=== PATIENT | female | born 1975 | race American Indian/Alaskan Native ===

== ENCOUNTER 2018-08-26 17:12 | Emergency (ER) | payer OTHER ==
[~2018-08-26] VITALS: Ht 160 cm; Wt 52.2 kg
[~2018-08-26 17:12] MED LIST: CIPRO500 MG PO; CLINDAMYCIN HC300 MG PO; FLAGYL500 MG PO; NORCO 5-325 TA1 EACH PO; PEPCID20 MG PO; REGLAN10 MG PO; SUBOXONE 4 MG-1 EACH SL; TRAMADOL HCL50 MG PO; TYLENOL EXTRA500 MG PO; VICODIN ES 7.51 EAC1 PO; WELLBUTRIN SR100 MG; ZOFRAN ODT8 MG PO
--- OUTSIDE RECORDS SUMMARY | 2018-08-26 17:16 | XMS ---
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 Details: CHERRIE Elopement at [facility] 06/05/2018 17:12 - Patient eloped before treatment completed. Details: LWRENETTA CRITERIA MET - Group Notification CARE PROVIDERS Mandeep DIAZ Internal Medicine Current PHONE: Unknown ESTRELLITA MONTENEGRO Registered Nurse: [facility] 06/14/2018-Current SONDRA PHONE: [phone] Mandeep DIAZ Primary Care Current PHONE: [phone] GETACHEW TYLER Primary Care Current PHONE: Unknown STEW CAMPOVERDE Primary Care [facility] PHONE: Unknown Sebastian has no Care Guidelines for this patient. Care History Medical/Surgical 06/14/2018 [facility] - PATIENT WAS SEEN IN [facility] ON 06/14/18. - PATIENT LEATHER PRODUCTION WORKER-OZZIE AT [facility] WILL TALK WITH PATIENT ABOUT ESTABLISHING WITH DR MONTENEGRO SINCE PATIENT WAS SEEN IN THE PAST BY THE PROVIDER. - PLEASE REFER PATIENT TO [facility] FOR ANY NON EMERGENT MEDICAL NEEDS. E.D. VISIT COUNT (12 MO.) 1 [facility] [place] [address] [facility] TOTAL 5 NOTE: Visits indicate total known visits. 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
== END 2018-08-26 20:20 | disposition home or self-care (01) ==
LOC: ED 17:12
DX: R51 Headache (principal); J45.909 Unspecified asthma, uncomplicated; F17.200 Nicotine dependence, unspecified, uncomplicated; Z88.6 Allergy status to analgesic agent; Z88.5 Allergy status to narcotic agent; Z88.8 Allergy status to other drugs, medicaments and biological substances; Z79.899 Other long term (current) drug therapy
CPT/HCPCS: 80053; 85025; 96361; 96374; 99284-25; J2550; J7030

== ENCOUNTER 2018-10-25 22:30 | Emergency (ER) | payer OTHER ==
[~2018-10-25] VITALS: Ht 160 cm; Wt 52.2 kg
--- OUTSIDE RECORDS SUMMARY | ~2018-10-25 | XMS | Encounter Summary ---
Demographics + + + | Address | [address] | | | [place] [address] | + + + | Home Phone [...] Organization | [facility] | | [...] Team Providers + +------+ + | Care Cabin Worker Name | Role | Phone | + +------+ + | Mandeep Gillespie MD | PCP | | + +------+ + Encounter Details +--------+ + + + + | Date | Type | Department | Care Team | Description | +--------+ + + + + | 08/11/ | Orders Only | [place] [facility] | Mandeep Gillespie, | | | 2017 | | [facility] | [address] [place] [address] | | | | | [facility] [address] | [place], [place] | | | | | [address] [place], | [address] | | | | | [place] [address] | [phone] | | | | | [phone] | | | +--------+ + + + [...] on file | | + + + as of this encounter Functional Status + [...] | | | + + + + as of this encounter Plan of Treatment Not on fileas of this encounter Visit Diagnoses Not on filein this encounter"
--- OUTSIDE RECORDS SUMMARY | ~2018-10-25 | XMS | Clinical Summary ---
Demographics + + + | Address | [address] | | | [place] [address] | + + + | Home Phone [...] Organization | [facility] | | | [...] Team Providers + +------+ + | Care Oracle Developer Name | Role | Phone | [...] ANR | + + + +--------+ + Current Medications + + +--------+---------+------+------+-------+ | Prescription | Sig. | Disp. | Refills | Star | End | Statu | | | | | | t | Date | s | | | | | | Date | | | + + +--------+---------+------+------+-------+ | topiramate | Take 1 tablet by [...] | | | | | + + +--------+---------+------+------+-------+ | | Take 1-2 tablets by | | | 01/2 | | Activ | | HYDROcodone-acetamin | mouth. | | | 12/02 | | e | | ophen (NORCO) 5-325 | | | | 18 | | | | mg per tablet | | | | | | | + + +--------+---------+------+------+-------+ | hydrOXYzine | Take 25 mg by mouth. | | | 08/0 | | Activ | | pamoate (VISTARIL) | | | | 220 | | e | | 25 mg capsule | | | | 12 | | | + + +--------+---------+------+------+-------+ | | Take 1 tablet by | | | | | Activ | | [id number] | mouth. | | | | | e | | PO | | | | | | | + + +--------+---------+------+------+-------+ | buPROPion | Take 1 tablet by | 90 | 5 | 08/15 | | Activ | | (WELLBUTRIN SR) 150 | mouth 3 times daily. | tablet | | 0/20 | | e | | mg 12 hr tablet | | | | 19 | | | + + +--------+---------+------+------+-------+ Active Problems + + + | Problem | Noted Date | + + + | Anxiety and depression | 06/23/2017 | + + + | Anxiety | 06/23/2017 | + + + | Dysthymic disorder | 06/23/2017 | + + + | Headache disorder | 06/16/2015 | + + + | Opiate addiction (HCC) | 10/25/2013 | + + + + [...] PELVIC PAIN, CHRONIC | | + +---+ Encounters +--------+ + + + + | Date | Type | Specialty | Care Team | Description | +--------+ + + + + | 08/24/ | Refill | | Mandeep Gillespie, | Medication Refill | | 2018 | | | MD | | +--------+ + + + + | 08/11/ | Orders Only | | Mandeep Gillespie, | | | 2017 | | | MD | | +--------+ + + + + from Last 3 Months Immunizations + + + + | Name [...] | + + + + + | PRIMARY CARE | | | | | OUTREACH-INTENSE | 6 | | | | RISK EVERY 3 MONTHS | | | | + + + + + | Vaccine: | | | | | Pneumococcal 19-64 | 5 | | | | (PPSV23 only) Medium | | | | | Risk (1 of 1 - | | | | | PPSV23) | | | | + + + + + | Vaccine: Influenza | | 06/19/2013 | | | (#1) | 8 | | | + + + + [...] Last 3 Months Insurance + +--------+ +--------+ +---------+ | Payer | Benefi | Subscriber | Type | Phone | Address | | | t Plan | ID | | | | | | / | | | | | | | Group | | | | | + +--------+ +--------+ +---------+ | [employer] | MODA | [id number] | Medica | +- | | | MEDICAID HMO | HEALTH | | id | [id number] | | | | MDCD | | | | | | | [place]MO [place] | | | | | + +--------+ +--------+ +---------+ | [facility] | IHS | [id number] | Indemn | | | | SERVICE | YELLOW | | ity | | | | | HAWK | | | | | + +--------+ +--------+ +---------+ | [employer]AN | MODA | [id number] | Medica | +- | | | MEDICAID HMO | HEALTH | | id | [id number] | | | | MDCD | | | | | | | [place]MO [place] | | | | | + +--------+ +--------+ +---------+ + +--------+ +--------+ + + | Guarantor Name | Accoun | Relation to | Date | Phone | Billing Address | | | t Type | Patient | of | | | | | | | | | | + +--------+ +--------+ + + | LIN BOYLE | Person | Self | [birth year] | Home: | [address] | | | al/Fam | | 1974 | +- | [place] [address] | | | randi | | | [phone] | | + +--------+ +--------+ + + | LIN BOYLE | Person | Self | [birth year] | Home: | [address] | | | al/Fam | | 1974 | [phone] | [place] [address] | | | randi | | | [address] | | + +--------+ +--------+ + +
--- OUTSIDE RECORDS SUMMARY | ~2018-10-25 | XMS | Clinical Summary ---
Demographics + + + | Address | [address] | | | [place] [address] | + + + | Home Phone | | + + + | Preferred Language | Unknown | + + + | Marital Status | Single | + + + | Denominational Affiliation | Unknown | + + + | Race | Unknown | + + + | Ethnic Group | Unknown | + + + Author + + + | Author | [facility] | + + + | Organization | [facility] | + + + | Address | Unknown | + + + | Phone | Unavailable | + + + Support + + + + + | Name | Relationship | Address | Phone | + + + + + | Marlena Castillo | ECON | [address] | | | | | [place] | | | | | [address] | | + + + + + | Gloria Oliveira | ECON | Unknown | | + + + + + | RudiKorey benito | ECON | Unknown | | + + + + + Care Team Providers + +------+ + | Care Public Health Registrar Name | Role | Phone | + [...] | | | | | (#1) | 8 | [...] +------+-------+ + | MEDICAID | [place] | [id number] | | | [address] | | | N | | | | [place] | | | [place] | | | | [address] | | | HOIST CYLINDER LOADER | | | | | + +--------+ [...] | Self | [birth year] | Home: | [address] | | | al/Fam | | 1975 | [phone] | [place] [address] | | | randi | | | [phone] | | + +--------+ +--------+ + +
--- OUTSIDE RECORDS SUMMARY | ~2018-10-25 | XMS | Encounter Summary ---
Demographics + + + | Address | [address] | | | [place] [address] | + + + | Home Phone [...] | Organization | [facility] | | | and [place] [...] Providers + +------+ + | Care Manager Administrative Name | Role | Phone | + [...] Medication Refill | | 2019 | | [facility] | [address] | | | | | MEDICAL CL[facility] [address] | [place], [place] | | | | | [address] [place], | [address] | | | | | [place] [address] | [phone] | | | | | [phone] | | | +--------+--------+ + + + [...]
--- OUTSIDE RECORDS SUMMARY | 2018-10-25 22:32 | XMS ---
PreManage Notification: JADEN BOYLE Security Db2 Dba Events 2 event(s) in the past 18 months Most recent security events: Elopement at [facility] 06/05/2018 17:12 - Patient eloped before treatment completed. Details: LWBS Elopement at [facility] 06/05/2018 17:12 - Patient eloped before treatment completed. Details: LWBS CRITERIA MET - Group Notification - [facility] - Has Care Guidelines - PDMP CARE PROVIDERS Mandeep DIAZ Internal Medicine Current PHONE: Unknown ESTRELLITA MONTENEGRO Registered Nurse: [facility] 06/14/2018-Current SONDRA PHONE: [phone] EMILY WHITEHEAD Primary [facility] Clemencia CHAIDEZITH PHONE: Unknown GETACHEW TYLER Primary Care Current PHONE: Unknown MARTY BAZAN Primary Care [facility] PHONE: Unknown Sebastian has no Care Guidelines for this patient. Care History Medical/Surgical 06/14/2018 [facility] - PATIENT NEEDS TO ESTABLISH WITH A PCP. PATIENT HAS NOT SEEN A PROVIDER AT [facility] IN OVER A YEAR. - PATIENT HAS HISTORY OF DRUG USAGE- PLEASE USE PROVIDER DISCRETION WITH NARCOTIC MEDICATIONS AT DISCHARGE. - PLEASE REFER PATIENT TO [facility] FOR ANY NON EMERGENT MEDICAL NEEDS. E.D. VISIT COUNT (12 MO.) 4 [facility]. TOTAL 4 NOTE: Visits indicate total known visits. 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 - Allergy status to other drugs, medicaments and biological substances status - Headache - Unspecified asthma, uncomplicated - Allergy status to narcotic agent status - Nicotine dependence, unspecified, uncomplicated 06/10/2018 17:15 [facility] [place] TYPE: Emergency COMPLAINT: - VAGINAL BLEEDING DIAGNOSES: - Other specified abnormal uterine and vaginal bleeding - Allergy status to narcotic agent status - Abnormal uterine and vaginal bleeding, unspecified - Allergy status to analgesic agent status - Nicotine dependence, other tobacco product, uncomplicated - Unspecified asthma, uncomplicated - Other penitentiary (current) drug therapy - Allergy status to other drugs, medicaments and biological substances status 06/05/2018 17:12 [facility] [place] TYPE: Emergency COMPLAINT: - ABD CRAMPING,BLOODY STOOL DIAGNOSES: - Left lower quadrant pain INPATIENT VISIT TRACKING (12 MO.) No inpatient visits to display in this time frame [id number]
== END 2018-10-26 00:51 | disposition home or self-care (01) ==
LOC: ED 22:30
DX: M25.531 Pain in right wrist (principal); J45.909 Unspecified asthma, uncomplicated; G43.909 Migraine, unspecified, not intractable, without status migrainosus; F17.200 Nicotine dependence, unspecified, uncomplicated; Z88.6 Allergy status to analgesic agent; Z88.8 Allergy status to other drugs, medicaments and biological substances; Z79.899 Other long term (current) drug therapy
CPT/HCPCS: 29125; 73110; 99283-25

== ENCOUNTER 2018-12-15 00:22 | Emergency (ER) | payer OTHER ==
[~2018-12-15] VITALS: Ht 160 cm; Wt 52.2 kg
--- OUTSIDE RECORDS SUMMARY | ~2018-12-15 | XMS | Clinical Summary ---
Demographics + + + | Address | [address] | | | [place] [address] | + + + | Home Phone [...] Author + + + | Author | [facility] | | | and [place] | + + + | Organization | [facility] | | | and [...] Team Providers + +------+ + | Care Model And Dye Person Name | Role | Phone | + +------+ + | Mandeep Gillespie MD | PP | | + +------+ + Allergies + + + +--------+ + | Active Allergy | Reactions | Severity | Noted | Comments | | | | | Date | | + + + +--------+ + | Aspirin | | | | Not specified from | | | | | | outside medical | | | | | | records ~ ANR | + + + +--------+ + | Nsaids | | | | Not specified from | | | | | | outside medical | | | | | | records ~ ANR | + + + +--------+ + Medications + + + +---------+------+------+-------+ | Medication | Sig | Dispensed | Refills | Star | End | Statu | | | | | | t | Date | s | | | | | | Date | | | + + + +---------+------+------+-------+ | topiramate | Take 1 tablet by | 30 | 11 | 11/2 | | Activ | | (TOPAMAX) 25 mg | mouth nightly. | tablet | | 0/20 | | e | | tabletIndications: | | | | 17 | | | | Headaches due to old | | | | | | | | head injury | | | | | | | + + + +---------+------+------+-------+ | | Take 1-2 tablets by | | 0 | 01/2 | | Activ | | HYDROcodone-acetamin | mouth. | | | 4/20 | | e | | ophen (NORCO) 5-325 | | | | 18 | | | | mg per tablet | | | | | | | + + + +---------+------+------+-------+ | hydrOXYzine | Take 25 mg by mouth. | | 0 | 08/0 | | Activ | | pamoate (VISTARIL) | | | | 2/20 | | e | | 25 mg capsule | | | | 12 | | | + + + +---------+------+------+-------+ | | Take 1 tablet by | | 0 | | | Activ | | [id number] | mouth. | | | | | e | | PO | | | | | | | [...] + + + + | Name | Dates Previously Given | Next Due | + + + + | HEP A, 2 DOSE | 11/05/2010, 05/13/2005 | | | (ADULT) | | | + + + + | INFLUENZA PF | 06/19/2013 | | | TRIVALENT(PED/ADOL/A | | | | DEEPTHI MAIN | | | + + + + [...] + | Blood Pressure | 116/68 | 07/04/2017819 PST | + + + + | Pulse | 78 | 07/04/2017819 PST | + + + + | Temperature | 37.1 C (98.7 F) | 01/21/2017 1309 PDT | + + + + | Respiratory Rate | 16 | 07/04/2017819 PST | + + + + | Oxygen Saturation | 98% | 07/04/2017819 PST | + + + + | Inhaled Oxygen | - | - | | Concentration | | | + + + + | Weight | 49 kg (108 lb) | 06/30/2017920 PST | + + + + | Height | 160 cm (5' 3") | 07/04/2017819 PST | + + + + | Body Mass Index | 19.75 | 06/30/2017 0921 PST | + + + + Plan of Treatment + + + + + | Health Maintenance | Due Date | Last Done | Comments | + + + + + | Vaccine: | | | | | Pneumococcal 19-64 | 5 | | | | (PPSV23 only) Medium | | | | | Risk (1 of 1 - | | | | | PPSV23) | | | | + + + + + | Primary Care | | 07/04/2017, 06/30/2017 | | | Outreach (Intense | 8 | | | | Risk) | | | | + + + + + | Vaccine: Influenza | | 06/19/2013 | | | (Season Ended) | 9 | | | + + + + + | Cervical Cancer | | 05/24/2017 | | | Screening (Pap) | 2 | | | + + + + + | Vaccine: | | 04/30/2013, 02/29/2012 | | | Dtap/Tdap/Td (3 - | 3 | | | | Td) | | | | + + + [...] | [employer] | MODA | [id number] | 06/04/ | [phone] | | Medica | | MEDICAID HMO | HEALTH | | 2016-P | 1 | | id | | | MDCD | | resent | | | | | | HMO [place] | | | | | | + +--------+ +--------+ +---------+--------+ | [facility] | IHS | [id number] | | | | Indemn | | SERVICE | YELLOW | | 013-Pr | | | ity | | | HAWK | | esent | | | | + +--------+ +--------+ +---------+--------+ | [employer] | MODA | [id number] | 07/07/ | [phone] | | Medica | | MEDICAID HMO | HEALTH | | 2014-P | 1 | | id | | [...] Person | Self | [birth year] | | [address] | | | al/Fam | | 1974 | [phone] | [place] [address] | | | randi | | | 5 (Home) | | + +--------+ +--------+ + + | Lin Garcia | Person | Self | [birth year] | | [address] | | | al/Fam | | 1974 | [phone] | [place] [address] | | | randi | | | 5 (Home) | | + +--------+ +--------+ + + Advance Directives Patient has advance care planning documents on file. For more information, please contact:[facility] [place] [address]
--- OUTSIDE RECORDS SUMMARY | ~2018-12-15 | XMS | Clinical Summary ---
Demographics + + + | Address | [address] | | | [place] [address] | + + + | Home Phone [...] + + + | Author | [facility] | | | and [place] | + + + | Organization | [facility] | | | and [place] [...] Team Providers + +------+ + | Care Dental Aide Name | Role | Phone | [...] 0 | | | Activ | | [id number]-FA | mouth. | | | | | [...] | [employer] | MODA | [id number] | 06/04/ | [phone] | | Medica | | MEDICAID HMO | HEALTH | | 2016-P | 1 | | id | | | MDCD | | resent | | | | | | HMO [place] | | | | | | + +--------+ +--------+ +---------+--------+ | [facility] | IHS | [id number] | | | | Indemn | | SERVICE | YELLOW | | 013-Pr | | | ity | | | HAWK | | esent | | | | + +--------+ +--------+ +---------+--------+ | [employer]AN | MODA | [id number] | 07/07/ | [phone] | | Medica | | MEDICAID HMO [...] Person | Self | [birth year] | | [address] | | | al/Fam | | 1974 | [phone] | [place] [address] | | | randi | | | 5 (Home) | | + +--------+ +--------+ + + | Lin Garcia | Person | Self | [birth year] | | [address] | | | al/Fam | | 1974 | [phone] | [place] [address] | | | randi | | | 5 (Home) | | + +--------+ +--------+ + + Advance Directives Patient has advance care planning documents on file. For more information, please contact:[facility] [place] [address]
--- OUTSIDE RECORDS SUMMARY | ~2018-12-15 | XMS | Clinical Summary ---
Demographics + + + | Address | [address] | | | [place] [address] | + + + | Home Phone | | + + + | Preferred Language | Unknown | + + + | Marital Status | Single | + + + | Episcopal Affiliation | Unknown | + + + | Race | Unknown | + + + | Ethnic Group | Unknown | + + + Author + + + | Author | [facility] | + + + | Organization | [facility] | + + + | Address | Unknown | + + + | Phone | Unavailable | + + + Support + + + + + | Name | Relationship | Address | Phone | + + + + + | Marlena Castillo | ECON | [address] | | | | | [place] | | | | | [address] | | + + + + + | Gloria Oliveira | ECON | Unknown | | + + + + + | RudiKorey benito | ECON | Unknown | | + + + + + Care Team Providers + +------+ + | Care Paper Cup Machine Operator Name | Role | Phone [...] | 11/14/2012 | + + + | [place] | 11/14/2012 | + + + + [...] Vaccine: Influenza | | | | | (Season Ended) | 9 [...] + +--------+ +------+-------+ + | MEDICAID | [place] | [id number] | | | [address] | | | N | | | | [place] | | | [place] | | | | [address] | | | METAL ANNEALER | | | | | + +--------+ [...] | Self | [birth year] | Home: | [address] | | | al/Fam | | 1975 | [phone] | [place] [address] | | | randi | | | [phone] | | + +--------+ +--------+ + +
--- OUTSIDE RECORDS SUMMARY | ~2018-12-15 | XMS | Clinical Summary ---
Demographics + + + | Address | [address] | | | [place] [address] | + + + | Home Phone | | + + + | Preferred Language | Unknown | + + + | Marital Status | Single | + + + | Anabaptism Affiliation | Unknown | + + + | Race | Unknown | + + + | Ethnic Group | Unknown | + + + Author + + + | Author | [facility] | + + + | Organization | [facility] | + + + | Address | Unknown | + + + | Phone | Unavailable | + + + Support + + + + + | Name | Relationship | Address | Phone | + + + + + | Marlena Castillo | ECON | [address] | | | | | [place] | | | | | [address] | | + + + + + | Gloria Oliveira | ECON | Unknown | | + + + + + | RudiKorey benito | ECON | Unknown | | + + + + + Care Team Providers + +------+ + | Care County Historian Name | Role | Phone | + [...] +------+-------+ + | MEDICAID | [place] | [id number] | | | [address] | | | N | | | | [place] | | | [place] | | | | [address] | | | SHAREPOINT TRAINER | | | | | + +--------+ [...] | Self | [birth year] | Home: | [address] | | | al/Fam | | 1975 | [phone] | [place] [address] | | | randi | | | [address] | | + +--------+ +--------+ + +
--- OUTSIDE RECORDS SUMMARY | 2018-12-15 00:26 | XMS ---
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 Details: LWBS Elopement at [facility] 06/05/2018 17:12 - Patient eloped before treatment completed. Details: LWBS CRITERIA MET - Group Notification - [facility] - Has Care Guidelines - PDMP CARE PROVIDERS Mandeep DIAZ Internal Medicine Current PHONE: Unknown YEHUDA MARTINEZ [facility] 10/30/2018-Current KYLE PHONE: Unknown ESTRELLITA MONTENEGRO Registered Nurse: [facility] 06/14/2018-Current SONDRA PHONE: [phone] EMILY WHITEHEAD Primary Care [facility] PHONE: Unknown GETACHEW TYLER Primary Care Current PHONE: Unknown MARTY MARCOS [facility] Primary [facility] PHONE: Unknown Sebastian has no Care Guidelines for this patient. Care History Medical/Surgical 10/30/2018 [facility] CALL[facility] [phone] AND THE INDIVIDUAL WHO ANSWERED THE PHONE STATED THAT IT IS NOT THE CORRECT CONTACT NUMBER AND TO NOT CALL AGAIN. - PHONE NUMBER PROVIDER IS NOT VALID FOR CONTACTING PATIENT. 10/26/2018 [facility] - W CALLED PATIENT AND LEFT A VOICEMAIL FOR A RETURN CALL. - PATIENT HAS NOT FOLLOWED UP WITH PCP. 06/14/2018 [facility] - PATIENT NEEDS TO ESTABLISH WITH A PCP. PATIENT HAS NOT SEEN A PROVIDER AT [facility] IN OVER A YEAR. - PATIENT HAS HISTORY OF DRUG USAGE- PLEASE USE PROVIDER DISCRETION WITH NARCOTIC MEDICATIONS AT DISCHARGE. - PLEASE REFER PATIENT TO [facility] FOR ANY NON EMERGENT MEDICAL NEEDS. E.D. VISIT COUNT (12 MO.) [address] [facility] TOTAL 6 NOTE: Visits indicate total known visits. ED/UCC VISIT TRACKING (12 MO.) 12/15/2018 00:23 [facility] TYPE: Emergency COMPLAINT: - ALTERED LOC 10/27/2018 23:01 [facility] TYPE: Emergency COMPLAINT: - SYNCOPE DIAGNOSES: - Poisoning by benzodiazepines, accidental (unintentional), initial encounter - Other half-way (current) drug therapy - Syncope and collapse - Nicotine dependence, unspecified, uncomplicated - Unspecified asthma, uncomplicated - Allergy status to narcotic agent status - Allergy status to analgesic agent status 10/25/2018 22:31 [facility] TYPE: Emergency COMPLAINT: - R WRIST PAIN,NON INJURY DIAGNOSES: - Pain in right wrist - Allergy status to other drugs, medicaments and biological substances status - Allergy status to analgesic agent status - Nicotine dependence, unspecified, uncomplicated - Unspecified asthma, uncomplicated - Other termination clerk (current) drug therapy - Migraine, unspecified, not intractable, without status migrainosus 08/26/2018 17:13 [facility] TYPE: Emergency COMPLAINT: - HEADACHE/VOMITING DIAGNOSES: - Allergy status to analgesic agent status - Other half-way (current) drug therapy - Allergy status to [...] uncomplicated - Unspecified asthma, uncomplicated - Other half-way (current) drug therapy - Allergy status to other drugs, medicaments and biological substances status 06/05/2018 17:12 [facility] TYPE: Emergency COMPLAINT: - ABD CRAMPING,BLOODY STOOL DIAGNOSES: - Left lower quadrant pain INPATIENT VISIT TRACKING (12 MO.) No inpatient visits to display in this time frame [email or web address]
== END 2018-12-15 02:27 | disposition home or self-care (01) ==
LOC: ED 00:22
DX: F10.129 Alcohol abuse with intoxication, unspecified (principal); Y90.4 Blood alcohol level of 80-99 mg/100 ml; F11.10 Opioid abuse, uncomplicated; J45.909 Unspecified asthma, uncomplicated; F17.200 Nicotine dependence, unspecified, uncomplicated; Z88.6 Allergy status to analgesic agent; Z88.5 Allergy status to narcotic agent; Z88.8 Allergy status to other drugs, medicaments and biological substances
CPT/HCPCS: 80053; 84703; 85025; 99284; G0480

== ENCOUNTER 2019-04-08 08:19 | Emergency (ER) | payer OTHER ==
[~2019-04-08] VITALS: Ht 160 cm; Wt 52.2 kg
--- OUTSIDE RECORDS SUMMARY | 2019-04-08 08:22 | XMS ---
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 Details: LWBS Elopement at [facility] 06/05/2018 17:12 - Patient eloped before treatment completed. Details: LWBS CRITERIA MET - Group Notification - [facility] - Has Care Guidelines - PDMP CARE PROVIDERS Ced Lorenz MD Family Medicine 12/18/2018-Current PHONE: Unknown Mandeep DIAZ Internal Medicine Current PHONE: Unknown ESTRELLITA MONTENEGRO Registered Nurse: [facility] 06/14/2018-Current SONDRA PHONE: [phone] CHARLEY DIAZ Primary Care Current PHONE: [phone] GETACHEW TYLER Primary Care Current PHONE: Unknown MARTY BANKS Primary Care Current PROVIDERS PHONE: Unknown Sebastian has no Care Guidelines for this patient. Care History Medical/Surgical 12/18/2018 [facility] \T\middot;\T\nbsp; PATIENT IS A [employer] MEMBER. \T\middot;\T\nbsp; PLEASE REFER PATIENT TO [facility] FOR NON EMERGENT MEDICAL NEEDS. \T\middot;\ T\nbsp; [facility] CAN SEE PATIENTS SAME DAY FOR APTS IF PATIENT CALLS FIRST THING IN THE MORNING. 10/30/2018 [facility] CALLED [phone] AND THE INDIVIDUAL WHO ANSWERED THE PHONE STATED THAT IT IS NOT THE CORRECT CONTACT NUMBER AND TO NOT CALL AGAIN. - PHONE NUMBER PROVIDER IS NOT VALID FOR CONTACTING PATIENT. 10/26/2018 [facility] CALLED PATIENT AND LEFT A VOICEMAIL FOR A RETURN CALL. - PATIENT HAS NOT FOLLOWED UP WITH ANALILIA. David VISIT COUNT (12 MO.) 7 TRUE [place] TOTAL 7 NOTE: Visits indicate total known visits. ED/UCC VISIT TRACKING (12 MO.) 04/08/2019 08:19 [facility] TYPE: Emergency COMPLAINT: - R HAND PAIN/NON INJURY 12/15/2018 00:23 [facility] TYPE: Emergency COMPLAINT: - ALTERED LOC DIAGNOSES: - Allergy status to other drugs, medicaments and biological substances status - Blood alcohol level of 80-99 mg/100 ml - Nicotine dependence, unspecified, uncomplicated - Unspecified asthma, uncomplicated - Alcohol abuse with intoxication, unspecified - Allergy status to analgesic agent status - Allergy status to narcotic agent status - Opioid abuse, uncomplicated 10/27/2018 23:01 [facility] TYPE: Emergency COMPLAINT: - SYNCOPE DIAGNOSES: - Poisoning by benzodiazepines, accidental (unintentional), initial encounter - Other jail (current) drug therapy - Syncope and collapse [...] uncomplicated - Unspecified asthma, uncomplicated - Other jail (current) drug therapy - Migraine, unspecified, not intractable, without status migrainosus 08/26/2018 17:13 [facility] TYPE: Emergency COMPLAINT: - HEADACHE/VOMITING DIAGNOSES: - Allergy status to analgesic agent status - Other supervisor intermediates (current) drug therapy - Allergy status to [...] uncomplicated - Unspecified asthma, uncomplicated - Other supervisor intermediates (current) drug therapy - Allergy status to other drugs, medicaments and biological substances status 06/05/2018 17:12 [facility] TYPE: Emergency COMPLAINT: - ABD CRAMPING,BLOODY STOOL DIAGNOSES: - Left lower quadrant pain INPATIENT VISIT TRACKING (12 MO.) No inpatient visits to display in this time frame [email or web address]
[2019-04-08] MEDS ORDERED: SUBOXONE 4 MG-1 EACH PO (08:44)
--- NOTE | 2019-04-08 11:48 | EKG ---
[facility] [address] [facility] [place] [address] Signed Normal sinus rhythm Incomplete right bundle branch block Nonspecific T wave abnormality Prolonged QT Abnormal ECG When compared with ECG of 27-OCT-2018 23:28, Vent. rate has decreased BY 42 BPM Nonspecific T wave abnormality now evident in Lateral leads Confirmed by GEORGETTE JENSEN MD ([id number]) on 04/08/2019 11:48:14 AM Electronically Signed By: GEORGETTE JENSEN MD 04/08/19 1148 PATIENT NAME: JADEN BOYLE Electrocardiogram DATE OF : 77 PHYSICIAN: GEORGETTE JENSEN MD REPORT #: [id number] REPORT IS CONFIDENTIAL AND NOT TO BE RELEASED WITHOUT AUTHORIZATION
== END 2019-04-08 13:41 | disposition home or self-care (01) ==
LOC: ED 08:19
DX: R51 Headache (principal); M25.531 Pain in right wrist; F17.200 Nicotine dependence, unspecified, uncomplicated; Z88.6 Allergy status to analgesic agent; Z88.8 Allergy status to other drugs, medicaments and biological substances; Z79.899 Other long term (current) drug therapy
CPT/HCPCS: 70496; 70498; 73110; 80053; 84703; 85025; 85379; 85651; 93005; 93010; 99284-25; J1200; J2765; J7040; Q9967

== ENCOUNTER 2019-06-17 11:15 | Emergency (ER) | payer OTHER ==
[~2019-06-17] VITALS: Ht 160 cm; Wt 53.1 kg
--- OUTSIDE RECORDS SUMMARY | ~2019-06-17 | XMS | Encounter Summary ---
Demographics + + + | Address | [address] | | | [place] [address] | + + + | Home Phone | | + + + | Preferred Language | Unknown | + + + | Marital Status | Single | + + + | Jew Affiliation | Unknown | + + + | Race | or | + + + | Ethnic Group | Not or | + + + Author + + + | Author | [facility] | + + + | Organization | [facility] [employer] [facility] | + + + | Address | Unknown | + + + | Phone | Unavailable | + + + Support + + +---------+ + | Name | Relationship | Address | Phone | + + +---------+ + | Marlena Jonathan | ECON | Unknown | | + + +---------+ + Care Team Providers + +------+ + | Care Electronics Research Engineer Name | Role | Phone | + +------+ + | Rhonda Watkins | PCP | | + +------+ + Encounter Details +--------+--------+ + + + | Date | Type | Department | Care Team | Description | +--------+--------+ + + + | 04/09/ | Intake | Transfer Center | | N/A | | 2019 | | [address] | | | | | | [place], | | | | | | [place] [address] | | | +--------+--------+ + + + Social History + +-------+ +--------+------+ | Tobacco Use | Types | Packs/Day | Years | Date | | | | | Used | | + +-------+ +--------+------+ | Never Assessed | | | | | + +-------+ +--------+------+ + + + | Sex Assigned at | Date Recorded | | | | + + + | Not on file | | + + + + + + + | Job Start Date | Occupation | Industry | + + + + | Not on file | Not on file | Not on file | + + + + + + + + | Travel History | Travel Start | Travel End | + + + + + + | No recent travel history available. | + + documented as of this encounter Plan of Treatment Not on filedocumented as of this encounter Visit Diagnoses Not on filedocumented in this encounter"
--- OUTSIDE RECORDS SUMMARY | ~2019-06-17 | XMS | Encounter Summary ---
Demographics + + + | Address | [address] | | | [place] [address] | + + + | Home Phone [...] Author + + + | Author | [facility] [facility] | + + + | Organization | [facility] [employer] [facility] | + + + | Address | Unknown | + + + | Phone | Unavailable | + + + Support + + +---------+ + | Name | Relationship | Address | Phone | + + +---------+ + | Marlena Jonathan | ECON | Unknown | | + + +---------+ + Care Team Providers + +------+ + | Care Quantitative Analyst Developer Name | Role | Phone | + +------+ + | Rhonda Watkins | PCP | | + +------+ + Encounter Details +--------+ + + + + | Date | Type | Department | Care Team | Description | +--------+ + + + + | 04/09/ | Outside | UNKNOWN DEPARTMENT | Other, Faculty | | | 2019 | Records | [address] [facility] | [phone] | | | | | [address] | | | | | | [place], [place] | | | | | | [address] | | | +--------+ + + + [...] Not on filedocumented as of this encounter Procedures + +--------+ + + + | Procedure Name | Priori | Date/Time | Associated Diagnosis | Comments | | | ty | | | | + +--------+ + + + | OUTSIDE RADIOLOGY - | | 04/09/2019 | | Results for this | | CT | | 12:00 AM | | procedure are in the | | | | PDT | | results section. | + +--------+ + + + | OUTSIDE RADIOLOGY - | | 04/09/2019 | | Results for this | | CT | | 12:00 AM | | procedure are in the | | | | PDT | | results section. | + +--------+ + + + documented in this encounter Results OUTSIDE RADIOLOGY - CT (04/09/2019 12:00 AM PDT) + + + | Narrative | Performed At | + + + | | | + + + OUTSIDE RADIOLOGY - CT (04/09/2019 12:00 AM PDT) + + + | Narrative | Performed At | + + + | | | + + + documented in this encounter Visit Diagnoses Not on filedocumented in this encounter"
--- OUTSIDE RECORDS SUMMARY | ~2019-06-17 | XMS | Encounter Summary ---
Demographics + + + | Address | [address] | | | [place] [address] | + + + | Home Phone | | + + + | Preferred Language | Unknown | + + + | Marital Status | Single | + + + | Congregational Affiliation | Unknown | + + + | Race | or | + + + | Ethnic Group | Not or | + + + Author + + + | Organization | Unknown | + + + | Address | Unknown | + + + | Phone | Unavailable | + + + Support + + +---------+ + | Name | Relationship | Address | Phone | + + +---------+ + | Marlena Castillo | ECON | Unknown | | + + +---------+ + Care Team Providers + +------+ + | Care Awning Maker And Installer Name | Role | Phone | + +------+ + | Roland Rhonda DAVILA | PCP | | + +------+ + Encounter Details +--------+--------+ + + + | Date | Type | Department | Care Team | Description | +--------+--------+ + + + | 05/25/ | Travel | | | | | 2019 | | | | | +--------+--------+ + [...]
--- OUTSIDE RECORDS SUMMARY | ~2019-06-17 | XMS | Encounter Summary ---
Demographics + + + | Address | [address] | | | [place] [address] | + + + | Home Phone [...] Author + + + | Author | [facility] [employer] [facility] | + + + | Organization | [facility] [employer] [facility] | + + + | Address | Unknown | + + + | Phone | Unavailable | + + + Support + + +---------+ + | Name | Relationship | Address | Phone | + + +---------+ + | Marlena Jonathan | ECON | Unknown | | + + +---------+ + Care Team Providers + +------+ + | Care Motor And Controls Tester Name | Role | Phone | + [...] | | | | | | [place] [address] | | | +--------+--------+ + + + [...]
--- OUTSIDE RECORDS SUMMARY | ~2019-06-17 | XMS | Encounter Summary ---
Demographics + + + | Address | [address] | | | [place] [address] | + + + | Home Phone [...] + + | Author | [facility] | + + + | Organization | [facility] [facility] | + + + | Address | Unknown | + + + | Phone | Unavailable | + + + Support + + +---------+ + | Name | Relationship | Address | Phone | + + +---------+ + | Marlena Jonathan | ECON | Unknown | | + + +---------+ + Care Team Providers + +------+ + | Care Auger Operator Name | Role | Phone | [...] | | | | | | [place] [address] | | | +--------+--------+ + + + [...]
--- OUTSIDE RECORDS SUMMARY | ~2019-06-17 | XMS | Clinical Summary ---
Demographics + + + | Address | [address] | | | [place] [address] | + + + | Home Phone | | + + + | Preferred Language | Unknown | + + + | Marital Status | Single | + + + | Restorationist Affiliation | Unknown | + + + | Race | Unknown | + + + | Ethnic Group | Unknown | + + + Author + + + | Author | [facility] (Historical as of | | | 03-31-19) | + + + | Organization | [facility] (Historical as of | | | 03-31-19) | + + + | Address | Unknown | + + + | Phone | Unavailable | + + + Support + + + + + | Name | Relationship | Address | Phone | + + + + + | Marlena Castillo | ECON | [address] | | | | | [place] | | | | | [address] | | + + + + + | Karen Oliveiraeste | ECON | Unknown | | + + + + + | Korey Pascual | ECON | Unknown | | + + + + + Care Team Providers + +------+ + | Care Color Matcher Name | Role | Phone | + +------+ + PP | Unavailable | + +------+ + Allergies + + + + + + | Active Allergy | Reactions | Severity | Noted | Comments | | | | | Date | | + + + + + + | Aspirin | Other (See Comments) | Medium | 11/15/19 | Rapid heart beat, | | | | | 13 | fatigue. | + + + + + + Current Medications + + +-------+---------+------+------+-------+ | Prescription | Sig. | Disp. | Refills | Star | End | Statu | | | | | | t | Date | s | | | | | | Date | | | + + +-------+---------+------+------+-------+ | buPROPion | Take 100 mg by mouth | | | | | Activ | | (WELLBUTRIN) 100 MG | 3 (three) times | | | | | e | | tabletIndications: | daily. 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 | + + + + + | Overview: Left wrist | + + + + + | Depression | 11/14/2012 | + + + Social History + +-------+ +--------+------+ | Tobacco Use | Types | Packs/Day | Years | Date | | | | | Used | | + +-------+ +--------+------+ | Current Some Day | | 0.25 | | | | Smoker | | | | | + +-------+ +--------+------+ + +---+---+---+ | Smokeless Tobacco: | | | | | Never Used | | | | + +---+---+---+ + + | Tobacco Cessation: Ready to Quit: No | | Comments: 3 maybe a week | + + + + +---------+ + | Alcohol Use | Drinks/We | oz/Week | Comments | | | ek | | | + + +---------+ + | No | | | | + + +---------+ + + + + | Sex Assigned at | Date Recorded | | | | + + + | Not on file | | + + + Last Filed Vital Signs + + + + | Vital Sign | Reading | Time Taken | + + + + | Blood Pressure | 103/69 | 11/14/2012 1:26 PM PDT | + + + + | Pulse | 65 | 11/14/2012 1:26 PM PDT | + + + + | Temperature | 37.1 C (98.7 F) | 11/14/2012 1:26 PM PDT | + + + + | Respiratory Rate | - | - | + + + + | Oxygen Saturation | 99% | 11/14/2012 1:26 PM PDT | + + + + | Inhaled Oxygen | - | - | | Concentration | | | + + + + | Weight | 49.9 kg (110 lb) | 11/14/2012 1:26 PM PDT | + + + + | Height | 160 cm (5' 3") | 11/14/2012 1:26 PM PDT | + + + + | Body Mass Index | 19.49 | 11/14/2012 1:26 PM PDT | + + + + Plan of Treatment + + + + + | Health Maintenance | Due Date | Last Done | Comments | + + + + + | Vaccine: | | | | | Dtap/Tdap/Td (1 - | 5 | | | | Tdap) | | | | + + + + + | Cervical Cancer | | | | | Screening (Pap) | 6 | | | + + + + + | Vaccine: Influenza | | | | | (#1) | 9 | | | + + + + + Results Not on filefrom Last 3 Months Insurance + +--------+ +------+-------+ + | Payer | Benefi | Subscriber | Type | Phone | Address | | | t Plan | ID | | | | | | / | | | | | | | Group | | | | | + +--------+ +------+-------+ + | MEDICAID | JESSICA | [id number] | | | [address] | | | [place] | | | | [place] | | | [place] | | | | [address] | | | CYTOTECHNOLOGIST/CYTOLOGY SUPERVISOR | | | | | + +--------+ +------+-------+ + + +--------+ +--------+ + + | Guarantor Name | Accoun | Relation to | Date | Phone | Billing Address | | | t Type | Patient | of | | | | | | | | | | + +--------+ +--------+ + + | LIN BOYLE | Person | Self | [birth year] | Home: | [address] | | | al/Fam | | 1974 | [phone] [place] [address] | | | randi | | | [phone] | | + +--------+ +--------+ + +
--- OUTSIDE RECORDS SUMMARY | ~2019-06-17 | XMS | Clinical Summary ---
Demographics + + + | Address | [address] | | | [place] [address] | + + + | Home Phone | | + + + | Preferred Language | Unknown | + + + | Marital Status | Single | + + + | Christian Affiliation | Unknown | + + + | Race | Unknown | + + + | Ethnic Group | Unknown | + + + Author + + + | Author | [facility] (Historical as of | | | 03-31-19) | + + + | Organization | [facility] (Historical as of | | | 03-31-19) | + + + | Address | Unknown | + + + | Phone | Unavailable | + + + Support + + + + + | Name | Relationship | Address | Phone | + + + + + | Marlena Castillo | ECON | [address] | | | | | [place] | | | | | [address] | | + + + + + | Karen Oliveiraeste | ECON | Unknown | | + + + + + | Korey Pascual | ECON | Unknown | | + + + + + Care Team Providers + +------+ + | Care Chemical Etching Processor Name | Role | Phone | [...] +------+-------+ + | MEDICAID | JESSICA | [id number] | | | [address] | | | [place] | | | | [place] | | | [place] | | | | [address] | | | INJECTION MAINTENANCE TECHNICIAN | | | | | + +--------+ [...] | Self | [birth year] | Home: | [address] | | | al/Fam | | 1974 | [phone] | [place] [address] | | | randi | | | [phone] | | + +--------+ +--------+ + +
--- OUTSIDE RECORDS SUMMARY | ~2019-06-17 | XMS | Clinical Summary ---
Demographics + + + | Address | [address] | | | [place] [address] | + + + | Home Phone [...] Author + + + | Author | [facility] | + + + | Organization | [facility] | + + + | Address | Unknown | + + + | Phone | Unavailable | + + + Support + + +---------+ + | Name | Relationship | Address | Phone | + + +---------+ + | Marlena [place] | ECON | Unknown | | + + +---------+ + Care Team Providers + +------+ + | Care Drop Crew Laborer Name | Role | Phone | + +------+ + | Rhonda WatkinsP | PCP | | + +------+ + Source Comments [facility] is fully live on both [facility] Allergies + + + + + + [...] +---------+------+------+-------+ Active Problems Not on file Encounters +--------+ + + + + | Date | Type | Specialty | Care Team | Description | +--------+ + + + + | 05/25/ | Office | Neurological Surgery | Colleen Schmidt MD | Nonintractable | | 2019 | Visit | | | headache, | | | | | | unspecified | | | | | | chronicity pattern, | | | | | | unspecified headache | | | | | | type (Primary Dx) | +--------+ + + + + | 05/25/ | Travel | | | | | 2018 | | | | | +--------+ + + + + | 05/01/ | Outside | | Other, Faculty | | | 2018 | Records | | | | +--------+ + + + + | 04/09/ | Outside | | Other, Faculty | | | 2018 | Records | | | | +--------+ + + + + | 04/09/ | Intake | | | N/A | | 2019 | | | | | +--------+ + + + + | 04/08/ | Intake | | | N/A | | 2019 | | | | | +--------+ + + + + from Last 3 Months [...] | | | | vaccination (1 of | 2 | | | | - PPSV23) | | | | + + + + + | Influenza (Flu) | | 06/11/2018, 05/21/2015, | | | vaccination (#1) | 9 | 07/22/2014, Additional history | | | | | exists | | + + + + + Procedures + +--------+ + + + | [...] section. | + +--------+ + + + from Last 3 Months Results OUTSIDE RADIOLOGY - CT (05/01/2019 12:00 AM PDT)Only the most recent of 3 results within e time period is included. + + + | Narrative | Performed At | + + + | | | + + + from Last 3 Months Insurance + +--------+ +--------+ [...] [place] | [employer] | [phone] | | [phone] | [address] | | | PLUS | | [phone] | id | | | OPEN | | esent | | [place], [place] | | | | CARD | | | | [phone] | | + +--------+ +--------+ + +--------+ | [employer] | [employer] | [phone] | Effect | | | [...] | 1975 | [phone] | [place] [address] | | | [place] | | | 8 (Home) | | + +--------+ +--------+ + +
--- OUTSIDE RECORDS SUMMARY | ~2019-06-17 | XMS | Encounter Summary ---
Demographics + + + | Address | [address] | | | [place] [address] | + + + | Home Phone [...] Author + + + | Author | [facility] [employer] [facility] | + + + | Organization | [facility] [employer] [facility] | + + + | Address | Unknown | + + + | Phone | Unavailable | + + + Support + + +---------+ + | Name | Relationship | Address | Phone | + + +---------+ + | Marlena Jonathan | ECON | Unknown | | + + +---------+ + Care Team Providers + +------+ + | Care Automatic Mounter Name | Role | Phone | + +------+ + | Rhonda Watkins | PCP | | + +------+ + Encounter Details +--------+ + + + + | Date | Type | Department | Care Team | Description | +--------+ + + + + | 05/01/ | Outside | UNKNOWN DEPARTMENT | Other, Faculty | | | 2019 | Records | [address] [facility] | [phone] | | | | | [address] | | | | | | [place], [place] | | | | | | [address] | | | +--------+ + + + [...]
--- OUTSIDE RECORDS SUMMARY | ~2019-06-17 | XMS | Encounter Summary ---
Demographics + + + | Address | [address] | | | [place] [address] | + + + | Home Phone [...] | Organization | [facility] | | | and [place] [...] Team Providers + +------+ + | Care Pile Operator Name | Role | Phone | + +------+ + | Mandeep Gillespie MD | PCP | | + +------+ + Reason for Visit + + + | Reason | Comments | + + + | Referral Question | | + + + Encounter Details +--------+ + + + + | Date | Type | Department | Care Team | Description | +--------+ + + + + | 05/02/ | Telephone | [facility] | Leoncio Valdivia DO | Referral Question | | 2019 | | NEUROSURGERY [address] | [address] | | | | | [address] | [address] | | | | | [place], [place] | [place] [address] | | | | | [address] | [phone] | | | | | [phone] | | | +--------+ + + + [...]
--- OUTSIDE RECORDS SUMMARY | ~2019-06-17 | XMS | Clinical Summary ---
Demographics + + + | Address | [address] | | | [place] [address] | + + + | Home Phone [...] + + + | Author | [facility] | + + + | Organization | [facility] | + + + | Address | Unknown | + + + | Phone | Unavailable | + + + Support + + +---------+ + | Name | Relationship | Address | Phone | + + +---------+ + | Marlena [facility] [facility] | ECON | Unknown | | + + +---------+ + Care Team Providers + +------+ + | Care Rotary Furnace Tender Name | Role | Phone | + +------+ + | Rhonda WatkinsP | PCP | | + +------+ + Source Comments [facility] is fully live on both [facility] Allergies + + + + [...] [place] | [facility] | [phone] | | [phone] | [address] | | | PLUS | | [phone] | id | | | OPEN | | esent | | [place], [place] | | | | CARD | | | | [phone] | | + +--------+ +--------+ + +--------+ | [facility] | [facility] | [phone] | Effect | | | [...] | 1975 | [phone] | [place] [address] | | | randi | | | 8 (Home) | | + +--------+ +--------+ + +
--- OUTSIDE RECORDS SUMMARY | ~2019-06-17 | XMS | Encounter Summary ---
Demographics + + + | Address | [address] | | | [place] [address] | + + + | Home Phone [...] + + + | Author | [facility] | | | and [place] | + + + | Organization | [facility] | | | and [place] [...] Team Providers + +------+ + | Care Alarm Field Technician Name | Role | Phone | [...] | | | | CENTER [address] | [address] | Dx) | | | | [place] | [place] | | | | | [address] | [id number] | | | | | [phone] | | | +--------+ + + + [...] + | Blood Pressure | 108/64 | 04/09/20192029 PDT | + + + + | Pulse | 64 | 04/09/20192099 PDT | + + + + | Temperature | 37.1 C (98.7 F) | 04/09/20191842 PDT | + + + + | Respiratory Rate | 16 | 04/09/20191842 PDT | + + + + | Oxygen Saturation | 98% | 04/09/20192099 PDT | + + + + | Inhaled Oxygen | - | - | | Concentration | | | + + + + | Weight | 52.2 kg (115 lb) | 04/09/20191842 PDT | + + + + | Height | 160 cm (5' 3") | 04/09/20191842 PDT | + + + + | Body Mass Index | 20.37 | 04/09/20191842 PDT | + + + + documented in this [...] carotid aneurys m with the neurosurgeon at [facility]. They recommend follow-up with appointment [...] | | 0 | | | | [id number] | mouth. | | | | 9 [...] of this encounter Plan of Treatment + +--------+ + + | Name | Priori | Associated Diagnoses | Date/Time | | | ty | | | + +--------+ + + | ED INFORMATION EXCHANGE | Routin | | 04/09/2019 18:22 PDT | | | e | | | + +--------+ + + documented as of this encounter Procedures + +--------+ + + + | Procedure Name | Priori | Date/Time | Associated Diagnosis | Comments | | | ty | | | | + +--------+ + + + | URINALYSIS WITH | STAT | 04/09/2019 | | Results for this | | MICROSCOPIC WITH | | 20:55 PDT | | procedure are in the | | CULTURE IF INDICATED | | | | results section. | + +--------+ + + + | DRUGS OF ABUSE, | STAT | 04/09/2019 | | Results for this | | SCREEN, URINE | | 20:55 PDT | | procedure are in the | | | | | | results section. | + +--------+ + + + | CT ANGIOGRAM HEAD | STAT | 04/09/2019 | | Results for this | | NECK | | 19:41 PDT | | procedure are in the | | | | | | results section. | + +--------+ + + + | CT CERVICAL SPINE WO | STAT | 04/09/2019 | | Results for this | | CONTRAST | | 19:41 PDT | | procedure are in the | | | | | | results section. | + +--------+ + + + | XR CHEST AP PORTABLE | STAT | 04/09/2019 | | Results for this | | | | 19:28 PDT | | procedure are in the | | | | | | results section. | + +--------+ + + + | TROPONIN I | Routin | 04/09/2019 | | Results for this | | | e | 19:15 PDT | | procedure are in the | | | | | | results section. | + +--------+ + + + | PROTIME INR | STAT | 04/09/2019 | | Results for this | | | | 19:15 PDT | | procedure are in the | | | | | | results section. | + +--------+ + + + | CBC WITH | STAT | 04/09/2019 | | Results for this | | DIFFERENTIAL | | 19:15 PDT | | procedure are in the | | | | | | results section. | + +--------+ + + + | B TYPE NATRIURETIC | STAT | 04/09/2019 | | Results for this | | PEPTIDE | | 19:15 PDT | | procedure are in the | | | | | | results section. | + +--------+ + + + | LIPASE | STAT | 04/09/2019 | | Results for this | | | | 19:15 PDT | | procedure are in the | | | | | | results section. | + +--------+ + + + | ALCOHOL | STAT | 04/09/2019 | | Results for this | | | | 19:15 PDT | | procedure are in the | | | | | | results section. | + +--------+ + + + | COMPREHENSIVE | STAT | 04/09/2019 | | Results for this | | METABOLIC PANEL | | 19:15 PDT | | procedure are in the | | | | | | results section. | + +--------+ + + + | ECG 12 LEAD | STAT | 04/09/2019 | | Results for this | | | | 19:10 PDT | | procedure are in the | | | | | | results section. | + +--------+ + + + | OXYGEN THERAPY | STAT | 04/09/2019 | | | | | | 19:02 PDT | | | + +--------+ + + + | ED INFORMATION | Routin | 04/09/2019 | | | | EXCHANGE | e | 18:22 PDT | | | + +--------+ + + + +---+--------+ | | | | | Proced | | | ure | | | Note - | | | Meir, | | | Lab In | | | | | | Hlseve | | | n - | | | | | | 2018 | | | 1823 | | | PDT | | | Format | | | [...] | | | FICATI | | | ON?08[birth year] | | | [birth year]/201 | | | 9 | | | 18:21? | | | WATCHM | | | AN, | | | LIN | | | ?MRN: | | | [id number] | | | [id number] | | | riteri | | | [...] | | | St. | | | [place] | | | y | | | [...] | | | St. | | | [place] | | | y | | | [...] | | | St. | | | [place] | | | y | | | [...] | | | St. | | | [place] | | | y | | | [...] | | | St. | | | [place] | | | y | | | [...] | | | St. | | | [place] | | | y | | | [...] | | | St. | | | [place] | | | y H. | | [...] | | | St. | | | [place] | | | y H. | | [...] | | | St. | | | [place] | | | y H. | | [...] | | | St. | | | [place] | | | y H. | | [...] | | | St. | | | [place] | | | y H. | | [...] | | | St. | | | [place] | | | y H. | | [...] | | | St. | | | [place] | | | y H. | | [...] M.D. | | | | | | Hog Tender | | | al | | | [...] Results Drugs of Abuse, Screen, Urine (04/09/2019 20:55 PDT) + + + + + + [...] | Specimen | + + | Urine | + + + + + + + | Performing | Address | City/State/Zipcode | Phone Number | | Organization | | | | + + + + + | [facility] | [address] | [place] | [phone] | | [facility] | | [address] | | | - LABORATORY | | | | + + + + + Urinalysis with Microscopic with Culture if Indicated (04/09/2019 20:55 PDT) + + + + + + | Component | Value | Ref Range | Performed | Pathologist | | | | | At | Signature | + + + + + + | Color | Yellow | Light Yellow, | [facility] | | | | | Yellow, Straw | [facility] | | | | | | MEDICAL | | | | | | CENTER - | | | | | | LABORATORY | | + + + + + + | Clarity | Clear | Clear | [facility] | | | | | [...] - 1.030 | [facility] | | | [place] | | | [facility] | | [...] + + + | WBC UA | 2-5 (A) | 0 - 2 /HPF | [facility] | | | | | | [facility] | | | | | | MEDICAL | | | | | | CENTER - | | | | | | LABORATORY | | + + + + + + | RBC UA | 2-5 (A) | 0 - 2 /HPF | [facility] | | | | | | [facility] | | | | | | MEDICAL | | | | | | CENTER - | | | | | | LABORATORY | | + + + + + + | SQUAMOUS | 15-25 (A) | 0 - 2 /LPF | [facility] | | | EPITHELIAL | | | [facility] | | | UA | | | MEDICAL | | | | | | CENTER - | | | | | | LABORATORY | | + + + + + + | BACTERIA UA | Negative | Negative /HPF | [facility] | | | | | | [facility] | | | | | | MEDICAL | | | | | | CENTER - | | | | | | LABORATORY | | + + + + + + | MUCUS UA | Present (A) | Negative /LPF | [facility] | | | | | | [facility] | | | | | | MEDICAL | | | | | | CENTER - | | | | | | LABORATORY | | + + + + + + | URINE | Urine Culture Not | | [facility] | | | COMMENT | Indicated | | [facility] | | | | | | MEDICAL | | | | | | CENTER - | | | | | | LABORATORY | | + + + + + + + + | Specimen | + + | Urine | + + + + + + + | Performing | Address | City/State/Zipcode | Phone Number | | Organization | | | | + + + + + | [facility] | [address] | [place] | [phone] | | [facility] | | [address] | | | - LABORATORY | | | | + + + + + CT Angiogram Head Neck w Contrast (04/09/2019 19:41 PDT) + + | Specimen | + [...] from the same day TECHNIQUE: Axial unenhanced | | | images were performed through the head. Following the uneventful | | | intravenous administration of 105 mL Omnipaque-350 contrast, axial | | | images are performed from the aortic arch through the [place] of | | | [place]. Multiplanar reformations were also performed. | | | HEAD FINDINGS: There is early cerebral atrophy. Clay-white | | | differentiation is maintained. The cerebral parenchyma, | | | ventricles, brainstem and cerebellum are otherwise | | | unremarkable. There is no mass effect, abnormal parenchymal | | | enhancement, evidence of intracranial hemorrhage or extra-axial | | | abnormality. There are early degenerative changes of the right | | | temporomandibular joint. The bones and soft tissues, including the | | | paranasal sinuses, middle ear cavities and mastoid air cells, are | | | otherwise unremarkable. A 2 mm aneurysm is suspected along the | | | posterior margin of the tortuous cavernous segment of the right | | | internal carotid artery. The distal internal carotid arteries are | | | otherwise widely patent and unremarkable along with the basilar | | | artery, bilateral superior cerebellar arteries and bilateral anterior, | | | middle and posterior cerebral arteries. Patent anterior and left | | | posterior communicating arteries are visible. Patent anterior and | | | posterior inferior cerebellar arteries are also visible. No vessel | | | occlusion, stenosis or dissection is apparent. NECK | | | FINDINGS: The aortic arch is widely patent. There is variant | | | common origin of the brachiocephalic and left common carotid arteries | | | and direct origin of the left vertebral artery from the arch, | | | proximal to the subclavian artery origin. The brachiocephalic | | | artery, bilateral subclavian arteries and bilateral common, internal | | | and external carotid arteries are widely patent allowing for motion | | | artifact at the brachiocephalic artery origin. Vertebral arteries | | | are codominant and widely patent. No vessel occlusion, stenosis or | | | dissection is apparent. The venous structures appear patent and | | | unremarkable. The pharynx, larynx and trachea are unremarkable, | | | along with the thyroid, submandibular and parotid glands. No | | | pathologic lymph node enlargement is evident. The imaged upper | | | lungs are clear. There is reversal of the cervical | | | lordosis. Osseous structures are otherwise unremarkable. | | | IMPRESSION - 1. 2 MM ANEURYSM SUSPECTED ALONG THE POSTERIOR | | | MARGIN OF THE CAVERNOUS RIGHT INTERNAL CAROTID ARTERY. THE | | | CERVICAL AND INTRACRANIAL ARTERIAL SYSTEMS ARE OTHERWISE WIDELY | | | PATENT. 2. EARLY CEREBRAL ATROPHY WITHOUT EVIDENCE OF ACUTE | | | INTRACRANIAL DISEASE. Images were provided for interpretation on | | | April 09, 2019 at 1950 hours. Results were finalized at 2005 hours. | | | Dictated and Signed by: Devin Jenkins MD Electronically | | | signed: 04/09/2019 8:08 PM | | + + + + + | Procedure Note | + + | Meir, Rad Results In - 04/09/2019 2011 PDT UNENHANCED AND ENHANCED CTA HEAD AND | | ENHANCED CTA NECK WITH MULTIPLANARREFORMATIONS 04/09/2019 7:36 PMCLINICAL HISTORY: | | Suspect Acute Stroke COMPARISON: Unenhanced cervical CT from the same dayTECHNIQUE: | | Axial unenhanced images were performed through the head. Followingthe uneventful | | intravenous administration of 105 mL Omnipaque-350 contrast,axial images are performed | | from the aortic arch through the [place] of [place].Multiplanar reformations were also | | [...] 1950 hours. Results were finalized at 2005 hours.Dictated and Signed by: Devin | | [...] 1950 hours. | |Results were finalized at 2005 hours. | | | |Dictated and Signed by: Devin Jenkins MD | | Electronically signed: 04/09/2019 8:08 PM | + + + +---------+ + + | Performing | Address | City/State/Zipcode | Phone Number | | Organization | | | | + +---------+ + + | [facility] | | | | + +---------+ + + CT Cervical Spine wo Contrast (04/09/2019 19:41 PDT) + + | Specimen | + [...] | Meir, Rad Results In - 04/09/[address] CERVICAL SPINE 04/09/2019 | [...] + + XR Chest AP Portable (04/09/2019 19:28 PDT) + + | Specimen | + [...] unremarkable. The lungs are clear, without visible | | | pneumothorax or pleural effusion. The bones and soft tissues are | | | unremarkable. IMPRESSION - 1. NO RADIOGRAPHIC EVIDENCE OF | | | ACTIVE DISEASE IN THE CHEST. Dictated and Signed by: | | | Devin Jenkins MD Electronically signed: 04/09/2019 10:02 PM | | + + + + + | Procedure Note | + + | Meir, Rad Results In - 04/09/2019 2205 PDT SINGLE AP CHEST 04/09/2019 7:28 PM [...] | | | Dictated and Signed by: Devni Jenkins MD | | Electronically signed: 04/09/2019 10:02 PM | + + + +---------+ + + | Performing | Address | City/State/Zipcode | Phone Number | | Organization | | | | + +---------+ + + | [facility] | | | | + +---------+ + + Ethanol (04/09/2019 19:15 PDT) + +-------+ + + + | [...] + | [facility] | [address] | [place] | [phone] | | [facility] | | [address] | | | - LABORATORY | | | | + + + + + Troponin I (04/09/2019 19:15 PDT) + + + + + + | Component | Value | Ref Range | Performed | Pathologist | | | | | At | Signature | + + + + + + | Troponin I | <0.01Comment: | <0.06 ng/mL | [facility] | | | | Comment:Reference | | [facility] | | | | Ranges: 0.00-0.06 = [...] | | | | | | [employer] | | | | | [...] + | Performing | Address | City/State/Unm Cancer Centercode | Phone Number | | Organization | | | | + + + + + | [facility] | [address] | [place] | [phone] | | [facility] | | [address] | | | - LABORATORY | | | | + + + + + Protime INR (04/09/2019 19:15 PDT) + + + + + + | Component | Value | Ref Range | Performed | Pathologist | | | | | At | Signature | + + + + + + | Prothrombin | 12.8 | 11.3 - 13.9 | [facility] | | | Time | | seconds | [facility] | | | | | | MEDICAL | | | | | | CENTER - | | | | | | LABORATORY | | + + + + + + | INR | 1.0Comment: Usual Oral | 0.9 - 1.1 | [facility] | | | | Anticoagulation | | [facility] | | | | Range: 2.0 - | | MEDICAL | | | | 3.0High Level Oral | | CENTER - | [...] [address] | [place] | [phone] | | [facility] | | [address] | | | - LABORATORY | | | | + + + + + Lipase (04/09/2019 19:15 PDT) + + + + + + | Component | Value | Ref Range | Performed | Pathologist | | | | | At | Signature | + + + + + + | Lipase | 33Comment: New method in | 12 - 53 U/L | [place] | | | | use as of October 11 | | [facility] | | | | 2018. Check [...] [address] | [place] | [phone] | | [facility] | | [address] | | | - LABORATORY | | | | + + + + + Comprehensive Metabolic Panel (04/09/2019 19:15 PDT) + + + + + + [...] | | | | mg/dL | [facility] | | | | | | MEDICAL | | | | | | CENTER - | | | | | | LABORATORY | | + + + + + + | eGFR if not | >60Comment: GLOMERULAR | >=60 | [facility] | | | | FILTRATION | mL/min/1.73m2 | [facility] | | | [place] | RATE,ESTIMATED mL/min | | MEDICAL | | | | /1.54a8Ghvv than 60 | | CENTER - | | | | Chronic kidney | | LABORATORY | | | | disease,if found over a | | | | | | 3-month period.Less than | | | | | | 15 Kidney | | | | | | failureFor | | | | | | Americans,multiply [...] | | | Phosphatase | | | [facility] | | [...] + | [facility] | [address] | [place] | [phone] | | [facility] | | [address] | | | - LABORATORY | | | | + + + + + CBC with Differential (04/09/2019 19:15 PDT) + + + + + + | Component | Value | Ref Range | Performed | Pathologist | | | | | At | Signature | + + + + + + | WBC | 4.2 | 4.0 - 11.0 K/uL | [facility] | | | | | | [facility] | | | | | | MEDICAL | | | | | | CENTER - | | | | | | LABORATORY | | + + + + + + | RBC | 3.63 (L) | 3.70 - 5.20 | [facility] | | | | | M/uL | [facility] | | | | | | MEDICAL | | | | | | CENTER - | | | | | | LABORATORY | | + + + + + + | Hemoglobin | 11.2 (L) | 11.5 - 16.0 | [facility] | | | | | g/dL | [facility] | | | | [...] | | Eosinophils | | K/uL | [facility] | [...] ranges: Trim. Absolute (K/uL) Percentage (%) | [facility] | | 1st 0.003-0.091 K/uL 0.0-0.9% 2nd 0.007-0.247 K/uL | [facility] | | 0.1-2.0% 3rd 0.018-0.456 K/uL 0.1-2.0% | - LABORATORY | + + + + + + + + | Performing | Address | City/State/Zipcode | Phone Number | | Organization | | | | + + + + + | [facility] | [address] | [place] | [phone] | | [facility] | | [address] | | | - LABORATORY | | | | + + + + + B Type Natriuretic Peptide (04/09/2019 19:15 PDT) + +-------+ + + + | [...] + | [facility] | [address] | [place] | [phone] | | [facility] | | [address] | | | - LABORATORY | | | | + + + + + ECG 12 lead (04/09/2019 19:10 PDT) + + + + + + [...] | | | | KRISTEL PILLAI MD ([id number]) | | | | | | on [...] 10 mg, Oral, ONCE, | | 19 21:34 | | | | | 04/09/19 at 2120, For 1 dose | | PDT | | | | + +--------+ +-------+------+------+ +---+---+ | | | +---+---+ + +-------+ +---------+---+---+ | iohexol (OMNIPAQUE 350) 350 | Given | 04/09/20 | 105 mLs | | | | mg/mL injection 105 mL 105 mL, | | 19 19:44 | | | | | Intravenous, ONCE PRN, Other, | | PDT | | | | | Starting [...] Intravenous, ONCE, 04/09/19 at | | 19 19:21 | | | | | 1920, For 1 dose | | PDT | | | | + +-------+ +------+---+---+ +---+---+ | | | +---+---+ + +-------+ +------+---+---+ | prochlorperazine (COMPAZINE) | Given | 04/09/20 | 5 mg | | | | injection 5 mg 5 mg, | | 19 19:22 | | | | | Intravenous, EVERY 6 HOURS PRN, | | PDT | | | | | Nausea, Vomiting, Starting Mon | | | | | | | 04/09/19 at 1917 | | | | | | + +-------+ +------+---+---+ +---+---+ | | | +---+---+ + +------+ +--------+-------+---+ | sodium chloride 0.9% (NS) bolus | Push | 04/09/20 | 75 mLs | 4500 | | | 75 mL 75 mL, Intravenous, | | 19 19:44 | | mL/hr | | | Administer over 1 Minutes, ONCE | | PDT | | | | | PRN, [...]
--- OUTSIDE RECORDS SUMMARY | ~2019-06-17 | XMS | Encounter Summary ---
Demographics + + + | Address | [address] | | | [place] [address] | + + + | Home Phone [...] + | Organization | [facility] [...] Team Providers + +------+ + | Care Cut Out Press Operator Name | Role | Phone | [...] + + | 05/01/ | Emergency | [facility] | Wilbert Claire, | Migraine without | | 2019 | | [facility] | MD [address] | aura and without | | | | CENTER [address] | [facility] | status migrainosus, | | | | [place], [place] | [address] | not intractable | | | | [address] | | (Primary Dx) | | | | [phone] | | | +--------+ + + + [...] + | Blood Pressure | 94/50 | 05/01/20192344 PDT | + + + + | Pulse | 88 | 05/01/20192343 PDT | + + + + | Temperature | 36.7 C (98.1 F) | 05/01/20192053 PDT | + + + + | Respiratory Rate | 16 | 05/01/20192053 PDT | + + + + | Oxygen Saturation | 98% | 05/01/20192343 PDT | + + + + | Inhaled Oxygen | - | - | | Concentration | | | + + + + | Weight | 52.2 kg (115 lb) | 05/01/20192053 PDT | + + + + | Height | 160 cm (5' 3") | 05/01/20192053 PDT | + + + + | Body Mass Index | 20.37 | 05/01/20192053 PDT | + + + + documented [...] Care Everywhere.Headache, Migra ine: Stages and Treatment (Swedish)documented in this encounter Medications at Time of [...] ED INFORMATION EXCHANGE | Routin | | 05/01/2019 20:33 PDT | | | e | | [...] for this | | NECK | | 22:10 PDT | | procedure are in the | | | | | | results section. | + +--------+ + + + | EXTRA LAVENDER TOP | STAT | 05/01/2019 | | Results for this | | TUBE | | 21:37 PDT | | procedure are in the | | | | | | results section. | + +--------+ + + + | EXTRA GREEN TOP TUBE | Routin | 05/01/2019 | | Results for this | | | e | 21:37 PDT | | procedure are in the | | | | | | results section. | + +--------+ + + + | EXTRA BLUE TOP TUBE | STAT | 05/01/2019 | | Results for this | | | | 21:37 PDT | | procedure are in the | | | | | | results section. | + +--------+ + + + | CBC WITH | STAT | 05/01/2019 | | Results for this | | DIFFERENTIAL | | 21:37 PDT | | procedure are in the | | | | | | results section. | + +--------+ + + + | COMPREHENSIVE | STAT | 05/01/2019 | | Results for this | | METABOLIC PANEL | | 21:37 PDT | | procedure are in the | | | | | | results section. | + +--------+ + + + | ED INFORMATION | Routin | 05/01/2019 | | | | EXCHANGE | e | 20:33 PDT | | | + +--------+ + + + +---+--------+ | | | | | Proced | | | ure | | | Note - | | | Meir, | | | Lab In | | | | | | Hlseve | | | n - | | | 05/01/ | | | 2019 | | | 2034 | | | PDT | | | [...] | | | ?MRN: | | | [id number] | | | [id number] | | | riteri | | | [...] | | | St. | | | [place] | | | y | | | [...] | | | St. | | | [place] | | | y | | | [...] | | | gical5 | | | /619 | | | 12:00 | | | AM | | | [facility] | | | [facility] | | | [place] | | | y | | | [...] | | | St. | | | [place] | | | y | | | [...] | | | St. | | | [place] | | | y | | | [...] | | | St. | | | [place] | | | y | | | [...] | | | St. | | | [place] | | | y H. | | [...] | | | St. | | | [place] | | | y H. | | [...] | | | St. | | | [place] | | | y H. | | [...] | | | St. | | | [place] | | | y H. | | [...] | | | St. | | | [place] | | | y H. | | [...] | | | St. | | | [place] | | | y H. | | [...] | | | St. | | | [place] | | | y H. | | [...] M.D. | | | | | | Environmental Compliance Technician | | | al | | | [...] | | | [place] | | | [place] | | | | | | PROVID [...] CT Angiogram Head Neck w Contrast (05/01/2019 22:10 PDT) + + | Specimen | + [...] mm right internal carotid aneurysm COMPARISON: CTA | | | April 09 TECHNIQUE: Following the uneventful intravenous | | | administration of 100 mL Omnipaque-350 contrast, axial images are | | | performed from the aortic arch through the council of [place]. | | | Multiplanar reformations and three-dimensional vascular | | | reconstructions were also performed. HEAD FINDINGS: The | | | previously described 2 mm aneurysm along the posterior margin of the | | | tortuous cavernous segment of the right internal carotid artery is | | | again visualized and appears stable, allowing for some venous | | | contamination of the images. No other aneurysm is | | | identified. No vessel occlusion, dissection or stenosis is | | | apparent. The basilar artery, bilateral superior cerebellar | | | arteries and bilateral anterior, middle and posterior cerebral | | | arteries are widely patent. Patent anterior and left posterior | | | communicating arteries are again visible. Patent anterior and | | | posterior inferior cerebellar arteries are also suggested. There | | | is no visible mass effect, conclusive intracranial hemorrhage, | | | abnormal parenchymal enhancement or extra-axial abnormality. Early | | | degenerative changes of the right TMJ are again apparent. The | | | bones and soft tissues, including the paranasal sinuses, middle ear | | | cavities and mastoid air cells, are otherwise unremarkable. NECK | | | FINDINGS: The aortic arch is widely patent. Variant common | | | origin of the brachiocephalic and left common carotid arteries is | | | again noted, along with direct origin of the left vertebral artery | | | from the arch, proximal to the left subclavian artery. The | | | brachiocephalic artery, bilateral subclavian arteries, bilateral | | | common, internal and external carotid arteries are widely | | | patent. The vertebral arteries are codominant and widely patent | | | also. No vessel occlusion, stenosis, aneurysm or dissection is | | | apparent. Venous structures appear patent and unremarkable also. | | | Some pharyngeal lymphoid hypertrophy is suggested. Soft tissues | | | of the neck are otherwise unremarkable. No pathologic lymph node | | | enlargement is evident. Imaged lung apices are clear. Reversal of | | | the cervical lordosis is again apparent. Osseous structures are | | | otherwise unremarkable. IMPRESSION - 1. 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 THERE IS NO EVIDENCE OF INTRACRANIAL HEMORRHAGE ON THIS | | | UNENHANCED EXAM. THE CERVICAL AND INTRACRANIAL ARTERIAL SYSTEMS | | | ARE OTHERWISE WIDELY PATENT AND UNREMARKABLE. 2. PERSISTENT | | | REVERSAL OF THE CERVICAL LORDOSIS. 3. EARLY DEGENERATION OF THE | | | RIGHT TMJ. Preliminary results of this study were reported to the | | | [facility] on May 01, 2019 at | | | 2233 hours. Dictated and Signed by: Devin Jenkins MD | | | Electronically signed: 05/02/2019 7:57 AM | | + + + + + | Procedure Note | + + | Meir, Rad Results In - 05/02/2019 0800 PDT ENHANCED CTA HEAD AND ENHANCED CTA NECK | | WITH MULTIPLANAR REFORMATIONS ANDTHREE-DIMENSIONAL VASCULAR RECONSTRUCTIONS 05/01/2019 | | 10:09 PMCLINICAL HISTORY: Right-sided headache, history of 2 mm right internal | | carotidaneurysm COMPARISON: CTA April 09TECHNIQUE: Following the uneventful | | intravenous administration of 100 mLOmnipaque-350 contrast, axial images are performed | | from the aortic arch throughthe council of [place]. Multiplanar reformations and | | [...] [facility] | | May 01, 2019 [...] + + Extra Green Top Tube (05/01/2019 21:37 PDT) + +-------+ + + + | [...] [address] | [facility] | [phone] | | [facility] | | [address] | | | - LABORATORY | | | | + + + + + Extra Blue Top Tube (05/01/2019 21:37 PDT) + +-------+ + + + | [...] [address] | [facility] | [phone] | | [facility] | | [address] | | | - LABORATORY | | | | + + + + + Extra Lavender Top Tube (05/01/2019 21:37 PDT) + +-------+ + + + | [...] + | [facility] | [address] | [facility] | [phone] | | [facility] | | [address] | | | - LABORATORY | | | | + + + + + Comprehensive Metabolic Panel (05/01/2019 21:37 PDT) + + + + + + [...] | | | FILTRATION | mL/min/1.73m2 | [facility] | | | [facility] | RATE,ESTIMATED mL/min | | MEDICAL | | | | /1.59x0Ccip than 60 | | CENTER - | [...] 8.5 (L) | 8.7 - 10.4 | [facility] | | | | | mg/dL | [facility] | | | | | | MEDICAL | | | | | | CENTER - | | | | | | LABORATORY | | + + + + + + | Albumin | 4.0 | 3.2 - 4.8 g/dL | [facility] | | | | | | ST. [...] + | BUN/Creatin | 11.6 | | [facility] | | | ine Ratio | | [...] [address] | [facility] | [phone] | | [facility] | | [address] | | | - LABORATORY | | | | + + + + + CBC with Differential (05/01/2019 21:37 PDT) + + + + + + [...] | | | | | M/uL | . [facility] | [...] | Monocytes | | K/uL | [facility] | [...] ranges: Trim. Absolute (K/uL) Percentage (%) | [facility] | | 1st 0.003-0.091 K/uL 0.0-0.9% 2nd 0.007-0.247 K/uL | [facility] | | 0.1-2.0% 3rd 0.018-0.456 K/uL 0.1-2.0% | - LABORATORY | + + + + + + + + | Performing | Address | City/State/Zipcode | Phone Number | | Organization | | | | + + + + + | [facility] | [address] | [facility] | [phone] | | [facility] | | [address] | | | - LABORATORY | | [...] 4 mg 4 mg, | | 19 22:52 | | | | | Intravenous, ONCE, Tue05/01/19 at | | PDT | | | | | 2250, For 1 dose | | | | | | + +--------+ +------+------+------+ +---+---+ | | | +---+---+ + +-------+ +-------+---+---+ | diphenhydrAMINE (BENADRYL) | Given | 05/01/20 | 25 mg | | | | injection 25 mg 25 mg, | | 19 21:34 | | | | | Intravenous, ONCE, Tue05/01/19 at | | PDT | | | | | 2125, For 1 dose | | | | | | + +-------+ +-------+---+---+ +---+---+ | | | +---+---+ + +-------+ +---------+---+---+ | iohexol (OMNIPAQUE 350) 350 | Given | 05/01/20 | 100 mLs | | | | mg/mL injection 100 mL 100 mL, | | 19 22:10 | | | | | Intravenous, ONCE [...] 10 mg 10 mg, | | 19 21:37 | | | | | Intravenous, ONCE, e 05/01/19 at | | PDT | | | | | 2125, For 1 dose, Protect from | | | | | | | light., | | | | | | + +-------+ +-------+---+---+ +---+---+ | | | +---+---+ + +---------+ +--------+-------+---+ | sodium chloride 0.9% (NS) bolus | New Bag | 05/01/20 | 1,000 | 2000 | | | 1,000 mL 1,000 mL, Intravenous, | | 19 21:33 | mLs | mL/hr | | | Administer over 30 Minutes, | | PDT | | | | | ONCE, [facility] 05/01/19 at 2125, For 1 | | | | | | | dose | | | | | | + +---------+ +--------+-------+---+ +---+---+ | | | +---+---+ + +---------+ +--------+-------+---+ | sodium chloride 0.9% (NS) bolus | New Bag | 05/01/20 | 1,000 | 2000 | | | 1,000 mL 1,000 mL, Intravenous, | | 19 22:40 | mLs | mL/hr | | | Administer over 30 Minutes, | | PDT | | | | | ONCE, [facility] 05/01/19 at 2245, For 1 | | | | | | | dose | | | | | | + +---------+ +--------+-------+---+ +---+---+ | | | +---+---+ documented in this encounter
--- OUTSIDE RECORDS SUMMARY | ~2019-06-17 | XMS | Encounter Summary ---
Demographics + + + | Address | [address] | | | [place] [address] | + + + | Home Phone [...] Team Providers + +------+ + | Care Claims Adjuster Crop Name | Role | Phone | + [...]
--- OUTSIDE RECORDS SUMMARY | ~2019-06-17 | XMS | Encounter Summary ---
Demographics + + + | Address | [address] | | | [place] [address] | + + + | Home Phone [...] Author + + + | Author | [facility] [employer] [facility] | + + + | Organization | [facility] [employer] [facility] | + + + | Address | Unknown | + + + | Phone | Unavailable | + + + Support + + +---------+ + | Name | Relationship | Address | Phone | + + +---------+ + | Marlena Jonathan | ECON | Unknown | | + + +---------+ + Care Team Providers + +------+ + | Care Store Assistant Name | Role | Phone | + +------+ + | Rhonda Watkins | PCP | | + +------+ + Encounter Details +--------+ + + + + | Date | Type | Department | Care Team | Description | +--------+ + + + + | 04/09/ | Outside | UNKNOWN DEPARTMENT | Other, Faculty | | | 2019 | Records | [address] [facility] | [phone] | | | | | [address] | | | | | | [place], [place] | | | | | | [address] | | | +--------+ + + + [...]
--- OUTSIDE RECORDS SUMMARY | ~2019-06-17 | XMS | Encounter Summary ---
Demographics + + + | Address | [address] | | | [place] [address] | + + + | Home Phone [...] Author + + + | Author | [facility] [employer] [facility] | + + + | Organization | [facility] [employer] [facility] | + [...] Team Providers + +------+ + | Care Glove Operator Name | Role | Phone | + +------+ + | Rhonda Watkins | PCP | | + +------+ + Reason for Referral Consultation (Routine) + +--------+ + + + + | Status | Reason | Specialty | Diagnoses / | Referred By | Referred To | | | | | Procedures | Contact | Contact | + +--------+ + + + + | Incomplete | | Neurology | Diagnoses | Mantovani, | Ericka General | | | | | | Maryuri, | Chh1 3303 | | | | | Nonintractab | MD [address] | [address] | | | | | le headache, | Andrew Dee | Mailcode: | | | | | unspecified | [address] | [facility] | | | | | chronicity | [place], [place] | for Health | | | | | pattern, | [address] | and Healing, | | | | | unspecified | Phone: | [address], | | | | | headache | [phone] | [address]th Floor | | | | | type | Fax: | [place], [place] | | | | | Headaches | [phone] | [address] | | | | | and | | Phone: | | | | | intermittent | | [phone] | | | | | episodes of | | Fax: | | | | | RUE | | [phone] | | | | | weakness | | | | | | | Procedures | | | | | | | CONSULT TO | | | | | | | NEUROLOGY | | | + +--------+ + + + + Reason for Visit [...] Closed | | Neurological | Diagnoses | Roland | Roxana | | | | Surgery | suspected | GIOVANNI Ellis | MD Colleen | | | | | aneurysm | [address] | [address] | | | | | Procedures | [address] | Ave | | | | | [place] NEW | [address] | [place], [place] | | | | | PATIENT | [place], | [address] | | | | | [address] | [place] [address] | Phone: | | | | | EST PATIENT | Phone: | [phone] | | | | | L[address] | [phone] | Fax: | | | | | | Fax: | [phone] | | | | | | [phone] | | +--------+--------+ + + + + Encounter Details +--------+---------+ + + + | Date | Type | Department | Care Team | Description | +--------+---------+ + + + | 05/25/ | Office | Neurosurgery at | Colleen Schmidt MD | Nonintractable | | 2019 | Visit | [facility] [address] | [address] | headache, | | | | Ave Mailcode: CH8N | [place], [place] | unspecified | | | | [facility] | [address] | chronicity pattern, | | | | and Healing, | [phone] | unspecified headache | | | | [facility] | | type (Primary Dx) | | | | Floor [place], [place] | | | | | | [address] | | | | | | [phone] | | | +--------+---------+ + + + [...] AM PDTFormatting of this note might be narinder nt from the original. NEUROSURGERY NEW PATIENT CLINIC VISIT HPI: Lin Garica is a 44 y.o. female who presents [...] 5 ye ars. I spent 20 minutes kype-ud-pexn with the patient of which greater than [...] s or concerns arise. Colleen Schmidt MD Realty Loan Specialist Director, Cerebrovascular and Skull Base Surgery Department of Neurological Surgery and Interventional Neuroradiology [facility] & [address] [place] [address] documented in this encou nter Plan of Treatment Not on filedocumented as of this encounter Visit Diagnoses + + | Diagnosis | + + | Nonintractable headache, unspecified chronicity pattern, unspecified headache type - | | Primary | + + documented in this encounter
--- OUTSIDE RECORDS SUMMARY | ~2019-06-17 | XMS | Encounter Summary ---
Demographics + + + | Address | [address] | | | [place] [address] | + + + | Home Phone [...] + + + | Author | [facility] [employer] [facility] | + + + | Organization | [facility] [employer] [facility] | + + + | Address | Unknown | + + + | Phone | Unavailable | + + + Support + + +---------+ + | Name | Relationship | Address | Phone | + + +---------+ + | Marlena Jonathan | ECON | Unknown | | + + +---------+ + Care Team Providers + +------+ + | Care Local Government Legislator Name | Role | Phone | + +------+ + | Rhonda Watkins | PCP | | + +------+ + Encounter Details +--------+ + + + + | Date | Type | Department | Care Team | Description | +--------+ + + + + | 05/01/ | Outside | UNKNOWN DEPARTMENT | Other, Faculty | | | 2019 | Records | [address] [facility] | [phone] | | | | | [address] | | | | | | [place], [place] | | | | | | [address] | | | +--------+ + + + [...]
--- OUTSIDE RECORDS SUMMARY | ~2019-06-17 | XMS | Encounter Summary ---
Demographics + + + | Address | [address] | | | [place] [address] | + + + | Home Phone [...] + | Organization | [facility] [...] Team Providers + +------+ + | Care Scrap Iron Cutter Name | Role | Phone | + [...] + + | 04/09/ | Emergency | [facility] | Getachew Cain | Internal carotid | | 2019 | | [facility] CTR EM[facility] | Germain Bower MD | aneurysm (Primary | | | | CENTER [address] | [address] | Dx) | | | | [facility] | [facility] | | | | | [address] | [id number] | | | | | [phone] | | | +--------+ + + + [...] carotid aneurys m with the neurosurgeon at [facility]. They recommend follow-up with appointment [...] | | 0 | | | | [id number] | mouth. | | | | 9 [...] | | | ?MRN: | | | [id number] | | | [id number] | | | riteri | | | [...] | | | St. | | | [place] | | | y | | | [...] | | | St. | | | [place] | | | y | | | [...] | | | St. | | | [place] | | | y | | | [...] | | | St. | | | [place] | | | y | | | [...] | | | St. | | | [place] | | | y | | | [...] | | | St. | | | [place] | | | y | | | [...] | | | St. | | | [place] | | | y H. | | [...] | | | St. | | | [place] | | | y H. | | [...] | | | St. | | | [place] | | | y H. | | [...] | | | St. | | | [place] | | | y H. | | [...] | | | St. | | | [place] | | | y H. | | [...] | | | St. | | | [place] | | | y H. | | [...] | | | St. | | | [place] | | | y H. | | [...] M.D. | | | | | | Supervisor Packing | | | al | | | [...] + | [facility] | [address] | [place] | [phone] | | [facility] | | [address] | | | - LABORATORY | | [...] - 1.030 | [facility] | | | [place] | | | [facility] | | [...] [address] | [facility] | [phone] | | [facility] | | [address] | | | - LABORATORY | | [...] performed from the aortic arch through the [facility] | | | [place]. Multiplanar reformations [...] | from the aortic arch through the [facility] [place].Multiplanar reformations were also | | [...] + | [facility] | [address] | [place] | [phone] | | [facility] | | [address] | | | - LABORATORY | | [...] | | | | Comment:Reference | | [facility] | | | | Ranges: 0.00-0.06 [...] | | | | | | [employer] | | | | | [...] + + | Performing | Address | City/State/[facility] | Phone Number | | Organization | | | | + + + + + | [facility] | [address] | [place] | [phone] | | [facility] | | [address] | | | - LABORATORY | | [...] [address] | [facility] | [phone] | | [facility] | | [address] | | | - LABORATORY | | | | + + + + + Lipase (04/09/2019 19:15 PDT) + + + + + + | Component | Value | Ref Range | Performed | Pathologist | | | | | At | Signature | + + + + + + | Lipase | 33Comment: New method in | 12 - 53 U/L | [facility] | | | | use as of October 11 | | [facility] | | | | 2018. Check [...] [address] | [facility] | [phone] | | [facility] | | [address] | | | - LABORATORY | | [...] | mL/min/1.73m2 | [facility] | | | [place] | RATE,ESTIMATED mL/min | | MEDICAL | | | | /1.60n9Pqij than 60 | | CENTER - | [...] + | [facility] | [address] | [facility] [place] | [phone] | | [facility] | | [address] | | | - LABORATORY | | [...] 0.003-0.091 K/uL 0.0-0.9% 2nd 0.007-0.247 K/uL | [facility] | | 0.1-2.0% 3rd 0.018-0.456 K/uL 0.1-2.0% | - LABORATORY | + + + + + + + + | Performing | Address | City/State/Zipcode | Phone Number | | Organization | | | | + + + + + | [facility] | [address] | [facility] [place] | [phone] | | [facility] | | [address] | | | - LABORATORY | | [...] + | [facility] | [address] | [place] | [phone] | | [facility] | | [address] | | | - LABORATORY | | [...] | | | | KRISTEL PILLAI MD ([id number]) | | | | | | on [...]
--- OUTSIDE RECORDS SUMMARY | ~2019-06-17 | XMS | Encounter Summary ---
Demographics + + + | Address | [address] | | | [place] [address] | + + + | Home Phone [...] | [facility] | [...] Team Providers + +------+ + | Care Duck Operator Name | Role | Phone | [...] + + | 05/01/ | Emergency | [facility] | Wilbert Claire, | Migraine without | | 2019 | | MED [facility] EM[facility]Y | MD [address] | aura and without | | | | CENTER [address] | [facility] | status migrainosus, | | | | [place], [place] | [address] | not intractable | | | | [address] | | (Primary Dx) | | | | [phone] | | | +--------+ + + + [...] Care Everywhere.Headache, Migra ine: Stages and Treatment (Central African)documented in this encounter Medications at Time of [...] | | | ?MRN: | | | [id number] | | | [id number] | | | riteri | | | [...] | | | St. | | | [place] | | | y | | | [...] | | | St. | | | [place] | | | y | | | [...] | | | St. | | | [place] | | | y | | | [...] | | | St. | | | [place] | | | y | | | [...] | | | St. | | | [place] | | | y | | | [...] | | | St. | | | [place] | | | y | | | [...] | | | St. | | | [place] | | | y H. | | [...] | | | St. | | | [place] | | | y H. | | [...] | | | St. | | | [place] | | | y H. | | [...] | | | St. | | | [place] | | | y H. | | [...] | | | St. | | | [place] | | | y H. | | [...] | | | St. | | | [place] | | | y H. | | [...] | | | St. | | | [place] | | | y H. | | [...] M.D. | | | | | | Suggestion Clerk | | | al | | | [...] | | | [facility] | | | DIOMEDE | | | | | | PROVID [...] performed from the aortic arch through the [place] of [place]. | | | Multiplanar reformations [...] | | | [facility] on May [facility], 2019 at [...] | | from the aortic arch throughthe kotlik of [place]. Multiplanar reformations and | | [...] reported to the ER [facility] | | May 01, 2019 [...] [address] | [facility] | [phone] | | [facility] | | [address] | | | - LABORATORY | | [...] [address] | [facility] | [phone] | | [facility] | | [address] | | | - LABORATORY | | [...] + | [facility] | [address] | [facility] [place] | [phone] | | [facility] | | [address] | | | - LABORATORY | | [...] mL/min/1.73m2 | [facility] | | | NIGERIAN | RATE,ESTIMATED mL/min | | MEDICAL | | | | /1.25m3Aqmu than 60 | | CENTER - | [...] + + + + + + | Albumin/Fbaiola | 1.5 | 0.8 - 1.9 | [...] [address] | [facility] | [phone] | | [facility] | | [address] | | | - LABORATORY | | [...] 0.003-0.091 K/uL 0.0-0.9% 2nd 0.007-0.247 K/uL | [facility] | | 0.1-2.0% 3rd 0.018-0.456 K/uL 0.1-2.0% | - LABORATORY | + + + + + + + + | Performing | Address | City/State/Zipcode | Phone Number | | Organization | | | | + + + + + | [facility] | [address] | [facility] [place] | [phone] | | [facility] | | [address] | | | - LABORATORY | | [...] | | | | | ONCE, [facility] 05/01/19 at 2125, For 1 | [...] | | | | | ONCE, [facility] 05/01/19 at 2245, For 1 | | | | | | | dose | | | | | | + +---------+ +--------+-------+---+ +---+---+ | | | +---+---+ documented in this encounter
--- OUTSIDE RECORDS SUMMARY | ~2019-06-17 | XMS | Encounter Summary ---
Demographics + + + | Address | [address] | | | [place] [address] | + + + | Home Phone [...] + + | Author | [facility] [facility] | + + + | Organization | [facility] [employer] [facility] | + + + | Address | Unknown | + + + | Phone | Unavailable | + + + Support + + +---------+ + | Name | Relationship | Address | Phone | + + +---------+ + | Marlena Jonathan | ECON | Unknown | | + + +---------+ + Care Team Providers + +------+ + | Care Accountant Auditor Name | Role | Phone | + [...] | | | | | pattern, | [address] | and Healing, | | | | | unspecified | Phone: | Building [address], | | | | | headache | [phone] | [address]th Floor | | | | | type | Fax: | [place], [place] | | | | | Headaches | [phone] | [address] | | | | | and | | Phone: | | | | | intermittent | | [phone] | | | | | episodes of | | Fax: | | | | | RUE | | [phone] | | | | | weakness | [...] | | | | | aneurysm | [address] | [address] | | | | | Procedures | [address] | Ave | | | | | PA NEW | [address] | [place], [place] | | | | | PATIENT | [place], | [address] | | | | | LEVEL V PA | [place] [address] | Phone: | | | | | EST PATIENT | Phone: | [phone] | | | | | LEVEL V | [phone] | Fax: | | | | | | Fax: | [phone] | | | | | | [phone] | | +--------+--------+ + + + + Encounter Details +--------+---------+ + + + | Date | Type | Department | Care Team | Description | +--------+---------+ + + + | 05/25/ | Office | Neurosurgery at | Colleen Schmidt MD | Nonintractable | | 2019 | Visit | [facility] [address] | [address] | headache, | | | | Ave Mailcode: CH8N | [place], [place] | unspecified | | | | [facility] | [address] | chronicity pattern, | | | | and Healing, | [phone] | unspecified headache | | | | [facility] | | type (Primary Dx) | | | | Floor [place], [place] | | | | | | [address] | | | | | | [phone] | | | +--------+---------+ + + + [...] 5 ye ars. I spent 20 minutes [id number] with the patient of which greater than [...] s or concerns arise. Colleen Schmidt MD Sifting Operator Director, Cerebrovascular and Skull Base Surgery Department of Neurological Surgery and Interventional Neuroradiology [facility] & [address] [place] [address] documented in this encou nter Plan of Treatment Not on filedocumented as of this encounter Visit Diagnoses + + | Diagnosis | + + | Nonintractable headache, unspecified chronicity pattern, unspecified headache type - | | Primary | + + documented in this encounter
--- OUTSIDE RECORDS SUMMARY | ~2019-06-17 | XMS | Encounter Summary ---
Demographics + + + | Address | [address] | | | [place] [address] | + + + | Home Phone [...] + | Organization | [facility] | [...] Team Providers + +------+ + | Care Street Light Wirer Name | Role | Phone | [...] [address] | | | | | [place], [place] | [place] [address] | | | | | [address] | [phone] | | | | | [phone] | | | +--------+ + + + [...]
--- OUTSIDE RECORDS SUMMARY | ~2019-06-17 | XMS | Clinical Summary ---
Demographics + + + | Address | [address] | | | [place] [address] | + + + | Home Phone [...] Organization | [facility] | [...] Team Providers + +------+ + | Care Infection Control Rn Name | Role | Phone | [...] tablet by | 90 | 5 | 01/ | | Activ | | (WELLBUTRIN SR) [...] + + | 05/02/ | Telephone | Neurosurgery | Leoncio Valdivia DO | Referral Question | | 2018 | | | | | +--------+ + + + + | 05/01/ | Emergency | Emergency Medicine | Wilbert Claire, | Migraine without | | 2018 | | | MD | aura and without | | | | | | status migrainosus, | | | | | | not intractable | | | | | | (Primary Dx) | +--------+ + + + + | 04/09/ | Emergency | Emergency Medicine | Getachew Cain | Internal carotid | | 2018 | | | Germain Bower MD | aneurysm (Primary | | | | | | Dx) | +--------+ + + + + from [...] 05/01/20192053 PDT | + + + + Plan [...] | | | ON?09/ | | | 17/201 | | | 9 | | | 20:31? | | | WATCH[facility] | | | AN, | | | LIN | | | ?MRN: | | | [id number] | | | [id number] | | | riteri | | | [...] | | | St. | | | [place] | | | y | | | [...] | | | LWBS | | | 10// | | | 18 | | | 5:12 | | | PM [facility] | | | St. | | | [place] | | | y | | | [...] | | | St. | | | [place] | | | y | | | [...] | | | St. | | | [place] | | | y | | | [...] | | | St. | | | [place] | | | y | | | [...] | | | St. | | | [place] | | | y | | | [...] | | | St. | | | [place] | | | y H. | | [...] | | | St. | | | [place] | | | y H. | | [...] | | | St. | | | [place] | | | y H. | | [...] | | | St. | | | [place] | | | y H. | | [...] | | | St. | | | [place] | | | y H. | | [...] | | | St. | | | [place] | | | y H. | | [...] | | | St. | | | [place] | | | y H. | | [...] M.D. | | | | | | Pulp Mill Supervisor | | | al | | | [...] | | | [facility] | | | [place] | | | | | | PROVID [...] [email or web address] | | | m | +---+--------+ + +--------+ +---+ + | DRUGS OF ABUSE, | STAT | 04/09/2019 | | Results for this | | SCREEN, URINE | | 20:55 PDT | | procedure are in the | | | | | | results section. | + +--------+ +---+ + | URINALYSIS WITH | STAT | 04/09/2019 | | Results for this | | MICROSCOPIC WITH | | 20:55 PDT | | procedure are in the | | CULTURE IF INDICATED | | | | results section. | + +--------+ +---+ + | CT ANGIOGRAM HEAD | STAT | 04/09/2019 | | Results for this | | NECK | | 19:41 PDT | | procedure are in the | | | | | | results section. | + +--------+ +---+ + | CT CERVICAL SPINE WO | STAT | 04/09/2019 | | Results for this | | CONTRAST | | 19:41 PDT | | procedure are in the | | | | | | results section. | + +--------+ +---+ + | XR CHEST AP PORTABLE | STAT | 04/09/2019 | | Results for this | | | | 19:28 PDT | | procedure are in the | | | | | | results section. | + +--------+ +---+ + | ALCOHOL | STAT | 04/09/2019 | | Results for this | | | | 19:15 PDT | | procedure are in the | | | | | | results section. | + +--------+ +---+ + | TROPONIN I | Routin | 04/09/2019 | | Results for this | | | e | 19:15 PDT | | procedure are in the | | | | | | results section. | + +--------+ +---+ + | PROTIME INR | STAT | 04/09/2019 | | Results for this | | | | 19:15 PDT | | procedure are in the | | | | | | results section. | + +--------+ +---+ + | LIPASE | STAT | 04/09/2019 | | Results for this | | | | 19:15 PDT | | procedure are in the | | | | | | results section. | + +--------+ +---+ + | COMPREHENSIVE | STAT | 04/09/2019 | | Results for this | | METABOLIC PANEL | | 19:15 PDT | | procedure are in the | | | | | | results section. | + +--------+ +---+ + | CBC WITH | STAT | 04/09/2019 | | Results for this | | DIFFERENTIAL | | 19:15 PDT | | procedure are in the | | | | | | results section. | + +--------+ +---+ + | B TYPE NATRIURETIC | STAT | 04/09/2019 | | Results for this | | PEPTIDE | | 19:15 PDT | | procedure are in the | | | | | | results section. | + +--------+ +---+ + | ECG 12 LEAD | STAT | 04/09/2019 | | Results for this | | | | 19:10 PDT | | procedure are in the | | | | | | results section. | + +--------+ +---+ + | OXYGEN THERAPY | STAT | 04/09/2019 | | | | | | 19:02 PDT | | | + +--------+ +---+ + | ED INFORMATION | Routin | 04/09/2019 | | | | EXCHANGE | e | 18:22 PDT | | | + +--------+ +---+ + +---+--------+ | | | | | [...] | | | ON?/ | | | / | | | 9 | | | 18:21? | | | WATCH[facility] | | | AN, | | | LIN | | | ?MRN: | | | [id number] | | | [id number] | | | riteri | | | [...] | | | St. | | | [place] | | | y | | | [...] | | | St. | | | [place] | | | y | | | [...] | | | St. | | | [place] | | | y | | | [...] | | | St. | | | [place] | | | y | | | [...] | | | St. | | | [place] | | | y | | | [...] | | | St. | | | [place] | | | y | | | [...] | | | St. | | | [place] | | | y H. | | [...] | | | St. | | | [place] | | | y H. | | [...] | | | St. | | | [place] | | | y H. | | [...] | | | St. | | | [place] | | | y H. | | [...] | | | St. | | | [place] | | | y H. | | [...] | | | St. | | | [place] | | | y H. | | [...] | | | St. | | | [place] | | | y H. | | [...] M.D. | | | | | | Pulp Mill Supervisor | | | al | | | [...] [email or web address] | | | m | +---+--------+ from Last [address] Angiogram Head Neck w Contrast (05/01/2019 22:10 PDT)Only the most recent of 2 results w ithin the time period is included. + + | Specimen | + + [...] performed from the aortic arch through the [place]'s [place] of [place]. | | | Multiplanar reformations [...] | | | ER staff by the [facility] radiologist on May 01, 2019 at [...] | | from the aortic arch throughthe clark's point of [place]. Multiplanar reformations and | | [...] [facility] | | May 01, 2019 [...] reported to the ER staff by the [facility] | |Imaging radiologist on May 01, 2019 [...] | | + +---------+ + + Extra Lavender Top Tube (05/01/2019 [...] | + + + + + | [facility] | [address] | [facility] [place] | [phone] | | [facility] | | [address] | | | - LABORATORY | | | | + + + + + Extra Green Top Tube (05/01/2019 21:37 PDT) + +-------+ + + + | Component | Value | Ref Range | Performed | Pathologist | | | | | At | Signature | + +-------+ + + + | Extra Green | Done | | [facility] | | | Top Tube | | | [facility] | | [...] [address] | [facility] | [phone] | | [facility] | | [address] | | | - LABORATORY | | [...] | Top Tube | | | [facility] | | [...] ST. | [address] | [place], [place] | [phone] | | [facility] | | [address] | | | - LABORATORY | | | | + + + + + CBC with Differential (05/01/2019 21:37 PDT)Only the most recent of 2 results within the ti me period is included. + + + + + + | [...] | | | | M/uL | [facility] | [...] 0.003-0.091 K/uL 0.0-0.9% 2nd 0.007-0.247 K/uL | [facility] | | 0.1-2.0% 3rd 0.018-0.456 K/uL 0.1-2.0% | - LABORATORY | + + + + + + + + | Performing | Address | City/State/Zipcode | Phone Number | | Organization | | | | + + + + + | [facility] | [address] | [place] | [phone] | | [facility] | | [address] | | | - LABORATORY | | | | + + + + + Comprehensive Metabolic Panel (05/01/2019 21:37 PDT)Only the most recent of 2 results withi n the time period is included. + + + + + + | [...] (L) | 9 - 23 mg/dL | [facility] | | | | | | [facility] | | | | | | MEDICAL | | | | | | CENTER - | | | | | | LABORATORY | | + + + + + + | Creatinine | 0.69 | 0.55 - 1.02 | [facility] | | | | | mg/dL | [facility] | | | | | | MEDICAL | | | | | | CENTER - | | | | | | LABORATORY | | + + + + + + | eGFR if not | >60Comment: GLOMERULAR | >=60 | [facility] | | | | FILTRATION | mL/min/1.73m2 | [facility] | | | [place] | RATE,ESTIMATED mL/min | | MEDICAL | | | | /1.43e2Vekd than 60 | | CENTER - | [...] [address] | [facility] [place] | [phone] | | [facility] | | [address] | | | - LABORATORY | | [...] | | | | Yellow, Straw | [facility] [...] - 1.030 | [facility] | | | [place] | | | [facility] | | [...] | + + + + + | [facility] | [address] | [place], [place] | [phone] | | [facility] | | [address] | | | - LABORATORY | | | | + + + + + Drugs of Abuse, Screen, Urine (04/09/2019 20:55 [...] | | Screen, | | | [facility] | | | Urine | | | MEDICAL | | | | | | CENTER - | | | | | | LABORATORY | | + + + + + + | Opiates | Positive (A) | Negative | [facility] | | | Screen, | | | [facility] | | | Urine | | | [...] [address] | [place] | [phone] | | [facility] | | [address] | | | - LABORATORY | | | | + + + + + CT Cervical Spine wo Contrast [...] | | | + +---------+ + + Troponin I (04/09/2019 19:15 PDT) [...] | | | | | | [employer] | | | | | [...] + | [facility] | [address] | [facility] [place] | [phone] | | [facility] | | [address] | | | - LABORATORY | | [...] | | | Anticoagulation | | [facility] | | | | Range: 2.0 - [...] [address] | [facility] [place] | [phone] | | [facility] | | [address] | | | - LABORATORY | | [...] | + + + + + | [facility] | [address] | [place] | [phone] | | [facility] | | [address] | | | - LABORATORY | | | | + + + + + Lipase (04/09/2019 19:15 PDT) + + + + + + | Component | Value | Ref Range | Performed | Pathologist | | | | | At | Signature | + + + + + + | Lipase | 33Comment: New method in | 12 - 53 U/L | [facility] | | | | use as of October 11, | | [facility] | | | | 2018. [...] [address] | [place] | [phone] | | [facility] | | [address] | | | - LABORATORY | | | | + + + + + Ethanol (04/09/2019 19:15 PDT) + [...] + | [facility] | [address] | [place], [place] | [phone] | | [facility] | | [address] | | | - LABORATORY | | [...] | | | | KRISTEL PILLAI MD ([id number]) | | | | | | on [...] | | | + +---------+ + + from Last 3 Months Insurance [...] | [employer] | [employer] | [id number] | 06/04/ | [phone] | | Medica | | MEDICAID HMO | HEALTH | | 2017-P | 1 | | id | | | MDCD | | resent | | | | | | [place] | | | | | | + +--------+ +--------+ +---------+--------+ | [employer] | IHS | [id number] | | | | Indemn | | SERVICE | YELLOW | | 013-Pr | | | ity | | | HAWK | | esent | | | | + +--------+ +--------+ +---------+--------+ | MEDICAID [place] | MEDICA | [id number] | | [phone] | | Medica | | | [place] | | 018-Pr | 2 | | id | | | PLUS | | esent | | | | + +--------+ +--------+ +---------+--------+ | MEDICAID [place] | MEDICA | [id number] | | [phone] | | Medica | [...] | Self | [birth year] | [address] | | | al/Fam | | 1975 | [phone] | [place] [address] | | | randi | | | 1 (Home) | | + +--------+ +--------+ + + | Lin Garcia | Person | Self | [birth year] | | [address] | | | al/Fam | | 1974 | [phone] | [place] [address] | | | randi | | | 1 (Home) | | + +--------+ +--------+ + + | Lin Garcia | Person | Self | [birth year] | [address] | | | al/Fam | | 1974 | [phone] | [place] [address] | | | randi | | | 1 (Home) | | + +--------+ +--------+ + + Advance Directives Patient has advance care planning documents on file. For more information, please contact:[facility] [place] [address]
--- OUTSIDE RECORDS SUMMARY | ~2019-06-17 | XMS | Clinical Summary ---
Demographics + + + | Address | [address] | | | [place] [address] | + + + | Home Phone [...] Organization | [facility] | | [...] Team Providers + +------+ + | Care Yard Caller Name | Role | Phone | + [...] | | | ?MRN: | | | [id number] | | | [id number] | | | riteri | | | [...] | | | St. | | | [place] | | | y | | | [...] | | | St. | | | [place] | | | y | | | [...] | | | St. | | | [place] | | | y | | | [...] | | | St. | | | [place] | | | y | | | [...] | | | St. | | | [place] | | | y | | | [...] | | | St. | | | [place] | | | y | | | [...] | | | St. | | | [place] | | | y H. | | [...] | | | St. | | | [place] | | | y H. | | [...] | | | St. | | | [place] | | | y H. | | [...] | | | St. | | | [place] | | | y H. | | [...] | | | St. | | | [place] | | | y H. | | [...] | | | St. | | | [place] | | | y H. | | [...] | | | St. | | | [place] | | | y H. | | [...] M.D. | | | | | | Independent Consultant | | | al | | | [...] | | | [place] | | | [place] | | | | | | PROVID [...] | | | ?MRN: | | | [id number] | | | [id number] | | | riteri | | | [...] | | | St. | | | [place] | | | y | | | [...] | | | St. | | | [place] | | | y | | | [...] | | | St. | | | [place] | | | y | | | [...] | | | St. | | | [place] | | | y | | | [...] | | | St. | | | [place] | | | y | | | [...] | | | St. | | | [place] | | | y | | | [...] | | | St. | | | [place] | | | y H. | | [...] | | | St. | | | [place] | | | y H. | | [...] | | | St. | | | [place] | | | y H. | | [...] | | | St. | | | [place] | | | y H. | | [...] | | | St. | | | [place] | | | y H. | | [...] | | | St. | | | [place] | | | y H. | | [...] | | | St. | | | [place] | | | y H. | | [...] M.D. | | | | | | Independent Consultant | | | al | | | [...] performed from the aortic arch through the [place]. | | | Multiplanar reformations [...] | | | ER staff by the [facility] Imaging radiologist on May 01, 2019 at [...] | | from the aortic arch throughthe [place]. Multiplanar reformations and | | [...] [facility] | | May 01, [...] reported to the ER staff by the [facility] | |Imaging radiologist on May 01, 2019 [...] + | [facility] [facility] | [address] | [place] | [phone] | | [facility] | | [address] | | | - LABORATORY | | [...] [address] | [place] [place] | [phone] | | [facility] | | [address] | | | - LABORATORY | | [...] ST. | [address] | [place], [place] | [phone] | | [facility] | | [address] | | | - LABORATORY | | [...] 0.003-0.091 K/uL 0.0-0.9% 2nd 0.007-0.247 K/uL | [facility] | | 0.1-2.0% 3rd 0.018-0.456 K/uL 0.1-2.0% | - LABORATORY | + + + + + + + + | Performing | Address | City/State/Zipcode | Phone Number | | Organization | | | | + + + + + | [facility] [facility] | [address] | [place] | [phone] | | [facility] | | [address] | | | - LABORATORY | | [...] (L) | 9 - 23 mg/dL | [facility] | | | | | | [facility] | | | | | | [facility]ICAL | | | | | | CENTER - | | | | | | LABORATORY | | + + + + + + | Creatinine | 0.69 | 0.55 - 1.02 | [facility] | | | | | mg/dL | [facility] | | | | | | MEDICAL | | | | | | CENTER - | | | | | | LABORATORY | | + + + + + + | eGFR if not | >60Comment: GLOMERULAR | >=60 | [facility] | | | | FILTRATION | mL/min/1.73m2 | [facility] | | | [place] | RATE,ESTIMATED mL/min | | MEDICAL | | | | /1.86h0Xyjk than 60 | | CENTER - | [...] [address] | [facility] [place] | [phone] | | [facility] | | [address] | | | - LABORATORY | | [...] - 1.030 | [facility] | | | Chloe | | | [facility] | | [...] | | Urine | | | [facility] | | [...] | [facility] | [address] | [place], [place] | [phone] | | [facility] | | [address] | | | - LABORATORY | | [...] [address] | [place] | [phone] | | [facility] | | [address] | | | - LABORATORY | | [...] | | | | | | [employer] | | | | | [...] + | [facility] | [address] | [place] | [phone] | | [facility] | | [address] | | | - LABORATORY | | [...] [address] | [facility] [place] | [phone] | | [facility] | | [address] | | | - LABORATORY | | [...] + | [facility] | [address] | [place] | [phone] | | [facility] | | [address] | | | - LABORATORY | | [...] use as of October 11, | | [facility] | | | | 2018. Check [...] [address] | [place] | [phone] | | [facility] | | [address] | | | - LABORATORY | | [...] + | [facility] | [address] | [place], [place] | [phone] | | [facility] | | [address] | | | - LABORATORY | | [...] by | | | | | | KRISETL PILLAI MD ([id number]) | | | | | | on [...] | [employer] | MODA | [id number] | 06/04/ | [phone] | | Medica | | MEDICAID HMO | HEALTH | | 2017-P | 1 | | id | | | MDCD | | resent | | | | | | [place]MO [place] | | | | | | + +--------+ +--------+ +---------+--------+ | [facility] | IHS | [id number] | | | | Indemn | | SERVICE | YELLOW | | 013-Pr | | | ity | | | HAWK | | esent | | | | + +--------+ +--------+ +---------+--------+ | [place]ICA[place] | MEDICA | [id number] | | [phone] | | Medica | | | ID [place] | | 018-Pr | 2 | | id | | | PLUS | | esent | | | | + +--------+ +--------+ +---------+--------+ | [place]ICA[place] | MEDICA | [id number] | | [phone] | | Medica | [...] | 1975 | [phone] | [place] [address] | | | randi | | | 1 (Home) | | + +--------+ +--------+ + + | Lin Garcia | Person | Self | [birth year] | [address] | | | al/Fam | | 1974 | [phone] | [place] [address] | | | randi | | | 1 (Home) | | + +--------+ +--------+ + + | Lin Garcia | Person | Self | [birth year] | | [address] | | | al/Fam | | 1974 | [phone] | [place] [address] | | | randi | | | 1 (Home) | | + +--------+ +--------+ + + Advance Directives Patient has advance care planning documents on file. For more information, please contact:[facility] [place] [address]
--- OUTSIDE RECORDS SUMMARY | ~2019-06-17 | XMS | Encounter Summary ---
Demographics + + + | Address | [address] | | | [place] [address] | + + + | Home Phone [...] + + + | Author | [facility] | + + + | Organization | [facility] [employer] [facility] | + + + | Address | Unknown | + + + | Phone | Unavailable | + + + Support + + +---------+ + | Name | Relationship | Address | Phone | + + +---------+ + | Marlena Jonathan | ECON | Unknown | | + + +---------+ + Care Team Providers + +------+ + | Care Sidewalk Repairer Name | Role | Phone | [...] | | | | | | [place] [address] | | | +--------+--------+ + + + [...]
[~2019-06-17 11:15] MED LIST changes: +SUBOXONE 4 MG-1 EACH PO
--- OUTSIDE RECORDS SUMMARY | 2019-06-17 11:18 | XMS ---
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 Details: LWBS Elopement at [facility] 06/05/2018 17:12 - Patient eloped before treatment completed. Details: LWBS CRITERIA MET - Group Notification - [facility] - Has Care Guidelines - PDMP CARE PROVIDERS Ced Lorenz MD Family Medicine 12/18/2018-Current PHONE: Unknown Mandeep DIAZ Internal Medicine Current PHONE: Unknown ESTRELLITA MONTENEGRO Registered Nurse: [facility] 06/14/2018-Current SONDRA PHONE: [phone] CHARLEY DIAZ Primary Care Current PHONE: [phone] GETACHEW TYLER Primary Care Current PHONE: Unknown [facility] Primary Care Current PHONE: Unknown Sebastian has no Care Guidelines for this patient. Care History Medical/Surgical 12/18/2018 [facility] \T\middot;\T\nbsp; PATIENT IS A [employer] MEMBER. \T\middot;\T\nbsp; PLEASE REFER PATIENT TO [facility] FOR NON EMERGENT MEDICAL NEEDS. \T\middot;\ T\nbsp; [facility] CAN SEE PATIENTS SAME DAY FOR APTS IF PATIENT CALLS FIRST THING IN THE MORNING. 10/30/2018 [facility] CALLED [phone] AND THE INDIVIDUAL WHO ANSWERED THE PHONE STATED THAT IT IS NOT THE CORRECT CONTACT NUMBER AND TO NOT CALL AGAIN. - PHONE NUMBER PROVIDER IS NOT VALID FOR CONTACTING PATIENT. 10/26/2018 [facility] CALLED PATIENT AND LEFT A VOICEMAIL FOR A RETURN CALL. - PATIENT HAS NOT FOLLOWED UP WITH PCP. Hernandez [facility] (12 MO.) [facility] T[facility] 8 NOTE: Visits indicate total known visits. ED/UCC VISIT TRACKING (12 MO.) 06/17/2019 11:15 [facility] TYPE: Emergency COMPLAINT: - HEAD INJ FROM FALL [facility]/01/2019 20:[facility] DIAGNOSES: - aneurysm - Migraine w/o aura, not intractable, w/o status migrainosus - Headache (Adult - New Onset Or New Symptoms) - Head hurts previous here and told [facility]09/2019 [facility] DIAGNOSES: - Headache (Adult - New Onset Or New Symptoms) - Cerebral aneurysm, nonruptured - severe KEARNEY, rt arm weakness, pain 04/08/2019 08:19 [facility] TYPE: Emergency COMPLAINT: - R HAND PAIN/NON INJURY DIAGNOSES: - Other exterminator (current) drug therapy - Headache - Nicotine dependence, unspecified, uncomplicated - Pain in right wrist - Allergy status to oth drug/meds/biol subst status - Allergy status to analgesic agent status 12/15/2018 00:23 [facility] TYPE: Emergency COMPLAINT: - ALTERED LOC DIAGNOSES: - Allergy status to oth drug/meds/biol subst status - Blood alcohol level of 80-99 mg/100 ml - Nicotine dependence, unspecified, uncomplicated - Unspecified asthma, uncomplicated - Alcohol abuse with intoxication, unspecified - Allergy status to analgesic agent status - Allergy status to narcotic agent status - Opioid abuse, uncomplicated 10/27/2018 23:01 [facility] TYPE: Emergency COMPLAINT: - SYNCOPE DIAGNOSES: - Poisoning by benzodiazepines, accidental, init - Other exterminator (current) drug therapy - Syncope and collapse - Nicotine dependence, unspecified, uncomplicated - Unspecified asthma, uncomplicated - Allergy status to narcotic agent status - Allergy status to analgesic agent status 10/25/2018 22:31 [facility] TYPE: Emergency COMPLAINT: - R WRIST PAIN,NON INJURY DIAGNOSES: - Pain in right wrist - Allergy status to oth drug/meds/biol subst status - Allergy status to analgesic agent status - Nicotine dependence, unspecified, uncomplicated - Unspecified asthma, uncomplicated - Other assisted (current) drug therapy - Migraine, unsp, not intractable, without status migrainosus 08/26/2018 17:13 [facility] TYPE: Emergency COMPLAINT: - HEADACHE/VOMITING DIAGNOSES: - Allergy status to analgesic agent status - Other exterminator (current) drug therapy - Allergy status to oth drug/meds/biol subst status - Headache - Unspecified asthma, uncomplicated - Allergy status to narcotic agent status - Nicotine dependence, unspecified, uncomplicated INPATIENT VISIT TRACKING (12 MO.) No inpatient visits to display in this time frame [email or web address]
== END 2019-06-17 13:25 | disposition home or self-care (01) ==
LOC: ED 11:15
DX: T14.8XXA Other injury of unspecified body region, initial encounter (principal); G89.29 Other chronic pain; W06.XXXA Fall from bed, initial encounter; F17.200 Nicotine dependence, unspecified, uncomplicated; Z88.6 Allergy status to analgesic agent; Z88.8 Allergy status to other drugs, medicaments and biological substances; Z88.5 Allergy status to narcotic agent; Z79.899 Other long term (current) drug therapy; G43.909 Migraine, unspecified, not intractable, without status migrainosus
CPT/HCPCS: 99283; 99406

== ENCOUNTER 2019-08-21 14:24 | Emergency (ER) | payer OTHER ==
[~2019-08-21] VITALS: Ht 160 cm; Wt 53.1 kg
--- OUTSIDE RECORDS SUMMARY | ~2019-08-21 | XMS | Encounter Summary ---
Demographics + + + | Address | [address] | | | [place] [address] | + + + | Home Phone | | + + + | Preferred Language | Unknown | + + + | Marital Status | Single | + + + | Latter Day Affiliation | Unknown | + + + | Race | Unknown | + + + | Ethnic Group | Unknown | + + + Author + + + | Author | [facility] | | | and [place] | + + + | Organization | [facility] | | | and [place] [...] Team Providers + +------+ + | Care Water Chemist Name | Role | Phone | + +------+ + | Ced Lorenz MD | PCP | | + +------+ + Encounter Details +--------+ + + + + | Date | Type | Department | Care Team | Description | +--------+ + + + + | 10/25/ | [facility] | [place] | Mandeep Gillespie, | | | 2013 | Encounter | [facility] | | | | | | [facility]ICAL [facility] [address] | | | | | | [address] [facility] [place], | | | | | | [place] [address] | | | | | | [phone] | | | +--------+ + + + [...]
--- OUTSIDE RECORDS SUMMARY | ~2019-08-21 | XMS | Clinical Summary ---
Demographics + + + | Address | [address] | | | [place] [address] | + + + | Home Phone | | + + + | Preferred Language | Unknown | + + + | Marital Status | Single | + + + | Synagogue Affiliation | Unknown | + + + | Race | Unknown | + + + | Ethnic Group | Unknown | + + + Author + + + | Author | [facility] | | | and [place] | + + + | Organization | [facility] | | | and [place] | + + + | Address | Unknown | + + + | Phone | Unavailable | + + + Support + + +---------+ + | Name | Relationship | Address | Phone | + + +---------+ + | Gloria Oliveiar | ECON | Unknown | | + + +---------+ + Care Team Providers + +------+ + | Care Crisis Clinician Name | Role | Phone | + +------+ + | Mandeep Gillespie MD | PCP | Unavailable | + +------+ + Allergies + + + + + + | Active Allergy | Reactions | Severity | Noted | Comments | | | | | Date | | + + + + + + | Aspirin | | | | Not specified from | | | | | | outside medical | | | | | | records ~ ANR | + + + + + + | Gabapentin | Palpitations | Low | 04/09/20 | | | | | | 19 | | + + + + + + | Nsaids | | | | Not specified from | | | | | | outside medical | | | | | | records ~ ANR | + + + + + + Medications + + + +---------+------+------+-------+ | Medication | Sig | Dispensed | Refills | Star | End | Statu | | | | | | t | Date | s | | | | | | Date | | | + + + +---------+------+------+-------+ | | Take 1-2 tablets by | | 0 | /2 | | Activ | | HYDROcodone-acetamin | mouth. | | | 12/02 | | e | | ophen (NORCO) 5-325 | | | | 18 | | | | mg per tablet | | | | | | | + + + +---------+------+------+-------+ | buPROPion | Take 1 tablet by | 90 | 5 | 01/1 | | Activ | | (WELLBUTRIN SR) 150 | mouth 3 times daily. | tablet | | 0/20 | | e | | mg 12 hr tablet | | | | 19 | | | + + + +---------+------+------+-------+ | SUMAtriptan | Take 1 tablet as | 10 | 0 | 09/1 | | Activ | | (IMITREX) 50 mg | needed for headache, | tablet | | 7/20 | | e | | tablet | may repeat one | | | 19 | | | | | tablet 2 hours after | | | | | | | | initial dose if | | | | | | | | needed, not to | | | | | | | | exceed 100 mg in 24 | | | | | | | | hours | | | | | | + + + +---------+------+------+-------+ Active Problems + + + | Problem | Noted Date | + + + | Anxiety and depression | 06/23/2017 | + + + | Anxiety | 06/23/2017 | + + + | Dysthymic disorder | 06/23/2017 | + + + | Headache disorder | 06/16/2015 | + + + | Opiate addiction | 10/25/2013 | + + + + + | Overview: quit treatment with [facility] | + + + + + | Pain medication agreement | 03/19/2013 | + + + | Alcohol abuse | 02/13/2013 | + + + + + | Overview: Recovering | + + + + + | Chronic female pelvic pain | 02/13/2013 | + + + | ENDOMETRIOSIS | | + + + | UNSPEC SYMPTOM ASSOC W/FEMALE GENITAL ORGANS | | + + + + + | Overview: ICD-10 Record update | + + + +---+ | PELVIC PAIN, CHRONIC | | + +---+ Immunizations + + + + | Name | Administration Dates | Next Due | + + + + | HEP A, 2 DOSE | 11/05/2010, 05/13/2005 | | | (ADULT) | | | + + + + | INFLUENZA PF | 06/19/2013 | | | TRIVALENT(PED/ADOL/A | | | | DULT)DEEPTHI | | | + + + + | IPV, 4 DOSE | 04/09/1981, 01/21/1978, 1976, | | | (PED/ADULT) | 1976 | | + + + + | MMR, 2 DOSE | 03/13/1990, 06/21/1977 | | | (PED/ADULT) | | | + + + + | TDAP, (ADOL/ADULT) | 04/30/2013, 02/29/2012 | | + + + + Social History + [...] recent travel history available. | + + Last Filed Vital Signs + + + + + | Vital Sign | Reading | Time Taken | Comments | + + + + + | Blood Pressure | 94/50 | 05/01/2019 11:45 PM | | | | | PDT | | + + + + + | Pulse | 88 | 05/01/2019 11:44 PM | | | | | PDT | | + + + + + | Temperature | 36.7 C (98.1 F) | 05/01/2019 8:54 PM | | | | | PDT | | + + + + + | Respiratory Rate | 16 | 05/01/2019 8:54 PM | | | | | PDT | | + + + + + | Oxygen Saturation | 98% | 05/01/2019 11:44 PM | | | | | PDT | | + + + + + | Inhaled Oxygen | - | - | | | Concentration | | | | + + + + + | Weight | 52.2 kg (115 lb) | 05/01/2019 8:54 PM | | | | | PDT | | + + + + + | Height | 160 cm (5' 3") | 05/01/2019 8:54 PM | | | | | PDT | | + + + + + | Body Mass Index | 20.37 | 05/01/2019 8:54 PM | | | | | PDT | | + + + + + Plan of Treatment + + + + + | Health Maintenance | Due Date | Last Done | Comments | + + + + + | Vaccine: | | | | | Pneumococcal 19-64 | 2 | | | | (1 of 1 - PPSV23) | | | | + + + + + | Primary Care | | 07/04/2017, 06/30/2017 | | | Outreach (Intense | 8 | | | | Risk) | | | | + + + + + | Vaccine: Influenza | | 06/11/2018, 05/21/2015, | | | (#1) | 9 | 07/22/2014, Additional history | | | | | exists | | + + + + + | Cervical Cancer | | 05/24/2017 | | | Screening (Pap) | 2 | | | + + + + + | Vaccine: | | 04/30/2013, 02/29/2012, | | | Dtap/Tdap/Td (8 - | 3 | 05/04/2002, Additional history | | | Td) | | exists | | + + + + + Results Not on filefrom Last 3 Months Insurance + +--------+ +--------+ +---------+--------+ | Payer | Benefi | Subscriber | Effect | Phone | Address | Type | | | t Plan | ID | darryl | | | | | | / | | Dates | | | | | | Group | | | | | | + +--------+ +--------+ +---------+--------+ | [employer] | MODA | [id number] | | [phone] | | Medica | | MEDICAID HMO | HEALTH | | 2017-P | 1 | | id | | | MDCD | | resent | | | | | | [place] | | | | | | + +--------+ +--------+ +---------+--------+ | [facility] [facility] | IHS | [id number] | | | | Indemn | | SERVICE | YELLOW | | 013-Pr | | | ity | | | HAWK | | esent | | | | + +--------+ +--------+ +---------+--------+ | [employer] | MEDICA | [id number] | | [phone] | | Medica | | | ID [place] | | 018-Pr | 2 | | id | | | PLUS | | esent | | | | + +--------+ +--------+ +---------+--------+ | [employer] | MEDICA | [id number] | | [phone] | | Medica | | | [place] | | 019-Pr | 2 | | id | | | PLUS | | esent | | | | + +--------+ +--------+ +---------+--------+ + +--------+ +--------+ + + | Guarantor Name | Accoun | Relation to | Date | Phone | Billing Address | | | t Type | Patient | of | | | | | | | | | | + +--------+ +--------+ + + | Lin Garcia | Person | Self | [birth year] | [address] | | | al/Fam | | 1975 | [phone] | [place] [address] | | | randi | | | 1 (Home) | | + +--------+ +--------+ + + | Lin Garcia | Person | Self | [birth year] | | [address] | | | al/Fam | | 1974 | [phone] | [place] [address] | | | randi | | | 1 (Home) | | + +--------+ +--------+ + + | Lin Garcia | Person | Self | [birth year] | | [address] | | | al/Fam | | 1974 | [phone] | [place] [address] | | | randi | | | 1 (Home) | | + +--------+ +--------+ + + Advance Directives + + + + + | Type | Date Recorded | Patient | Explanation | | | | Clinical Office Technician | | + + + + + | Power of | | | | | Telemetry Registered Nurse | | | | + + + + + | Advance | 07/01/2017 | | | | Directive | 9:23 AM | | | + + + + +
--- OUTSIDE RECORDS SUMMARY | ~2019-08-21 | XMS | Encounter Summary ---
Demographics + + + | Address | [address] | | | [place] [address] | + + + | Home Phone | | + + + | Preferred Language | Unknown | + + + | Marital Status | Single | + + + | Amish Affiliation | Unknown | + + + | Race | Unknown | + + + | Ethnic Group | Unknown | + + + Author + + + | Author | [facility] | | | and [place] | + + + | Organization | [facility] | | | and [place] [...] Team Providers + +------+ + | Care Special Effects Person Name | Role | Phone | + +------+ + | Ced Lorenz MD | PCP | | + +------+ + Encounter Details +--------+ + + + + | Date | Type | Department | Care Team | Description | +--------+ + + + + | 01/14/ | [facility] | [place] | Mandeep Gillespie, | | | 2015 | Encounter | [facility] | | | | | | MEDICAL CLINIC [address] | | | | | | [address] [place], | | | | | | [place] [address] | | | | | | [phone] | | | +--------+ + + + [...]
--- OUTSIDE RECORDS SUMMARY | ~2019-08-21 | XMS | Encounter Summary ---
Demographics + + + | Address | [address] | | | [place] [address] | + + + | Home Phone | | + + + | Preferred Language | Unknown | + + + | Marital Status | Single | + + + | Presybeterian Affiliation | Unknown | + + + | Race | Unknown | + + + | Ethnic Group | Unknown | + + + Author + + + | Author | [facility] | | | and [place] | + + + | Organization | [facility] | | | and [place] [...] Team Providers + +------+ + | Care Cob Sawyer Name | Role | Phone | + +------+ + | Mandeep Gillespie MD | PCP | Unavailable | + +------+ + Reason for Visit +--------+ + | Reason | Comments | +--------+ + | Other | returning a call | +--------+ + Encounter Details +--------+ + + + + | Date | Type | Department | Care Team | Description | +--------+ + + + + | 07/21/ | Telephone | [place] | Mandeep Gillespie, | Other (returning a | | 2017 | [facility] MD | call) | | | | [facility] [address] | | [address] [place], | | | | | | [place] [address] | | | | | | [phone] | | | +--------+ + + + [...]
--- OUTSIDE RECORDS SUMMARY | ~2019-08-21 | XMS | Encounter Summary ---
Demographics + + + | Address | [address] | | | [place] [id number] | + + + | Home Phone [...] + + + | Author | [facility] | | | and [place] | + + + | Organization | [facility] | | | and [...] Team Providers + +------+ + | Care Jumpbasting Collar Baster Name | Role | Phone | + +------+ + | Mandeep Gillespie MD | PCP | Unavailable | + +------+ + Reason for Visit + + + | Reason | Comments | + + + | Headache (Adult - | | | New Onset Or New | | | Symptoms) | | + + + Auth/Cert +--------+--------+ + + + + | Status | Reason | Specialty | Diagnoses / | Referred By | Referred To | | | | | Procedures | Contact | Contact | +--------+--------+ + + + + | | | | | | | +--------+--------+ + + + + Encounter Details +--------+ + + + + | Date | Type | Department | Care Team | Description | +--------+ + + + + | 05/01/ | Emergency | [facility] | Wilbert Claire, | Migraine without | | 2019 | | [facility] | MD [address] | aura and without | | | | CENTER [address] | [facility] [place] | status migrainosus, | | | | [place], [place] | [address] | not intractable | | | | [address] | | (Primary Dx) | | | | [phone] | | | +--------+ + + + [...] + + + documented in this encounter Functional Status + + + [...] + + documented as of this encounter Discharge Instructions AttachmentsThe following attachments cannot be sent through Care Everywhere.Headache, Migra ine: Stages and Treatment (Armenian)documented in this encounter Medications at Time of Discharge + + + +---------+ + + | Medication | Sig | Dispensed | Refills | Start | End Date | | | | | | Date | | + + + +---------+ + + | buPROPion | Take 1 tablet by | 90 | 5 | 08/24/19 | | | (WELLBUTRIN SR) 150 | mouth 3 times daily. | tablet | | 19 | | | mg 12 hr tablet | | | | | | + + + +---------+ + + | | Take 1-2 tablets by | | 0 | / | | | HYDROcodone-acetamin | mouth. | | | 18 | | | ophen (NORCO) 5-325 | | | | | | | mg per tablet | | | | | | + + + +---------+ + + | SUMAtriptan | Take 1 tablet as | 10 | 0 | 05/01/20 | | | (IMITREX) 50 mg | needed for headache, | tablet | | 19 | | | tablet | may repeat one | | | | | | | tablet 2 hours after | | | | | | | initial dose if | | | | | | | needed, not to | | | | | | | exceed 100 mg in 24 | | | | | | | hours | | | | | + + + +---------+ + + documented as of this encounter Plan of Treatment + +------+--------+ + + | Name | Type | Priori | Associated Diagnoses | Date/Time | | | | ty | | | + +------+--------+ + + | ED INFORMATION | ARMANDO | Routin | | 05/01/2019 8:33 PM | | EXCHANGE | | e | | PDT | + +------+--------+ + + documented as of this encounter Procedures + +--------+ + + + | Procedure Name | Priori | Date/Time | Associated Diagnosis | Comments | | | ty | | | | + +--------+ + + + | CT ANGIOGRAM HEAD | STAT | 05/01/2019 | | Results for this | | NECK | | 10:10 PM | | procedure are in the | | | | PDT | | results section. | + +--------+ + + + | EXTRA LAVENDER TOP | STAT | 05/01/2019 | | Results for this | | TUBE | | 9:37 PM | | procedure are in the | | | | PDT | | results section. | + +--------+ + + + | EXTRA GREEN TOP TUBE | Routin | 05/01/2019 | | Results for this | | | e | 9:37 PM | | procedure are in the | | | | PDT | | results section. | + +--------+ + + + | EXTRA BLUE TOP TUBE | STAT | 05/01/2019 | | Results for this | | | | 9:37 PM | | procedure are in the | | | | PDT | | results section. | + +--------+ + + + | CBC WITH | STAT | 05/01/2019 | | Results for this | | DIFFERENTIAL | | 9:37 PM | | procedure are in the | | | | PDT | | results section. | + +--------+ + + + | COMPREHENSIVE | STAT | 05/01/2019 | | Results for this | | METABOLIC PANEL | | 9:37 PM | | procedure are in the | | | | PDT | | results section. | + +--------+ + + + | ED INFORMATION | Routin | 05/01/2019 | | | | EXCHANGE | e | 8:33 PM | | | | | | PDT | | | + +--------+ + + + +---+--------+ | | | | | Proced | | | ure | | | Note - | | | Meir, | | | Lab In | | | | | | Hlseve | | | n - | | | | | | 2018 | | | 8:34 | | | PM PDT | | | | | | Format | | | ting | | | of | | | this | | | note | | | might | | | be | | | differ | | | ent | | | from | | | the | | | origin | | | al.COL | | | LECTIV | | | E?NOTI | | | FICATI | | | ON? | | | | | | 9 | | | 20:31? | | | WATCHM | | | AN, | | | LIN | | | ?MRN: | | | [id number] | | | [id number] | | | riteri | | | a Met | | | Care | | | Guidel | | | inesSe | | | curity | | | and | | | Safety | | | Date | | | Locati | | | on | | | Type | | | Specif | | | ics | | | 10/22/ | | | 18 | | | 5:12 | | | PM [facility] | | | al | | | Elopem | | | ent | | | Patien | | | t | | | eloped | | | | | | before | | | | | | treatm | | | ent | | | comple | | | nemo. | | | Detail | | | s: | | | LWBS | | | 10/22/ | | | 18 | | | 5:12 | | | PM [facility] | [facility] | | | al | | | Elopem | | | ent | | | Patien | | | t | | | eloped | | | | | | before | | | | | | treatm | | | ent | | | comple | | | nemo. | | | Detail | | | s: | | | LWBS | | | Securi | | | ty | | | Events | | | (18 | | | Mo.) | | | Count | | | Elopem | | | ent 2 | | | Total | | | 2 ED | | | Care | | | Guidel | | | inesTh | | | ere | | | are | | | curren | | | tly no | | | ED | | | Care | | | Guidel | | | kirby | | | for | | | this | | | patien | | | t. | | | Please | | | check | | | your | | | facili | | | ty's | | | medica | | | l | | | record | | | s | | | system | | | .Care | | | Histor | | | yMedic | | | al/Bishop | | | [email or web address] | | | /6/19 | | | 12:00 | | | AM | | | [facility] | | [facility] | | | al?? | | | PATIEN | | | T IS A | | | | | | YELLOW | | | [facility] | | | MEMBER | | | .?? | | | PLEASE | | | REFER | | | | | | PATIEN | | | T TO | | | [facility] | | | [facility] | | [facility] | | | FOR | | | NON | | | EMERGE | | | NT | | | MEDICA | | | L | | | NEEDS. | | | ?? | | | YELLOW | | | [facility] | | | [facility] | | | CAN | | | SEE | | | PATIEN | | | TS | | | SAME | | | DAY | | | FOR | | | APTS | | | IF | | | PATIEN | | | T | | | CALLS | | | FIRST | | | THING | | | IN THE | | | | | | MORNIN | | | G.3/18 | | | /19 | | | 12:00 | | | AM | | | [facility] | | [facility] | | | al | | | CHW | | | CALLED | | | | | | [phone] | | | [phone] | | | AND | | | THE | | | INDIVI | | | DUAL | | | WHO | | | ANSWER | | | ED THE | | | PHONE | | | | | | STATED | | | THAT | | | IT IS | | | NOT | | | THE | | | CORREC | | | T | | | CONTAC | | | T | | | NUMBER | | | AND | | | TO NOT | | | CALL | | | AGAIN. | | | | | | PHONE | | | NUMBER | | | | | | PROVID | | | ER IS | | | NOT | | | VALID | | | FOR | | | CONTAC | | | TING | | | PATIEN | | | T.3/14 | | | /19 | | | 12:00 | | | AM | | | [facility] | [facility] | | | [facility] | | | al | | | [facility]W | | | CALLED | | | | | | PATIEN | | | T AND | | | LEFT A | | | | | | VOICEM | | | AIL | | | FOR A | | | RETURN | | | CALL. | | | | | | PATIEN | | | T HAS | | | NOT | | | FOLLOW | | | ED UP | | | WITH | | | PCP.Pr | | | escrip | | | tion | | | Drug | | | Report | | | (12 | | | Mo.)PD | | | MP | | | query | | | found | | | no | | | report | | | .E.D. | | | Visit | | | Count | | | (12 | | | mo.)Fa | | | cility | | | | | | Visits | | | Low | | | Acuity | | | | | | Provid | | | ence | | | St. | | | [facility] | | | Medica | | | l | | | Center | | | 2 0 | | | [facility] | | [facility] | | | al 7 0 | | | Total | | | 9 0 | | | Note: | | | Visits | | | | | | indica | | | te | | | total | | | known | | | visits | | | . | | | Medica | | | id Low | | | | | | Acuity | | | Dx | | | are | | | the | | | number | | | of | | | primar | | | y | | | diagno | | | ses on | | | the | | | Medica | | | id's | | | Low | | | Acuity | | | dx | | | list. | | | | | | Recent | | | | | | Emerge | | | ncy | | | Depart | | | ment | | | Visit | | | [facility] | | | yDate | | | Facili | | | ty | | | City | | | State | | | Type | | | Diagno | | | ses or | | | Chief | | | | | | Compla | | | int | | | Sep | | | 17, | | | 2019 | | | Provid | | | ence | | | [facility] | [place] | | | [place] | | | Emerge | | | ncy | | | | | | aneury | | | sm | | | Head | | | hurts | | | previo | | | us | | | here | | | and | | | told | | | Aug | | | 26, | | | 2019 | | | Provid | | | ence | | | [facility] | [facility] | [place] | | | [place] | | | Emerge | | | ncy | | | | | | severe | | | KEARNEY, | | | rt arm | | | | | | weakne | | | ss, | | | pain | | | | | | Headac | | | he | | | (Adult | | | - New | | | Onset | | | Or | | | New | | | Sympto | | | ms) | | | | | | Cerebr | | | al | | | aneury | | | sm, | | | nonrup | | | tured | | | Aug | | | 25, | | | 2019 | | | [facility] [facility] [place] | | | [place] | | | Emerge | | | ncy | | | | | | Headac | | | he | | | Other | | | long | | | term | | | (curre | | | nt) | | | drug | | | therap | | | y | | | Nicoti | | | ne | | | depend | | | ence, | | | unspec | | | ified, | | | | | | uncomp | | | licate | | | d | | | Pain | | | in | | | right | | | wrist | | | | | | Allerg | | | y | | | status | | | to | | | other | | | drugs, | | | | | | medica | | | ments | | | and | | | biolog | | | ical | | | substa | | | nces | | | status | | | | | | Allerg | | | y | | | status | | | to | | | analge | | | sic | | | agent | | | status | | | May | | | 3, | | | 2019 | | | [facility] [place] [facility] [place] | | | Emerge | | | ncy | | | | | | Allerg | | | y | | | status | | | to | | | other | | | drugs, | | | | | | medica | | | ments | | | and | | | biolog | | | ical | | | substa | | | nces | | | status | | | | | | Blood | | | alcoho | | | l | | | level | | | of | | | 80-99 | | | mg/100 | | | ml | | | | | | Nicoti | | | ne | | | depend | | | ence, | | | unspec | | | ified, | | | | | | uncomp | | | licate | | | d | | | Unspec | | | ified | | | asthma | | | , | | | uncomp | | | licate | | | d | | | Alcoho | | | l | | | abuse | | | with | | | intoxi | | | cation | | | , | | | unspec | | | ified | | | | | | Allerg | | | y | | | status | | | to | | | analge | | | sic | | | agent | | | status | | | | | | Allerg | | | y | | | status | | | to | | | narcot | | | ic | | | agent | | | status | | | | | | Opioid | | | | | | abuse, | | | | | | uncomp | | | licate | | | d Mar | | | 15, | | | 2019 | | | [facility] [place] [facility] [place] | | | Emerge | | | ncy | | | | | | Syncop | | | e and | | | collap | | | se | | | Poison | | | ing by | | | | | | benzod | | | iazepi | | | giovanny, | | | accide | | | ntal | | | (unint | | | ention | | | al), | | | initia | | | l | | | encoun | | | ter | | | Other | | | long | | | term | | | (curre | | | nt) | | | drug | | | therap | | | y | | | Nicoti | | | ne | | | depend | | | ence, | | | unspec | | | ified, | | | | | | uncomp | | | licate | | | d | | | Unspec | | | ified | | | asthma | | | , | | | uncomp | | | licate | | | d | | | Allerg | | | y | | | status | | | to | | | narcot | | | ic | | | agent | | | status | | | | | | Allerg | | | y | | | status | | | to | | | analge | | | sic | | | agent | | | status | | | Mar | | | 13, | | | 2019 | | | [facility] [place] [facility] [place] | | | Emerge | | | ncy | | | Pain | | | in | | | right | | | wrist | | | | | | Allerg | | | y | | | status | | | to | | | other | | | drugs, | | | | | | medica | | | ments | | | and | | | biolog | | | ical | | | substa | | | nces | | | status | | | | | | Allerg | | | y | | | status | | | to | | | analge | | | sic | | | agent | | | status | | | | | | Nicoti | | | ne | | | depend | | | ence, | | | unspec | | | ified, | | | | | | uncomp | | | licate | | | d | | | Unspec | | | ified | | | asthma | | | , | | | uncomp | | | licate | | | d | | | Other | | | long | | | term | | | (curre | | | nt) | | | drug | | | therap | | | y | | | Migrai | | | ne, | | | unspec | | | ified, | | | not | | | intrac | | | table, | | | | | | withou | | | t | | | status | | | | | | migrai | | | nosus | | | Mark | | | 12, | | | 2019 | | | [facility] [facility] [place] | | | Emerge | | | ncy | | | | | | Allerg | | | y | | | status | | | to | | | analge | | | sic | | | agent | | | status | | | | | | Other | | | long | | | term | | | (curre | | | nt) | | | drug | | | therap | | | y | | | Allerg | | | y | | | status | | | to | | | other | | | drugs, | | | | | | medica | | | ments | | | and | | | biolog | | | ical | | | substa | | | nces | | | status | | | | | | Headac | | | he | | | Unspec | | | ified | | | asthma | | | , | | | uncomp | | | licate | | | d | | | Allerg | | | y | | | status | | | to | | | narcot | | | ic | | | agent | | | status | | | | | | Nicoti | | | ne | | | depend | | | ence, | | | unspec | | | ified, | | | | | | uncomp | | | licate | | | d Oct | | | 27, | | | 2018 | | | [facility] [facility] [place] | | | Emerge | | | ncy | | | Other | | | | | | specif | | | ied | | | abnorm | | | al | | | uterin | | | e and | | | vagina | | | l | | | bleedi | | | ng | | | Allerg | | | y | | | status | | | to | | | narcot | | | ic | | | agent | | | status | | | | | | Abnorm | | | al | | | uterin | | | e and | | | vagina | | | l | | | bleedi | | | ng, | | | unspec | | | ified | | | | | | Allerg | | | y | | | status | | | to | | | analge | | | sic | | | agent | | | status | | | | | | Nicoti | | | ne | | | depend | | | ence, | | | other | | | tobacc | | | o | | | produc | | | t, | | | uncomp | | | licate | | | d | | | Unspec | | | ified | | | asthma | | | , | | | uncomp | | | licate | | | d | | | Other | | | long | | | term | | | (curre | | | nt) | | | drug | | | therap | | | y | | | Allerg | | | y | | | status | | | to | | | other | | | drugs, | | | | | | medica | | | ments | | | and | | | biolog | | | ical | | | substa | | | nces | | | status | | | Oct | | | 22, | | | 2018 | | | [facility] [facility] [place] | [place] | | | Emerge | | | ncy | | | Left | | | lower | | | quadra | | | nt | | | pain | | | Recent | | | | | | Inpati | | | ent | | | Visit | | | [facility] | | | yNo | | | record | | | ed | | | inpati | | | ent | | | visits | | | . Care | | | | | | TeamPr | | | ovider | | | | | | Specia | | | lty | | | Phone | | | Fax | | | Servic | | | e | | | Dates | | | Conkli | | | n, | | | Ced | | | R MD, | | | MD PC | | | Family | | | | | | Medici | | | ne | | | May 6, | | | 2019 | | | - | | | Curren | | | t | | | EMILY | | | , S | | | ANDREY | | | , M.D. | | | | | | Vending Machine Attendant | | | al | | | Medici | | | ne | | | Curren | | | t | | | SIEDER | | | S, | | | ELIZAB | | | ETH | | | SONDRA, | | | RN | | | Regist | | | ered | | | Nurse: | | | | | | Commun | | | ity | | | Health | | | [phone] | | | | | | [phone] | | | 11 | | | Oct | | | 31, | | | 2018 - | | | | | | Curren | | | t | | | EMILY | | | , | | | STANLE | | | Y K | | | Primar | | | y Care | | | [phone] | | | | | | [phone] | | | [phone] | | | [phone] | | | [phone] | | | 20 | | | Curren | | | t | | | GETACHEW | | | | | | TITCHE | | | NER | | | Primar | | | y Care | | | | | | Curren | | | t | | | LEGACY | | | | | | [place] | | | CAHTO | | | | | | PROVID | | | ERS | | | Primar | | | y Care | | | | | | [phone] | | | [phone] | | | 11 | | | Curren | | | t | | | Collec | | | tive | | | Portal | | | This | | | patien | | | t has | | | regist | | | ered | | | at the | | | | | | Provid | | | ence | | | [facility] | [facility] | | | l | | | Center | | | | | | Emerge | | | ncy | | | Depart | | | ment | | | For | | | more | | | inform | | | ation | | | visit: | | | | | | https: | | | //secu | | | re.col | | | lectiv | | | emedic | | | al.com | | | /notif | | | [email or web address] | | | [email or web address] | | | [email or web address] | | | 16-92a | | | [id number] | | | 8f7acc | | | e4 | | | PLEASE | | | NOTE: | | | 1. | | | Any | | | care | | | recomm | | | endati | | | ons | | | and | | | other | | | clinic | | | al | | | inform | | | ation | | | are | | | provid | | | ed as | | | guidel | | | kirby | | | or for | | | | | | histor | | | ical | | | purpos | | | es | | | only, | | | and | | | provid | | | ers | | | should | | | | | | exerci | | | se | | | their | | | own | | | clinic | | | al | | | judgme | | | nt | | | when | | | provid | | | ing | | | care. | | | 2. | | | You | | | may | | | only | | | use | | | this | | | inform | | | ation | | | for | | | purpos | | | es of | | | treatm | | | ent, | | | paymen | | | t or | | | health | | | care | | | operat | | | ions | | | activi | | | ties, | | | and | | | subjec | | | t to | | | the | | | limita | | | tions | | | of | | | applic | | | able | | | Collec | | | tive | | | Polici | | | es. | | | 3. | | | You | | | should | | | | | | consul | | | t | | | direct | | | ly | | | with | | | the | | | organi | | | zation | | | that | | | provid | | | ed a | | | care | | | guidel | | | ine or | | | other | | | | | | clinic | | | al | | | histor | | | y with | | | any | | | questi | | | ons | | | about | | | additi | | | onal | | | inform | | | ation | | | or | | | accura | | | cy or | | | comple | | | teness | | | of | | | inform | | | ation | | | provid | | | ed.? | | | 2018 | | | Collec | | | tive | | | Medica | | | l | | | Techno | | | logies | | | , Inc[employer] | | | - | | | [email or web address] | | | llecti | | | vemedi | | | [email or web address] | | | m | +---+--------+ documented in this encounter Results CT Angiogram Head Neck w Contrast (05/01/2019 10:10 PM PDT) + + | Specimen | + + | | + + + + + | Narrative | Performed At | + + + | ENHANCED CTA HEAD AND ENHANCED CTA NECK WITH MULTIPLANAR | [facility] | | REFORMATIONS AND THREE-DIMENSIONAL VASCULAR RECONSTRUCTIONS 05/01/2019 | | | 10:09 PM CLINICAL HISTORY: Right-sided headache, history of 2 | | | mm right internal carotid aneurysm COMPARISON: CTA March | | | TECHNIQUE: Following the uneventful intravenous administration | | | of 100 mL Omnipaque-350 contrast, axial images are performed from | | | the aortic arch through the ely [place] of [place]. Multiplanar | | | reformations and three-dimensional vascular reconstructions were also | | | performed. HEAD FINDINGS: The previously described 2 mm | | | aneurysm along the posterior margin of the tortuous cavernous segment | | | of the right internal carotid artery is again visualized and appears | | | stable, allowing for some venous contamination of the images. No | | | other aneurysm is identified. No vessel occlusion, dissection or | | | stenosis is apparent. The basilar artery, bilateral superior | | | cerebellar arteries and bilateral anterior, middle and posterior | | | cerebral arteries are widely patent. Patent anterior and left | | | posterior communicating arteries are again visible. Patent anterior | | | and posterior inferior cerebellar arteries are also suggested. | | | There is no visible mass effect, conclusive intracranial hemorrhage, | | | abnormal parenchymal enhancement or extra-axial abnormality. Early | | | degenerative changes of the right TMJ are again apparent. The bones | | | and soft tissues, including the paranasal sinuses, middle ear | | | cavities and mastoid air cells, are otherwise unremarkable. NECK | | | FINDINGS: The aortic arch is widely patent. Variant common origin | | | of the brachiocephalic and left common carotid arteries is again | | | noted, along with direct origin of the left vertebral artery from the | | | arch, proximal to the left subclavian artery. The brachiocephalic | | | artery, bilateral subclavian arteries, bilateral common, internal and | | | external carotid arteries are widely patent. The vertebral | | | arteries are codominant and widely patent also. No vessel occlusion, | | | stenosis, aneurysm or dissection is apparent. Venous structures | | | appear patent and unremarkable also. Some pharyngeal lymphoid | | | hypertrophy is suggested. Soft tissues of the neck are otherwise | | | unremarkable. No pathologic lymph node enlargement is evident. | | | Imaged lung apices are clear. Reversal of the cervical lordosis is | | | again apparent. Osseous structures are otherwise unremarkable. | | | IMPRESSION - 1. STABLE 2 MM ANEURYSM ARISING FROM THE CAVERNOUS | | | RIGHT INTERNAL CAROTID ARTERY. THERE IS NO EVIDENCE OF INTRACRANIAL | | | HEMORRHAGE ON THIS UNENHANCED EXAM. THE CERVICAL AND INTRACRANIAL | | | ARTERIAL SYSTEMS ARE OTHERWISE WIDELY PATENT AND UNREMARKABLE. 2. | | | PERSISTENT REVERSAL OF THE CERVICAL LORDOSIS. 3. EARLY | | | DEGENERATION OF THE RIGHT TMJ. Preliminary results of this study | | | were reported to the ER staff [facility] on | | | May 01, 2019 at 2233 hours. Dictated and Signed by: Devin | | | MD Gregory Electronically signed: 05/02/2019 7:57 AM | | + + + + + | Procedure Note | + + | Meir, Rad Results In - 05/02/2019 8:00 AM PDT ENHANCED CTA HEAD AND ENHANCED CTA NECK | | WITH MULTIPLANAR REFORMATIONS ANDTHREE-DIMENSIONAL VASCULAR RECONSTRUCTIONS 05/01/2019 | | 10:09 PMCLINICAL HISTORY: Right-sided headache, history of 2 mm right internal | | carotidaneurysm COMPARISON: CTA April 09TECHNIQUE: Following the uneventful | | intravenous administration of 100 mLOmnipaque-350 contrast, axial images are performed | | from the aortic arch throughthe ely [place] of [place]. Multiplanar reformations and | | three-dimensional vascularreconstructions were also performed.HEAD FINDINGS: The | | previously described 2 mm aneurysm along the posteriormargin of the tortuous cavernous | | segment of the right internal carotid artery isagain visualized and appears stable, | | allowing for some venous contamination ofthe images. No other aneurysm is identified. | | No vessel occlusion, dissectionor stenosis is apparent. The basilar artery, bilateral | | superior cerebellararteries and bilateral anterior, middle and posterior cerebral | | arteries arewidely patent. Patent anterior and left posterior communicating arteries | | areagain visible. Patent anterior and posterior inferior cerebellar arteries arealso | | suggested.There is no visible mass effect, conclusive intracranial hemorrhage, | | abnormalparenchymal enhancement or extra-axial abnormality. Early degenerative | | changesof the right TMJ are again apparent. The bones and soft tissues, including | | theparanasal sinuses, middle ear cavities and mastoid air cells, are | | otherwiseunremarkable.NECK FINDINGS: The aortic arch is widely patent. Variant common | | origin of thebrachiocephalic and left common carotid arteries is again noted, along | | withdirect origin of the left vertebral artery from the arch, proximal to the | | leftsubclavian artery. The brachiocephalic artery, bilateral subclavian | | arteries,bilateral common, internal and external carotid arteries are widely patent. | | Thevertebral arteries are codominant and widely patent also. No vessel | | occlusion,stenosis, aneurysm or dissection is apparent. Venous structures appear | | patentand unremarkable also.Some pharyngeal lymphoid hypertrophy is suggested. Soft | | tissues of the neck areotherwise unremarkable. No pathologic lymph node enlargement is | | evident. Imaged lung apices are clear. Reversal of the cervical lordosis is | | againapparent. Osseous structures are otherwise unremarkable.IMPRESSION -1. STABLE 2 | | MM ANEURYSM ARISING FROM THE CAVERNOUS RIGHT INTERNAL CAROTIDARTERY. THERE IS NO | | EVIDENCE OF INTRACRANIAL HEMORRHAGE ON THIS UNENHANCEDEXAM. THE CERVICAL AND | | INTRACRANIAL ARTERIAL SYSTEMS ARE OTHERWISE WIDELYPATENT AND UNREMARKABLE.2. PERSISTENT | | REVERSAL OF THE CERVICAL LORDOSIS.3. EARLY DEGENERATION OF THE RIGHT TMJ.Preliminary | | results of this study were reported to the ER staff by the [facility] radiologist on | | May 01, 2019 at 2233 hours.Dictated and Signed by: Devin Jenkins MD | | Electronically signed: 05/02/2019 7:57 AM | |and unremarkable also. | | | |Some pharyngeal lymphoid hypertrophy is suggested. Soft tissues of the neck are | |otherwise unremarkable. No pathologic lymph node enlargement is evident. | |Imaged lung apices are clear. Reversal of the cervical lordosis is again | |apparent. Osseous structures are otherwise unremarkable. | | | |IMPRESSION - | | | |1. 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 THERE IS NO EVIDENCE OF INTRACRANIAL HEMORRHAGE ON THIS UNENHANCED | |EXAM. THE CERVICAL AND INTRACRANIAL ARTERIAL SYSTEMS ARE OTHERWISE WIDELY | |PATENT AND UNREMARKABLE. | | | |2. PERSISTENT REVERSAL OF THE CERVICAL LORDOSIS. | | | |3. EARLY DEGENERATION OF THE RIGHT TMJ. | | | |Preliminary results of this study were reported to the ER staff by the [facility] | |Imaging radiologist on May 01, 2019 at 2233 hours. | | | |Dictated and Signed by: Devin Jenkins MD | | Electronically signed: 05/02/2019 7:57 AM | + + + +---------+ + + | Performing | Address | City/State/Zipcode | Phone Number | | Organization | | | | + +---------+ + + | [facility] | | | | + +---------+ + + Extra Green Top Tube (05/01/2019 9:37 PM PDT) + +-------+ + + + | Component | Value | Ref Range | Performed | Pathologist | | | | | At | Signature | + +-------+ + + + | Extra Green | Done | | [facility] | | | Top Tube | | | [facility] | | | | | | MEDICAL | | | | | | CENTER - | | | | | | LABORATORY | | + +-------+ + + + + + | Specimen | + + | Blood | + + + + + + + | Performing | Address | City/State/Zipcode | Phone Number | | Organization | | | | + + + + + | [facility] | [address] | [place] | [phone] | | [facility] | | [address] | | | - LABORATORY | | | | + + + + + Extra Blue Top Tube (05/01/2019 9:37 PM PDT) + +-------+ + + + | Component | Value | Ref Range | Performed | Pathologist | | | | | At | Signature | + +-------+ + + + | Extra Blue | Done | | [facility] | | | Top Tube | | | [facility] | | | | | | MEDICAL | | | | | | CENTER - | | | | | | LABORATORY | | + +-------+ + + + + + | Specimen | + + | Blood | + + + + + + + | Performing | Address | City/State/Zipcode | Phone Number | | Organization | | | | + + + + + | [facility] | [address] | [place] [facility] | [phone] | | [facility] | | [address] | | | - LABORATORY | | | | + + + + + Extra Lavender Top Tube (05/01/2019 9:37 PM PDT) + +-------+ + + + | Component | Value | Ref Range | Performed | Pathologist | | | | | At | Signature | + +-------+ + + + | Extra | Done | | [facility] | | | Lavender | | | [facility] | | | Top Tube | | | MEDICAL | | | | | | CENTER - | | | | | | LABORATORY | | + +-------+ + + + + + | Specimen | + + | Blood | + + + + + + + | Performing | Address | City/State/Zipcode | Phone Number | | Organization | | | | + + + + + | [facility] | [address] | [facility] [place] | [phone] | | [facility] | | [address] | | | - LABORATORY | | | | + + + + + Comprehensive Metabolic Panel (05/01/2019 9:37 PM PDT) + + + + + + | Component | Value | Ref Range | Performed | Pathologist | | | | | At | Signature | + + + + + + | Na | 138 | 136 - 145 | [facility] | | | | | mmol/L | [facility] | | | | | | MEDICAL | | | | | | CENTER - | | | | | | LABORATORY | | + + + + + + | K | 3.7 | 3.4 - 5.1 | [facility] | | | | | mmol/L | [facility] | | | | | | MEDICAL | | | | | | CENTER - | | | | | | LABORATORY | | + + + + + + | Cl | 108 (H) | 98 - 107 mmol/L | [facility] | | | | | | [facility] | | | | | | MEDICAL | | | | | | CENTER - | | | | | | LABORATORY | | + + + + + + | CO2 | 26 | 20 - 31 mmol/L | [facility] | | | | | | [facility] | | | | | | MEDICAL | | | | | | CENTER - | | | | | | LABORATORY | | + + + + + + | Anion Gap | 4 | 3 - 16 mmol/L | [facility] | | | | | | [facility] | | | | | | MEDICAL | | | | | | CENTER - | | | | | | LABORATORY | | + + + + + + | Glucose | 88 | 60 - 106 mg/dL | [facility] | | | | | | [facility] | | | | | | MEDICAL | | | | | | CENTER - | | | | | | LABORATORY | | + + + + + + | BUN | 8 (L) | 9 - 23 mg/dL | [facility] | | | | | | [facility] | | | | | | MEDICAL | | | | | | CENTER - | | | | | | LABORATORY | | + + + + + + | Creatinine | 0.69 | 0.55 - 1.02 | [facility] | | | | | mg/dL | [facility] | | | | | | MEDICAL | | | | | | CENTER - | | | | | | LABORATORY | | + + + + + + | eGFR if not | >60Comment: GLOMERULAR | >=60 | [facility] | | | | FILTRATION | mL/min/1.73m2 | [facility] | | | GAMBIAN | RATE,ESTIMATED | | MEDICAL | | | | mL/min/1.34j6Iydk than | | CENTER - | | | | 60 Chronic kidney | | LABORATORY | | | | disease,if found over a | | | | | | 3-month period.Less than | | | | | | 15 Kidney failureFor | | | | | | | | | | | | Americans,multiply the | | | | | | calculated GFR by 1.21. | | | | | | | | | | + + + + + + | Calcium | 8.5 (L) | 8.7 - 10.4 | [facility] | | | | | mg/dL | [facility] | | | | | | MEDICAL | | | | | | CENTER - | | | | | | LABORATORY | | + + + + + + | Albumin | 4.0 | 3.2 - 4.8 g/dL | [facility] | | | | | | [facility] | | | | | | MEDICAL | | | | | | CENTER - | | | | | | LABORATORY | | + + + + + + | Bilirubin | 0.5 | 0.3 - 1.2 mg/dL | [facility] | | | Total | | | [facility] | | | | | | MEDICAL | | | | | | CENTER - | | | | | | LABORATORY | | + + + + + + | Total | 6.6 | 5.7 - 8.2 g/dL | [facility] | | | Protein | | | [facility] | | | | | | MEDICAL | | | | | | CENTER - | | | | | | LABORATORY | | + + + + + + | AST | 14 | 0 - 34 U/L | [facility] | | | | | | [facility] | | | | | | MEDICAL | | | | | | CENTER - | | | | | | LABORATORY | | + + + + + + | ALT | <7 (L) | 10 - 49 U/L | [facility] | | | | | | [facility] | | | | | | MEDICAL | | | | | | CENTER - | | | | | | LABORATORY | | + + + + + + | Alkaline | 49 | 46 - 116 U/L | [facility] | | | Phosphatase | | | [facility] | | | | | | MEDICAL | | | | | | CENTER - | | | | | | LABORATORY | | + + + + + + | Globulin | 2.6 | 2.1 - 3.8 g/dL | [facility] | | | | | | [facility] | | | | | | MEDICAL | | | | | | CENTER - | | | | | | LABORATORY | | + + + + + + | Albumin/Fabiola | 1.5 | 0.8 - 1.9 | [facility] | | | bulin Ratio | | | [facility] | | | | | | MEDICAL | | | | | | CENTER - | | | | | | LABORATORY | | + + + + + + | BUN/Creatin | 11.6 | | [facility] | | | ine Ratio | | | [facility] | | | | | | MEDICAL | | | | | | CENTER - | | | | | | LABORATORY | | + + + + + + + + | Specimen | + + | Blood | + + + + + + + | Performing | Address | City/State/Zipcode | Phone Number | | Organization | | | | + + + + + | [facility] | [address] | [place] | [phone] | | [facility] | | [address] | | | - LABORATORY | | | | + + + + + CBC with Differential (05/01/2019 9:37 PM PDT) + + + + + + | Component | Value | Ref Range | Performed | Pathologist | | | | | At | Signature | + + + + + + | WBC | 3.3 (L) | 4.0 - 11.0 K/uL | [facility] | | | | | | [facility] | | | | | | MEDICAL | | | | | | CENTER - | | | | | | LABORATORY | | + + + + + + | RBC | 3.84 | 3.70 - 5.20 | [facility] | | | | | M/uL | [facility] | | | | | | MEDICAL | | | | | | CENTER - | | | | | | LABORATORY | | + + + + + + | Hemoglobin | 11.4 (L) | 11.5 - 16.0 | [facility] | | | | | g/dL | [facility] | | | | | | MEDICAL | | | | | | CENTER - | | | | | | LABORATORY | | + + + + + + | Hematocrit | 33.6 (L) | 34.0 - 47.0 % | [facility] | | | | | | [facility] | | | | | | MEDICAL | | | | | | CENTER - | | | | | | LABORATORY | | + + + + + + | MCV | 87.5 | 83.0 - 101.0 fL | [facility] | | | | | | [facility] | | | | | | MEDICAL | | | | | | CENTER - | | | | | | LABORATORY | | + + + + + + | MCH | 29.7 | 28.0 - 35.0 pg | [facility] | | | | | | [facility] | | | | | | MEDICAL | | | | | | CENTER - | | | | | | LABORATORY | | + + + + + + | MCHC | 33.9 | 32.0 - 36.0 | [facility] | | | | | g/dL | [facility] | | | | | | MEDICAL | | | | | | CENTER - | | | | | | LABORATORY | | + + + + + + | RDW-CV | 12.7 | <15.0 % | [facility] | | | | | | [facility] | | | | | | MEDICAL | | | | | | CENTER - | | | | | | LABORATORY | | + + + + + + | RDW-SD | 40.1 | 35.1 - 46.3 fL | [facility] | | | | | | [facility] | | | | | | MEDICAL | | | | | | CENTER - | | | | | | LABORATORY | | + + + + + + | Platelet | 307 | 140 - 440 K/uL | [facility] | | | Count | | | [facility] | | | | | | MEDICAL | | | | | | CENTER - | | | | | | LABORATORY | | + + + + + + | MPV | 9.1 | 6.5 - 12.4 fL | [facility] | | | | | | [facility] | | | | | | MEDICAL | | | | | | CENTER - | | | | | | LABORATORY | | + + + + + + | % | 41.2 (L) | 45.0 - 82.0 % | [facility] | | | Neutrophils | | | [facility] | | | | | | MEDICAL | | | | | | CENTER - | | | | | | LABORATORY | | + + + + + + | % | 39.4 | 20.0 - 45.0 % | [facility] | | | Lymphocytes | | | [facility] | | | | | | MEDICAL | | | | | | CENTER - | | | | | | LABORATORY | | + + + + + + | % Monocytes | 7.3 | 4.0 - 12.0 % | [facility] | | | | | | [facility] | | | | | | MEDICAL | | | | | | CENTER - | | | | | | LABORATORY | | + + + + + + | % | 10.3 (H) | 0.0 - 5.0 % | [facility] | | | Eosinophils | | | [facility] | | | | | | MEDICAL | | | | | | CENTER - | | | | | | LABORATORY | | + + + + + + | % Basophils | 1.5 (H) | 0.0 - 1.0 % | [facility] | | | | | | [facility] | | | | | | MEDICAL | | | | | | CENTER - | | | | | | LABORATORY | | + + + + + + | % Immature | 0.3Comment: For | 0.0 - 0.4 % | [facility] | | | Granulocyte | patients, use the | | [facility] | | | s | special reference ranges | | MEDICAL | | | | listed below. | | CENTER - | | | | | | LABORATORY | | + + + + + + | Absolute | 1.36 (L) | 1.80 - 8.50 | [facility] | | | Neutrophils | | K/uL | [facility] | | | | | | MEDICAL | | | | | | CENTER - | | | | | | LABORATORY | | + + + + + + | Absolute | 1.30 | 0.60 - 3.20 | [facility] | | | Lymphocytes | | K/uL | [facility] | | | | | | MEDICAL | | | | | | CENTER - | | | | | | LABORATORY | | + + + + + + | Absolute | 0.24 | 0.00 - 1.00 | [facility] | | | Monocytes | | K/uL | [facility] | | | | | | MEDICAL | | | | | | CENTER - | | | | | | LABORATORY | | + + + + + + | Absolute | 0.34 | 0.00 - 0.40 | [facility] | | | Eosinophils | | K/uL | [facility] | | | | | | MEDICAL | | | | | | CENTER - | | | | | | LABORATORY | | + + + + + + | Absolute | 0.05 | 0.00 - 0.10 | [facility] | | | Basophils | | K/uL | [facility] | | | | | | MEDICAL | | | | | | CENTER - | | | | | | LABORATORY | | + + + + + + | Absolute | 0.01Comment: For | 0.00 - 0.03 | [facility] | | | Immature | patients, use | K/uL | [facility] | | | Granulocyte | the special reference | | MEDICAL | | | s | ranges listed below. | | CENTER - | | | | | | LABORATORY | | + + + + + + | % nRBC | 0 | 0 - 2 per 100 | [facility] | | | | | WBCs | [facility] | | | | | | MEDICAL | | | | | | CENTER - | | | | | | LABORATORY | | + + + + + + | Absolute | 0.00 | 0.00 - 0.01 | [facility] | | | nRBC | | K/uL | [facility] | | | | | | MEDICAL | | | | | | CENTER - | | | | | | LABORATORY | | + + + + + + + + | Specimen | + + | Blood | + + + + + | Narrative | Performed At | + + + | IMMATURE GRANULOCYTES - For patients, use the following | [facility] | | reference ranges: Trim. Absolute (K/uL) Percentage (%) | [facility] | | 1st 0.003-0.091 K/uL 0.0-0.9% 2nd 0.007-0.247 K/uL | [facility] | | 0.1-2.0% 3rd 0.018-0.456 K/uL 0.1-2.0% | - LABORATORY | + + + + + + + + | Performing | Address | City/State/Zipcode | Phone Number | | Organization | | | | + + + + + | [facility] | [address] | [place] | [phone] | | [facility] | | [address] | | | - LABORATORY | | | | + + + + + documented in this encounter Visit Diagnoses + + | Diagnosis | + + | Migraine without aura and without status migrainosus, not intractable - Primary | | Migraine without aura, without mention of intractable migraine without mention of status | | migrainosus | + + documented in this encounter Administered Medications + +--------+ +------+------+------+ | Medication Order | MAR | Action | Dose | Rate | Site | | | Action | Date | | | | + +--------+ +------+------+------+ | dexamethasone (DECADRON) 4 | Given | 05/01/20 | 4 mg | | | | mg/mL injection 4 mg 4 mg, | | 19 10:52 | | | | | Intravenous, ONCE, Carlota 05/01/19 at | | PM PDT | | | | | 2250, For 1 dose | | | | | | + +--------+ +------+------+------+ +---+---+ | | | +---+---+ + +-------+ +-------+---+---+ | diphenhydrAMINE (BENADRYL) | Given | 05/01/20 | 25 mg | | | | injection 25 mg 25 mg, | | 19 9:34 | | | | | Intravenous, ONCE, Tue05/01/19 at | | PM PDT | | | | | 2125, For 1 dose | | | | | | + +-------+ +-------+---+---+ +---+---+ | | | +---+---+ + +-------+ +---------+---+---+ | iohexol (OMNIPAQUE 350) 350 | Given | 05/01/20 | 100 mLs | | | | mg/mL injection 100 mL 100 mL, | | 19 10:10 | | | | | Intravenous, ONCE PRN, Other, | | PM PDT | | | | | Starting Tue05/01/19 at 2210, For | | | | | | | 1 dose, Cat Scanner | | | | | | + +-------+ +---------+---+---+ +---+---+ | | | +---+---+ + +-------+ +-------+---+---+ | metoclopramide (REGLAN) 5 mg/mL | Given | 05/01/20 | 10 mg | | | | injection 10 mg 10 mg, | | 19 9:37 | | | | | Intravenous, ONCE, [facility] 05/01/19 at | | PM PDT | | | | | 2125, For 1 dose, Protect from | | | | | | | light., | | | | | | + +-------+ +-------+---+---+ +---+---+ | | | +---+---+ + +---------+ +--------+-------+---+ | sodium chloride 0.9% (NS) bolus | New Bag | 05/01/20 | 1,000 | 2000 | | | 1,000 mL 1,000 mL, Intravenous, | | 19 9:33 | mLs | mL/hr | | | Administer over 30 Minutes, | | PM PDT | | | | | ONCE, [facility] 05/01/19 at 2125, For 1 | | | | | | | dose | | | | | | + +---------+ +--------+-------+---+ +---+---+ | | | +---+---+ + +---------+ +--------+-------+---+ | sodium chloride 0.9% (NS) bolus | New Bag | 05/01/20 | 1,000 | 2000 | | | 1,000 mL 1,000 mL, Intravenous, | | 19 10:40 | mLs | mL/hr | | | Administer over 30 Minutes, | | PM PDT | | | | | ONCE, 05/01/19 at 2245, For 1 | | | | | | | dose | | | | | | + +---------+ +--------+-------+---+ +---+---+ | | | +---+---+ documented in this encounter
--- OUTSIDE RECORDS SUMMARY | ~2019-08-21 | XMS | Encounter Summary ---
Demographics + + + | Address | [address] | | | [place] [address] | + + + | Home Phone | | + + + | Preferred Language | Unknown | + + + | Marital Status | Single | + + + | Quaker Affiliation | Unknown | + + + | Race | Unknown | + + + | Ethnic Group | Unknown | + + + Author + + + | Author | [facility] | | | and [place] | + + + | Organization | [facility] | | | and [place] [...] Team Providers + +------+ + | Care Tire Shop Mechanic Name | Role | Phone | + +------+ + | Ced Lorenz MD | PCP | | + +------+ + Encounter Details +--------+ + + + + | Date | Type | Department | Care Team | Description | +--------+ + + + + | 04/23/ | [facility] | [place] | Mandeep Gillespie, | | | 2015 | Encounter | [facility] | | | | | | MEDICAL CLIN[facility] [address] | | | | | | [address] [facility] [place], | | | | | | [place] [address] | | | | | | [phone] | | | +--------+ + + + [...]
--- OUTSIDE RECORDS SUMMARY | ~2019-08-21 | XMS | Encounter Summary ---
Demographics + + + | Address | [address] | | | [place] [address] | + + + | Home Phone | | + + + | Preferred Language | Unknown | + + + | Marital Status | Single | + + + | Sabianism Affiliation | Unknown | + + + | Race | Unknown | + + + | Ethnic Group | Unknown | + + + Author + + + | Author | [facility] | | | and [place] | + + + | Organization | [facility] | | | and [...] Team Providers + +------+ + | Care Hvac Refrigeration Technician Name | Role | Phone | + +------+ + | Ced Lorenz MD | PCP | | + +------+ + Encounter Details +--------+ + + + + | Date | Type | Department | Care Team | Description | +--------+ + + + + | 03/19/ | Hospital | [place] | Mandeep Gillespie, | | | 2012 | Encounter | [facility] | | | | | | MEDICAL CLINIC [address] | | | | | | [address] [place], | | | | | | [place] [address] | | | | | | [phone] | | | +--------+ + + + [...]
--- OUTSIDE RECORDS SUMMARY | ~2019-08-21 | XMS | Encounter Summary ---
Demographics + + + | Address | [address] | | | [place] [address] | + + + | Home Phone | | + + + | Preferred Language | Unknown | + + + | Marital Status | Single | + + + | Hinduism Affiliation | Unknown | + + + | Race | Unknown | + + + | Ethnic Group | Unknown | + + + Author + + + | Author | [facility] | | | and [place] | + + + | Organization | [facility] | | | and [place] [...] Team Providers + +------+ + | Care Fiberglass Fabricator Name | Role | Phone | + +------+ + PCP | Unavailable | + +------+ + Encounter Details +--------+ + + + + | Date | Type | Department | Care Team | Description | +--------+ + + + + | 09/23/ | Hospital | [facility] | | | | 2008 | Encounter | [facility] | | | | | | CENTER [address] | | | | | | [place] | | | | | | [address] | | | | | | [phone] | | | +--------+ + + + [...]
--- OUTSIDE RECORDS SUMMARY | ~2019-08-21 | XMS | Encounter Summary ---
Demographics + + + | Address | [address] | | | [place] [address] | + + + | Home Phone | | + + + | Preferred Language | Unknown | + + + | Marital Status | Single | + + + | Presybeterian Affiliation | Unknown | + + + | Race | Unknown | + + + | Ethnic Group | Unknown | + + + Author + + + | Author | [facility] | | | and [place] | + + + | Organization | [facility] | | | and [place] [...] Team Providers + +------+ + | Care Marine Pipefitter Helper Name | Role | Phone | + +------+ + | Ced Lorenz MD | PCP | | + +------+ + Encounter Details +--------+ + + + + | Date | Type | Department | Care Team | Description | +--------+ + + + + | 05/26/ | [facility] | [place] | Mandeep Gillespie, | | | 2017 | Encounter | [facility] | | | | | | MEDICAL CLINIC [address] | | | | | | [address] [facility] [place], | | | | | | [place] [address] | | | | | | [phone] | | | +--------+ + + + [...]
--- OUTSIDE RECORDS SUMMARY | ~2019-08-21 | XMS | Encounter Summary ---
Demographics + + + | Address | [address] | | | [place] [address] | + + + | Home Phone | | + + + | Preferred Language | Unknown | + + + | Marital Status | Single | + + + | Voodoo Affiliation | Unknown | + + + | Race | or | + + + | Ethnic Group | Not or | + + + Author + + + | Author | [facility] [address] [facility] | + + + | Organization | [facility] [employer] [facility] | + + + | Address | Unknown | + + + | Phone | Unavailable | + + + Support + + +---------+ + | Name | Relationship | Address | Phone | + + +---------+ + | Marlena Jonathan | ECON | Unknown | | + + +---------+ + Care Team Providers + +------+ + | Care Color Receiver Name | Role | Phone | + [...] | | | Mary[place], | [address] | | | | | Nonintractab | MD [address] | [place] | | | | | le headache, | Andrew Dee | Mailcode: | | | | | unspecified | Jennifer Newton | [facility] | | | | | chronicity | [place], [place] | for Health | | | | | pattern, | [address] | and Healing, | | | | | unspecified | Phone: | [address], | | | | | headache | [phone] | [address] Floor | | | | | type | Fax: | [place], [place] | | | | | Headaches | [phone] | [address] | | | | | and | | Phone: | | | | | intermittent | | [phone] | | | | | episodes of | | Fax: | | | | | RUE | | [phone] | | | | | weakness | [...] | | | | | aneurysm | [address] | [address] | | | | | Procedures | [address] | Ave | | | | | [place] NEW | [address] | [place], [place] | | | | | PATIENT | [place], | [address] | | | | | L[address]EL [address] [place] | [place] [address] | Phone: | | | | | EST PATIENT | Phone: | [phone] | | | | | LEVEL V | [phone] | Fax: | | | | | | Fax: | [phone] | | | | | | [phone] | | +--------+--------+ + + + + Encounter Details +--------+---------+ + + + | Date | Type | Department | Care Team | Description | +--------+---------+ + + + | 05/25/ | Office | Neurosurgery at | Colleen Schmidt MD | Nonintractable | | 2019 | Visit | [facility] [address] | [address] | headache, | | | | Ave Mailcode: [facility] | [place], [place] | unspecified | | | | [facility] | [address] | chronicity pattern, | | | | and Healing, | [phone] | unspecified headache | | | | [facility] | | type (Primary Dx) | | | | Floor [place], [place] | | | | | | [address] | | | | | | [phone] | | | +--------+---------+ + + + [...] LUE: 5/5 D/B/T/HG RLE: 5/5 HF/KE/DF/PF LLE: 5/5 HF/KE/DF/PF SILT IMAGING: CTA from 04/2019 ASSESSMENT [...] 5 ye ars. I spent 20 minutes [id number] with the patient of which greater than [...] s or concerns arise. Colleen Schmidt MD Systems Security Consultant Director, Cerebrovascular and Skull Base Surgery Department of Neurological Surgery and Interventional Neuroradiology [facility] & [address] [place] [address] documented in this encou nter Plan of Treatment Not on filedocumented as of this encounter Visit Diagnoses + + | Diagnosis | + + | Nonintractable headache, unspecified chronicity pattern, unspecified headache type - | | Primary | + + documented in this encounter
--- OUTSIDE RECORDS SUMMARY | ~2019-08-21 | XMS | Encounter Summary ---
Demographics + + + | Address | [address] | | | [place] [address] | + + + | Home Phone | | + + + | Preferred Language | Unknown | + + + | Marital Status | Single | + + + | Hoahaoism Affiliation | Unknown | + + + | Race | Unknown | + + + | Ethnic Group | Unknown | + + + Author + + + | Author | [facility] | | | and [place] | + + + | Organization | [facility] | | | and [...] Team Providers + +------+ + | Care Patch Machine Operator Name | Role | Phone | + +------+ + | Ced Lorenz MD | PCP | | + +------+ + Encounter Details +--------+ + + + + | Date | Type | Department | Care Team | Description | +--------+ + + + + | 01/21/ | [facility] | [place] | Sandy Monk | | | 2017 | Encounter | [facility] | [place], [place] | | | | | MEDICAL CLINIC [address] | [place], [place] | | | | | [address] [place], | [address] | | | | | [place] [address] | [phone] | | | | | [phone] | | | +--------+ + + + [...]
--- OUTSIDE RECORDS SUMMARY | ~2019-08-21 | XMS | Encounter Summary ---
Demographics + + + | Address | [address] | | | [place] [address] | + + + | Home Phone | | + + + | Preferred Language | Unknown | + + + | Marital Status | Single | + + + | Roman Catholic Affiliation | Unknown | + + + | Race | Unknown | + + + | Ethnic Group | Unknown | + + + Author + + + | Author | [facility] | | | and [place] | + + + | Organization | [facility] | | | and [place] [...] Team Providers + +------+ + | Care Narrow Gauge Brakeman Name | Role | Phone | + +------+ + | Mandeep Gillespie MD | PCP | Unavailable | + +------+ + Reason for Visit + + + | Reason | Comments | + + + | Referral Question | | + + + Encounter Details +--------+ + + + + | Date | Type | Department | Care Team | Description | +--------+ + + + + | 09/18/ | Telephone | [facility] | Leoncio Valdivia DO | Referral Question | | 2019 | | NEUROSURGERY [address] | [address] | | | | | [address] | [address] | | | | | [place], [place] | [place] [address] | | | | | [address] | [phone] | | | | | [phone] | | | +--------+ + + + [...]
--- OUTSIDE RECORDS SUMMARY | ~2019-08-21 | XMS | Encounter Summary ---
Demographics + + + | Address | [address] | | | [place] [address] | + + + | Home Phone [...] + + + | Author | [facility] | | | and [place] | + + + | Organization | [facility] | | | and [place] [...] Team Providers + +------+ + | Care Theatrical Rigger Name | Role | Phone | + +------+ + | Mandeep Gillespie MD | PCP | Unavailable | + +------+ + Encounter Details +--------+ + + + + | Date | Type | Department | Care Team | Description | +--------+ + + + + | 06/30/ | Abstract | [place] | Mandeep Gillespie, | | | 2017 | | [facility] | | | | | | MEDICAL CLIN[facility] [address] | | | | | | [address] [place], | | | | | | [place] [address] | | | | | | [phone] | | | +--------+ + + + [...]
--- OUTSIDE RECORDS SUMMARY | ~2019-08-21 | XMS | Encounter Summary ---
Demographics + + + | Address | [address] | | | [place] [address] | + + + | Home Phone | | + + + | Preferred Language | Unknown | + + + | Marital Status | Single | + + + | Confucianist Affiliation | Unknown | + + + | Race | or | + + + | Ethnic Group | Not or | + + + Author + + + | Author | [facility] [employer] [facility] | + + + | Organization | [facility] [email or web address] [facility] | + + + | Address | Unknown | + + + | Phone | Unavailable | + + + Support + + +---------+ + | Name | Relationship | Address | Phone | + + +---------+ + | Marlena Jonathan | ECON | Unknown | | + + +---------+ + Care Team Providers + +------+ + | Care Crtt Name | Role | Phone | + [...] | | | | | pattern, | [address] | and Healing, | | | | | unspecified | Phone: | [address], | | | | | headache | [phone] | 8th Floor | | | | | type | Fax: | [place], [place] | | | | | Headaches | [phone] | [address] | | | | | and | | Phone: | | | | | intermittent | | [phone] | | | | | episodes of | | Fax: | | | | | RUE | | [phone] | | | | | weakness | [...] | | | | | aneurysm | [address] | [address] | | | | | Procedures | [address] | Ave | | | | | ME NEW | [address] | [place], [place] | | | | | PATIENT | [place], | [address] | | | | | LEVEL [address] [place] | [place] [address] | Phone: | | | | | EST PATIENT | Phone: | [phone] | | | | | LEVEL V | [phone] | Fax: | | | | | | Fax: | [phone] | | | | | | [phone] | | +--------+--------+ + + + + [...] | | | Ave Mailcode: CH8N | [place], [place] | unspecified | | | | [facility] | [address] | chronicity pattern, | | | | and Healing, | [phone] | unspecified headache | | | | [facility] | | type (Primary Dx) | | | | Floor [place], [place] | | | | | | [address] | | | | | | [phone] | | | +--------+---------+ + + + [...] 5 ye ars. I spent 20 minutes wilt-dz-iynd with the patient of which greater than [...] s or concerns arise. Colleen Schmidt MD Door Patcher Director, Cerebrovascular and Skull Base Surgery Department of Neurological Surgery and Interventional Neuroradiology [facility] & [address] [place] [address] documented in this encou nter Plan of Treatment Not on filedocumented as of this encounter Visit Diagnoses + + | Diagnosis | + + | Nonintractable headache, unspecified chronicity pattern, unspecified headache type - | | Primary | + + documented in this encounter
--- OUTSIDE RECORDS SUMMARY | ~2019-08-21 | XMS | Encounter Summary ---
Demographics + + + | Address | [address] | | | [place] [address] | + + + | Home Phone | | + + + | Preferred Language | Unknown | + + + | Marital Status | Single | + + + | Confucianism Affiliation | Unknown | + + + | Race | Unknown | + + + | Ethnic Group | Unknown | + + + Author + + + | Author | [facility] | | | and [place] | + + + | Organization | [facility] | | | and [place] [...] Team Providers + +------+ + | Care Ivory Polisher Name | Role | Phone | + +------+ + | Ced Lorenz MD | PCP | | + +------+ + Encounter Details +--------+ + + + + | Date | Type | Department | Care Team | Description | +--------+ + + + + | 10/29/ | [facility] | [place] | Mandeep Gillespie, | | | 2015 | Encounter | [facility] | | | | | | MEDICAL CLIN[facility] [address] | | | | | | 4TH [facility] [place], | | | | | | [place] [address] | | | | | | [phone] | | | +--------+ + + + [...]
--- OUTSIDE RECORDS SUMMARY | ~2019-08-21 | XMS | Encounter Summary ---
Demographics + + + | Address | [address] | | | [place] [address] | + + + | Home Phone | | + + + | Preferred Language | Unknown | + + + | Marital Status | Single | + + + | Mormon Affiliation | Unknown | + + + | Race | Unknown | + + + | Ethnic Group | Unknown | + + + Author + + + | Author | [facility] | | | and [place] | + + + | Organization | [facility] | | | and [place] [...] Team Providers + +------+ + | Care Clearing Supervisor Name | Role | Phone | + +------+ + | Ced Lorenz MD | PCP | | + +------+ + Encounter Details +--------+ + + + + | Date | Type | Department | Care Team | Description | +--------+ + + + + | 02/23/ | [facility] | [place] | Mandeep Gillespie, | | | 2016 | Encounter | [facility] | | | | | | MEDICAL CLIN[facility] [address] | | | | | | 4TH [facility] [place], | | | | | | [place] [address] | | | | | | [phone] | | | +--------+ + + + [...]
--- OUTSIDE RECORDS SUMMARY | ~2019-08-21 | XMS | Encounter Summary ---
Demographics + + + | Address | [address] | | | [place] [address] | + + + | Home Phone [...] + | Author | [facility] | | | and [place] | + + + | Organization | [facility] | | | and [place] [...] Team Providers + +------+ + | Care Photograph Inspector Name | Role | Phone | + +------+ + | Ced Lorenz MD | PCP | | + +------+ + Encounter Details +--------+ + + + + | Date | Type | Department | Care Team | Description | +--------+ + + + + | 12/03/ | [facility] | [place] | Mandeep Gillespie, | | | 2014 | Encounter | [facility] | | | | | | MEDICAL CLINIC [address] | | | | | | 4TH [facility] [place], | | | | | | [place] [address] | | | | | | [phone] | | | +--------+ + + + [...]
--- OUTSIDE RECORDS SUMMARY | ~2019-08-21 | XMS | Encounter Summary ---
Demographics + + + | Address | [address] | | | [place] [address] | + + + | Home Phone | | + + + | Preferred Language | Unknown | + + + | Marital Status | Single | + + + | Caodaism Affiliation | Unknown | + + + | Race | Unknown | + + + | Ethnic Group | Unknown | + + + Author + + + | Author | [facility] | | | and [place] | + + + | Organization | [facility] | [...] Team Providers + +------+ + | Care Assistant Hall Director Name | Role | Phone | + +------+ + | Mandeep Gillespie MD | PCP | Unavailable | + +------+ + Encounter Details +--------+ + + + + | Date | Type | Department | Care Team | Description | +--------+ + + + + | 07/27/ | Telephone | [place] | [place], | | | 2017 | | [facility] | CIRCUIT DESIGN ENGINEER [address], | | | | | MEDICAL CLIN[address] | [facility] [place], [place] | | | | | [address] [place], | [address] | | | | | [place] [address] | | | | | | [phone] | | | +--------+ + + + [...]
--- OUTSIDE RECORDS SUMMARY | ~2019-08-21 | XMS | Encounter Summary ---
Demographics + + + | Address | [address] | | | [place] [address] | + + + | Home Phone [...] + + + | Author | [facility] | | | and [place] | + + + | Organization | [facility] | | | and [...] Team Providers + +------+ + | Care Horse And Wagon Driver Name | Role | Phone | + +------+ + | Mandeep Gillespie MD | PCP | Unavailable | + +------+ + Reason for Visit +--------+ + | Reason | Comments | +--------+ + | Other | Please call back | +--------+ + Encounter Details +--------+ + + + + | Date | Type | Department | Care Team | Description | +--------+ + + + + | 07/27/ | Telephone | [place] | Mandeep Gillespie, | Other (Please call | | 2017 | | [facility] | | back) | | | | MEDICAL CLINIC [address] | | | | | | [address] [place], | | | | | | [place] [address] | | | | | | [phone] | | | +--------+ + + + [...]
--- OUTSIDE RECORDS SUMMARY | ~2019-08-21 | XMS | Encounter Summary ---
Demographics + + + | Address | [address] | | | [place] [address] | + + + | Home Phone | | + + + | Preferred Language | Unknown | + + + | Marital Status | Single | + + + | Cheondoism Affiliation | Unknown | + + + | Race | Unknown | + + + | Ethnic Group | Unknown | + + + Author + + + | Author | [facility] | | | and [place] | + + + | Organization | [facility] | | | and [place] | [...] Team Providers + +------+ + | Care Manager Battery Name | Role | Phone | + [...] | SR | | | | | [phone] | | | +--------+ + + + [...]
--- OUTSIDE RECORDS SUMMARY | ~2019-08-21 | XMS | Encounter Summary ---
Demographics + + + | Address | [address] | | | [place] [address] | + + + | Home Phone | | + + + | Preferred Language | Unknown | + + + | Marital Status | Single | + + + | Jain Affiliation | Unknown | + + + | Race | Unknown | + + + | Ethnic Group | Unknown | + + + Author + + + | Author | [facility] | | | and [place] | + + + | Organization | [facility] | | | and [...] Team Providers + +------+ + | Care Engineer Design And Construction Name | Role | Phone | + +------+ + | Ced Lorenz MD | PCP | | + +------+ + Encounter Details +--------+ + + + + | Date | Type | Department | Care Team | Description | +--------+ + + + + | 05/18/ | [facility] | [place] | Mandeep Gillespie, | | | 2012 | Encounter | [facility] | | | | | | MEDICAL CLIN[facility] [address] | | | | | | 4TH [facility] [place], | | | | | | [place] [address] | | | | | | [phone] | | | +--------+ + + + [...]
--- OUTSIDE RECORDS SUMMARY | ~2019-08-21 | XMS | Encounter Summary ---
Demographics + + + | Address | [address] | | | [place] [address] | + + + | Home Phone | | + + + | Preferred Language | Unknown | + + + | Marital Status | Single | + + + | Yarsanism Affiliation | Unknown | + + + | Race | Unknown | + + + | Ethnic Group | Unknown | + + + Author + + + | Author | [facility] | | | and [place] | + + + | Organization | [facility] | [...] Team Providers + +------+ + | Care Building Equipment Operator Name | Role | Phone | + +------+ + | Mandeep Gillespie MD | PCP | Unavailable | + +------+ + Reason for Visit + + + | Reason | Comments | + + + | Medication Refill | | + + + Encounter Details +--------+ + + + + | Date | Type | Department | Care Team | Description | +--------+ + + + + | 12/08/ | Telephone | [place] | Mandeep Gillespie, | Medication Refill | | 2017 | | [facility] | [place] | | | | | MEDICAL CLIN[address] | | | | | | [address] [place], | | | | | | [place] [address] | | | | | | [phone] | | | +--------+ + + + [...]
--- OUTSIDE RECORDS SUMMARY | ~2019-08-21 | XMS | Encounter Summary ---
Demographics + + + | Address | [address] | | | [place] [address] | + + + | Home Phone | | + + + | Preferred Language | Unknown | + + + | Marital Status | Single | + + + | Catholic Affiliation | Unknown | + + + | Race | Unknown | + + + | Ethnic Group | Unknown | + + + Author + + + | Author | [facility] | | | and [place] | + + + | Organization | [facility] | | | and [...] Team Providers + +------+ + | Care Resource Manager Forester Name | Role | Phone | + +------+ + | Ced Lorenz MD | PCP | | + +------+ + Encounter Details +--------+ + + + + | Date | Type | Department | Care Team | Description | +--------+ + + + + | 11/24/ | [facility] | [place] | Mandeep Gillespie, | | | 2016 | Encounter | [facility] | | | | | | MEDICAL CLINIC [address] | | | | | | [address]TH [facility] [place], | | | | | | [place] [address] | | | | | | [phone] | | | +--------+ + + + [...]
--- OUTSIDE RECORDS SUMMARY | ~2019-08-21 | XMS | Encounter Summary ---
Demographics + + + | Address | [address] | | | [place] [address] | + + + | Home Phone | | + + + | Preferred Language | Unknown | + + + | Marital Status | Single | + + + | Advent Affiliation | Unknown | + + + | Race | Unknown | + + + | Ethnic Group | Unknown | + + + Author + + + | Author | [facility] | | | and [place] | + + + | Organization | [facility] | | | and [place] [...] Team Providers + +------+ + | Care Paving Rammer Name | Role | Phone | + +------+ + | Mandeep Gillespie MD | PCP | Unavailable | + +------+ + Reason for Visit +--------+ + | Reason | Comments | +--------+ + | Other | PLEASE CALL ADVISE | +--------+ + Encounter Details +--------+ + + + + | Date | Type | Department | Care Team | Description | +--------+ + + + + | 07/20/ | Telephone | [place] | Mandeep Gillespie, | Other (PLEASE CALL | | 2017 | [facility] | [facility] | | | | MEDICAL CLIN[facility] [address] | | | | | | [address] [place], | | | | | | [place] [address] | | | | | | [phone] | | | +--------+ + + + [...]
--- OUTSIDE RECORDS SUMMARY | ~2019-08-21 | XMS | Encounter Summary ---
Demographics + + + | Address | [address] | | | [place] [address] | + + + | Home Phone [...] Organization | [facility] | | | and [place] [...] Team Providers + +------+ + | Care Conche Operator Name | Role | Phone | + +------+ + | Mandeep Gillespie MD | PCP | Unavailable | + +------+ + Encounter Details +--------+ + + + + | Date | Type | Department | Care Team | Description | +--------+ + + + + | 08/11/ | Orders Only | [place] | Mandeep Gillespie, | | | 2017 | | [facility] | | | | | | MEDICAL CLINIC [address] | | | | | | [address] [place], | | | | | | [place] [address] | | | | | | [phone] | | | +--------+ + + + [...]
--- OUTSIDE RECORDS SUMMARY | ~2019-08-21 | XMS | Encounter Summary ---
Demographics + + + | Address | [address] | | | [place] [address] | + + + | Home Phone | | + + + | Preferred Language | Unknown | + + + | Marital Status | Single | + + + | Denominational Affiliation | Unknown | + + + | Race | or | + + + | Ethnic Group | Not or | + + + Author + + + | Author | [facility] [employer] [facility] | + + + | Organization | [facility] [employer] [facility] | + + + | Address | Unknown | + + + | Phone | Unavailable | + + + Support + + +---------+ + | Name | Relationship | Address | Phone | + + +---------+ + | Marlena Jonathan | ECON | Unknown | | + + +---------+ + Care Team Providers + +------+ + | Care Analyst Business Analysis Name | Role | Phone | + [...] | | | | | | [place] [address] | | | +--------+--------+ + + + [...]
--- OUTSIDE RECORDS SUMMARY | ~2019-08-21 | XMS | Encounter Summary ---
Demographics + + + | Address | [address] | | | [place] [address] | + + + | Home Phone | | + + + | Preferred Language | Unknown | + + + | Marital Status | Single | + + + | Gnosticism Affiliation | Unknown | + + + | Race | Unknown | + + + | Ethnic Group | Unknown | + + + Author + + + | Author | [facility] | | | and [place] | + + + | Organization | [facility] | | | and [place] | [...] Team Providers + +------+ + | Care Thread Inspector Name | Role | Phone | + +------+ + | Ced Lorenz MD | PCP | | + +------+ + Encounter Details +--------+ + + + + | Date | Type | Department | Care Team | Description | +--------+ + + + + | 09/19/ | [facility] | [place] | Mandeep Gillespie, | | | 2013 | Encounter | [facility] | | | | | | MEDICAL CLIN[facility] [address] | | | | | | 4TH [facility] [place], | | | | | | [place] [address] | | | | | | [phone] | | | +--------+ + + + [...]
--- OUTSIDE RECORDS SUMMARY | ~2019-08-21 | XMS | Encounter Summary ---
Demographics + + + | Address | [address] | | | [place] [address] | + + + | Home Phone | | + + + | Preferred Language | Unknown | + + + | Marital Status | Single | + + + | Pentecostalism Affiliation | Unknown | + + + | Race | Unknown | + + + | Ethnic Group | Unknown | + + + Author + + + | Author | [facility] | | | and [place] | + + + | Organization | [facility] | | | and [place] | [...] Providers + +------+ + | Care Instructor Ballroom Dancing Name | Role | Phone | + +------+ + | Ced Lorenz MD | PCP | | + +------+ + Encounter Details +--------+ + + + + | Date | Type | Department | Care Team | Description | +--------+ + + + + | 10/29/ | [facility] | [place] | Mandeep Gillespie, | | | 2015 | Encounter | [facility] | | | | | | MEDICAL CLIN[facility] [address] | | | | | | 4TH [facility] [place], | | | | | | [place] [address] | | | | | | [phone] | | | +--------+ + + + [...]
--- OUTSIDE RECORDS SUMMARY | ~2019-08-21 | XMS | Encounter Summary ---
Demographics + + + | Address | [address] | | | [place] [address] | + + + | Home Phone | | + + + | Preferred Language | Unknown | + + + | Marital Status | Single | + + + | Restorationism Affiliation | Unknown | + + + | Race | Unknown | + + + | Ethnic Group | Unknown | + + + Author + + + | Author | [facility] | | | and [place] | + + + | Organization | [facility] | | | and [place] [...] Team Providers + +------+ + | Care Bulldogger Name | Role | Phone | + +------+ + | Mandeep Gillespie MD | PCP | Unavailable | + +------+ + Encounter Details +--------+ + + + + | Date | Type | Department | Care Team | Description | +--------+ + + + + | 06/30/ | Abstract | [place] | Mandeep Gillespie, | | | 2017 | | [facility] | | | | | | MEDICAL CLINIC [address] | | | | | | [address] [place], | | | | | | [place] [address] | | | | | | [phone] | | | +--------+ + + + [...]
--- OUTSIDE RECORDS SUMMARY | ~2019-08-21 | XMS | Encounter Summary ---
Demographics + + + | Address | [address] | | | [place] [address] | + + + | Home Phone [...] + + | Organization | [facility] [...] Team Providers + +------+ + | Care Chief Engineer Name | Role | Phone | + +------+ + | Ced Lorenz MD | PCP | | + +------+ + Encounter Details +--------+ + + + + | Date | Type | Department | Care Team | Description | +--------+ + + + + | 06/16/ | [facility] | [place] | Mandeep Gillespie, | | | 2014 | Encounter | [facility] | | | | | | MEDICAL CLIN[address] | | | | | | 4TH [facility] [place], | | | | | | [place] [address] | | | | | | [phone] | | | +--------+ + + + [...]
--- OUTSIDE RECORDS SUMMARY | ~2019-08-21 | XMS | Clinical Summary ---
Demographics + + + | Address | [address] | | | [place] [address] | + + + | Home Phone [...] Author + + + | Author | [facility] | + + + | Organization | [facility] | + + + | Address | Unknown | + + + | Phone | Unavailable | + + + Support + + +---------+ + | Name | Relationship | Address | Phone | + + +---------+ + | Marlena [place] | ECON | Unknown | | + + +---------+ + Care Team Providers + +------+ + | Care King Maker Name | Role | Phone | + +------+ + | Rhonda WatkinsP | PCP | | + +------+ + Source Comments [place] is fully live on both [facility] and [facility] Allergies + + + + [...] + +---------+------+------+-------+ Active Problems Not on file Encounters +--------+---------+ + + + | Date | Type | Specialty | Care Team | Description | +--------+---------+ + + + | 05/25/ | Office | Neurological Surgery | Colleen Schmidt MD | Nonintractable | | 2018 | Visit | | | headache, | | | | | | unspecified | | | | | | chronicity pattern, | | | | | | unspecified headache | | | | | | type (Primary Dx) | +--------+---------+ + + + | 05/25/ | Travel | | | | | 2019 | | | | | +--------+---------+ + + + from Last 3 Months Social History + +-------+ +--------+------+ | Tobacco [...] [place] | [facility] | [phone] | | [phone] | [address] | | | PLUS | | [phone] | id | | | OPEN | | esent | | [place], [place] | | | | CARD | | | | [address] | | + +--------+ +--------+ + +--------+ | [facility] | [employer] | [id number] | Effect | | | [...] | | al/Fam | | 1975 | [phone] | [place] [address] | | | randi | | | 8 (Home) | | + +--------+ +--------+ + +
--- OUTSIDE RECORDS SUMMARY | ~2019-08-21 | XMS | Encounter Summary ---
Demographics + + + | Address | [address] | | | [place] [address] | + + + | Home Phone [...] + | Author | [facility] | | | and [place] | + + + | Organization | [facility] | | | and [place] [...] Team Providers + +------+ + | Care Flight Simulator Teacher Name | Role | Phone | + +------+ + PCP | Unavailable | + +------+ + Encounter Details +--------+ + + + + | Date | Type | Department | Care Team | Description | +--------+ + + + + | 10/26/ | Hospital | [facility] | | | | 2008 | Encounter | [facility] | | | | | | CENTER [address] | | | | | | [place] | | | | | | [address] | | | | | | [phone] | | | +--------+ + + + [...]
--- OUTSIDE RECORDS SUMMARY | ~2019-08-21 | XMS | Encounter Summary ---
Demographics + + + | Address | [address] | | | [place] [address] | + + + | Home Phone [...] + | Author | [facility] | | | and [place] | + + + | Organization | [facility] | | | and [...] Team Providers + +------+ + | Care Mud Mixer Helper Name | Role | Phone | [...] | | | | | [address] [place], | | | | | | [place] [address] | | | | | | [phone] | | | +--------+ + + + [...]
--- OUTSIDE RECORDS SUMMARY | ~2019-08-21 | XMS | Encounter Summary ---
Demographics + + + | Address | [address] | | | [place] [address] | + + + | Home Phone [...] | [facility] | | | and [...] Team Providers + +------+ + | Care Telephone Quotation Clerk Name | Role | Phone | + +------+ + | Ced Lorenz MD | PCP | | + +------+ + Encounter Details +--------+ + + + + | Date | Type | Department | Care Team | Description | +--------+ + + + + | 09/08/ | [facility] | [place] | Mandeep Gillespie, | | | 2015 | Encounter | [facility] | | | | | | MEDICAL CLIN[address] | | | | | | 4TH [facility] [place], | | | | | | [place] [address] | | | | | | [phone] | | | +--------+ + + + [...]
--- OUTSIDE RECORDS SUMMARY | ~2019-08-21 | XMS | Encounter Summary ---
Demographics + + + | Address | [address] | | | [place] [address] | + + + | Home Phone | | + + + | Preferred Language | Unknown | + + + | Marital Status | Single | + + + | Yazdanism Affiliation | Unknown | + + + | Race | Unknown | + + + | Ethnic Group | Unknown | + + + Author + + + | Author | [facility] | | | and [place] | + + + | Organization | [facility] | [...] Team Providers + +------+ + | Care Sports Health Club Membership Advisors Name | Role | Phone | + +------+ + | Ced Lorenz MD | PCP | | + +------+ + Encounter Details +--------+ + + + + | Date | Type | Department | Care Team | Description | +--------+ + + + + | 01/10/ | Emergency | [facility] | | Urinary tract | | 2015 | | [facility] | | infection, site | | | | [address] | | unspecified; Acute | | | | [place] | | non intractable | | | | [address] | | tension-type | | | | [phone] | | headache | +--------+ + + [...] Alston PA-C Service: (none) Author Type: Physician Packaging Engineer Filed: 01/12/162338 Date of Service: 01/12/162338 Status: Signed Warehouse Team Leader: Khai Alston PA-C (Physician Packaging Engineer) Quick Note: On Keflex. documented in this e ncounter Plan of Treatment Not on filedocumented as [...] + + + + + + | APPEARANCE | CLOUDY (A) | | EXTERNAL | | | | | | LAB | | + + + + + + | Specific | 1.020 | 1.000 - 1.035 | EXTERNAL | | | [place] | | | LAB | | + [...] + + + + + | WBC UA | 15-25 (A) | 0 - 5 /hpf | EXTERNAL | | | | | | LAB | | + + + + + + | RBC UA | NONE | /hpf | EXTERNAL | | | | | | LAB | | + + + + + + | BACTERIA UA | MANY (A) | /hpf | EXTERNAL | | | | | [...] | | | | | | Renal [id number]: | | | | | | Chronic Kidney disease | | | | | | if confirmed over a 3 | | | | | | month [id number]: | | | | | | Renal [...] | + +-------+ + + + | WBC | 4.35 | 3.80 - 11.00 | EXTERNAL | | | | | 10*3/uL | LAB | | [...] headache | + + documented in this encounter"
--- OUTSIDE RECORDS SUMMARY | ~2019-08-21 | XMS | Encounter Summary ---
Demographics + + + | Address | [address] | | | [place] [address] | + + + | Home Phone | | + + + | Preferred Language | Unknown | + + + | Marital Status | Single | + + + | Congregational Affiliation | Unknown | + + + | Race | Unknown | + + + | Ethnic Group | Unknown | + + + Author + + + | Author | [facility] | | | and [place] | + + + | Organization | [facility] | | | and [...] Providers + +------+ + | Care Building And Grounds Supervisor Name | Role | Phone | + +------+ + | Ced Lorenz MD | PCP | | + +------+ + Encounter Details +--------+ + + + + | Date | Type | Department | Care Team | Description | +--------+ + + + + | 01/27/ | [facility] | [place] | Mandeep Gillespie, | | | 2016 | Encounter | [facility] | | | | | | MEDICAL CLIN[facility] [address] | | | | | | [address]TH [facility] [place], | | | | | | [place] [address] | | | | | | [phone] | | | +--------+ + + + [...]
--- OUTSIDE RECORDS SUMMARY | ~2019-08-21 | XMS | Encounter Summary ---
Demographics + + + | Address | [address] | | | [place] [address] | + + + | Home Phone [...] Organization | [facility] [...] Team Providers + +------+ + | Care Vice President Fixed Income Name | Role | Phone | + +------+ + PCP | Unavailable | + +------+ + Encounter Details +--------+ + + + + | Date | Type | Department | Care Team | Description | +--------+ + + + + | 06/23/ | Hospital | [facility] | Liborio Parsons | | | 2009 - | Encounter | [facility] | MD [address] | | | | | [address] | [address] | | | 06/27/ | | [place] | [place] [address] | | | 2009 | | [place], [place] | [phone] | | | | | [address] | | | | | | [phone] | | | +--------+ + + + [...]
--- OUTSIDE RECORDS SUMMARY | ~2019-08-21 | XMS | Encounter Summary ---
Demographics + + + | Address | [address] | | | [place] [address] | + + + | Home Phone [...] + + + | Author | [facility] | | | and [place] | + + + | Organization | [facility] | | | [...] Team Providers + +------+ + | Care Bullet Lubricant Mixer Name | Role | Phone | + +------+ + | Mandeep Gillespie MD | PCP | Unavailable | + +------+ + Reason for Visit +--------+ + | Reason | Comments | +--------+ + | Letter | Discharge Letter | +--------+ + Encounter Details +--------+ + [...] | | | | | | [place] [address] | | | | | | [phone] | | | +--------+ + + + [...]
--- OUTSIDE RECORDS SUMMARY | ~2019-08-21 | XMS | Encounter Summary ---
Demographics + + + | Address | [address] | | | [place] [address] | + + + | Home Phone | | + + + | Preferred Language | Unknown | + + + | Marital Status | Single | + + + | Synagogue Affiliation | Unknown | + + + | Race | Unknown | + + + | Ethnic Group | Unknown | + + + Author + + + | Author | [facility] | | | and [place] | + + + | Organization | [facility] | | | and [...] Providers + +------+ + | Care It Associate Name | Role | Phone | + +------+ + | Ced Lorenz MD | PCP | | + +------+ + Encounter Details +--------+ + + + + | Date | Type | Department | Care Team | Description | +--------+ + + + + | 12/09/ | [facility] | [place] | Mandeep Gillespie, | | | 2017 | Encounter | [facility] | | | | | | MEDICAL CLIN[facility] [address] | | | | | | 4TH [facility] [place], | | | | | | [place] [address] | | | | | | [phone] | | | +--------+ + + + [...]
--- OUTSIDE RECORDS SUMMARY | ~2019-08-21 | XMS | Encounter Summary ---
Demographics + + + | Address | [address] | | | [place] [address] | + + + | Home Phone [...] | [facility] | | [...] Team Providers + +------+ + | Care Financial Controller Name | Role | Phone | + +------+ + | Ced Lorenz MD | PCP | | + +------+ + Encounter Details +--------+ + + + + | Date | Type | Department | Care Team | Description | +--------+ + + + + | 06/16/ | [facility] | [place] | Mandeep Gillespie, | | | 2014 | Encounter | [facility] | | | | | | MEDICAL CLIN[facility] [address] | | | | | | [address] [facility] [place], | | | | | | [place] [address] | | | | | | [phone] | | | +--------+ + + + [...]
--- OUTSIDE RECORDS SUMMARY | ~2019-08-21 | XMS | Encounter Summary ---
Demographics + + + | Address | [address] | | | [place] [address] | + + + | Home Phone | | + + + | Preferred Language | Unknown | + + + | Marital Status | Single | + + + | Spiritism Affiliation | Unknown | + + + | Race | Unknown | + + + | Ethnic Group | Unknown | + + + Author + + + | Author | [facility] | | | and [place] | + + + | Organization | [facility] | [...] Team Providers + +------+ + | Care Candy Department Manager Name | Role | Phone | [...] | | | | | | [place] [address] | | | | | | [phone] | | | +--------+ + + + [...] documented as of this encounter Progress Notes Bhavna Granger - 07/27/2017 4:36 PM PSTCopy of certified mail slip and letter will be sca nned and put in the "media" tab. Bhavna Guthrie - 07/27/2017 4:36 PM PSTDischarge letter sent certified was returned to us today 08/23/17. I called the patient Lin and told her I was calling from the [facility] and stated we had sent a letter from Dr. Gillespie that was returned to us so I wanted to get an updated address from her so we could re-send it and Lin hung up on me. Since I was unable to obtain a new mailing address what would you like me to do with the melisa almendarez letter? Michael Guthrie - 07/27/2017 4:36 PM PSTDISCHARGE LETTER SENT To: [place] ADDRESS: [address] [place] [address] TRACKING No: [id number] d ocumented in this encounter Plan of Treatment Not on filedocumented as of this encounter Visit Diagnoses Not on filedocumented in this encounter
--- OUTSIDE RECORDS SUMMARY | ~2019-08-21 | XMS | Encounter Summary ---
Demographics + + + | Address | [address] | | | [place] [address] | + + + | Home Phone [...] + | Organization | [facility] | | | and [...] Team Providers + +------+ + | Care X Ray Service Technician Name | Role | Phone | [...] | Diagnoses | Mandeep Gillespie | [facility] | | | Services | Medicine / | Anxiety | MD Fernie | Regional | | | Required | Primary Care | Procedures | [address] | Primary Care | | | | | eval and | [place], | [address] | | | | | treat | [place] | [place], [place] | | | | | | [address] | [address] | | | | | | | Phone: | | | | | | | [phone] | | | | | | | Fax: | | | | | | | [phone] | +--------+ + + + + + Encounter Details +--------+ + + + + | Date | Type | Department | Care Team | Description | +--------+ + + + + | 07/22/ | Orders Only | [place] | Mandeep Gillespie, | Anxiety (Primary Dx) | | 2017 | | [facility] | MD | | | | | MEDICAL CLIN[address] | | | | | | [address] [place], | | | | | | [place] [address] | | | | | | [phone] | | | +--------+ + + + [...]
--- OUTSIDE RECORDS SUMMARY | ~2019-08-21 | XMS | Encounter Summary ---
Demographics + + + | Address | [address] | | | [place] [address] | + + + | Home Phone [...] + | Organization | [facility] | | | and [...] Team Providers + +------+ + | Care Technical Associate Name | Role | Phone | + +------+ + | Ced Lorenz MD | PCP | | + +------+ + Encounter Details +--------+ + + + + | Date | Type | Department | Care Team | Description | +--------+ + + + + | 01/27/ | [facility] | [place] | Mandeep Gillespie, | | | 2016 | Encounter | [facility] | | | | | | MEDICAL CLIN[facility] [address] | | | | | | 4TH [facility] [place], | | | | | | [place] [address] | | | | | | [phone] | | | +--------+ + + + [...]
--- OUTSIDE RECORDS SUMMARY | ~2019-08-21 | XMS | Encounter Summary ---
Demographics + + + | Address | [address] | | | [place] [address] | + + + | Home Phone | | + + + | Preferred Language | Unknown | + + + | Marital Status | Single | + + + | Mandaeism Affiliation | Unknown | + + + | Race | Unknown | + + + | Ethnic Group | Unknown | + + + Author + + + | Author | [facility] | | | and [place] | + + + | Organization | [facility] | | | and [place] [...] Team Providers + +------+ + | Care Training Associate Name | Role | Phone | [...] | | | | | | [place] [address] | | | | | | [phone] | | | +--------+ + + + [...] told her I was calling from the [facility] and stated we had sent a letter [...] PSTDISCHARGE LETTER SENT To: [place] ADDRESS: [address] [place] [address] TRACKING No: [id number] d ocumented in this encounter Plan of Treatment Not on filedocumented as of this encounter Visit Diagnoses Not on filedocumented in this encounter
--- OUTSIDE RECORDS SUMMARY | ~2019-08-21 | XMS | Encounter Summary ---
Demographics + + + | Address | [address] | | | [place] [address] | + + + | Home Phone [...] Author | [facility] | | | and [place] | + + + | Organization | [facility] | | | and [...] Team Providers + +------+ + | Care Sheet Metal Worker Supervisor Name | Role | Phone | + +------+ + | Mandeep Gillespie MD | PCP | Unavailable | + +------+ + Reason for Visit +--------+ + | Reason | Comments | +--------+ + | Other | Please call pt | +--------+ + Encounter Details +--------+ + + + + | Date | Type | Department | Care Team | Description | +--------+ + + + + | 07/21/ | Telephone | [place] | Mandeep Gillespie, | Other (Please call | | 2017 | | [facility] | | pt ) | | | | MEDICAL CLINIC [address] | | | | | | [address] [facility] [place], | | | | | | [place] [address] | | | | | | [phone] | | | +--------+ + + + [...]
--- OUTSIDE RECORDS SUMMARY | ~2019-08-21 | XMS | Encounter Summary ---
Demographics + + + | Address | [address] | | | [place] [address] | + + + | Home Phone [...] + + | Author | [facility] | | | and [place] | + + + | Organization | [facility] | | | and [place] [...] Team Providers + +------+ + | Care Nail Tech Name | Role | Phone | + +------+ + | Ced Lorenz MD | PCP | | + +------+ + Encounter Details +--------+ + + + + | Date | Type | Department | Care Team | Description | +--------+ + + + + | 05/26/ | [facility] | [place] | Mandeep Gillespie, | | | 2017 | Encounter | [facility] | | | | | | MEDICAL CLINIC [address] | | | | | | 4TH [facility] [place], | | | | | | [place] [address] | | | | | | [phone] | | | +--------+ + + + [...]
--- OUTSIDE RECORDS SUMMARY | ~2019-08-21 | XMS | Encounter Summary ---
Demographics + + + | Address | [address] | | | [place] [address] | + + + | Home Phone [...] Organization | [facility] | | | [...] Team Providers + +------+ + | Care Sprayer Hand Name | Role | Phone | + +------+ + | Ced Lorenz MD | PCP | | + +------+ + Encounter Details +--------+ + + + + | Date | Type | Department | Care Team | Description | +--------+ + + + + | 07/23/ | [facility] | [place] | Mandeep Gillespie, | | | 2014 | Encounter | [facility] | | | | | | MEDICAL CLINIC [address] | | | | | | 4TH [facility] [place], | | | | | | [place] [address] | | | | | | [phone] | | | +--------+ + + + [...]
--- OUTSIDE RECORDS SUMMARY | ~2019-08-21 | XMS | Encounter Summary ---
Demographics + + + | Address | [address] | | | [place] [address] | + + + | Home Phone | | + + + | Preferred Language | Unknown | + + + | Marital Status | Single | + + + | Congregation Affiliation | Unknown | + + + | Race | Unknown | + + + | Ethnic Group | Unknown | + + + Author + + + | Author | [facility] | | | and [place] | + + + | Organization | [facility] | | | and [place] [...] Team Providers + +------+ + | Care Straight Line Edger Name | Role | Phone | + [...] | | | | | | [place] [address] | | | | | | [phone] | | | +--------+ + + + [...]
--- OUTSIDE RECORDS SUMMARY | ~2019-08-21 | XMS | Clinical Summary ---
Demographics + + + | Address | [address] | | | [place] [address] | + + + | Home Phone | | + + + | Preferred Language | Unknown | + + + | Marital Status | Single | + + + | Sikh Affiliation | Unknown | + + + | Race | Unknown | + + + | Ethnic Group | Unknown | + + + Author + + + | Author | [facility] (Historical as of | | | 03-31-19) | + + + | Organization | [facility] (Historical as of | | | 03-31-19) | + + + | Address | Unknown | + + + | Phone | Unavailable | + + + Support + + + + + | Name | Relationship | Address | Phone | + + + + + | Marlena Castillo | ECON | [address] | | | | | [place] | | | | | [address] | | + + + + + | Karen Oliveiraeste | ECON | Unknown | | + + + + + | Korey Pascual | ECON | Unknown | | + + + + + Care Team Providers + +------+ + | Care Engraver Hand Hard Metals Name | Role | Phone | + [...] +------+-------+ + | MEDICAID | JESSICA | [id number] | | | [address] | | | N | | | | [place] | | | [place] | | | | [address] | | | [employer] | | | | | + +--------+ [...] | Self [birth year] | Home: | [address] | | | al/Fam | | [phone] | [phone] [place] [address] | | | randi | | | [phone] | | + +--------+ +--------+ + +
--- OUTSIDE RECORDS SUMMARY | ~2019-08-21 | XMS | Encounter Summary ---
Demographics + + + | Address | [address] | | | [place] [address] | + + + | Home Phone | | + + + | Preferred Language | Unknown | + + + | Marital Status | Single | + + + | Anabaptism Affiliation | Unknown | + + + | Race | Unknown | + + + | Ethnic Group | Unknown | + + + Author + + + | Author | [facility] | | | and [place] | + + + | Organization | [facility] | | | and [...] Team Providers + +------+ + | Care Loan Approver Name | Role | Phone | + [...] + + | 05/01/ | Emergency | [facility] | Wilbert Claire, | Migraine without | | 2019 | | [facility] | MD [address] | aura and without | | | | CENTER [address] | [place] | status migrainosus, | | | | [place], [place] | [address] | not intractable | | | | [address] | | (Primary Dx) | | | | [phone] | | | +--------+ + + + [...] Care Everywhere.Headache, Migra ine: Stages and Treatment (Greenlandic)documented in this encounter Medications at Time of [...] | | | ?MRN: | | | [id number] | | | [id number] | | | riteri | | | [...] | | | St. | | | [place] | | | y | | | [...] | | | St. | | | [place] | | | y | | | [...] | | | St. | | | [place] | | | y | | | [...] | | | St. | | | [place] | | | y | | | [...] | | | St. | | | [place] | | | y | | | [...] | | | St. | | | [place] | | | y | | | [...] | | | St. | | | [place] | | | y H. | | [...] | | | St. | | | [place] | | | y H. | | [...] | | | St. | | | [place] | | | y H. | | [...] | | | St. | | | [place] | | | y H. | | [...] | | | St. | | | [place] | | | y H. | | [...] | | | St. | | | [place] | | | y H. | | [...] | | | St. | | | [place] | | | y H. | | [...] M.D. | | | | | | Bias Cutter | | | al | | | [...] | | | [place] | | | EYAK | | | | | | PROVID [...] | | the aortic arch through the zuni of [place]. Multiplanar | | | reformations [...] [facility] on | | [...] | | from the aortic arch throughthe zuni of [place]. Multiplanar reformations and | | [...] | [employer] | | | [facility] | | | | | | MEDICAL [...] [address] | [place] | [phone] | | [facility] | | [address] | | | - LABORATORY | | [...] + | [facility] | [address] | [place] | [phone] | | [facility] | | [address] | | | - LABORATORY | | [...] [address] | [place] | [phone] | | [facility] | | [address] | | | - LABORATORY | | [...] | | | FILTRATION | mL/min/1.73m2 | [facility] | | | [place] | RATE,ESTIMATED | | MEDICAL | | | | mL/min/1.00g2Vbww than | | CENTER - | | [...] + | [facility] | [address] | [place] | [phone] | | [facility] | | [address] | | | - LABORATORY | | [...] ranges: Trim. Absolute (K/uL) Percentage (%) | [facility] | | 1st 0.003-0.091 K/uL 0.0-0.9% 2nd 0.007-0.247 K/uL | [facility] | | 0.1-2.0% 3rd 0.018-0.456 K/uL 0.1-2.0% | - LABORATORY | + + + + + + + + | Performing | Address | City/State/Zipcode | Phone Number | | Organization | | | | + + + + + | [facility] | [address] | [place] | [phone] | | [facility] | | [address] | | | - LABORATORY | | [...] | | | | | Intravenous, ONCE, [facility] 05/01/19 at | | PM PDT | [...] PDT | | | | | ONCE, [facility] 05/01/19 at 2125, For 1 | | [...]
--- OUTSIDE RECORDS SUMMARY | ~2019-08-21 | XMS | Encounter Summary ---
Demographics + + + | Address | [address] | | | [place] [address] | + + + | Home Phone | | + + + | Preferred Language | Unknown | + + + | Marital Status | Single | + + + | Episcopal Affiliation | Unknown | + + + | Race | Unknown | + + + | Ethnic Group | Unknown | + + + Author + + + | Author | [facility] | | | and [place] | + + + | Organization | [facility] | | [...] Team Providers + +------+ + | Care Instructional Support Services Director Name | Role | Phone | + +------+ + | Mandeep Gillespie MD | PCP | Unavailable | + +------+ + Reason for Referral Diagnostic/Screening (Routine) +--------+--------+ + + + + | Status | Reason | Specialty | Diagnoses / | Referred By | Referred To | | | | | Procedures | Contact | Contact | +--------+--------+ + + + + | Closed | | Radiology | Diagnoses | Mandeep Gillespie | Cc Wgr Xray | | | | | New daily | MD Fernie | [address] | | | | | persistent | [address] | [place] | | | | | headache | [place], | [place], [place] | | | | | Procedures | [place] | [address] | | | | | MRI Brain wo | [address] | Phone: | | | | | Contrast | | [phone] | | | | | | | Fax: | | | | | | | [phone] | +--------+--------+ + + + + Reason for Visit Diagnostic/Screening (Routine) +--------+--------+ + + + + | Status | Reason | Specialty | Diagnoses / | Referred By | Referred To | | | | | Procedures | Contact | Contact | +--------+--------+ + + + + | Closed | | Radiology | Diagnoses | Mandeep Gillespie | Tanisha Wgr Xray | | | | | New daily | MD Fernie | [address] | | | | | persistent | [address] | [address] | | | | | headache | [place], | [place], [place] | | | | | Procedures | [place] | [address] | | | | | MRI Brain wo | [address] | Phone: | | | | | Contrast | | [phone] | | | | | | | Fax: | | | | | | | [phone] | +--------+--------+ + + + + Encounter Details +--------+ + + + + | Date | Type | Department | Care Team | Description | +--------+ + + + + | 07/01/ | Hospital | [facility] | Mandeep Gillespie, | New daily persistent | | 2017 | Encounter | Hospital MRI [address] | MD | headache | | | | [address] | | | | | | [place] | | | | | | [address] | | | | | | [phone] | | | +--------+ + + + [...] + + + +---------+ + + | ALPRAZolam (XANAX) | Take 1 tablet by | 20 | 0 | 06/30/20 | | | 0.5 mg | mouth Twice daily | tablet | | 17 | 7 | | tabletIndications: | as needed for | | | | | | Anxiety and | Anxiety. | | | | | | depression | | | | | | + [...] | + +--------+ + + + | MRI BRAIN WO | Routin | 07/01/2017 | New daily | Results for this | | CONTRAST | e | 10:21 AM | persistent headache | procedure are in the | | | | PST | | results section. | + +--------+ + + + documented in this encounter Results MRI Brain wo Contrast (07/01/2017 10:21 AM PST) + + | Specimen | + + | | + + + + + | Impressions | Performed At | + + + | IMPRESSION: 1. No acute finding. 2. Mild white matter changes. | [facility] | | The finding is nonspecific but most commonly seen with microvascular | | | process. Demyelination and vasculitis can result in similar | | | appearance. Rarely white matter hyperintensities can be seen with | | | infectious process such as Lyme disease. The findings do appear | | | similar to the 2009 study. 3. Paranasal sinus disease. Dictated | | | by: Wei Munson Electronically Signed by: Wei Munson on | | | 07/01/2017 12:32 PM | | + + + + + + | Narrative | Performed At | + + + | EXAMINATION: MRI BRAIN WO CONTRAST HISTORY: Severe headaches. | [facility] | | COMPARISON STUDY: CT brain 05/23/2017 MRI brain 02/07/2009 | | | outside institution TECHNIQUE: Multiplanar multi sequence MRI of | | | the brain is performed without contrast. FINDINGS: | | | Diffusion-weighted images show no evidence of restricted diffusion. | | | The benito-white matter interface is intact. No acute intracranial | | | hemorrhage, mass lesion, or midline shift. Basilar cisterns are | | | patent. Ventricles are symmetric. Sulci are age appropriate. | | | Cerebellum volume is normal. Major flow voids are present. Mild | | | periventricular and subcortical white matter hyperintensity is present | | | on the FLAIR and T2 series images. Findings are present primarily | | | at the frontal region. Paranasal sinuses demonstrate mucosal | | | thickening at the ethmoid and maxillary sinuses. The pituitary gland | | | is unremarkable. Corpus callosum is unremarkable. Brainstem is | | | unremarkable. | | + + + + + | Procedure Note | + + | Meir, Rad Results In - 07/01/2017 12:36 PM PST EXAMINATION:MRI BRAIN WO | | CONTRASTHISTORY:Severe headaches.COMPARISON STUDY:CT brain 05/23/2017 MRI brain | | 02/07/2009 outside institutionTECHNIQUE:Multiplanar multi sequence MRI of the brain is | | performed without contrast.FINDINGS:Diffusion-weighted images show no evidence of | | restricted diffusion.The benito-white matter interface is intact.No acute intracranial | | hemorrhage, mass lesion, or midline shift.Basilar cisterns are patent.Ventricles are | | symmetric.Sulci are age appropriate.Cerebellum volume is normal.Major flow voids are | | present.Mild periventricular and subcortical white matter hyperintensity is present on | | the FLAIR and T2 series images. Findings are present primarily at the frontal | | region.Paranasal sinuses demonstrate mucosal thickening at the ethmoid and maxillary | | sinuses.The pituitary gland is unremarkable.Corpus callosum is unremarkable.Brainstem is | | unremarkable.IMPRESSION: IMPRESSION:1. No acute finding.2. Mild white matter changes. | | The finding is nonspecific but most commonly seen with microvascular process. | | Demyelination and vasculitis can result in similar appearance. Rarely white matter | | hyperintensities can be seen with infectious process such as Lyme disease. The findings | | do appear similar to the 2008 study.3. Paranasal sinus disease.Dictated by: Wei | | Ar[facility] | |No acute intracranial hemorrhage, mass lesion, or midline shift. | |Basilar cisterns are patent. | |Ventricles are symmetric. | |Sulci are age appropriate. | |Cerebellum volume is normal. | |Major flow voids are present. | |Mild periventricular and subcortical white matter hyperintensity is present on the FLAIR an d T2 series images. Findings are present primarily at the frontal region. | |Paranasal sinuses demonstrate mucosal thickening at the ethmoid and maxillary sinuses. | |The pituitary gland is unremarkable. | |Corpus callosum is unremarkable. | |Brainstem is unremarkable. | | | |IMPRESSION: | |IMPRESSION: | |1. No acute finding. | |2. Mild white matter changes. The finding is nonspecific but most commonly seen with micro vascular process. Demyelination and vasculitis can result in similar appearance. Rarely wh ite matter hyperintensities | |can be seen with infectious process such as | | Lyme disease. The findings do appear similar to the 2008 study. | |3. Paranasal sinus disease. | | | |Dictated by: Wei Munson | | | | | + + + +---------+ + + | Performing | Address | City/State/Zipcode | Phone Number | | Organization | | | | + +---------+ + + | [facility] | | | | + +---------+ + + documented in this encounter Visit Diagnoses + + | Diagnosis | + + | New daily persistent headache | + + documented in this encounter"
--- OUTSIDE RECORDS SUMMARY | ~2019-08-21 | XMS | Encounter Summary ---
Demographics + + + | Address | [address] | | | [place] [address] | + + + | Home Phone | | + + + | Preferred Language | Unknown | + + + | Marital Status | Single | + + + | Buddhism Affiliation | Unknown | + + + | Race | Unknown | + + + | Ethnic Group | Unknown | + + + Author + + + | Author | [facility] | | | and [place] | + + + | Organization | [facility] | | | and [...] Team Providers + +------+ + | Care Hypnotherapist Name | Role | Phone | + +------+ + | Mandeep Gillespie MD | PCP | Unavailable | + +------+ + Reason for Visit +--------+ + | Reason | Comments | +--------+ + | Other | PT ASKING FOR A CALL BACK. | +--------+ + Encounter Details +--------+ + + + + | Date | Type | Department | Care Team | Description | +--------+ + + + + | 06/27/ | Telephone | [place] | Mandeep Gillespie, | Other (PT ASKING FOR | | 2016 | | [facility] | MD | A CALL BACK.) | | | | [facility] [address] | | | | | | [address] [facility] [place], | | | | | | [place] [address] | | | | | | [phone] | | | +--------+ + + + [...]
--- OUTSIDE RECORDS SUMMARY | ~2019-08-21 | XMS | Encounter Summary ---
Demographics + + + | Address | [address] | | | [place] [address] | + + + | Home Phone | | + + + | Preferred Language | Unknown | + + + | Marital Status | Single | + + + | Methodist Affiliation | Unknown | + + + | Race | Unknown | + + + | Ethnic Group | Unknown | + + + Author + + + | Author | [facility] | | | and [place] | + + + | Organization | [facility] | | | and [...] Team Providers + +------+ + | Care Epic Anesthesia Analyst Name | Role | Phone | + +------+ + | Mandeep Gillespie MD | PCP | Unavailable | + +------+ + Reason for Visit + + + | Reason | Comments | + + + | Allergic Reaction | Poss allergic reaction | + + + Encounter Details +--------+ + + + + | Date | Type | Department | Care Team | Description | +--------+ + + + + | 07/11/ | Telephone | [place] | Mandeep Gillespie, | Allergic Reaction | | 2016 | | [facility] | MD | (Poss allergic | | | | [facility] CLIN[facility] [address] | | reaction ) | | | | [facility] [facility] [place], | | | | | | [place] [address] | | | | | | [phone] | | | +--------+ + + + [...]
--- OUTSIDE RECORDS SUMMARY | ~2019-08-21 | XMS | Encounter Summary ---
Demographics + + + | Address | [address] | | | [place] [address] | + + + | Home Phone | | + + + | Preferred Language | Unknown | + + + | Marital Status | Single | + + + | Baptist Affiliation | Unknown | + + + | Race | Unknown | + + + | Ethnic Group | Unknown | + + + Author + + + | Author | [facility] | | | and [place] | + + + | Organization | [facility] | | [...] Team Providers + +------+ + | Care Ocean Clam Boat Captain Name | Role | Phone | + [...] Acute nonintractable | | 2016 | | [facility] | [address] | headache, | | | | EMERGENCY [address] | unspecified headache | | | | [place] | [place] | type (Primary Dx); | | | | | [phone] | Urinary tract | | | | [phone] | | infection, site | | | [...] be sent through Care Everywhere.HEADACHE, UNSPE CIFIED ([facility]OL[facility])URINARY TRACT INFECTIONS IN WOMEN (WOLOF)documented in this encounter Medications at Time of [...] | | | | | mmol/L | [facility] | | | | | | CORE | | | | | | LABORATORY | | | | | | (I) | | + + + + + + | K | 3.8 | 3.5 - 5.3 | [facility] | | | | | mmol/L | [place] | | | | | | CORE | | | | | | LABORATORY | | | | | | (I) | | + + + + + + | Cl | 107 | 99 - 109 mmol/L | [facility] | | | | | | [place] | | | | | | CORE | | | | | | LABORATORY | | | | | | (I) | | + + + + + + | CO2 | 24Comment: CO2 testing | 23 - 32 mmol/L | [facility] | | | | added on to specimens | | [place] | | | | greater than 4 [...] | | | | | mg/dL | [facility] | | | | | | CORE | | | | | | LABORATORY | | | | | | (I) | | + + + + + + | Anion Gap | 7 | 5 - 16 mmol/L | [facility] | | | | | | [facility] | | | | | | CORE | | | | | | LABORATORY | | | | | | (I) | | + + + + + + | Albumin | 4.2 | 3.5 - 5.0 g/dL | [facility] | | | | | | [place] | | | | | | CORE | | | | | | LABORATORY | | | | | | (I) | | + + + + + + | BUN | 10 | 8 - 25 mg/dL | [facility] | | | | | | [facility] | | | | | | CORE | | | | | | LABORATORY | | | | | | (I) | | + + + + + + | Creatinine | 0.62 | 0.50 - 1.00 | [facility] | | | | | mg/dL | [facility] | | | | | | CORE | | | | | | LABORATORY | | | | | | (I) | | + + + + + + | Glucose | 117Comment: Glucose | 65 - 140 mg/dL | [facility] | | | | Reference Range:Glucose, | | [facility] | | | | Fastin-99 | | [...] | | | Protein | | | [facility] | | | | | | CORE | | | | | | LABORATORY | | | | | | (I) | | + + + + + + | Globulin | 3.1 | 2.0 - 4.0 g/dL | [facility] | | | | | | [facility] | | | | | | CORE | | | | | | LABORATORY | | | | | | (I) | | + + + + + + | Albumin/Fabiola | 1.4 | 0.7 - 2.2 Ratio | [facility] | | | bulin Ratio | | | [facility] | | | | | | CORE | | | | | | LABORATORY | | | | | | (I) | | + + + + + + | Alkaline | 36 | 35 - 115 U/L | [facility] | | | Phosphatase | | | [place] | | | | | | CORE | | | | | | LABORATORY | | | | | | (I) | | + + + + + + | ALT | 7 (L) | 10 - 65 U/L | [facility] | | | | | | [place] | | | | | | CORE | | | | | | LABORATORY | | | | | | (I) | | + + + + + + | AST | 11 | 10 - 45 U/L | [facility] | | | | | | [place] | | | | | | CORE | | | | | | LABORATORY | | | | | | (I) | | + + + + + + | Bilirubin | 0.4 | 0.1 - 1.5 mg/dL | [facility] | | | Total | | | [facility] | | | | | | CORE | | | | | | LABORATORY | | | | | | (I) | | + + + + + + | Estimated | >60Comment: Multiply | >=61 | [facility] | | | GFR | the calculated GFR by | mL/min/1.73m2 | [place] | | | | 1.21 for | [...] [place] | | | | | | [place] [address] | | | | + + + + + + + + | Specimen | + + | Blood specimen | | (specimen) | + + + + + + + | Performing | Address | City/State/Zipcode | Phone Number | | Organization | | | | + + + + + | [facility] [place] | [address] | [place] [address] | [phone] | | CORE LABORATORY (I) | | | | + + + + + CBC with Differential (01/12/2016 2:16 PM PDT) + + + + + + | Component | Value | Ref Range | Performed | Pathologist | | | | | At | Signature | + + + + + + | WBC | 2.9 (L) | 3.8 - 11.0 K/uL | [facility] | | | | | | [place] | | | | | | CORE | | | | | | LABORATORY | | | | | | (I) | | + + + + + + | RBC | 4.14 | 3.70 - 5.10 | [facility] | | | | | M/uL | [place] | | | | | | CORE | | | | | | LABORATORY | | | | | | (I) | | + + + + + + | Hemoglobin | 13.0 | 11.3 - 15.5 | [facility] | | | | | g/dL | [place] | | | | | | CORE | | | | | | LABORATORY | | | | | | (I) | | + + + + + + | Hematocrit | 38.3 | 34.0 - 46.0 % | [facility] | | | | | | [place] | | | | | | CORE | | | | | | LABORATORY | | | | | | (I) | | + + + + + + | MCV | 92.6 | 80.0 - 100.0 fL | [facility] | | | | | | [place] | | | | | | CORE | | | | | | LABORATORY | | | | | | (I) | | + + + + + + | MCH | 31.4 | 27.0 - 34.0 pg | [facility] | | | | | | [place] | | | | | | CORE | | | | | | LABORATORY | | | | | | (I) | | + + + + + + | MCHC | 33.9 | 32.0 - 35.5 | [facility] | | | | | g/dL | [place] | | | | | | CORE | | | | | | LABORATORY | | | | | | (I) | | + + + + + + | RDW-CV | 13.3 | 11.0 - 15.5 % | [facility] | | | | | | [place] | | | | | | CORE | | | | | | LABORATORY | | | | | | (I) | | + + + + + + | Platelet | 352 | 150 - 400 K/uL | [facility] | | | Count | | | [facility] | | | | | | CORE | | | | | | LABORATORY | | | | | | (I) | | + + + + + + | % | 85.4 | % | [facility] | | | Neutrophils | | | [place] | | | | | | CORE | | | | | | LABORATORY | | | | | | (I) | | + + + + + + | % | 13.4 | % | [facility] | | | Lymphocytes | | | [facility] | | | | | | CORE | | | | | | LABORATORY | | | | | | (I) | | + + + + + + | % Monocytes | 0.8 | % | [facility] | | | | | | [facility] | | | | | | CORE | | | | | | LABORATORY | | | | | | (I) | | + + + + + + | % | 0.0 | % | [facility] | | | Eosinophils | | | [facility] | | | | | | CORE | | | | | | LABORATORY | | | | | | (I) | | + + + + + + | % Basophils | 0.4 | % | [facility] | | | | | | [facility] | | | | | | CORE | | | | | | LABORATORY | | | | | | (I) | | + + + + + + | Absolute | 2.5 | 1.9 - 7.4 K/uL | [facility] | | | Neutrophils | | | [facility] | | | | | | CORE | | | | | | LABORATORY | | | | | | (I) | | + + + + + + | Absolute | 0.4 (L) | 1.0 - 3.9 K/uL | [facility] | | | Lymphocytes | | | [facility] | | | | | | CORE | | | | | | LABORATORY | | | | | | (I) | | + + + + + + | Absolute | 0.0 | 0.0 - 0.8 K/uL | [facility] | | | Monocytes | | | [facility] | | | | | | CORE | | | | | | LABORATORY | | | | | | (I) | | + + + + + + | Absolute | 0.0 | 0.0 - 0.2 K/uL | [facility] | | | Eosinophils | | | [place] | | | | | | CORE | | | | | | LABORATORY | | | | | | (I) | | + + + + + + | Absolute | 0.0Comment: Performed | 0.0 - 0.2 K/uL | [facility] | | | Basophils | by PRMCE/[facility] | | [facility] | | | | [address] [place] | | CORE | | | | [facility] | | LABORATORY | | | | [...] + + | [facility] [place] | [address] | [place] [address] | [phone] | | CORE LABORATORY (I) | | [...] | | | | MD Galdino, Ehsan ([id number]), | | | | | | writer editor Sinan | | | | | | Jeana Garcia ([id number]) | | | | | | on [...]
--- OUTSIDE RECORDS SUMMARY | ~2019-08-21 | XMS | Encounter Summary ---
Demographics + + + | Address | [address] | | | [place] [address] | + + + | Home Phone [...] | Organization | [facility] | | [...] Providers + +------+ + | Care Automotive Brake Technician Name | Role | Phone | + +------+ + | Ced Lorenz MD | PCP | | + +------+ + Encounter Details +--------+ + + + + | Date | Type | Department | Care Team | Description | +--------+ + + + + | 11/04/ | [facility] | [place] | Mandeep Gillespie, | | | 2016 | Encounter | [facility] | | | | | | MEDICAL CLIN[facility] [address] | | | | | | [address] [facility] [place], | | | | | | [place] [address] | | | | | | [phone] | | | +--------+ + + + [...]
--- OUTSIDE RECORDS SUMMARY | ~2019-08-21 | XMS | Encounter Summary ---
Demographics + + + | Address | [address] | | | [place] [address] | + + + | Home Phone | | + + + | Preferred Language | Unknown | + + + | Marital Status | Single | + + + | Religion Affiliation | Unknown | + + + | Race | Unknown | + + + | Ethnic Group | Unknown | + + + Author + + + | Author | [facility] | | | and [place] | + + + | Organization | [facility] | | | and [place] [...] Team Providers + +------+ + | Care Pc Maintenance Technician Name | Role | Phone | [...] | SR | | | | | [phone] | | | +--------+ + + + [...]
--- OUTSIDE RECORDS SUMMARY | ~2019-08-21 | XMS | Encounter Summary ---
Demographics + + + | Address | [address] | | | [place] [address] | + + + | Home Phone [...] + + | Organization | [facility] | [...] Team Providers + +------+ + | Care Hyperbaric Tech Name | Role | Phone | + +------+ + | Mandeep Gillespie MD | PCP | Unavailable | + +------+ + Encounter Details +--------+ + + + + | Date | Type | Department | Care Team | Description | +--------+ + + + + | 08/11/ | Orders Only | [place] | Mandeep Gillespie, | | | 2017 | | [facility] | | | | | | MEDICAL CLINIC [address] | | | | | | [address] [place], | | | | | | [place] [address] | | | | | | [phone] | | | +--------+ + + + [...]
--- OUTSIDE RECORDS SUMMARY | ~2019-08-21 | XMS | Encounter Summary ---
Demographics + + + | Address | [address] | | | [place] [address] | + + + | Home Phone | | + + + | Preferred Language | Unknown | + + + | Marital Status | Single | + + + | Protestant Affiliation | Unknown | + + + | Race | or | + + + | Ethnic Group | Not or | + + + Author + + + | Author | [facility] | + + + | Organization | [facility] | + + + | Address | Unknown | + + + | Phone | Unavailable | + + + Support + + +---------+ + | Name | Relationship | Address | Phone | + + +---------+ + | Marlena Jonathan | ECON | Unknown | | + + +---------+ + Care Team Providers + +------+ + | Care Otolaryngology Physician Name | Role | Phone | + +------+ + | Rhonda Watkins | PCP | | + +------+ + Encounter Details +--------+ + + + + | Date | Type | Department | Care Team | Description | +--------+ + + + + | 05/01/ | Outside | UNKNOWN DEPARTMENT | Other, Faculty | | | 2019 | Records | [address] | [phone] | | | | | [address] | | | | | | [place], [place] | | | | | | [address] | | | +--------+ + + + [...]
--- OUTSIDE RECORDS SUMMARY | ~2019-08-21 | XMS | Encounter Summary ---
Demographics + + + | Address | [address] | | | [place] [address] | + + + | Home Phone | | + + + | Preferred Language | Unknown | + + + | Marital Status | Single | + + + | Latter-Day Affiliation | Unknown | + + + | Race | Unknown | + + + | Ethnic Group | Unknown | + + + Author + + + | Author | [facility] | | | and [place] | + + + | Organization | [facility] | [...] Providers + +------+ + | Care Assistant Golf Professional Name | Role | Phone | + +------+ + | Ced Lorenz MD | PCP | | + +------+ + Encounter Details +--------+ + + + + | Date | Type | Department | Care Team | Description | +--------+ + + + + | 01/27/ | [facility] | [place] | Mandeep Gillespie, | | | 2016 | Encounter | [facility] | | | | | | MEDICAL CLINIC [address] | | | | | | [address] [facility] [place], | | | | | | [place] [address] | | | | | | [phone] | | | +--------+ + + + [...]
--- OUTSIDE RECORDS SUMMARY | ~2019-08-21 | XMS | Encounter Summary ---
Demographics + + + | Address | [address] | | | [place] [address] | + + + | Home Phone [...] + + | Author | [facility] | | | and [place] | + + + | Organization | [facility] | [...] Team Providers + +------+ + | Care Software Support Specialist Name | Role | Phone | + +------+ + | Ced Lorenz MD | PCP | | + +------+ + Encounter Details +--------+ + + + + | Date | Type | Department | Care Team | Description | +--------+ + + + + | 02/07/ | Hospital | [facility] | Vanessa Clay NP | | | 2017 | Encounter | [facility] | [address] [place] | | | | | MEDICAL CLIN[facility] [address] | [facility], [place] | | | | | [address] [place], | [address] | | | | | [place] [address] | [phone] | | | | | [phone] | | | +--------+ + + + [...]
--- OUTSIDE RECORDS SUMMARY | ~2019-08-21 | XMS | Encounter Summary ---
Demographics + + + | Address | [address] | | | [place] [address] | + + + | Home Phone [...] | Organization | [facility] | [...] Team Providers + +------+ + | Care Retail Interior Designer Name | Role | Phone | [...] [place] | | | | | | [address] | | | | | | [phone] | | | +--------+ + + + [...] IMPRESSION: No acute intracranial process JOB #: [id number] | | | Digitally Released by: Leilani [...] | | | | | JOB #: [id number] | | Digitally Released by: Leilani Munson | | | | | | Read By: LEILANI MUNSON MD | | Date: 05/23/2017 14:15 | | | + + documented in this encounter Visit Diagnoses Not on filedocumented in this encounter"
--- OUTSIDE RECORDS SUMMARY | ~2019-08-21 | XMS | Clinical Summary ---
Demographics + + + | Address | [address] | | | [place] [address] | + + + | Home Phone [...] + | Organization | [facility] | [...] Team Providers + +------+ + | Care Restorative Aide Name | Role | Phone | [...] | [employer] | MODA | [id number] | | [phone] | | Medica | | MEDICAID HMO | HEALTH | | 2017-P | 1 | | id | | | MDCD | | resent | | | | | | HMO [place] | | | | | | + +--------+ +--------+ +---------+--------+ | [employer] | IHS | [id number] | | | | Indemn | | SERVICE | YELLOW | | 013-Pr | | | ity | | | HAWK | | esent | | | | + +--------+ +--------+ +---------+--------+ | [place] | MEDICA | [id number] | | [phone] | | Medica | | | [place] | | 018-Pr | 2 | | id | | | PLUS | | esent | | | | + +--------+ +--------+ +---------+--------+ | [place] | MEDICA | [id number] | | [phone] | | Medica | [...] | 1975 | [phone] | [place] [address] | | | randi | | | 1 (Home) | | + +--------+ +--------+ + + | Lin Garcia | Person | Self | [birth year] | | [address] | | | al/Fam | | 1974 | [phone] | [place] [address] | | | randi | | | 1 (Home) | | + +--------+ +--------+ + + | Lin Garcia | Person | Self | [birth year] | | [address] | | | al/Fam | | 1974 | [phone] | [place] [address] | | | randi | | | 1 (Home) | | + +--------+ +--------+ + + Advance Directives + + + + + | Type | Date Recorded | Patient | Explanation | | | | Costume Specialist | | + + + + + | Power of | | | | | Senior Clinical Research Scientist | | | | + + + + + | Advance | 07/01/2017 | | | | Directive | 9:23 AM | | | + + + + +
--- OUTSIDE RECORDS SUMMARY | ~2019-08-21 | XMS | Encounter Summary ---
Demographics + + + | Address | [address] | | | [place] [address] | + + + | Home Phone [...] + | Organization | [facility] | | | and [...] Team Providers + +------+ + | Care Repairer Auto Clocks Name | Role | Phone | + [...] (Please call | | 2017 | | [facility] | | back) | | | | [facility]ICAL [facility] [address] | | | | | | [address] [place], | | | | | | [place] [address] | | | | | | [phone] | | | +--------+ + + + [...]
--- OUTSIDE RECORDS SUMMARY | ~2019-08-21 | XMS | Encounter Summary ---
Demographics + + + | Address | [address] | | | [place] [address] | + + + | Home Phone [...] + + | Author | [facility] | + + + | Organization | [facility] | + + + | Address | Unknown | + + + | Phone | Unavailable | + + + Support + + +---------+ + | Name | Relationship | Address | Phone | + + +---------+ + | Marlena Jonathan | ECON | Unknown | | + + +---------+ + Care Team Providers + +------+ + | Care Supervisor Fiberglass Boat Assembly Name | Role | Phone | + +------+ + | Rhonda Watkins | PCP | | + +------+ + Encounter Details +--------+ + + + + | Date | Type | Department | Care Team | Description | +--------+ + + + + | 04/09/ | Outside | UNKNOWN DEPARTMENT | Other, Faculty | | | 2019 | Records | [address] [facility] | [phone] | | | | | [address] | | | | | | [place], [place] | | | | | | [address] | | | +--------+ + + + [...]
--- OUTSIDE RECORDS SUMMARY | ~2019-08-21 | XMS | Encounter Summary ---
Demographics + + + | Address | [address] | | | [place] [address] | + + + | Home Phone | | + + + | Preferred Language | Unknown | + + + | Marital Status | Single | + + + | Voodoo Affiliation | Unknown | + + + | Race | Unknown | + + + | Ethnic Group | Unknown | + + + Author + + + | Author | [facility] | | | and [place] | + + + | Organization | [facility] [...] Providers + +------+ + | Care Service Delivery Director Name | Role | Phone | [...] | | | | | headache | [place], | [place], [place] | | | | | Procedures | [place] | [address] | | | | | MRI Brain wo | [address] | Phone: | | | | | Contrast | | [phone] | | | | | | | Fax: | | | | | | | [phone] | +--------+--------+ + + + + Reason [...] | | | | | headache | [place], | [place], [place] | | | | | Procedures | [place] | [address] | | | | | MRI Brain wo | [address] | Phone: | | | | | Contrast | | [phone] | | | | | | | Fax: | | | | | | | [phone] | +--------+--------+ + + + + Encounter Details +--------+ + + + + | Date | Type | Department | Care Team | Description | +--------+ + + + + | 07/01/ | Hospital | [facility] | Mandeep Gillespie, | New daily persistent | | 2017 | Encounter | Hospital [facility] [address] | MD | headache | | | | [address] | | | | | | [place] | | | | | | [address] | | | | | | [phone] | | | +--------+ + + + [...]
--- OUTSIDE RECORDS SUMMARY | ~2019-08-21 | XMS | Encounter Summary ---
Demographics + + + | Address | [address] | | | [place] [address] | + + + | Home Phone [...] Organization | [facility] | [...] Team Providers + +------+ + | Care Piece Work Checker Name | Role | Phone | + [...] + | 07/04/ | Office | [place] | Mandeep Gillespie, | Headaches due to old | | 2017 | Visit | [facility] | MD | head injury | | | | [facility] [address] | | (Primary Dx) | | | | [address] [place], | | | | | | [place] [address] | | | | | | [phone] | | | +--------+---------+ + + + [...] from last encounter, imaging, 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
--- OUTSIDE RECORDS SUMMARY | ~2019-08-21 | XMS | Encounter Summary ---
Demographics + + + | Address | [address] | | | [place] [address] | + + + | Home Phone [...] | Organization | [facility] | [...] Team Providers + +------+ + | Care Sales Floor Associate Name | Role | Phone | + +------+ + | Ced Lorenz MD | PCP | | + +------+ + Encounter Details +--------+ + + + + | Date | Type | Department | Care Team | Description | +--------+ + + + + | 05/11/ | [facility] | [place] | Mandeep Gillespie, | | | 2017 | Encounter | [facility] | | | | | | MEDICAL CLIN[facility] [address] | | | | | | [address]TH [facility] [place], | | | | | | [place] [address] | | | | | | [phone] | | | +--------+ + + + [...]
--- OUTSIDE RECORDS SUMMARY | ~2019-08-21 | XMS | Encounter Summary ---
Demographics + + + | Address | [address] | | | [place] [address] | + + + | Home Phone | | + + + | Preferred Language | Unknown | + + + | Marital Status | Single | + + + | Episcopalian Affiliation | Unknown | + + + | Race | Unknown | + + + | Ethnic Group | Unknown | + + + Author + + + | Author | [facility] | | | and [place] | + + + | Organization | [facility] | [...] Team Providers + +------+ + | Care Musical Instrument Maker Or Repairer Name | Role | Phone | + +------+ + PCP | Unavailable | + +------+ + Encounter Details +--------+ + + + + | Date | Type | Department | Care Team | Description | +--------+ + + + + | 06/23/ | Hospital | [facility] | Liborio Parsons | | | 2009 - | Encounter | [facility] | MD [address] | | | | | [address] | [address] | | | 06/27/ | | [place]NA MARIE [place] | [place] [address] | | | 2009 | | [place], [place] | [phone] | | | | | [address] | | | | | | [phone] | | | +--------+ + + + [...]
--- OUTSIDE RECORDS SUMMARY | ~2019-08-21 | XMS | Encounter Summary ---
Demographics + + + | Address | [address] | | | [place] [address] | + + + | Home Phone [...] + + + | Organization | and [facility] | | | and [place] | [...] Team Providers + +------+ + | Care Glue Machine Operator Name | Role | Phone | + +------+ + | Ced Lorenz MD | PCP | | + +------+ + Encounter Details +--------+ + + + + | Date | Type | Department | Care Team | Description | +--------+ + + + + | 09/05/ | [facility] | [place] | Mandeep Gillespie, | | | 2013 | Encounter | [facility] | | | | | | MEDICAL CLIN[facility] [address] | | | | | | [address] [facility] [place], | | | | | | [place] [address] | | | | | | [phone] | | | +--------+ + + + [...]
--- OUTSIDE RECORDS SUMMARY | ~2019-08-21 | XMS | Clinical Summary ---
Demographics + + + | Address | [address] | | | [place] [address] | + + + | Home Phone | | + + + | Preferred Language | Unknown | + + + | Marital Status | Single | + + + | Mandaeism Affiliation | Unknown | + + + | Race | Unknown | + + + | Ethnic Group | Unknown | + + + Author + + + | Author | [facility] (Historical as of | | | 03-31-19) | + + + | Organization | [facility] (Historical as of | | | 03-31-19) | + + + | Address | Unknown | + + + | Phone | Unavailable | + + + Support + + + + + | Name | Relationship | Address | Phone | + + + + + | Marlena Castillo | ECON | [address] | | | | | [place] | | | | | [address] | | + + + + + | Karen Oliveiraeste | ECON | Unknown | | + + + + + | Korey Pascual | ECON | Unknown | | + + + + + Care Team Providers + +------+ + | Care Incubator Tender Name | Role | Phone | [...] +------+-------+ + | MEDICAID | JESSICA | [id number] | | | [address] | | | N | | | | [place] | | | [place] | | | | [address] | | | SPOUT LINER HELPER | | | | | + +--------+ [...] | Self | [birth year] | Home: | [address] | | | al/Fam | | 1974 | [phone] [place] [address] | | | [place]andi | | | [phone] | | + +--------+ +--------+ + +
--- OUTSIDE RECORDS SUMMARY | ~2019-08-21 | XMS | Encounter Summary ---
Demographics + + + | Address | [address] | | | [place] [address] | + + + | Home Phone | | + + + | Preferred Language | Unknown | + + + | Marital Status | Single | + + + | Uatsdin Affiliation | Unknown | + + + | Race | Unknown | + + + | Ethnic Group | Unknown | + + + Author + + + | Author | [facility] | | | and [place] | + + + | Organization | [facility] | [...] Team Providers + +------+ + | Care Trim Line Worker Name | Role | Phone | + [...] | Diagnoses | Mandeep Gillespie | [facility] | | | Services | Medicine / | Anxiety | MD Fernie | Regional | | | Required | Primary Care | Procedures | [address] | Primary Care | | | | | eval and | [place], | [address] | | | | | treat | [place] | [place], [place] | | | | | | [address] | [address] | | | | | | | Phone: | | | | | | | [phone] | | | | | | | Fax: | | | | | | | [phone] | +--------+ + + + + + Encounter Details +--------+ + + + + | Date | Type | Department | Care Team | Description | +--------+ + + + + | 07/22/ | Orders Only | [place] | Mandeep Gillespie, | Anxiety (Primary Dx) | | 2017 | | [facility] | MD | | | | | MEDICAL CLINIC [address] | | | | | | [address] [place], | | | | | | [place] [address] | | | | | | [phone] | | | +--------+ + + + [...]
--- OUTSIDE RECORDS SUMMARY | ~2019-08-21 | XMS | Encounter Summary ---
Demographics + + + | Address | [address] | | | [place] [address] | + + + | Home Phone [...] Team Providers + +------+ + | Care Nib Assembler Name | Role | Phone | + [...]
--- OUTSIDE RECORDS SUMMARY | ~2019-08-21 | XMS | Encounter Summary ---
Demographics + + + | Address | [address] | | | [place] [address] | + + + | Home Phone | | + + + | Preferred Language | Unknown | + + + | Marital Status | Single | + + + | Anglican Affiliation | Unknown | + + + | Race | Unknown | + + + | Ethnic Group | Unknown | + + + Author + + + | Author | [facility] | | | and [place] | + + + | Organization | [facility] | [...] Team Providers + +------+ + | Care Pain Management Physician Name | Role | Phone | [...] 06/23/ | Office | [place] | No, Physician | Anxiety and | | 2017 | Visit | [facility] | [place] MSW | depression; Anxiety; | | | | MED[facility] [address] | [address] | Dysthymia | | | | [address] [place], | [facility], [place] | | | | | [place] [address] | [address] | | | | | [phone] | | | +--------+---------+ + + + [...] of this encounter Progress Notes [place], SUPERVISOR BURLING AND JOINING - 06/23/2017 11:45 AM PSTFormatting of this note might be different fr om the original. Lin Garcia : 1975 Date of Service: 06/23/2017 17:18 [...] treatment option s. Patient is to schedule [facility] follow up after she meet with PCP. Patient was offered on going [facility] services to learn skills/techniques for symptom management. Mental Status: MMS: Reserved, quiet, focused. Diagnosis: Dysthymic disorder moderate Anxiety severe PLAN: Patient is to schedule [facility] follow up after she meet with PCP. Patient was offered on going [facility] services to learn skills/techniques for symptom management. [...]
--- OUTSIDE RECORDS SUMMARY | ~2019-08-21 | XMS | Encounter Summary ---
Demographics + + + | Address | [address] | | | [place] [address] | + + + | Home Phone | | + + + | Preferred Language | Unknown | + + + | Marital Status | Single | + + + | Synagogue Affiliation | Unknown | + + + | Race | Unknown | + + + | Ethnic Group | Unknown | + + + Author + + + | Author | [facility] | | | and [place] | + + + | Organization | [facility] | | [...] Team Providers + +------+ + | Care Project Inspector Name | Role | Phone | + +------+ + | Ced Lorenz MD | PCP | | + +------+ + Encounter Details +--------+ + + + + | Date | Type | Department | Care Team | Description | +--------+ + + + + | 07/23/ | [facility] | [place] | Mandeep Gillespie, | | | 2014 | Encounter | [facility] | | | | | | MEDICAL CLIN[facility] [address] | | | | | | [address]TH [facility] [place], | | | | | | [place] [address] | | | | | | [phone] | | | +--------+ + + + [...]
--- OUTSIDE RECORDS SUMMARY | ~2019-08-21 | XMS | Encounter Summary ---
Demographics + + + | Address | [address] | | | [place] [address] | + + + | Home Phone [...] Organization | [facility] | | | and [place] [...] Team Providers + +------+ + | Care Bindery Machine Operator Name | Role | Phone | + +------+ + | Ced Lorenz MD | PCP | | + +------+ + Encounter Details +--------+ + + + + | Date | Type | Department | Care Team | Description | +--------+ + + + + | 10/25/ | [facility] | [place] | Mandeep Gillespie, | | | 2013 | Encounter | [facility] | | | | | | MEDICAL CLINIC [address] | | | | | | [address]TH [facility] [place], | | | | | | [place] [address] | | | | | | [phone] | | | +--------+ + + + [...]
--- OUTSIDE RECORDS SUMMARY | ~2019-08-21 | XMS | Encounter Summary ---
Demographics + + + | Address | [address] | | | [place] [address] | + + + | Home Phone [...] Organization | [facility] [...] Team Providers + +------+ + | Care Hepatologist Name | Role | Phone | + +------+ + | Ced Lorenz MD | PCP | | + +------+ + Encounter Details +--------+ + + + + | Date | Type | Department | Care Team | Description | +--------+ + + + + | 12/23/ | Abstract | [facility] | Landon Russell MD | | | 2014 | | GASTROENTEROLOGY | [address], [place] | | | | | [address] [place] | [address] [place], [place] | | | | | [address] [place], [place] | [address] | | | | | [address] | | | | | | [phone] | | | +--------+ + + + [...] +--------+ + + + | EXTERNAL LAB: BUN | Routin | 11/07/2014 | | Results for this | | | e | 10:06 AM | | procedure are in the | | | | PDT | | results section. | + +--------+ + + + | EXTERNAL LAB: | Routin | 11/07/2014 | | Results for this | | GLUCOSE | e | 10:06 AM | | procedure are in the | | | | PDT | | results section. | + +--------+ + + + | EXTERNAL LAB: LIPASE | Routin | 11/07/2014 | | Results for this | | | e | 10:06 AM | | procedure are in the | | | | PDT | | results section. | + +--------+ + + + | EXTERNAL LAB: ALT | Routin | 11/07/2014 | | Results for this | | | e | 10:06 AM | | procedure are in the | | | | PDT | | results section. | + +--------+ + + + | EXTERNAL LAB: AST | Routin | 11/07/2014 | | Results for this | | | e | 10:06 AM | | procedure are in the | | | | PDT | | results section. | + +--------+ + + + | EXTERNAL LAB: | Routin | 11/07/2014 | | Results for this | | ALKALINE PHOSPHATASE | e | 10:06 AM | | procedure are in the | | | | PDT | | results section. | + +--------+ + + + | EXTERNAL LAB: | Routin | 11/07/2014 | | Results for this | | BILIRUBIN, TOTAL | e | 10:06 AM | | procedure are in the | | | | PDT | | results section. | + +--------+ + + + | EXTERNAL LAB: | Routin | 11/07/2014 | | Results for this | | ALBUMIN | e | 10:06 AM | | procedure are in the | | | | PDT | | results section. | + +--------+ + + + | EXTERNAL LAB: | Routin | 11/07/2014 | | Results for this | | PROTEIN, TOTAL | e | 10:06 AM | | procedure are in the | | | | PDT | | results section. | + +--------+ + + + | EXTERNAL LAB: | Routin | 11/07/2014 | | Results for this | | CALCIUM | e | 10:06 AM | | procedure are in the | | | | PDT | | results section. | + +--------+ + + + | EXTERNAL LAB: CARBON | Routin | 11/07/2014 | | Results for this | | DIOXIDE | e | 10:06 AM | | procedure are in the | | | | PDT | | results section. | + +--------+ + + + | EXTERNAL LAB: | Routin | 11/07/2014 | | Results for this | | CHLORIDE | e | 10:06 AM | | procedure are in the | | | | PDT | | results section. | + +--------+ + + + | EXTERNAL LAB: | Routin | 11/07/2014 | | Results for this | | POTASSIUM | e | 10:06 AM | | procedure are in the | | | | PDT | | results section. | + +--------+ + + + | EXTERNAL LAB: SODIUM | Routin | 11/07/2014 | | Results for this | | | e | 10:06 AM | | procedure are in the | | | | PDT | | results section. | + +--------+ + + + | EXTERNAL LAB: CBC | Routin | 11/07/2014 | | Results for this | | | e | 10:06 AM | | procedure are in the | | | | PDT | | results section. | + +--------+ + + + | EXTERNAL LAB: EGFR | Routin | 11/07/2014 | | Results for this | | | e | 10:06 AM | | procedure are in the | | | | PDT | | results section. | + +--------+ + + + | EXTERNAL LAB: | Routin | 11/07/2014 | | Results for this | | CREATININE | e | 10:06 AM | | procedure are in the | | | | PDT | | results section. | + +--------+ + + + | CHLAMYDIA | Routin | 11/07/2014 | | Results for this | | TRACHOMATIS AND | e | | | procedure are in the | | [place]IA | | | | results section. | | GONORRHOEAE BEST | | | | | | (NON-ORD) | | | | | + +--------+ + + + | CBC WITH | Routin | 11/07/2014 | | Results for this | | DIFFERENTIAL | e | | | procedure are in the | | | | | | results section. | + +--------+ + + + | , SERUM, | Routin | 11/07/2014 | | Results for this | | QUAL | e | | | procedure are in the | | | | | | results section. | + +--------+ + + + | COMPREHENSIVE | Routin | 11/07/2014 | | Results for this | | METABOLIC PANEL | e | | | procedure are in the | | | | | | results section. | + +--------+ + + + documented in this encounter Results External Lab: SABAS (11/07/2014 10:06 AM PDT) + +-------+ + + + | Component | Value | Ref Range | Performed | Pathologist | | | | | At | Signature | + +-------+ + + + | SABAS, | 10 | 6 - 23 | EXTERNAL | | | External | | | LAB | | + +-------+ + + + + + | Resulting Agency Comment | + + | [facility] | + + + +---------+ + + | Performing | Address | City/State/Zipcode | Phone Number | | Organization | | | | + +---------+ + + | EXTERNAL LAB | | | | + +---------+ + + External Lab: Glucose (11/07/2014 10:06 AM PDT) + +-------+ + + + | Component | Value | Ref Range | Performed | Pathologist | | | | | At | Signature | + +-------+ + + + | Glucose, | 100 | 70 - 100 | EXTERNAL | | | External | | | LAB | | + +-------+ + + + + + | Resulting Agency Comment | + + | [facility] | + + + +---------+ + + | Performing | Address | City/State/Zipcode | Phone Number | | Organization | | | | + +---------+ + + | EXTERNAL LAB | | | | + +---------+ + + External Lab: Lipase (11/07/2014 10:06 AM PDT) + +-------+ + + + | Component | Value | Ref Range | Performed | Pathologist | | | | | At | Signature | + +-------+ + + + | Lipase, | 26 | 11 - 62 | EXTERNAL | | | External | | | LAB | | + +-------+ + + + + + | Resulting Agency Comment | + + | [facility] | + + + +---------+ + + | Performing | Address | City/State/Zipcode | Phone Number | | Organization | | | | + +---------+ + + | EXTERNAL LAB | | | | + +---------+ + + External Lab: ALT (11/07/2014 10:06 AM PDT) + +-------+ + + + | Component | Value | Ref Range | Performed | Pathologist | | | | | At | Signature | + +-------+ + + + | ALT, | 9 | 7 - 52 | EXTERNAL | | | External | | | LAB | | + +-------+ + + + + + | Resulting Agency Comment | + + | [facility] | + + + +---------+ + + | Performing | Address | City/State/Zipcode | Phone Number | | Organization | | | | + +---------+ + + | EXTERNAL LAB | | | | + +---------+ + + External Lab: AST (11/07/2014 10:06 AM PDT) + +--------+ + + + | Component | Value | Ref Range | Performed | Pathologist | | | | | At | Signature | + +--------+ + + + | AST, | 12 (A) | 13 - 39 | EXTERNAL | | | External | | | LAB | | + +--------+ + + + + + | Resulting Agency Comment | + + | [facility] | + + + +---------+ + + | Performing | Address | City/State/Zipcode | Phone Number | | Organization | | | | + +---------+ + + | EXTERNAL LAB | | | | + +---------+ + + External Lab: Alkaline Phosphatase (11/07/2014 10:06 AM PDT) + +-------+ + + + | Component | Value | Ref Range | Performed | Pathologist | | | | | At | Signature | + +-------+ + + + | ALP, | 48 | 30 - 128 | EXTERNAL | | | External | | | LAB | | + +-------+ + + + + + | Resulting Agency Comment | + + | [facility] | + + + +---------+ + + | Performing | Address | City/State/Zipcode | Phone Number | | Organization | | | | + +---------+ + + | EXTERNAL LAB | | | | + +---------+ + + External Lab: Bilirubin, Total (11/07/2014 10:06 AM PDT) + +-------+ + + + | Component | Value | Ref Range | Performed | Pathologist | | | | | At | Signature | + +-------+ + + + | Bilirubin, | 0.5 | 0 - 1.2 | EXTERNAL | | | Total, | | | LAB | | | External | | | | | + +-------+ + + + + + | Resulting Agency Comment | + + | [facility] | + + + +---------+ + + | Performing | Address | City/State/Zipcode | Phone Number | | Organization | | | | + +---------+ + + | EXTERNAL LAB | | | | + +---------+ + + External Lab: Albumin (11/07/2014 10:06 AM PDT) + +-------+ + + + | Component | Value | Ref Range | Performed | Pathologist | | | | | At | Signature | + +-------+ + + + | Albumin, | 4.6 | 3.5 - 5 | EXTERNAL | | | External | | | LAB | | + +-------+ + + + + + | Resulting Agency Comment | + + | [facility] | + + + +---------+ + + | Performing | Address | City/State/Zipcode | Phone Number | | Organization | | | | + +---------+ + + | EXTERNAL LAB | | | | + +---------+ + + External Lab: Protein, Total (11/07/2014 10:06 AM PDT) + +-------+ + + + | Component | Value | Ref Range | Performed | Pathologist | | | | | At | Signature | + +-------+ + + + | Protein, | 6.0 | 0 - 8 | EXTERNAL | | | Total, | | | LAB | | | External | | | | | + +-------+ + + + + + | Resulting Agency Comment | + + | [facility] | + + + +---------+ + + | Performing | Address | City/State/Zipcode | Phone Number | | Organization | | | | + +---------+ + + | EXTERNAL LAB | | | | + +---------+ + + External Lab: Calcium (11/07/2014 10:06 AM PDT) + +-------+ + + + | Component | Value | Ref Range | Performed | Pathologist | | | | | At | Signature | + +-------+ + + + | Calcium, | 9.3 | 8.4 - 10.2 | EXTERNAL | | | External | | | LAB | | + +-------+ + + + + + | Resulting Agency Comment | + + | [facility] | + + + +---------+ + + | Performing | Address | City/State/Zipcode | Phone Number | | Organization | | | | + +---------+ + + | EXTERNAL LAB | | | | + +---------+ + + External Lab: Carbon Dioxide (11/07/2014 10:06 AM PDT) + +-------+ + + + | Component | Value | Ref Range | Performed | Pathologist | | | | | At | Signature | + +-------+ + + + | Carbon | 25 | 19 - 31 | EXTERNAL | | | Dioxide, | | | LAB | | | External | | | | | + +-------+ + + + + + | Resulting Agency Comment | + + | [facility] | + + + +---------+ + + | Performing | Address | City/State/Zipcode | Phone Number | | Organization | | | | + +---------+ + + | EXTERNAL LAB | | | | + +---------+ + + External Lab: Chloride (11/07/2014 10:06 AM PDT) + +-------+ + + + | Component | Value | Ref Range | Performed | Pathologist | | | | | At | Signature | + +-------+ + + + | Chloride, | 109 | 95 - 112 | EXTERNAL | | | External | | | LAB | | + +-------+ + + + + + | Resulting Agency Comment | + + | [facility] | + + + +---------+ + + | Performing | Address | City/State/Zipcode | Phone Number | | Organization | | | | + +---------+ + + | EXTERNAL LAB | | | | + +---------+ + + External Lab: Potassium (11/07/2014 10:06 AM PDT) + +-------+ + + + | Component | Value | Ref Range | Performed | Pathologist | | | | | At | Signature | + +-------+ + + + | Potassium, | 3.7 | 3.6 - 5.1 | EXTERNAL | | | External | | | LAB | | + +-------+ + + + + + | Resulting Agency Comment | + + | [facility] | + + + +---------+ + + | Performing | Address | City/State/Zipcode | Phone Number | | Organization | | | | + +---------+ + + | EXTERNAL LAB | | | | + +---------+ + + External Lab: Sodium (11/07/2014 10:06 AM PDT) + +-------+ + + + | Component | Value | Ref Range | Performed | Pathologist | | | | | At | Signature | + +-------+ + + + | Sodium, | 143 | 132 - 143 | EXTERNAL | | | External | | | LAB | | + +-------+ + + + + + | Resulting Agency Comment | + + | [facility] | + + + +---------+ + + | Performing | Address | City/State/Zipcode | Phone Number | | Organization | | | | + +---------+ + + | EXTERNAL LAB | | | | + +---------+ + + External Lab: CBC (11/07/2014 10:06 AM PDT) + +---------+ + + + | Component | Value | Ref Range | Performed | Pathologist | | | | | At | Signature | + +---------+ + + + | WBC, | 8.0 | 4.5 - 11 | EXTERNAL | | | External | | | LAB | | + +---------+ + + + | HGB, | 13.2 | 12 - 16 | EXTERNAL | | | External | | | LAB | | + +---------+ + + + | HCT, | 41.0 | 36 - 45 | EXTERNAL | | | External | | | LAB | | + +---------+ + + + | PLT, | 473 (A) | 140 - 440 | EXTERNAL | | | External | | | LAB | | + +---------+ + + + | Neutrophils | 84 (A) | 38 - 80 | EXTERNAL | | | %, | | | LAB | | | External | | | | | + +---------+ + + + | Lymphocytes | 12 (A) | 24 - 44 | EXTERNAL | | | %, | | | LAB | | | External | | | | | + +---------+ + + + | Monocytes | 3 | 0 - 12 | EXTERNAL | | | %, External | | | LAB | | + +---------+ + + + | Eosinophils | 0 | 0 - 5 | EXTERNAL | | | %, | | | LAB | | | External | | | | | + +---------+ + + + | RBC, | 4.40 | 3.6 - 5.1 | EXTERNAL | | | External | | | LAB | | + +---------+ + + + | MCV, | 93 | 81 - 99 | EXTERNAL | | | External | | | LAB | | + +---------+ + + + | RDW, | 13.4 | 10.5 - 16 | EXTERNAL | | | External | | | LAB | | + +---------+ + + + + + | Resulting Agency Comment | + + | [facility] | + + + +---------+ + + | Performing | Address | City/State/Zipcode | Phone Number | | Organization | | | | + +---------+ + + | EXTERNAL LAB | | | | + +---------+ + + External Lab: eGFR (11/07/2014 10:06 AM PDT) + +-------+ + + + | Component | Value | Ref Range | Performed | Pathologist | | | | | At | Signature | + +-------+ + + + | eGFR, | >60 | 60 - 999,999 | EXTERNAL | | | External | | | LAB | | + +-------+ + + + + + | Specimen | + + | Blood specimen | | (specimen) | + + + + | Resulting Agency Comment | + + | [facility] | + + + +---------+ + + | Performing | Address | City/State/Zipcode | Phone Number | | Organization | | | | + +---------+ + + | EXTERNAL LAB | | | | + +---------+ + + External Lab: Creatinine (11/07/2014 10:06 AM PDT) + +-------+ + + + | Component | Value | Ref Range | Performed | Pathologist | | | | | At | Signature | + +-------+ + + + | Creatinine, | 0.81 | 0.6 - 1.35 | EXTERNAL | | | External | | | LAB | | + +-------+ + + + + + | Specimen | + + | Blood specimen | | (specimen) | + + + + | Resulting Agency Comment | + + | [facility] | + + + +---------+ + + | Performing | Address | City/State/Zipcode | Phone Number | | Organization | | | | + +---------+ + + | EXTERNAL LAB | | | | + +---------+ + + CBC with Differential (11/07/2014) + +-------+ + + + | Component | Value | Ref Range | Performed | Pathologist | | | | | At | Signature | + +-------+ + + + | MCH | 30.0 | pg | | | + +-------+ + + + | MCHC | 32.0 | % | | | + +-------+ + + + | % Basophils | 1.0 | % | | | + +-------+ + + + + + | Specimen | + + | Blood specimen | | (specimen) | + + HCG, Serum, Qual (11/07/2014) + +-------+ + + + | Component | Value | Ref Range | Performed | Pathologist | | | | | At | Signature | + +-------+ + + + | HCG | 0 | | [facility] | | | QUALIT[facility] | | | [facility] | | [...] [address] | [place] | [phone] | | [facility] | | [address] | | | - LABORATORY | | | | + + + + + Comprehensive Metabolic Panel (11/07/2014) + +-------+ + + + | Component | Value | Ref Range | Performed | Pathologist | | | | | At | Signature | + +-------+ + + + | Anion Gap | 13 | mmol/L | [facility] | [facility] | | | | MEDICAL | | | | | | CENTER - | | | | | | LABORATORY | | + +-------+ + + + | BUN/Creatin | 16.4 | | [facility] | | | ine Ratio | | | [facility] | | | | | | MEDICAL | | | | | | CENTER - | | | | | | LABORATORY | | + +-------+ + + + | Globulin | 3.4 | | [facility] | | | | | | [facility] | | | | | | MEDICAL | | | | | | CENTER - | | | | | | LABORATORY | | + +-------+ + + + | Albumin/Fabiola | 1.4 | | [facility] | | | bulin Ratio | | | [facility] | | [...] ST. | [address] | [place], [place] | [phone] | | [facility] | | [address] | | | - LABORATORY | | | | + + + + + Chlamydia trachomatis and Neisseria gonorrhoeae BEST (11/07/2014) + + + + + + | Component | Value | Ref Range | Performed | Pathologist | | | | | At | Signature | + + + + + + | GC/Chlamydi | Negative | Negative | | | | a, External | | | | | + + + + + + + + | Specimen | + + | Blood specimen | | (specimen) | + + documented in this encounter Visit Diagnoses Not on filedocumented in this encounter"
--- OUTSIDE RECORDS SUMMARY | ~2019-08-21 | XMS | Encounter Summary ---
Demographics + + + | Address | [address] | | | [place] [address] | + + + | Home Phone [...] | [facility] [...] Team Providers + +------+ + | Care Lamp Shades Supervisor Name | Role | Phone | [...] + + | 04/09/ | Emergency | [facility] | Getachew Cain | Internal carotid | | 2019 | | [facility] | Germain Bower MD | aneurysm (Primary | | | | CENTER [address] | [address] | Dx) | | | | [facility] [place] | [place] | | | | | [address] | [address] | | | | | [phone] | | | +--------+ + + + [...] carotid aneurys m with the neurosurgeon at [facility]. They recommend follow-up with appointment already [...] | | 0 | | | | [id number] | mouth. | | | | 9 [...] | | n - | | | 04/09/ | | | 2019 | | | 6:23 | | | [...] | | | ON?/ | | | | | | 9 | | | 18:21? | | | WATCHM | | | AN, | | | LIN | | | ?MRN: | | | [id number] | | | [id number] | | | riteri | | | [...] | | | St. | | | [facility] | | | y | | | [...] | | | St. | | | [facility] | | | y | | | [...] | | | St. | | | [facility] | | | y | | | [...] | | | St. | | | [facility] | | | y | | | [...] | | | St. | | | [facility] | | | y | | | [...] | | | St. | | | [facility] | | | y | | | [...] | | | St. | | | [facility] | | | y H. | | [...] | | | St. | | | [facility] | | | y H. | | [...] | | | St. | | | [facility] | | | y H. | | [...] | | | St. | | | [facility] | | | y H. | | [...] | | | St. | | | [facility] | | | y H. | | [...] | | | St. | | | [facility] | | | y H. | | [...] | | | St. | | | [facility] | | | y H. | | [...] M.D. | | | | | | Requisition Approver | | | al | | | [...] [address] | [facility] [place] | [phone] | | [facility] | | [address] | | | - LABORATORY | | [...] - 1.030 | [facility] | | | [place] | | | [facility] | | [...] + + | [facility] | [address] | [facility] [place] | [phone] | | [facility] | | [address] | | | - LABORATORY | | [...] performed from the aortic arch through the [place] of | | | [place]. Multiplanar reformations [...] | from the aortic arch through the [place] of [place].Multiplanar reformations were also | | [...] | | | SERUM/PLASM | | | [facility] | | | A | | [...] | + + + + + | [facility] | [address] | [facility] [place] | [phone] | | [facility] | | [address] | | | - LABORATORY | | [...] | | | | | | [employer] | | | | | [...] [address] | [facility] [place] | [phone] | | [facility] | | [address] | | | - LABORATORY | | [...] | Time | | seconds | [facility] | | | | [...] [address] | [facility] [place] | [phone] | | [facility] | | [address] | | | - LABORATORY | | [...] in | 12 - 53 U/L | [facility] | | | | use as of October 11, | | [facility] | | | | 2018. Check reference [...] + | [facility] | [address] | [facility] [place] | [phone] | | [facility] | | [address] | | | - LABORATORY | | [...] mL/min/1.73m2 | [facility] | | | FINNISH | RATE,ESTIMATED | | MEDICAL | | | | mL/min/1.03s2Loio than | | CENTER - | | [...] 8.5 (L) | 8.7 - 10.4 | [facility] | | | | | mg/dL | [facility] | | | | | | MEDICAL | | | | | | CENTER - | | | | | | LABORATORY | | + + + + + + | Albumin | 3.9 | 3.2 - 4.8 g/dL | [facility] | | | | | | [facility] | | | | | | MEDICAL | | | | | | CENTER - | | | | | | LABORATORY | | + + + + + + | Bilirubin | 0.3 | 0.3 - 1.2 mg/dL | [facility] | | | Total | | | [facility] | | | | | | MEDICAL [...] + | [facility] | [address] | [facility] [place] | [phone] | | [facility] | | [address] | | | - LABORATORY | | [...] | Eosinophils | | K/uL | [facility] | | | | | | MEDICAL | | | | | | CENTER - | | | | | | LABORATORY | | + + + + + + | Absolute | 0.04 | 0.00 - 0.10 | [facility] | | | Basophils | | K/uL | [facility] | [...] 0.003-0.091 K/uL 0.0-0.9% 2nd 0.007-0.247 K/uL | [facility] | | 0.1-2.0% 3rd 0.018-0.456 K/uL 0.1-2.0% | - LABORATORY | + + + + + + + + | Performing | Address | City/State/Zipcode | Phone Number | | Organization | | | | + + + + + | [facility] | [address] | [place] | [phone] | | [facility] | | [address] | | | - LABORATORY | | | | + + + + + B Type Natriuretic Peptide (04/09/2019 7:15 PM PDT) + +-------+ + + + | Component | Value | Ref Range | Performed | Pathologist | | | | | At | Signature | + +-------+ + + + | BNP | 25 | <100 pg/mL | [facility] | | | | | | [facility] | | | | | | MEDICAL | | | | | | [facility] - | | | | | | [...] [address] | [place] | [phone] | | [facility] | | [address] | | | - LABORATORY | | [...] | | | | KRISTEL PILLAI MD ([id number]) | | | | | | on [...] 19 9:34 | | | | | Tue04/09/19 at 2120, For 1 dose | | [...] PDT | | | | | Starting Tue04/09/19 at 1941, For | | | | | | | 1 dose, Cat Scanner | | | | | | + +-------+ +---------+---+---+ +---+---+ | | | +---+---+ + +-------+ +------+---+---+ | morphine injection 4 mg 4 mg, | Given | 04/09/20 | 4 mg | | | | Intravenous, ONCE, Tue04/09/19 at | | 19 7:21 | | [...]
--- OUTSIDE RECORDS SUMMARY | ~2019-08-21 | XMS | Encounter Summary ---
Demographics + + + | Address | [address] | | | [place] [address] | + + + | Home Phone [...] Organization | [facility] | | | and [...] Team Providers + +------+ + | Care Travel Registered Nurse Oncology Name | Role | Phone | + +------+ + | Ced Lorenz MD | PCP | | + +------+ + Encounter Details +--------+ + + + + | Date | Type | Department | Care Team | Description | +--------+ + + + + | 09/05/ | [facility] | [place] | Mandeep Gillespie, | | | 2013 | Encounter | [facility] | | | | | | [facility] [address] | | | | | | [address] [facility] [place], | | | | | | [place] [address] | | | | | | [phone] | | | +--------+ + + + [...]
--- OUTSIDE RECORDS SUMMARY | ~2019-08-21 | XMS | Encounter Summary ---
Demographics + + + | Address | [address] | | | [place] [address] | + + + | Home Phone [...] | Author | [facility] | | | and [place] | + + + | Organization | [facility] | [...] Team Providers + +------+ + | Care Holder Pile Driving Name | Role | Phone | + +------+ + | Mandeep Gillespie MD | PCP | Unavailable | + +------+ + Reason for Visit + + + | Reason | Comments | + + + | Medication Refill | | + + + Encounter Details +--------+--------+ + + + | Date | Type | Department | Care Team | Description | +--------+--------+ + + + | 01/10/ | Refill | [place] | Mandeep Gillespie, | Medication Refill | | 2019 | | [facility] | [place] | | | | | [facility]ICAL [facility]IN[facility] [address] | | | | | | [address] [place], | | | | | | [place] [address] | | | | | | [phone] | | | +--------+--------+ + + + [...]
--- OUTSIDE RECORDS SUMMARY | ~2019-08-21 | XMS | Encounter Summary ---
Demographics + + + | Address | [address] | | | [place] [address] | + + + | Home Phone [...] | Organization | [facility] | | | and [...] Team Providers + +------+ + | Care Sharepoint Analyst Name | Role | Phone | [...] Acute nonintractable | | 2016 | | [facility] | [address] | headache, | | | | EMERGENCY [address] | unspecified headache | | | | [place] | type (Primary Dx); | | | | | [phone] | Urinary tract | | | | [phone] | | infection, site | | | [...] be sent through Care Everywhere.HEADACHE, UNSPE CIFIED ([place])URINARY TRACT INFECTIONS IN WOMEN ([place])documented in this encounter Medications at Time of [...] | | | | | | [place] [address] | | | | + + + + + + + + | Specimen | + + | Blood specimen | | (specimen) | + + + + + + + | Performing | Address | City/State/Zipcode | Phone Number | | Organization | | | | + + + + + | [facility] [place] | [address] | [place] [address] | [phone] | | [facility] | | [...] | [address] | [place] [address] | [phone] | | [facility] | | [...] ([phone]), | | | | | | tape editor Sinan | | | | | | Jeana Garcia ([id number]) | | | | | | on [...]
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
--- OUTSIDE RECORDS SUMMARY | ~2019-08-21 | XMS | Encounter Summary ---
Demographics + + + | Address | [address] | | | [place] [address] | + + + | Home Phone [...] Organization | [facility] | | | and [place] [...] Team Providers + +------+ + | Care Calender Inspector Name | Role | Phone | + +------+ + | Mandeep Gillespie MD | PCP | Unavailable | + +------+ + Reason for Visit +--------+ + | Reason | Comments | +--------+ + | Other | pt missed a call | +--------+ + Encounter Details +--------+ + + + + | Date | Type | Department | Care Team | Description | +--------+ + + + + | 07/06/ | Telephone | [place] | Mandeep Gillespieith, | Other (pt missed a | | 2017 | | [facility] | MD | call) | | | | [facility] [address] [place], | | | | | | [place] [address] | | | | | | [phone] | | | +--------+ + + + [...]
--- OUTSIDE RECORDS SUMMARY | ~2019-08-21 | XMS | Encounter Summary ---
Demographics + + + | Address | [address] | | | [place] [address] | + + + | Home Phone | | + + + | Preferred Language | Unknown | + + + | Marital Status | Single | + + + | Pentecostal Affiliation | Unknown | + + + | Race | Unknown | + + + | Ethnic Group | Unknown | + + + Author + + + | Author | [facility] | | | and [place] | + + + | Organization | [facility] | | | and [...] Team Providers + +------+ + | Care Ceramic Chemist Name | Role | Phone | [...] | +--------+ + + + + | 12/06/ | Telephone | [place] | Mandeep Gillespie, | Medication Refill | | 2017 | | [facility] | [place] | | | | | [facility] [address] [place], | | | | | | [place] [address] | | | | | | [phone] | | | +--------+ + + + [...]
--- OUTSIDE RECORDS SUMMARY | ~2019-08-21 | XMS | Encounter Summary ---
Demographics + + + | Address | [address] | | | [place] [address] | + + + | Home Phone [...] Organization | [facility] | | | and [...] Team Providers + +------+ + | Care Information Resource Consultant Name | Role | Phone | + +------+ + | Ced Lorenz MD | PCP | | + +------+ + Encounter Details +--------+ + + + + | Date | Type | Department | Care Team | Description | +--------+ + + + + | 11/24/ | [facility] | [place] | Mandeep Gillespie, | | | 2016 | Encounter | [facility] | | | | | | [facility] [address] | | | | | | [address] [facility] [place], | | | | | | [place] [address] | | | | | | [phone] | | | +--------+ + + + [...]
--- OUTSIDE RECORDS SUMMARY | ~2019-08-21 | XMS | Encounter Summary ---
Demographics + + + | Address | [address] | | | [place] [address] | + + + | Home Phone [...] | Organization | [facility] | | | and [place] | [...] Team Providers + +------+ + | Care Squadron Worker Name | Role | Phone | + +------+ + | Ced Lorenz MD | PCP | | + +------+ + Encounter Details +--------+ + + + + | Date | Type | Department | Care Team | Description | +--------+ + + + + | 05/18/ | Hospital | [place] [facility] | Donell Osman | | | 2016 | Encounter | [facility] | MD [address] | | | | | [address] [place] | [place] [address] [address] | | | | | [place], [place] | [place] | | | | | [address] | [address] | | | | | [phone] | [phone] | | | | | | | [...]
--- OUTSIDE RECORDS SUMMARY | ~2019-08-21 | XMS | Encounter Summary ---
Demographics + + + | Address | [address] | | | [place] [address] | + + + | Home Phone [...] Organization | [facility] | | | and [...] Team Providers + +------+ + | Care Paper Reeler Name | Role | Phone | + +------+ + | Ced Lorenz MD | PCP | | + +------+ + Encounter Details +--------+ + + + + | Date | Type | Department | Care Team | Description | +--------+ + + + + | 02/13/ | [facility] | [place] | Mandeep Gillespie, | | | 2012 | Encounter | [facility] | | | | | | MEDICAL CLIN[facility] [address] | | | | | | [address] [place], | | | | | | [place] [address] | | | | | | [phone] | | | +--------+ + + + [...]
--- OUTSIDE RECORDS SUMMARY | ~2019-08-21 | XMS | Encounter Summary ---
Demographics + + + | Address | [address] | | | [place] [address] | + + + | Home Phone [...] Author + + + | Author | [facility] [employer] [facility] | + + + | Organization | [facility] [employer] [facility] | + + + | Address | Unknown | + + + | Phone | Unavailable | + + + Support + + +---------+ + | Name | Relationship | Address | Phone | + + +---------+ + | Marlena Jonathan | ECON | Unknown | | + + +---------+ + Care Team Providers + +------+ + | Care Search Marketing Specialist Name | Role | Phone | [...] | | | | | | [place] [address] | | | +--------+--------+ + + + [...]
--- OUTSIDE RECORDS SUMMARY | ~2019-08-21 | XMS | Encounter Summary ---
Demographics + + + | Address | [address] | | | [place] [address] | + + + | Home Phone | | + + + | Preferred Language | Unknown | + + + | Marital Status | Single | + + + | Adventism Affiliation | Unknown | + + + | Race | Unknown | + + + | Ethnic Group | Unknown | + + + Author + + + | Author | [facility] | | | and [place] | + + + | Organization | [facility] [...] Team Providers + +------+ + | Care Astronomy Professor Name | Role | Phone | [...] [place] | | | | | [address] | [address] | | | | | [phone] | [phone] | | | | | | | [...]
--- OUTSIDE RECORDS SUMMARY | ~2019-08-21 | XMS | Encounter Summary ---
Demographics + + + | Address | [address] | | | [place] [address] | + + + | Home Phone [...] Organization | [facility] [...] Team Providers + +------+ + | Care Plier Worker Name | Role | Phone | [...] [place] | | | | | [address] | [address] | | | | | [phone] | [phone] | | | | | | | [...]
--- OUTSIDE RECORDS SUMMARY | ~2019-08-21 | XMS | Encounter Summary ---
Demographics + + + | Address | [address] | | | [place] [address] | + + + | Home Phone [...] + + + | Author | [facility] | | | and [place] | + + + | Organization | [facility] | [...] Team Providers + +------+ + | Care Technology Solutions Architect Name | Role | Phone | + +------+ + | Ced Lorenz MD | PCP | | + +------+ + Encounter Details +--------+ + + + + | Date | Type | Department | Care Team | Description | +--------+ + + + + | 09/08/ | [facility] | [place] | Mandeep Gillespie, | | | 2015 | Encounter | [facility] | | | | | | MEDICAL CL[address] | | | | | | 4TH [facility] [place], | | | | | | [place] [address] | | | | | | [phone] | | | +--------+ + + + [...]
--- OUTSIDE RECORDS SUMMARY | ~2019-08-21 | XMS | Encounter Summary ---
Demographics + + + | Address | [address] | | | [place] [address] | + + + | Home Phone [...] | [facility] | | | and [place] | [...] Team Providers + +------+ + | Care Preschool Teacher Aide Name | Role | Phone | [...] | | | | | | [place] [address] | | | | | | [phone] | | | +--------+ + + + [...]
--- OUTSIDE RECORDS SUMMARY | ~2019-08-21 | XMS | Encounter Summary ---
Demographics + + + | Address | [address] | | | [place] [address] | + + + | Home Phone [...] Author | [facility] | | | and [place] | + + + | Organization | [facility] | | | and [place] | + + + | Address | Unknown | + + + | Phone | Unavailable | + + + Support + + +---------+ + | Name | Relationship | Address | Phone | + + +---------+ + | Gloira Oliveira | ECON | Unknown | | + + +---------+ + Care Team Providers + +------+ + | Care Auditor Medical Claims Name | Role | Phone | + +------+ + | Ced Lorenz MD | PCP | | + +------+ + Encounter Details +--------+ + + + + | Date | Type | Department | Care Team | Description | +--------+ + + + + | 11/04/ | [facility] | [place] | Mandeep Gillespie, | | | 2016 | Encounter | [facility] | | | | | | MEDICAL CLIN[address] | | | | | | 4TH [facility] [place], | | | | | | [place] [address] | | | | | | [phone] | | | +--------+ + + + [...]
--- OUTSIDE RECORDS SUMMARY | ~2019-08-21 | XMS | Encounter Summary ---
Demographics + + + | Address | [address] | | | [place] [address] | + + + | Home Phone | | + + + | Preferred Language | Unknown | + + + | Marital Status | Single | + + + | Adventist Affiliation | Unknown | + + + | Race | Unknown | + + + | Ethnic Group | Unknown | + + + Author + + + | Author | [facility] | | | and [place] | + + + | Organization | [facility] | | | and [place] [...] Team Providers + +------+ + | Care Machine Etcher Name | Role | Phone | + [...] | | [facility] | CERTIFIED NURSES' AIDE [address], | | | | | MEDICAL CLIN[address] | [facility] [place], [place] | | | | | [address] [place], | [address] | | | | | [place] [address] | | | | | | [phone] | | | +--------+ + + + [...]
--- OUTSIDE RECORDS SUMMARY | ~2019-08-21 | XMS | Encounter Summary ---
Demographics + + + | Address | [address] | | | [place] [address] | + + + | Home Phone [...] | Author | [facility] | | | and [place] | + + + | Organization | [facility] | | | and [place] [...] Providers + +------+ + | Care Remote Control Assembler Name | Role | Phone | + +------+ + | Ced Lorenz MD | PCP | | + +------+ + Encounter Details +--------+ + + + + | Date | Type | Department | Care Team | Description | +--------+ + + + + | 07/18/ | [facility] | [place] | Mandeep Gillespie, | | | 2012 | Encounter | [facility] | | | | | | MEDICAL CLIN[address] | | | | | | 4TH [facility] [place], | | | | | | [place] [address] | | | | | | [phone] | | | +--------+ + + + [...]
--- OUTSIDE RECORDS SUMMARY | ~2019-08-21 | XMS | Encounter Summary ---
Demographics + + + | Address | [address] | | | [place] [address] | + + + | Home Phone [...] + | Organization | [facility] | [...] Team Providers + +------+ + | Care Forestry Professor Name | Role | Phone | + +------+ + | Ced Lorenz MD | PCP | | + +------+ + Encounter Details +--------+ + + + + | Date | Type | Department | Care Team | Description | +--------+ + + + + | 02/07/ | Hospital | [facility] | Vanessa Clay NP | | | 2017 | Encounter | [facility] | [address] | | | | | MEDICAL [address] | [facility], [place] | | | | | [address] [place], | [address] | | | | | [place] [address] | [phone] | | | | | [phone] | | | +--------+ + + + [...]
--- OUTSIDE RECORDS SUMMARY | ~2019-08-21 | XMS | Encounter Summary ---
Demographics + + + | Address | [address] | | | [place] [address] | + + + | Home Phone [...] Organization | [facility] | | [...] Team Providers + +------+ + | Care Meter Setter Name | Role | Phone | [...] (Primary Dx) | | | | [address] [place], | | | | | | [place] [address] | | | | | | [phone] | | | +--------+---------+ + + + [...] imaging, other notes from drew Dawson health media consultant and notes from her gynecologic exam [...] mildly depressed, flat affect Summer Gillespie MD [facility] umented in this encounter Plan of Treatment Not on filedocumented as of this encounter Visit Diagnoses + + | Diagnosis | + + | 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
--- OUTSIDE RECORDS SUMMARY | ~2019-08-21 | XMS | Encounter Summary ---
Demographics + + + | Address | [address] | | | [place] [address] | + + + | Home Phone [...] + + | Author | [facility] [employer] [facility] | + + + | Organization | [facility] [employer] [facility] [...] Providers + +------+ + | Care Customer Account Representative Name | Role | Phone | [...] | | | | | | [place] [address] | | | +--------+--------+ + + + [...]
--- OUTSIDE RECORDS SUMMARY | ~2019-08-21 | XMS | Encounter Summary ---
Demographics + + + | Address | [address] | | | [place] [address] | + + + | Home Phone [...] Organization | [facility] | | [...] Providers + +------+ + | Care Trim Attacher Name | Role | Phone | + +------+ + | Ced Lorenz MD | PCP | | + +------+ + Encounter Details +--------+ + + + + | Date | Type | Department | Care Team | Description | +--------+ + + + + | 09/19/ | [facility] | [place] | Mandeep Gillespie, | | | 2013 | Encounter | [facility] | | | | | | MEDICAL CLIN[address] | | | | | | 4TH [facility] [place], | | | | | | [place] [address] | | | | | | [phone] | | | +--------+ + + + [...]
--- OUTSIDE RECORDS SUMMARY | ~2019-08-21 | XMS | Encounter Summary ---
Demographics + + + | Address | [address] | | | [place] [address] | + + + | Home Phone [...] | Organization | [facility] | | | and [place] [...] Team Providers + +------+ + | Care External Relations Director Name | Role | Phone | + +------+ + | Ced Lorenz MD | PCP | | + +------+ + Encounter Details +--------+ + + + + | Date | Type | Department | Care Team | Description | +--------+ + + + + | 01/21/ | [facility] | [place] | Sandy Monk | | | 2017 | Encounter | [facility] | Vitaly, VAULT CUSTODIAN [address] | | | | | MEDICAL CLIN[address] | [place], [place] | | | | | [address] [place], | [address] | | | | | [place] [address] | [phone] | | | | | [phone] | | | +--------+ + + + [...]
--- OUTSIDE RECORDS SUMMARY | ~2019-08-21 | XMS | Encounter Summary ---
Demographics + + + | Address | [address] | | | [place] [address] | + + + | Home Phone [...] | Organization | [facility] | [...] Team Providers + +------+ + | Care Parole Or Probation Officer Name | Role | Phone | + +------+ + | Mandeep Gillespie MD | PCP | Unavailable | + +------+ + Encounter Details +--------+ + + + + | Date | Type | Department | Care Team | Description | +--------+ + + + + | 06/28/ | Abstract | [place] | Josee Shields CC | | | 2017 | | [facility] | [facility] | | | | | MEDICAL CLINIC [address] | | | | | | [address] [place], | | | | | | [place] [address] | | | | | | [phone] | | | +--------+ + + + [...]
--- OUTSIDE RECORDS SUMMARY | ~2019-08-21 | XMS | Encounter Summary ---
Demographics + + + | Address | [address] | | | [place] [address] | + + + | Home Phone [...] + + + | Author | [facility] [employer] [facility] | + + + | Organization | [facility] [employer] [facility] | + + + | Address | Unknown | + + + | Phone | Unavailable | + + + Support + + +---------+ + | Name | Relationship | Address | Phone | + + +---------+ + | Marlena Jonathan | ECON | Unknown | | + + +---------+ + Care Team Providers + +------+ + | Care Extension Service Specialist Name | Role | Phone | [...] | | | | | | [place] [address] | | | +--------+--------+ + + + [...]
--- OUTSIDE RECORDS SUMMARY | ~2019-08-21 | XMS | Encounter Summary ---
Demographics + + + | Address | [address] | | | [place] [address] | + + + | Home Phone [...] Organization | [facility] | | [...] Team Providers + +------+ + | Care Ship Officer Name | Role | Phone | + +------+ + | Ced Lorenz MD | PCP | | + +------+ + Encounter Details +--------+ + + + + | Date | Type | Department | Care Team | Description | +--------+ + + + + | 01/24/ | [facility] | [place] | Mandeep Gillespie, | | | 2017 | Encounter | [facility] | | | | | | MEDICAL CLIN[address] | | | | | | 4TH [facility] [place], | | | | | | [place] [address] | | | | | | [phone] | | | +--------+ + + + [...]
--- OUTSIDE RECORDS SUMMARY | ~2019-08-21 | XMS | Encounter Summary ---
Demographics + + + | Address | [address] | | | [place] [address] | + + + | Home Phone [...] | Organization | [facility] | [...] Team Providers + +------+ + | Care Engagement Mgr Name | Role | Phone | + +------+ + | Ced Lorenz MD | PCP | | + +------+ + Encounter Details +--------+ + + + + | Date | Type | Department | Care Team | Description | +--------+ + + + + | 06/19/ | [facility] | [place] | Mandeep Gillespie, | | | 2012 | Encounter | [facility] | | | | | | MEDICAL CLIN[address] | | | | | | [address]TH [facility] [place], | | | | | | [place] [address] | | | | | | [phone] | | | +--------+ + + + [...]
--- OUTSIDE RECORDS SUMMARY | ~2019-08-21 | XMS | Encounter Summary ---
Demographics + + + | Address | [address] | | | [place] [address] | + + + | Home Phone [...] Author + + + | Author | [facility] [email or web address] [facility] | + + + | Organization | [facility] [employer] [facility] | + + + | Address | Unknown | + + + | Phone | Unavailable | + + + Support + + +---------+ + | Name | Relationship | Address | Phone | + + +---------+ + | Marlena Jonathan | ECON | Unknown | | + + +---------+ + Care Team Providers + +------+ + | Care Outsole Leveler Name | Role | Phone | + +------+ + | Rhonda Watkins | PCP | | + +------+ + Encounter Details +--------+ + + + + | Date | Type | Department | Care Team | Description | +--------+ + + + + | 04/09/ | Outside | UNKNOWN DEPARTMENT | Other, Faculty | | | 2019 | Records | [address] [facility] | [phone] | | | | | [address] | | | | | | [place], [place] | | | | | | [address] | | | +--------+ + + + [...]
--- OUTSIDE RECORDS SUMMARY | ~2019-08-21 | XMS | Encounter Summary ---
Demographics + + + | Address | [address] | | | [place] [address] | + + + | Home Phone [...] | [facility] | | [...] Team Providers + +------+ + | Care Paratransit Driver Name | Role | Phone | [...] MEDICAL CLINIC [address] | [place] [address] | Dx) | | | | [address] [place], | [phone] | | | | | [place] [address] | | | | | | [phone] | | | +--------+---------+ + + + [...] Dr. Gillespie as scheduled on Tuesday. Subjective: Lni is in today for follow up on [...]
--- OUTSIDE RECORDS SUMMARY | ~2019-08-21 | XMS | Encounter Summary ---
Demographics + + + | Address | [address] | | | [place] [address] | + + + | Home Phone [...] | Organization | [facility] | | | and [...] Team Providers + +------+ + | Care Rug Inspector Helper Name | Role | Phone | [...] [place] | | | | | [address] | [address] | | | | | [phone] | [phone] | | | | | | | [...]
--- OUTSIDE RECORDS SUMMARY | ~2019-08-21 | XMS | Encounter Summary ---
Demographics + + + | Address | [address] | | | [place] [address] | + + + | Home Phone [...] [facility] | | | [...] Team Providers + +------+ + | Care Speed Reading Teacher Name | Role | Phone | + +------+ + | Ced Loernz MD | PCP | | + +------+ + Reason for Visit +---------+ + | Reason | Comments | +---------+ + | No Show | | +---------+ + Encounter Details +--------+ + + + + | Date | Type | Department | Care Team | Description | +--------+ + + + + | 12/23/ | Telephone | [facility] | Landon Russell MD | No Show | | 2015 | | GASTROENTEROLOGY | [address], [place] | | | | | [address] [place] | [address] [place], [place] | | | | | [address] [place], [place] | [address] | | | | | [address] | | | | | | [phone] | | | +--------+ + + + [...]
--- OUTSIDE RECORDS SUMMARY | ~2019-08-21 | XMS | Encounter Summary ---
Demographics + + + | Address | [address] | | | [place] [address] | + + + | Home Phone [...] + | Organization | [facility] | | | [...] Team Providers + +------+ + | Care Solar Energy System Installer Name | Role | Phone | [...] Reaction | | 2016 | | [facility] | MD | (Poss allergic | | | | MEDICAL CLIN[address] | | reaction ) | | | | 4TH [facility] [place], | | | | | | [place] [address] | | | | | | [phone] | | | +--------+ + + + [...]
--- OUTSIDE RECORDS SUMMARY | ~2019-08-21 | XMS | Encounter Summary ---
Demographics + + + | Address | [address] | | | [place] [address] | + + + | Home Phone [...] + | Organization | [facility] | | | and [place] | [...] Team Providers + +------+ + | Care Metal Sander Name | Role | Phone | + [...] | | unspecified | | | | [address] | | convulsion type | | 01/11/ | | [facility] | | ([facility]); Headache, | | 2015 | | [address] | | unspecified headache | | | | [phone] | | type; Hypoglycemia; | | | [...] Filed: 01/12/16 1235 Date of Service: 01/12/16 1147 Status: Signed Facility Specialist: Betty Rivas MD (Physician) [facility] Discharge Summary LEFT AMA Patient: Lin Garcia [...] ng/mL POCT GROUP 12 (HGB,HCT,ICA,NA,K,CL,GLUC,BUN,CREAT,TCO2,GFR,ANION GAP) - [place] Collection Time: 01/11/16 10:48 PM Result Value [...] TROY ANN Dictated: 01/11/2016 11:48 PM Job: [id number] Mr Brain Without And With Contrast 01/12/2016 1. No acute infarct, intracranial mass lesion, or hemorrhage. 2. No evidence of mesial temporal sclerosis. 3. Mild nonspecific supratentorial white matter changes. The differential diagnosis includes chronic microvascular ischemic changes, sequelae from chron ic migraine headaches or prior inflammation/infection, and demyelination. Dictated by: JANEY CORBETT Dictated: 01/12/2016 1:52 AM Job: [id number] Condition on discharge: Improved. Last . Admission Wt:None Recorded Exam significant for Filed Vitals: 01/12/16 0634 01/12/16 0715 01/12/16 1030 01/12/16 1100 BP: 108/72 107/66 112/80 Temp: Resp: 18 18 17 16 SpO2: 100% 100% 99% See exam from H&P Patient Discharge Instructions: PT LEFT AMA Follow-up Information Follow up with Mark Bruner MD In 2 weeks. Specialty: Neurology Contact information [address] [place] [address] Discharge Coordination: Disposition: home. Time spent on discharge coordination: 75+ mins spent on this patient today Betty Rivas MD [facility] Medicine Office Quality Metrics: Core measures: Not [...] Notes by Aaron Gaitan RPh at 01/12/16 1056 Author: Aaron Gaitan RPh Service: (none) Author Type: Pharmacist Filed: 01/12/16 1104 Date of Service: 01/12/16 1051 Status: Signed Facility Specialist: Aaron Gaitan RPh (Pharmacist) Pharmacy Note Asked by attending physician to ascertain pt's narcotic prescription dispense history. [facility] did not turn up a history for this pt, likely due to her previous residence in [place]. Using medication dispense information in [employer], and confirming with [facility] ([phone]), the following opioid prescriptions have been dispensed [...] Date of Service: 01/12/16 1037 Status: Signed Facility Specialist: Betty Rivas MD (Physician) [facility] Update: Called maria del carmen to [...] testdirectory | | | | | | at:[email or web address] | | | | | | g/Services/Welsh-Labor | | | | | | micaela-Services/Chacorta | | | | | | [email or web address] | | | | + + + [...] | | | 01/12/2016 1:52 AM Job: [id number] | | + + + + + [...] Caicedo | | LANCASTERDictated: 01/12/2016 1:52 AMJob: [id number] | |nonspecific finding. The hippocampi appear symmetric [...] | |Dictated: 01/12/2016 1:52 AM | |Job: [id number] | + + CT Head wo Contrast (01/11/2016 11:36 PM PDT) + + | Specimen | + + | | + + + + + | Impressions | Performed At | + + + | Negative head CT. [facility] Dictated by: TROY ANN | | | Dictated: 01/11/2016 11:48 PM Job: [id number] | | + + + + + [...] Dictated: 01/11/2016 11:48 PM | | Job: [id number] | + + documented in this encounter [...]
--- OUTSIDE RECORDS SUMMARY | ~2019-08-21 | XMS | Encounter Summary ---
Demographics + + + | Address | [address] | | | [place] [address] | + + + | Home Phone [...] + | Organization | [facility] | | | [...] Team Providers + +------+ + | Care Blade Filer Name | Role | Phone | + +------+ + | Ced Lorenz MD | PCP | | + +------+ + Encounter Details +--------+ + + + + | Date | Type | Department | Care Team | Description | +--------+ + + + + | 02/07/ | Hospital | [facility] | Vanessa Clay NP | | | 2017 | Encounter | [facility] | [address] | | | | | MEDICAL CL[address] | [facility], [place] | | | | | [address] [place], | [address] | | | | | [place] [address] | [phone] | | | | | [phone] | | | +--------+ + + + [...]
--- OUTSIDE RECORDS SUMMARY | ~2019-08-21 | XMS | Encounter Summary ---
Demographics + + + | Address | [address] | | | [place] [address] | + + + | Home Phone [...] + | Organization | [facility] | | | and [...] Providers + +------+ + | Care Laborer Ammunition Assembly Name | Role | Phone | + +------+ + | Ced Lorenz MD | PCP | | + +------+ + Encounter Details +--------+ + + + + | Date | Type | Department | Care Team | Description | +--------+ + + + + | 02/09/ | [facility] | [place] | Mandeep Gillespie, | | | 2017 | Encounter | [facility] | | | | | | MEDICAL CLIN[address] | | | | | | 4TH [facility] [place], | | | | | | [place] [address] | | | | | | [phone] | | | +--------+ + + + [...]
--- OUTSIDE RECORDS SUMMARY | ~2019-08-21 | XMS | Encounter Summary ---
Demographics + + + | Address | [address] | | | [place] [address] | + + + | Home Phone [...] [facility] | | | and [...] Team Providers + +------+ + | Care Trolley Collector Name | Role | Phone | + +------+ + | Ced Lorenz MD | PCP | | + +------+ + Encounter Details +--------+ + + + + | Date | Type | Department | Care Team | Description | +--------+ + + + + | 01/31/ | [facility] | [place] | Mandeep Gillespie, | | | 2013 | Encounter | [facility] | | | | | | MEDICAL CLIN[address] | | | | | | 4TH [facility] [place], | | | | | | [place] [address] | | | | | | [phone] | | | +--------+ + + + [...]
--- OUTSIDE RECORDS SUMMARY | ~2019-08-21 | XMS | Encounter Summary ---
Demographics + + + | Address | [address] | | | [place] [address] | + + + | Home Phone [...] + + | Author | [facility] | + + + | Organization | [facility] | + + + | Address | Unknown | + + + | Phone | Unavailable | + + + Support + + +---------+ + | Name | Relationship | Address | Phone | + + +---------+ + | Marlena Jonathan | ECON | Unknown | | + + +---------+ + Care Team Providers + +------+ + | Care Retail Sales Director Name | Role | Phone | + +------+ + | Rhonda Watkins | PCP | | + +------+ + Encounter Details +--------+ + + + + | Date | Type | Department | Care Team | Description | +--------+ + + + + | 05/01/ | Outside | UNKNOWN DEPARTMENT | Other, Faculty | | | 2019 | Records | [address] [facility] | [phone] | | | | | [address] | | | | | | [place], [place] | | | | | | [address] | | | +--------+ + + + [...]
--- OUTSIDE RECORDS SUMMARY | ~2019-08-21 | XMS | Encounter Summary ---
Demographics + + + | Address | [address] | | | [place] [address] | + + + | Home Phone [...] + | Organization | [facility] | | | [...] Team Providers + +------+ + | Care Time Signal Wirer Name | Role | Phone | + [...] [place] | | | | | | [address] | | | | | | [phone] | | | +--------+ + + + [...] IMPRESSION: No acute intracranial process JOB #: [id number] | | | Digitally Released by: Leilani [...] | | | | | JOB #: [id number] | | Digitally Released by: Leilani Munson | | | | | | Read By: LEILANI MUNSON MD | | Date: 05/23/2017 14:15 | | | + + documented in this encounter Visit Diagnoses Not on filedocumented in this encounter"
--- OUTSIDE RECORDS SUMMARY | ~2019-08-21 | XMS | Encounter Summary ---
Demographics + + + | Address | [address] | | | [place] [address] | + + + | Home Phone [...] Organization | [facility] | [...] Team Providers + +------+ + | Care Tube Laser Operator Name | Role | Phone | + +------+ + | Ced Lorenz MD | PCP | | + +------+ + Encounter Details +--------+ + + + + | Date | Type | Department | Care Team | Description | +--------+ + + + + | 07/18/ | [facility] | [place] | Mandeep Gillespie, | | | 2012 | Encounter | [facility] | | | | | | MEDICAL CLIN[facility] [address] | | | | | | 4TH [facility] [place], | | | | | | [place] [address] | | | | | | [phone] | | | +--------+ + + + [...]
--- OUTSIDE RECORDS SUMMARY | ~2019-08-21 | XMS | Encounter Summary ---
Demographics + + + | Address | [address] | | | [place] [address] | + + + | Home Phone [...] | Organization | [facility] | [...] Team Providers + +------+ + | Care Video Producer Name | Role | Phone | + +------+ + | Mandeep Gillespie MD | PCP | Unavailable | + +------+ + Reason for Visit +--------+ + | Reason | Comments | +--------+ + | Other | problem list concern. | +--------+ + Encounter Details +--------+ + + + + | Date | Type | Department | Care Team | Description | +--------+ + + + + | 07/04/ | Telephone | [place] | Mandeep Gillespie, | Other (problem list | | 2017 | [facility] | | concern.) | | | | [facility] CL[facility] [address] | | | | | | [address] [place], | | | | | | [place] [address] | | | | | | [phone] | | | +--------+ + + + [...]
--- OUTSIDE RECORDS SUMMARY | ~2019-08-21 | XMS | Encounter Summary ---
Demographics + + + | Address | [address] | | | [place] [address] | + + + | Home Phone [...] Team Providers + +------+ + | Care Cupola Repairer Name | Role | Phone | [...]
--- OUTSIDE RECORDS SUMMARY | ~2019-08-21 | XMS | Encounter Summary ---
Demographics + + + | Address | [address] | | | [place] [address] | + + + | Home Phone [...] Organization | [facility] | [...] Providers + +------+ + | Care Product Info Specialist Name | Role | Phone | [...] + | 04/09/ | Emergency | [facility] | Getachew Cain | Internal carotid | | 2019 | | [facility] | Germain Bower MD | aneurysm (Primary | | | | CENTER [address] | [address] | Dx) | | | | [place] | [place] | | | | | [address] | [address] | | | | | [phone] | | | +--------+ + + + [...] carotid aneurys m with the neurosurgeon at [facility]. They recommend follow-up with appointment already [...] | | 0 | | | | [id number] | mouth. | | | | 9 [...] | | | ?MRN: | | | [id number] | | | [id number] | | | riteri | | | [...] | | | St. | | | [place]io | | | y | | | [...] | | | St. | | | [place]io | | | y | | | [...] | | | St. | | | [place] | | | y | | | [...] | | | St. | | | [place]io | | | y | | | [...] | | | St. | | | [place]io | | | y | | | [...] | | | St. | | | [place]io | | | y | | | [...] | | | St. | | | Clio | | | y H. | | [...] | | | St. | | | Clio | | | y H. | | [...] | | | St. | | | [place]io | | | y H. | | [...] | | | St. | | | Clio | | | y H. | | [...] | | | St. | | | Clio | | | y H. | | [...] | | | St. | | | Clio | | | y H. | | [...] | | | St. | | | Clio | | | y H. | | [...] M.D. | | | | | | Operations [place] | | | al | | | [...] [address] | [facility] [place] | [phone] | | [facility] | | [address] | | | - LABORATORY | | [...] - 1.030 | [facility] | | | [place] | | | [facility] | | [...] [address] | [facility] [place] | [phone] | | [facility] | | [address] | | | - LABORATORY | | [...] performed from the aortic arch through the [place] | | | [place]. Multiplanar reformations [...] | from the aortic arch through the [place].Multiplanar reformations were also | | [...] | + + + + + | [facility] | [address] | [facility] [place] | [phone] | | [facility] | | [address] | | | - LABORATORY | | [...] | | | | | | [employer] | | | | | [...] [address] | [facility] [place] | [phone] | | [facility] | | [address] | | | - LABORATORY | | [...] [address] | [facility] [place] | [phone] | | [facility] | | [address] | | | - LABORATORY | | [...] + | [facility] | [address] | [place] | [phone] | | [facility] | | [address] | | | - LABORATORY | | [...] mL/min/1.73m2 | [facility] | | | GAMBIAN | RATE,ESTIMATED | | MEDICAL | | | | mL/min/1.86h5Tatz than | | CENTER - | | [...] 8.5 (L) | 8.7 - 10.4 | [facility] | | | | | mg/dL | [...] [address] | [facility] [place] | [phone] | | [facility] | | [address] | | | - LABORATORY | | [...] 0.003-0.091 K/uL 0.0-0.9% 2nd 0.007-0.247 K/uL | [facility] | | 0.1-2.0% 3rd 0.018-0.456 K/uL 0.1-2.0% | - LABORATORY | + + + + + + + + | Performing | Address | City/State/Zipcode | Phone Number | | Organization | | | | + + + + + | [facility] | [address] | [place] | [phone] | | [facility] | | [address] | | | - LABORATORY | | [...] | | | | | | [facility] | | | | | | MEDICAL | | | | | | [place] - | | | | | | [...] [address] | [place] | [phone] | | [facility] | | [address] | | | - LABORATORY | | [...] | | | | KRISTEL PILLAI MD ([id number]) | | | | | | on [...]
--- OUTSIDE RECORDS SUMMARY | ~2019-08-21 | XMS | Encounter Summary ---
Demographics + + + | Address | [address] | | | [place] [address] | + + + | Home Phone [...] | Organization | [facility] | | | and [place] [...] Team Providers + +------+ + | Care Reimbursement Rep Name | Role | Phone | + [...] Medication Refill | | 2017 | | [facility] | [place] | | | | | MEDICAL CLINIC [address] | | | | | | [address] [place], | | | | | | [place] [address] | | | | | | [phone] | | | +--------+ + + + [...]
--- OUTSIDE RECORDS SUMMARY | ~2019-08-21 | XMS | Encounter Summary ---
Demographics + + + | Address | [address] | | | [place] [address] | + + + | Home Phone [...] + | Organization | [facility] | | | [...] Team Providers + +------+ + | Care Bereavement Coordinator Name | Role | Phone | [...] ASKING FOR | | 2016 | | [facility] | MD | A CALL BACK.) | | | | MEDICAL CLINIC [address] | | | | | | 4TH [facility] [place], | | | | | | [place] [address] | | | | | | [phone] | | | +--------+ + + + [...]
--- OUTSIDE RECORDS SUMMARY | ~2019-08-21 | XMS | Encounter Summary ---
Demographics + + + | Address | [address] | | | [place] [address] | + + + | Home Phone [...] | [facility] [...] + +------+ + | Care Silk Screen Frame Assembler Name | Role | Phone | [...] Medication Refill | | 2017 | | [facility] | [place] | | | | | MEDICAL CLINIC [address] | | | | | | [address] [place], | | | | | | [place] [address] | | | | | | [phone] | | | +--------+ + + + [...]
--- OUTSIDE RECORDS SUMMARY | ~2019-08-21 | XMS | Encounter Summary ---
Demographics + + + | Address | [address] | | | [place] [address] | + + + | Home Phone [...] | Organization | [facility] | | | and [...] Team Providers + +------+ + | Care Curriculum And Instruction Director Name | Role | Phone | + +------+ + | Ced Lorenz MD | PCP | | + +------+ + Encounter Details +--------+ + + + + | Date | Type | Department | Care Team | Description | +--------+ + + + + | 01/24/ | [facility] | [place] | Mandeep Gillespie, | | | 2017 | Encounter | [facility] | | | | | | MEDICAL CLINIC [address] | | | | | | 4TH [facility] [place], | | | | | | [place] [address] | | | | | | [phone] | | | +--------+ + + + [...]
--- OUTSIDE RECORDS SUMMARY | ~2019-08-21 | XMS | Encounter Summary ---
Demographics + + + | Address | [address] | | | [place] [address] | + + + | Home Phone [...] | Organization | [facility] | | | [...] Team Providers + +------+ + | Care Game Author Name | Role | Phone | + [...] | | [address] [place], | | | | | | [place] [address] | | | | | | [phone] | | | +--------+ + + + [...]
--- OUTSIDE RECORDS SUMMARY | ~2019-08-21 | XMS | Encounter Summary ---
Demographics + + + | Address | [address] | | | [place] [address] | + + + | Home Phone [...] + | Organization | [facility] | | [...] Team Providers + +------+ + | Care Acquisition Manager Name | Role | Phone | + +------+ + | Ced Lorenz MD | PCP | | + +------+ + Encounter Details +--------+ + + + + | Date | Type | Department | Care Team | Description | +--------+ + + + + | 01/10/ | Emergency | [facility] | | Urinary tract | | 2015 | | EMERGENCY CENTER | | infection, site | | | | [address] | | unspecified; Acute | | | | [facility] | | non intractable | | | | [address] | | tension-type | | | | [phone] | | headache | +--------+ + + [...] Alston PA-C Service: (none) Author Type: Physician Changer Fixer Filed: 01/12/162338 Date of Service: 01/12/162338 Status: Signed Strategy Analyst: Khai Alston PA-C (Physician Changer Fixer) Quick Note: On Keflex. documented in this [...] - 1.035 | EXTERNAL | | | [place] | | | LAB | | + [...] | | | | | | Renal [id number]: | | | | | | Chronic Kidney disease | | | | | | if confirmed over a 3 | | | | | | month [id number]: | | | | | | Renal [...]
--- OUTSIDE RECORDS SUMMARY | ~2019-08-21 | XMS | Encounter Summary ---
Demographics + + + | Address | [address] | | | [place] [address] | + + + | Home Phone [...] + | Organization | [facility] | | | [...] Team Providers + +------+ + | Care Drill Setup Operator Name | Role | Phone | + +------+ + | Ced Lorenz MD | PCP | | + +------+ + Encounter Details +--------+ + + + + | Date | Type | Department | Care Team | Description | +--------+ + + + + | 05/18/ | [facility] | [place] | Mandeep Gillespie, | | | 2012 | Encounter | [facility] | | | | | | MEDICAL CLINIC [address] | | | | | | 4TH [facility] [place], | | | | | | [place] [address] | | | | | | [phone] | | | +--------+ + + + [...]
--- OUTSIDE RECORDS SUMMARY | ~2019-08-21 | XMS | Encounter Summary ---
Demographics + + + | Address | [address] | | | [place] [address] | + + + | Home Phone | | + + + | Preferred Language | Unknown | + + + | Marital Status | Single | + + + | Taoist Affiliation | Unknown | + + + | Race | Unknown | + + + | Ethnic Group | Unknown | + + + Author + + + | Author | [facility] | | | and [place] | + + + | Organization | [facility] [...] Team Providers + +------+ + | Care Net Making Supervisor Name | Role | Phone | + +------+ + | Ced Lorenz MD | PCP | | + +------+ + Encounter Details +--------+ + + + + | Date | Type | Department | Care Team | Description | +--------+ + + + + | 01/31/ | [facility] | [place] | Mandeep Gillespie, | | | 2013 | Encounter | [facility] | | | | | | MEDICAL CLINIC [address] | | | | | | 4TH [facility] [place], | | | | | | [place] [address] | | | | | | [phone] | | | +--------+ + + + [...]
--- OUTSIDE RECORDS SUMMARY | ~2019-08-21 | XMS | Encounter Summary ---
Demographics + + + | Address | [address] | | | [place] [address] | + + + | Home Phone [...] Organization | [facility] | | | and [...] Team Providers + +------+ + | Care Rolling Attendant Name | Role | Phone | + +------+ + | Ced Lorenz MD | PCP | | + +------+ + Encounter Details +--------+ + + + + | Date | Type | Department | Care Team | Description | +--------+ + + + + | 01/27/ | [facility] | [place] | Mandeep Gillespie, | | | 2016 | Encounter | [facility] | | | | | | MEDICAL CLINIC [address] | | | | | | 4TH [facility] [place], | | | | | | [place] [address] | | | | | | [phone] | | | +--------+ + + + [...]
--- OUTSIDE RECORDS SUMMARY | ~2019-08-21 | XMS | Encounter Summary ---
Demographics + + + | Address | [address] | | | [place] [address] | + + + | Home Phone [...] | Organization | [facility] | [...] Team Providers + +------+ + | Care Second Ride Fare Collector Name | Role | Phone | + +------+ + | Mandeep Gillespie MD | PCP | Unavailable | + +------+ + Reason for Visit +--------+ + | Reason | Comments | +--------+ + | Other | [facility] | +--------+ + Encounter Details +--------+ + + + + | Date | Type | Department | Care Team | Description | +--------+ + + + + | 08/09/ | Telephone | [place] | Mandeep Gillespie, | Other ([facility]) | | 2017 | | [facility] | | | | | | MEDICAL CLINIC [address] | | | | | | 4TH [facility] [place], | | | | | | [place] [address] | | | | | | [phone] | | | +--------+ + + + [...]
--- OUTSIDE RECORDS SUMMARY | ~2019-08-21 | XMS | Encounter Summary ---
Demographics + + + | Address | [address] | | | [place] [address] | + + + | Home Phone [...] | [facility] | | [...] Providers + +------+ + | Care Cash Applications Associate Name | Role | Phone | + +------+ + | Ced Lorenz MD | PCP | | + +------+ + Encounter Details +--------+ + + + + | Date | Type | Department | Care Team | Description | +--------+ + + + + | 06/19/ | [facility] | [place] | Mandeep Gillespie, | | | 2012 | Encounter | [facility] | | | | | | MEDICAL CLINIC [address] | | | | | | 4TH [facility] [place], | | | | | | [place] [address] | | | | | | [phone] | | | +--------+ + + + [...]
--- OUTSIDE RECORDS SUMMARY | ~2019-08-21 | XMS | Encounter Summary ---
Demographics + + + | Address | [address] | | | [place] [address] | + + + | Home Phone [...] | [facility] | | [...] Team Providers + +------+ + | Care Community Development Manager Name | Role | Phone | + +------+ + | Ced Lorenz MD | PCP | | + +------+ + Encounter Details +--------+ + + + + | Date | Type | Department | Care Team | Description | +--------+ + + + + | 10/09/ | [facility] | [place] | Mandeep Gillespie, | | | 2016 | Encounter | [facility] | | | | | | MEDICAL CLINIC [address] | | | | | | 4TH [facility] [place], | | | | | | [place] [address] | | | | | | [phone] | | | +--------+ + + + [...]
--- OUTSIDE RECORDS SUMMARY | ~2019-08-21 | XMS | Encounter Summary ---
Demographics + + + | Address | [address] | | | [place] [address] | + + + | Home Phone | | + + + | Preferred Language | Unknown | + + + | Marital Status | Single | + + + | Lutheran Affiliation | Unknown | + + + | Race | Unknown | + + + | Ethnic Group | Unknown | + + + Author + + + | Author | [facility] | | | and [place] | + + + | Organization | [facility] | [...] Team Providers + +------+ + | Care Costumed Character Entertainer Name | Role | Phone | + [...] | | | Required | | | [place], | [address] | | | | | | [address] PSYCH[address] | [place] | | | | | | [address] | [place], [place] | | | | | | [place], | [address] Phone: | | | | | | [place] [address] | [phone] | | | | | | Phone: | | | | | | | [phone] | | | | | | | Fax: | | | | | | | [phone] | | +--------+ + + + + + Reason for Visit +--------+ + | Reason | Comments | +--------+ + | Other | | +--------+ + Encounter Details +--------+ + + + + | Date | Type | Department | Care Team | Description | +--------+ + + + + | 06/20/ | Telephone | [place] | Mandeep Gillespie, | Other | | 2017 | | [facility] | [place] | | | | | MEDICAL CLINIC [address] | | | | | | [address]TH [place], | | | | | | [place] [address] | | | | | | [phone] | | | +--------+ + + + [...]
--- OUTSIDE RECORDS SUMMARY | ~2019-08-21 | XMS | Encounter Summary ---
Demographics + + + | Address | [address] | | | [place] [address] | + + + | Home Phone [...] | Organization | [facility] | | [...] Team Providers + +------+ + | Care Machined Parts Metal Sprayer Name | Role | Phone | + +------+ + PCP | Unavailable | + +------+ + Encounter Details +--------+ + + + + | Date | Type | Department | Care Team | Description | +--------+ + + + + | 09/23/ | Hospital | [facility] | | | | 2008 | Encounter | MED CTR EMERGENCY | | | | | | CENTER [address] | | | | | | [place] | | | | | | [address] | | | | | | [phone] | | | +--------+ + + + [...]
--- OUTSIDE RECORDS SUMMARY | ~2019-08-21 | XMS | Encounter Summary ---
Demographics + + + | Address | [address] | | | [place] [address] | + + + | Home Phone [...] | Organization | [facility] [...] Team Providers + +------+ + | Care Real Estate Teacher Name | Role | Phone | + +------+ + | Ced Lorenz MD | PCP | | + +------+ + Encounter Details +--------+ + + + + | Date | Type | Department | Care Team | Description | +--------+ + + + + | 04/23/ | [facility] | [place] | Mandeep Gillespie, | | | 2015 | Encounter | [facility] | | | | | | MEDICAL CLINIC [address] | | | | | | 4TH [facility] [place], | | | | | | [place] [address] | | | | | | [phone] | | | +--------+ + + + [...]
--- OUTSIDE RECORDS SUMMARY | ~2019-08-21 | XMS | Encounter Summary ---
Demographics + + + | Address | [address] | | | [place] [address] | + + + | Home Phone [...] Organization | [facility] | | | and [place] | [...] Team Providers + +------+ + | Care Power Line Installer Name | Role | Phone | [...] Other ([facility]) | | 2017 | | [facility] | | | | | | MEDICAL CLINIC [address] | | | | | | 4TH [facility] [place], | | | | | | [place] [address] | | | | | | [phone] | | | +--------+ + + + [...]
--- OUTSIDE RECORDS SUMMARY | ~2019-08-21 | XMS | Encounter Summary ---
Demographics + + + | Address | [address] | | | [place] [address] | + + + | Home Phone [...] Author | [facility] | | | and [place] | + + + | Organization | [facility] [...] Team Providers + +------+ + | Care Medical Assistant Name | Role | Phone | [...] | | | | | | [place] [address] | | | | | | [phone] | | | +--------+ + + + [...]
--- OUTSIDE RECORDS SUMMARY | ~2019-08-21 | XMS | Encounter Summary ---
Demographics + + + | Address | [address] | | | [place] [address] | + + + | Home Phone [...] Organization | [facility] | | [...] Team Providers + +------+ + | Care Long Chain Dyeing Machine Operator Name | Role | Phone [...] + + | 09/18/ | Telephone | [facility] | Leoncio Valdivia DO | Referral Question | | 2019 | | NEUROSURGERY [address] | [address] | | | | | [address] | [address] | | | | | [place], [place] | [place] [address] | | | | | [address] | [phone] | | | | | [phone] | | | +--------+ + + + [...]
--- OUTSIDE RECORDS SUMMARY | ~2019-08-21 | XMS | Encounter Summary ---
Demographics + + + | Address | [address] | | | [place] [address] | + + + | Home Phone [...] + + + | Author | [facility] | | | and [place] | + + + | Organization | [facility] [...] Team Providers + +------+ + | Care Data Analytics Chief Scientist Name | Role | Phone | [...] 2015 | | GASTROENTEROLOGY | [address] [place] | | | | | [address] [place] | [address] [place], [place] | | | | | [address] [place], [place] | [address] | | | | | [address] | | | | | | [phone] | | | +--------+ + + + [...]
--- OUTSIDE RECORDS SUMMARY | ~2019-08-21 | XMS | Encounter Summary ---
Demographics + + + | Address | [address] | | | [place] [address] | + + + | Home Phone | | + + + | Preferred Language | Unknown | + + + | Marital Status | Single | + + + | Druze Affiliation | Unknown | + + + | Race | Unknown | + + + | Ethnic Group | Unknown | + + + Author + + + | Author | [facility] | | | and [place] | + + + | Organization | [facility] | | | [...] Team Providers + +------+ + | Care Professor Of Environmental Studies Name | Role | Phone | + +------+ + | Ced Lorenz MD | PCP | | + +------+ + Encounter Details +--------+ + + + + | Date | Type | Department | Care Team | Description | +--------+ + + + + | 02/23/ | [facility] | [place] | Mandeep Gillespie, | | | 2016 | Encounter | [facility] | | | | | | MEDICAL CLINIC [address] | | | | | | [address] [facility] [place], | | | | | | [place] [address] | | | | | | [phone] | | | +--------+ + + + [...]
--- OUTSIDE RECORDS SUMMARY | ~2019-08-21 | XMS | Encounter Summary ---
Demographics + + + | Address | [address] | | | [place] [address] | + + + | Home Phone [...] Organization | [facility] | | [...] Team Providers + +------+ + | Care Associate Software Development Engineer Name | Role | Phone | + +------+ + | Ced Lorenz MD | PCP | | + +------+ + Encounter Details +--------+ + + + + | Date | Type | Department | Care Team | Description | +--------+ + + + + | 05/11/ | [facility] | [place] | Mandeep Gillespie, | | | 2017 | Encounter | [facility] | | | | | | MEDICAL CLINIC [address] | | | | | | 4TH [facility] [place], | | | | | | [place] [address] | | | | | | [phone] | | | +--------+ + + + [...]
--- OUTSIDE RECORDS SUMMARY | ~2019-08-21 | XMS | Encounter Summary ---
Demographics + + + | Address | [address] | | | [place] [address] | + + + | Home Phone [...] + + | Organization | [facility] | | | and [place] [...] Team Providers + +------+ + | Care Sorting And Folding Supervisor Name | Role | Phone | + +------+ + | Mandeep Gillespie MD | PCP | Unavailable | + +------+ + Reason for Visit +--------+ + | Reason | Comments | +--------+ + | Other | Patient wanted to provide her statement of provider dismiss | +--------+ + Encounter Details +--------+ + [...] statement of | | | | [address] [place], | | provider dismiss) | | | | [place] [address] | | | | | | [phone] | | | +--------+ + + + [...]
--- OUTSIDE RECORDS SUMMARY | ~2019-08-21 | XMS | Encounter Summary ---
Demographics + + + | Address | [address] | | | [place] [address] | + + + | Home Phone [...] + + + | Author | [facility] | | | and [place] | + + + | Organization | [facility] | | | and [...] Team Providers + +------+ + | Care Juvenile Justice Specialist Name | Role | Phone | + +------+ + | Ced Lorenz MD | PCP | | + +------+ + Encounter Details +--------+ + + + + | Date | Type | Department | Care Team | Description | +--------+ + + + + | 12/09/ | [facility] | [place] | Mandeep Gillespie, | | | 2017 | Encounter | [facility] | | | | | | MEDICAL CLIN[facility] [address] | | | | | | [address] [facility] [place], | | | | | | [place] [address] | | | | | | [phone] | | | +--------+ + + + [...]
--- OUTSIDE RECORDS SUMMARY | ~2019-08-21 | XMS | Encounter Summary ---
Demographics + + + | Address | [address] | | | [place] [address] | + + + | Home Phone [...] | Organization | [facility] | | | [...] Team Providers + +------+ + | Care Mixer Lever Operator Name | Role | Phone [...] Dysthymia | | | | [address] [place], | [place] [facility], [place] | | | | | [place] [address] | [address] | | | | | [phone] | | | +--------+---------+ + + + [...] of this encounter Progress Notes [place], MANAGER GARAGE - 06/23/2017 11:45 AM PSTFormatting of this note might be different fr om the original. Lni Garcia : 1975 Date of Service: 06/23/2017 [...] option s. Patient is to schedule [facility] follow up after she meet with PCP. Patient was offered on going [facility] services to learn skills/techniques for symptom management. Mental Status: MMS: Reserved, quiet, focused. Diagnosis: Dysthymic disorder moderate Anxiety severe PLAN: Patient is to schedule [facility] follow up after she meet with PCP. Patient was offered on going [facility] services to learn skills/techniques for [...]
--- OUTSIDE RECORDS SUMMARY | ~2019-08-21 | XMS | Encounter Summary ---
Demographics + + + | Address | [address] | | | [place] [address] | + + + | Home Phone [...] Organization | [facility] | | | and [...] Team Providers + +------+ + | Care Dairy Feed Worker Name | Role | Phone | [...] [place] | | | | | | [address] | [address]ULIAN [address]ERIN | | | | | | [address] | [place], [place] | | | | | | [place], | [address] Phone: | | | | | | [place] [address] | [phone] | | | | | | Phone: | | | | | | | [phone] | | | | | | | Fax: | | | | | | | [phone] | | +--------+ + + + + [...] | Other | | 2017 | | [facility] | [place] | | | | | MEDICAL CLINIC [address] | | | | | | [address] [place], | | | | | | [place] [address] | | | | | | [phone] | | | +--------+ + + + [...]
--- OUTSIDE RECORDS SUMMARY | ~2019-08-21 | XMS | Encounter Summary ---
Demographics + + + | Address | [address] | | | [place] [address] | + + + | Home Phone [...] Organization | [facility] | [...] Team Providers + +------+ + | Care Ball Warper Tender Name | Role | Phone | [...] | | | | | | [place] [address] | | | | | | [phone] | | | +--------+ + + + [...]
--- OUTSIDE RECORDS SUMMARY | ~2019-08-21 | XMS | Encounter Summary ---
Demographics + + + | Address | [address] | | | [place] [address] | + + + | Home Phone [...] Organization | [facility] | | [...] Team Providers + +------+ + | Care Flour Inspector Name | Role | Phone | + +------+ + PCP | Unavailable | + +------+ + Encounter Details +--------+ + + + + | Date | Type | Department | Care Team | Description | +--------+ + + + + | 10/26/ | Hospital | [facility] | | | | 2008 | Encounter | [facility] | | | | | | CENTER [address] | | | | | | [place] | | | | | | [address] | | | | | | [phone] | | | +--------+ + + + [...]
--- OUTSIDE RECORDS SUMMARY | ~2019-08-21 | XMS | Encounter Summary ---
Demographics + + + | Address | [address] | | | [place] [address] | + + + | Home Phone [...] | Organization | [facility] | | | and [...] Providers + +------+ + | Care Wind Turbine Electrical Engineer Name | Role | Phone | [...] 2014 | | GASTROENTEROLOGY | [address], [place] | | | | | [address] [place] | [address] [place], [place] | | | | | [address] [place], [place] | [address] | | | | | [address] | | | | | | [phone] | | | +--------+ + + + [...] [address] | [facility] | [phone] | | [facility] | | [address] | | | - LABORATORY | | [...] ST. | [address] | [place], [place] | [phone] | | [facility] | | [address] | | | - LABORATORY | | [...]
--- OUTSIDE RECORDS SUMMARY | ~2019-08-21 | XMS | Clinical Summary ---
Demographics + + + | Address | [address] | | | [place] [address] | + + + | Home Phone [...] Author + + + | Author | [facility] | + + + | Organization | [facility] | + + + | Address | Unknown | + + + | Phone | Unavailable | + + + Support + + +---------+ + | Name | Relationship | Address | Phone | + + +---------+ + | Marlena [place] | ECON | Unknown | | + + +---------+ + Care Team Providers + +------+ + | Care Bilingual Hr Generalist Name | Role | Phone | + +------+ + | Rhonda WatkinsP | PCP | | + +------+ + Source Comments [place] is fully live on both EpicCare Ambulatory and [facility] InPatient.[facility] Allergies + + + + + + [...] [place] | [facility] | [phone] | | [phone] | [address] | [address]ica | | | PLUS | | [phone] | id | | | OPEN | | esent | | [place], [place] | | | | CARD | | | | [address] | | + +--------+ +--------+ + +--------+ | [facility] | [facility] | [phone] | Effect | | | [...] | 1975 | [phone] | [place] [address] | | | randi | | | 8 (Home) | | + +--------+ +--------+ + +
--- OUTSIDE RECORDS SUMMARY | ~2019-08-21 | XMS | Encounter Summary ---
Demographics + + + | Address | [address] | | | [place] [address] | + + + | Home Phone [...] + + | Organization | [facility] | | | and [place] [...] Team Providers + +------+ + | Care Web Operations Administrator Name | Role | Phone | [...] Medication Refill | | 2019 | | [facility] | [place] | | | | | MEDICAL CLINIC [address] | | | | | | [address] [place], | | | | | | [place] [address] | | | | | | [phone] | | | +--------+--------+ + + + [...]
--- OUTSIDE RECORDS SUMMARY | ~2019-08-21 | XMS | Encounter Summary ---
Demographics + + + | Address | [address] | | | [place] [address] | + + + | Home Phone [...] | Organization | [facility] | [...] Team Providers + +------+ + | Care Bench Molder Name | Role | Phone | + +------+ + | Ced Lorenz MD | PCP | | + +------+ + Encounter Details +--------+ + + + + | Date | Type | Department | Care Team | Description | +--------+ + + + + | 03/19/ | Hospital | [place] | Mandeep Gillespie, | | | 2012 | Encounter | [facility] | | | | | | MEDICAL CLINIC [address] | | | | | | [address] [place], | | | | | | [place] [address] | | | | | | [phone] | | | +--------+ + + + [...]
--- OUTSIDE RECORDS SUMMARY | ~2019-08-21 | XMS | Encounter Summary ---
Demographics + + + | Address | [address] | | | [place] [address] | + + + | Home Phone | | + + + | Preferred Language | Unknown | + + + | Marital Status | Single | + + + | Gnosticist Affiliation | Unknown | + + + | Race | Unknown | + + + | Ethnic Group | Unknown | + + + Author + + + | Author | [facility] | | | and [place] | + + + | Organization | [facility] | [...] Team Providers + +------+ + | Care Mini Shifter Name | Role | Phone | + +------+ + | Ced Lorenz MD | PCP | | + +------+ + Encounter Details +--------+ + + + + | Date | Type | Department | Care Team | Description | +--------+ + + + + | 02/13/ | [facility] | [place] | Mandeep Gillespie, | | | 2012 | Encounter | [facility] | | | | | | MEDICAL CLINIC [address] | | | | | | [address] [place], | | | | | | [place] [address] | | | | | | [phone] | | | +--------+ + + + [...]
--- OUTSIDE RECORDS SUMMARY | ~2019-08-21 | XMS | Encounter Summary ---
Demographics + + + | Address | [address] | | | [place] [address] | + + + | Home Phone [...] | Organization | [facility] | | [...] Team Providers + +------+ + | Care Rn Medical Inpatient Services Name | Role | Phone | + [...] MEDICAL CLINIC [address] | [place] [address] | Dx) | | | | [address] [place], | [phone] | | | | | [place] [address] | | | | | | [phone] | | | +--------+---------+ + + + [...]
--- OUTSIDE RECORDS SUMMARY | ~2019-08-21 | XMS | Encounter Summary ---
Demographics + + + | Address | [address] | | | [place] [address] | + + + | Home Phone [...] Organization | [facility] | [...] Team Providers + +------+ + | Care Orbitread Operator Name | Role | Phone | + +------+ + | Ced Lorenz MD | PCP | | + +------+ + Encounter Details +--------+ + + + + | Date | Type | Department | Care Team | Description | +--------+ + + + + | 02/09/ | [facility] | [place] | Mandeep Gillespie, | | | 2017 | Encounter | [facility] | | | | | | MEDICAL CLINIC [address] | | | | | | 4TH [facility] [place], | | | | | | [place] [address] | | | | | | [phone] | | | +--------+ + + + [...]
--- OUTSIDE RECORDS SUMMARY | ~2019-08-21 | XMS | Encounter Summary ---
Demographics + + + | Address | [address] | | | [place] [address] | + + + | Home Phone | | + + + | Preferred Language | Unknown | + + + | Marital Status | Single | + + + | Samaritan Affiliation | Unknown | + + + | Race | Unknown | + + + | Ethnic Group | Unknown | + + + Author + + + | Author | [facility] | | | and [place] | + + + | Organization | [facility] | [...] Team Providers + +------+ + | Care Suction Worker Name | Role | Phone | [...] | [facility] | [facility] | | | | | MEDICAL CLINIC [address] | | | | | | [address] [place], | | | | | | [place] [address] | | | | | | [phone] | | | +--------+ + + + [...]
--- OUTSIDE RECORDS SUMMARY | ~2019-08-21 | XMS | Encounter Summary ---
Demographics + + + | Address | [address] | | | [place] [address] | + + + | Home Phone | | + + + | Preferred Language | Unknown | + + + | Marital Status | Single | + + + | Hindu Affiliation | Unknown | + + + | Race | Unknown | + + + | Ethnic Group | Unknown | + + + Author + + + | Author | [facility] | | | and [place] | + + + | Organization | [facility] | | | and [place] [...] Team Providers + +------+ + | Care Grocery Store Associate Name | Role | Phone | + +------+ + | Ced Lorenz MD | PCP | | + +------+ + Encounter Details +--------+ + + + + | Date | Type | Department | Care Team | Description | +--------+ + + + + | 10/09/ | [facility] | [place] | Mandeep Gillespie, | | | 2016 | Encounter | [facility] | | | | | | MEDICAL CLINIC [address] | | | | | | 4TH [facility] [place], | | | | | | [place] [address] | | | | | | [phone] | | | +--------+ + + + [...]
--- OUTSIDE RECORDS SUMMARY | ~2019-08-21 | XMS | Encounter Summary ---
Demographics + + + | Address | [address] | | | [place] [address] | + + + | Home Phone [...] | Organization | [facility] [...] Team Providers + +------+ + | Care Moveman Name | Role | Phone | + +------+ + | Ced Lorenz MD | PCP | | + +------+ + Encounter Details +--------+ + + + + | Date | Type | Department | Care Team | Description | +--------+ + + + + | 12/03/ | [facility] | [place] | Mandeep Gillespie, | | | 2014 | Encounter | [facility] | | | | | | MEDICAL CLINIC [address] | | | | | | 4TH [facility] [place], | | | | | | [place] [address] | | | | | | [phone] | | | +--------+ + + + [...]
--- OUTSIDE RECORDS SUMMARY | ~2019-08-21 | XMS | Encounter Summary ---
Demographics + + + | Address | [address] | | | [place] [address] | + + + | Home Phone [...] | [facility] | [...] Team Providers + +------+ + | Care Red Leader Name | Role | Phone | + +------+ + | Ced Lorenz MD | PCP | | + +------+ + Encounter Details +--------+ + + + + | Date | Type | Department | Care Team | Description | +--------+ + + + + | 02/07/ | Hospital | [facility] | Vanessa Clay NP | | | 2017 | Encounter | [facility] | [address] | | | | | MEDICAL CLINIC [address] | [facility], [place] | | | | | [address] [place], | [address] | | | | | [place] [address] | [phone] | | | | | [phone] | | | +--------+ + + + [...]
--- OUTSIDE RECORDS SUMMARY | ~2019-08-21 | XMS | Encounter Summary ---
Demographics + + + | Address | [address] | | | [place] [address] | + + + | Home Phone [...] | Organization | [facility] | | | and [...] Team Providers + +------+ + | Care Cryptologic Linguist Name | Role | Phone | + [...] | | | | | | [place] [address] | | | | | | [phone] | | | +--------+ + + + [...]
--- OUTSIDE RECORDS SUMMARY | ~2019-08-21 | XMS | Encounter Summary ---
Demographics + + + | Address | [address] | | | [place] [address] | + + + | Home Phone [...] | Organization | [facility] [...] Team Providers + +------+ + | Care Hay Baler Name | Role | Phone | + [...] provider dismiss) | | | | [place] [address] | | | | | | [phone] | | | +--------+ + + + [...]
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
== END 2019-08-21 16:04 | disposition home or self-care (01) ==
LOC: ED 14:24
DX: S43.401A Unspecified sprain of right shoulder joint, initial encounter (principal); F17.200 Nicotine dependence, unspecified, uncomplicated; Z88.6 Allergy status to analgesic agent; Z88.8 Allergy status to other drugs, medicaments and biological substances; Z88.5 Allergy status to narcotic agent; Z79.899 Other long term (current) drug therapy; V49.9XXA Car occupant (driver) (passenger) injured in unspecified traffic accident, initial encounter
CPT/HCPCS: 72170; 73030; 99284-25

== ENCOUNTER 2020-03-24 21:20 | Emergency (ER) | payer OTHER ==
[~2020-03-24] VITALS: Ht 160 cm; Wt 53.1 kg
--- OUTSIDE RECORDS SUMMARY | ~2020-03-24 | XMS | Encounter Summary ---
Demographics + + + | Address | [address] | | | [place] [address] | + + + | Home Phone | | + + + | Preferred Language | Unknown | + + + | Marital Status | Single | + + + | Yazidi Affiliation | Unknown | + + + | Race | Unknown | + + + | Ethnic Group | Unknown | + + + Author + + + | Author | and Services [facility] | | | and [place] | + + + | Organization | and [facility] | | | and [place] | [...] Team Providers + +------+ + | Care Waterproof Coating Machine Tender Name | Role | Phone | + +------+ + | Ced Lorenz MD | PCP | | + +------+ + Encounter Details +--------+ + + + + | Date | Type | Department | Care Team | Description | +--------+ + + + + | 05/11/ | [facility] | [place] | Mandeep Gillespie, | | | 2017 | Encounter | [facility] | | | | | | MEDICAL CLINIC [address] | | | | | | [address] [facility] [place], | | | | | | [place] [address] | | | | | | [phone] | | | +--------+ + + + [...]
--- OUTSIDE RECORDS SUMMARY | ~2020-03-24 | XMS | Encounter Summary ---
Demographics + + + | Address | [address] | | | [place] [address] | + + + | Home Phone | | + + + | Preferred Language | Unknown | + + + | Marital Status | Single | + + + | Christianity Affiliation | Unknown | + + + | Race | Unknown | + + + | Ethnic Group | Unknown | + + + Author + + + | Author | [facility] | | | and [place] | + + + | Organization | [facility] | | | and [place] | [...] Team Providers + +------+ + | Care Mining Helper Name | Role | Phone | + +------+ + | Mandeep Gillespie MD | PCP | Unavailable | + +------+ + Encounter Details +--------+ + + + + | Date | Type | Department | Care Team | Description | +--------+ + + + + | 06/30/ | Abstract | [place] | Mandeep Gillespie, | | | 2017 | | [facility] | | | | | | MEDICAL CLINIC [address] | | | | | | [address] [place], | | | | | | [place] [address] | | | | | | [phone] | | | +--------+ + + + [...]
--- OUTSIDE RECORDS SUMMARY | ~2020-03-24 | XMS | Encounter Summary ---
Demographics + + + | Address | [address] | | | [place] [address] | + + + | Home Phone | | + + + | Preferred Language | Unknown | + + + | Marital Status | Single | + + + | Shinto Affiliation | Unknown | + + + | Race | or | + + + | Ethnic Group | Not or | + + + Author + + + | Author | [facility] | + + + | Organization | [facility] | + + + | Address | Unknown | + + + | Phone | Unavailable | + + + Support + + +---------+ + | Name | Relationship | Address | Phone | + + +---------+ + | Marlena Jonathan | ECON | Unknown | | + + +---------+ + Care Team Providers + +------+ + | Care Supervisor Sanding Name | Role | Phone | + [...] | le headache, | Andrew Dee | [place] [facility] | | | | | unspecified | [address] | Health and | | | | | chronicity | [place], [place] | Healing, | | | | | pattern, | [address] | [address], | | | | | unspecified | Phone: | [address]th Floor | | | | | headache | [phone] | [place], [place] | | | | | type | Fax: | [address] | | | | | Headaches | [phone] | Phone: | | | | | and | | [phone] | | | | | intermittent | | Fax: | | | | | episodes of | | [phone] | | | | | RUE | [...] | | | | | aneurysm | [address] | [address] | | | | | Procedures | [address] | Ave | | | | | PA NEW | [address] | [place], [place] | | | | | PATIENT | [place], | [address] | | | | | LEVEL [address] PA | [place] [address] | Phone: | | | | | EST PATIENT | Phone: | [phone] | | | | | LEVEL V | [phone] | Fax: | | | | | | Fax: | [phone] | | | | | | [phone] | | +--------+--------+ + + + + [...] | | | [facility] | [facility] [place] | unspecified | | | | Health and Healing, | [address] | chronicity pattern, | | | | [facility] | [phone] | unspecified headache | | | | floor [place], [place] | | type (Primary Dx) | | | | [address] | | | | | | [phone] | | | +--------+---------+ + + + [...] D/B/T 4-/5 HG LUE: 5/5 D/B/T/HG RLE: 12/17 HF/KE/DF/PF LLE: 12/17 HF/KE/DF/PF SILT IMAGING: CTA from 04/2019 ASSESSMENT [...] 5 ye ars. I spent 20 minutes [id number] with the patient of which greater than [...] s or concerns arise. Colleen Schmidt MD Stratigraphy Teacher Director, Cerebrovascular and Skull Base Surgery Department of Neurological Surgery and Interventional Neuroradiology [facility] & [address] [place] [address] documented in this encou nter Plan of Treatment Not on filedocumented as of this encounter Visit Diagnoses + + | Diagnosis | + + | Nonintractable headache, unspecified chronicity pattern, unspecified headache type - | | Primary | + + documented in this encounter
--- OUTSIDE RECORDS SUMMARY | ~2020-03-24 | XMS | Encounter Summary ---
Demographics + + + | Address | [address] | | | [place] [address] | + + + | Home Phone | | + + + | Preferred Language | Unknown | + + + | Marital Status | Single | + + + | Spiritism Affiliation | Unknown | + + + | Race | or | + + + | Ethnic Group | Not or | + + + Author + + + | Author | [facility] [employer] [facility] | + + + | Organization | [facility] [employer] [facility] | + + + | Address | Unknown | + + + | Phone | Unavailable | + + + Support + + +---------+ + | Name | Relationship | Address | Phone | + + +---------+ + | Marlena Jonathan | ECON | Unknown | | + + +---------+ + Care Team Providers + +------+ + | Care Captain Airline Pilot Name | Role | Phone | + [...] | le headache, | [place] | [place] for | | | | | unspecified | [address] | Health and | | | | | chronicity | [place], [place] | Healing, | | | | | pattern, | [address] | [address], | | | | | unspecified | Phone: | [address]th Floor | | | | | headache | [phone] | [place], [place] | | | | | type | Fax: | [address] | | | | | Headaches | [phone] | Phone: | | | | | and | | [phone] | | | | | intermittent | | Fax: | | | | | episodes of | | [phone] | | | | | RUE | [...] | | | | | aneurysm | [id number] | [address] | | | | | Procedures | [address] | Ave | | | | | [place] | [address] | [place], [place] | | | | | PATIENT | [place], | [address] | | | | | LEVEL [place] | [place] [address] | Phone: | | | | | EST PATIENT | Phone: | [phone] | | | | | LEVEL V | [phone] | Fax: | | | | | | Fax: | [phone] | | | | | | [phone] | | +--------+--------+ + + + + [...] | | | [facility] | [facility] [place] | unspecified | | | | Health and Healing, | [address] | chronicity pattern, | | | | [facility] | [phone] | unspecified headache | | | | floor [place], [place] | | type (Primary Dx) | | | | [address] | | | | | | [phone] | | | +--------+---------+ + + + [...] 6 ye ars. I spent 20 minutes [id number] with the patient of which greater than [...] s or concerns arise. Colleen Schmidt MD Nuclear Weapons Mechanical Specialist Director, Cerebrovascular and Skull Base Surgery Department of Neurological Surgery and Interventional Neuroradiology [facility] & [address] [place] [address] documented in this encou nter Plan of Treatment Not on filedocumented as of this encounter Visit Diagnoses + + | Diagnosis | + + | Nonintractable headache, unspecified chronicity pattern, unspecified headache type - | | Primary | + + documented in this encounter
--- OUTSIDE RECORDS SUMMARY | ~2020-03-24 | XMS | Encounter Summary ---
Demographics + + + | Address | [address] | | | [place] [address] | + + + | Home Phone | | + + + | Preferred Language | Unknown | + + + | Marital Status | Single | + + + | Worship Affiliation | Unknown | + + + | Race | or | + + + | Ethnic Group | Not or | + + + Author + + + | Author | [facility] [employer] [facility] | + + + | Organization | [facility] | + + + | Address | Unknown | + + + | Phone | Unavailable | + + + Support + + +---------+ + | Name | Relationship | Address | Phone | + + +---------+ + | Marlena Jonathan | ECON | Unknown | | + + +---------+ + Care Team Providers + +------+ + | Care Truck Hopper Name | Role | Phone | + [...] | | | | | | [place] [address] | | | +--------+--------+ + + + [...]
--- OUTSIDE RECORDS SUMMARY | ~2020-03-24 | XMS | Encounter Summary ---
Demographics + + + | Address | [address] | | | [place] [address] | + + + | Home Phone | | + + + | Preferred Language | Unknown | + + + | Marital Status | Single | + + + | Jainism Affiliation | Unknown | + + + | Race | Unknown | + + + | Ethnic Group | Unknown | + + + Author + + + | Author | [facility] | | | and [place] | + + + | Organization | [facility] | [...] Providers + +------+ + | Care Supervisor Contact And Service Clerks Name | Role | Phone | + +------+ + | Ced Lorenz MD | PCP | | + +------+ + Reason for Visit + + + | Reason | Comments | + + + | Dizziness | | + + + | Possible Seizure | | + + + | Dysuria | | + + + Encounter Details +--------+ + + + + | Date | Type | Department | Care Team | Description | +--------+ + + + + | 01/11/ | Emergency | [facility] | Ehsan Ahmadi MD | Acute nonintractable | | 2016 | | [facility] | [address] | headache, | | | | EMERGENCY [address] | DR LANDA, | unspecified headache | | | | [place] | MD | type (Primary Dx); | | | | | [phone] | Urinary tract | | | | [phone] | | infection, site | | | | | | unspecified | +--------+ + + + + Social [...] + + + | Blood Pressure | 138/82 | 01/12/2016 3:01 PM | | | | | PDT | | + + + + + | Pulse | 86 | 01/12/2016 3:01 PM | | | | | PDT | | + + + + + | Temperature | 36.9 C (98.4 F) | 01/12/2016 1:19 PM | | | | | PDT | | + + + + + | Respiratory Rate | 18 | 01/12/2016 1:19 PM | | | | | PDT | | + + + + + | Oxygen Saturation | 100% | 01/12/2016 3:01 PM | | | | | PDT | | + + + + + | Inhaled Oxygen | - | - | | | Concentration | | | | + + + + + | Weight | 51.3 kg (113 lb) | 01/12/2016 1:19 PM | | | | | PDT | | + + + + + | Height | 160 cm (5' 3") | 01/12/2016 1:19 PM | | | | | PDT | | + + + + + | Body Mass Index | 20.02 | 01/12/2016 1:19 PM | | | | | PDT [...] as of this encounter Discharge Instructions Instructions Ehsan Ahmadi MD - 01/12/2016Return to the ED immediately for worsening pain, f or numbness, tingling, weakness, fever, change in your vision, vomiting, neck stiffness, or any other concerns AttachmentsThe following attachments cannot be sent through Care Everywhere.HEADACHE, UNSPE CIFIED (CENTRAL AFRICAN)URINARY TRACT INFECTIONS IN WOMEN (CENTRAL AFRICAN)documented in this encounter Medications at Time of [...] documented as of this encounter ED Notes Ehsan Ahmadi MD - 01/12/2016 5:25 PM PDTFormatting of this note might be different from cortney escobar. eMERGENCY dEPARTMENT eNCOUnter CHIEF COMPLAINT Chief Complaint Patient presents with Dizziness Possible Seizure Dysuria AMELIA Garcia is a 41 y.o. female who presents with a chief complaint of headache. The h istory is as per the patient recent medical records. Her hx includes chronic pain, endometri osis, opioid dependence, migraine headaches. This is her 4th visit for the same in the past several days. Patient was initially seen at [facility], then at [facility]. The patient's headache was gradual onset. It is described as "pain". It is constant, front al, without alleviating or exacerbating factors. no recent head trauma. She reports lighth eadedness whenever she stands up. If she feels lightheaded then she reports "tunnel vision" . No vomiting. No fever, neck pain, photophobia. No focal numbness or weakness. No speec h difficulty. The patient was seen at [facility] after [facility]. The patien ayleen was treated for migraine headache. She went home. She was also dx with urinary tract inf ection. After her initial [facility] visit, the patient stood up, and had an episode of possib ly syncope versus seizure. The pt relates to me that she felt her eyelids "flutter" and she was aware of rhythmic movements of her chest. She went back to [facility] and was admitted. Red madrigal had neg CT head. MRI head was neg except for non-specific white matter changes. She left AMA this morning, as she c/o not receiving IV narcotics and she c/o not getting food fast en ough. She was also upset about being boarded in the ED. PAST MEDICAL HISTORY Past Medical History Diagnosis Date Chronic pelvic pain in female Endometriosis Depression Recovering alcoholic (HCC) Opioid dependence (HCC) SURGICAL HISTORY Past Surgical History Procedure Laterality Date Dental surgery all teeth CURRENT MEDICATIONS Current Outpatient Rx Name Route Sig Dispense Refill buPROPion (WELLBUTRIN SR) 150 mg 12 hr tablet Oral Take 150 mg by mouth 3 times daily. HYDROcodone-acetaminophen (NORCO) 7.5-325 mg per tablet take one tablet by mouth every 4-6 hours as needed Patient taking differently: Take 1 tablet by mouth every 6 hours as needed. SUMAtriptan (IMITREX) 50 mg tablet Oral Take 1 tablet by mouth every 2 hours as needed for Migraine. 10 tablet 0 Maximum of 6 tablets in 24hours ALLERGIES Allergies Allergen Reactions Aspirin Not specified from outside medical records ~ ANR Nsaids Not specified from outside medical records ~ ANR FAMILY HISTORY No family history on file. SOCIAL HISTORY History Social History Marital Status: Single Spouse Name: N/A Number of Children: N/A Years of Education: N/A Social History Main Topics Smoking status: Current Every Day Smoker -- 1.00 packs/day Types: Cigarettes Smokeless tobacco: Not on file Alcohol Use: No Drug Use: No Sexual Activity: Yes Other Topics Concern None Social History Narrative REVIEW OF SYSTEMS Constitutional: Denies fever, chills Eyes: + change in vision HENT: Denies sore throat Respiratory: Denies cough Cardiovascular: Denies chest pain GI: Denies vomiting, or diarrhea. No change in ongoing chronic abd pain : Denies dysuria or hematuria. Musculoskeletal: Denies back pain Skin: Denies rash Neurologic: Denies focal weakness or sensory changes Psychiatric: Denies IVDU PHYSICAL EXAM VITAL SIGNS: BP 138/82 mmHg | Pulse 86 | Temp(Src) 36.9 C (98.4 F) (Oral) | Resp 18 | H t 1.6 m (5' 3") | Wt 51.256 kg (113 lb) | BMI 20.02 kg/m2 | SpO2 100% | LMP 2016 Constitutional: Well developed, Well nourished, No acute distress, Non-toxic appearance. HENT: Normocephalic, Atraumatic, Oropharynx moist, No oral exudates Neck- No tenderness, Supple, No stridor. No meningismus Eyes: PERRL, EOMI, Conjunctiva normal, No discharge. No nystagmus Respiratory: Normal breath sounds, no rales/rhonchi/wheezing Cardiovascular: Regular rhythm, No murmurs, No rubs, No gallops GI: Bowel sounds normal, Soft, mild suprapubic tenderness (chronic per patient), No masses . No guarding, rigidity or rebound. Back: No back ttp Musculoskeletal: Intact distal pulses Skin: Warm, Dry, No rashes Lymphatic: No cervical lymphadenopathy noted. Neurologic: Alert & oriented x 3, Normal motor function, Normal sensory function, cranial nerves II-XII grossly intact. Normal speech. Normal finger-nose testing. Reflexes 2+. No rmal gait Psychiatric: Affect flat. Patient speaks in quiet voice EKG Interpreted by myself: Normal sinus rhythm, normal rate, normal axis/intervals, no ST or TW changes Results for orders placed or performed during the hospital encounter of 01/12/16 CBC with Differential Result Value Ref Range WBC 2.9 (L) 3.8 - 11.0 K/uL RBC 4.14 3.70 - 5.10 M/uL Hgb 13.0 11.3 - 15.5 g/dL Hct 38.3 34.0 - 46.0 % MCV 92.6 80.0 - 100.0 fL MCH 31.4 27.0 - 34.0 pg MCHC 33.9 32.0 - 35.5 g/dL RDW-CV 13.3 11.0 - 15.5 % Platelet Count 352 150 - 400 K/uL % Neutrophils 85.4 % % Lymphocytes 13.4 % % Monocytes 0.8 % % Eosinophils 0.0 % % Basophils 0.4 % Absolute Neutrophils 2.5 1.9 - 7.4 K/uL Absolute Lymphocytes 0.4 (L) 1.0 - 3.9 K/uL Absolute Monocytes 0.0 0.0 - 0.8 K/uL Absolute Eosinophils 0.0 0.0 - 0.2 K/uL Absolute Basophils 0.0 0.0 - 0.2 K/uL Comprehensive Metabolic Panel Result Value Ref Range NA 138 135 - 145 mmol/L K 3.8 3.5 - 5.3 mmol/L CL 107 99 - 109 mmol/L CO2 24 23 - 32 mmol/L CALCIUM 8.7 8.5 - 10.2 mg/dL ANION GAP 7 5 - 16 mmol/L ALBUMIN 4.2 3.5 - 5.0 g/dL BUN 10 8 - 25 mg/dL Creatinine, Serum/Plasma 0.62 0.50 - 1.00 mg/dL GLUCOSE 117 65 - 140 mg/dL Total protein 7.3 6.1 - 8.4 g/dL GLOBULIN 3.1 2.0 - 4.0 g/dL Albumin/Globulin ratio 1.4 0.7 - 2.2 Ratio ALK PHOS 36 35 - 115 U/L ALT 7 (L) 10 - 65 U/L AST 11 10 - 45 U/L BILIRUBIN TOTAL 0.4 0.1 - 1.5 mg/dL Estimated GFR >60 >=61 mL/min/1.73m2 ECG 12 lead Result Value Ref Range VENTRICULAR RATE EKG 60 BPM ATRIAL RATE 60 BPM P-R INTERVAL 122 ms QRS DURATION 92 ms Q-T INTERVAL 408 ms Q-T INTERVAL (CORRECTED) 408 ms P WAVE AXIS 33 degrees QRS AXIS -11 degrees T AXIS 58 degrees INTERPRETATION TEXT Normal sinus rhythm with sinus arrhythmia Normal ECG No previous ECGs available Confirmed by MD Ahmadi Arwyn ([id number]), general expeditor Jeana Oneal ([id number]) on 01/12/2016 3: 45:38 PM ED COURSE & MEDICAL DECISION MAKING Pertinent Labs & Imaging studies reviewed. (See chart for details) Medications and Allergy list reviewed. Nurses note reviewed: YES EMS Note reviewed: N/A Old records reviewed: YES The patient had IV placed. I ordered tylenol, IVF, Reglan, Benadryl. The patient was due for her Keflex dose. I ordered that. The patient is well and nontoxic appearing. This poi nt, she has negative CT and MRI of the head, and she has been ruled out for intercranial hem orrhage, stroke, intracranial mass. She is neurologically intact on my exam with normal abigail donald gait. She has no fever, meningismus, photophobia to suggest meningitis. There is no rosanna dence of arrythmia. I note her mildly low white blood cell count. This is of doubtful sign ificance, given that she has had multiple normal recent CBCs. She denies current drug abuse or known risk factors for HIV. I spoke to Dr. Sean Mancuso of Emergency medicine at [facility] -- he answered when I attempted to contact internal medicine there. I was trying to ascerta in why exactly the patient had been admitted to their facility. He states that she was main ly admitted because she had a repeat visit in a short period of time. At this point, I do n ot see evidence of acute pathology requiring admission here. I discussed her results with h er at length. I will refer her to neurology and primary care. She discussed understanding of strict ER return warnings FINAL IMPRESSION 1. Acute nonintractable headache, unspecified headache type 2. Urinary tract infection, site unspecified Disposition: D/c home. F/u w/ primary care, neurology Portions of this chart may have been created with voice recognition software. Occasional wr tim-word or sound-alike substitutions may have occurred due to the inherent limitation s of voice recognition software. Read the chart carefully and recognize, using context, shitalr e these substitutions have occurred. Ehsan Ahmadi MD 01/12/16 1746 leint, Poncho Madrigal RN - 01/12/2016 4:41 PM PDTPt wheeled out in a wheelchair to the lobby to wait for mario nce to come and get pt. P Piper Hanks CNA - 01/12/2016 4:10 PM PDTCalled [facility] to find a physician who can speak about this patient going AMA leinayleen, Eva Madrigal RN - 01/12/2016 4:05 PM PDTPt states pain m eds are not working. notified. Eva Aguilar RN - 01/12/2016 3:10 PM PDTPt ambulated to bathroom [facility]. Without staff assistance. No episodes of syncope observed. udrey, Eva Madrigal RN - 01/12/2016 2:30 PM PDTPt is in room. Lights out. Laying supine in bed. Tolerating fluids well. documented in this encounter Miscellaneous Notes ED Triage Notes - Eva Ventura RN - 01/12/2016 1:13 PM PDTMigraine headache for 6 days . Dizzy when she stands up, tunnel vision. Seizure like episode yesterday prior to going to [facility]. Hx of endometriosis. Came from [facility], was there from 2100 last night until 1230 this afternoon. I felt like she was not being treated well, boyfriend states they were going to admit her, but the y took too long. They felt like they were mistreated and wanted "proper care" here at [facility]. They drove straight from [facility] to [place]. D Triage Notes - Lindsey Magallanes RN - 01/12/2016 1:08 PM PDTGreet: Pt. Has endometriosis, was seen and godfrey gnosed by clinic with bladder infection but went to [facility] ER yesterday with other symptoms of dizziness, "tunnel vision," and "blacking out." Dc'd from [facility] and went home and "murray d a seizure for the first time."Electronically signed by Lindsey Jerez RN at 1:09 PM PDTdocumented in this encounter Plan of Treatment + +------+--------+ + + | Name | Type | Priori | Associated Diagnoses | Date/Time | | | | ty | | | + +------+--------+ + + | ED INFORMATION | ARMANDO | Routin | | 01/12/2016 1:08 PM | | EXCHANGE | | e | | PDT | + +------+--------+ + + documented as of this encounter Procedures + +--------+ + + + | Procedure Name | Priori | Date/Time | Associated Diagnosis | Comments | | | ty | | | | + +--------+ + + + | CBC WITH | STAT | 01/12/2016 | | Results for this | | DIFFERENTIAL | | 2:16 PM | | procedure are in the | | | | PDT | | results section. | + +--------+ + + + | COMPREHENSIVE | STAT | 01/12/2016 | | Results for this | | METABOLIC PANEL | | 2:16 PM | | procedure are in the | | | | PDT | | results section. | + +--------+ + + + | ECG 12 LEAD | STAT | 01/12/2016 | | Results for this | | | | 2:08 PM | | procedure are in the | | | | PDT | | results section. | + +--------+ + + + | ED INFORMATION | Routin | 01/12/2016 | | | | EXCHANGE | e | 1:08 PM | | | | | | PDT | | | + +--------+ + + + documented in this encounter Results Comprehensive Metabolic Panel (01/12/2016 2:16 PM PDT) + + + + + + | Component | Value | Ref Range | Performed | Pathologist | | | | | At | Signature | + + + + + + | Na | 138 | 135 - 145 | [facility] | | | | | mmol/L | [facility] | | | | | | CORE | | | | | | LABORATORY | | | | | | (I) | | + + + + + + | K | 3.8 | 3.5 - 5.3 | [facility] | | | | | mmol/L | [facility] | | | | | | CORE | | | | | | LABORATORY | | | | | | (I) | | + + + + + + | Cl | 107 | 99 - 109 mmol/L | [facility] | | | | | | [facility] | | | | | | CORE | | | | | | LABORATORY | | | | | | (I) | | + + + + + + | CO2 | 24Comment: CO2 testing | 23 - 32 mmol/L | [facility] | | | | added on to specimens | | [facility] | | | | greater than 4 hours old | | CORE | | | | may be compromised | | LABORATORY | | | | interpret results with | | (I) | | | | caution. | | | | + + + + + + | Calcium | 8.7 | 8.5 - 10.2 | [facility] | | | | | mg/dL | [facility] | | | | | | CORE | | | | | | LABORATORY | | | | | | (I) | | + + + + + + | Anion Gap | 7 | 5 - 16 mmol/L | [facility] | | | | | | [facility] | | | | | | CORE | | | | | | LABORATORY | | | | | | (I) | | + + + + + + | Albumin | 4.2 | 3.5 - 5.0 g/dL | [facility] | | | | | | [facility] | | | | | | CORE | | | | | | LABORATORY | | | | | | (I) | | + + + + + + | BUN | 10 | 8 - 25 mg/dL | [facility] | | | | | | [facility] | | | | | | CORE | | | | | | LABORATORY | | | | | | (I) | | + + + + + + | Creatinine | 0.62 | 0.50 - 1.00 | [facility] | | | | | mg/dL | [facility] | | | | | | CORE | | | | | | LABORATORY | | | | | | (I) | | + + + + + + | Glucose | 117Comment: Glucose | 65 - 140 mg/dL | [facility] | | | | Reference Range:Glucose, | | [facility] | | | | Fastin-99 | | CORE | | | | mg/dLGlucose, Random: | | LABORATORY | | | | 65-140 mg/dL | | (I) | | | |Glucose, Random: 65-140 mg/dL | | | | | | | | | | + + + + + + | Total | 7.3 | 6.1 - 8.4 g/dL | [facility] | | | Protein | | | [facility] | | | | | | CORE | | | | | | LABORATORY | | | | | | (I) | | + + + + + + | Globulin | 3.1 | 2.0 - 4.0 g/dL | [facility] | | | | | | [facility] | | | | | | CORE | | | | | | LABORATORY | | | | | | (I) | | + + + + + + | Albumin/Fabiola | 1.4 | 0.7 - 2.2 Ratio | [facility] | | | bulin Ratio | | | [facility] | | | | | | CORE | | | | | | LABORATORY | | | | | | (I) | | + + + + + + | Alkaline | 36 | 35 - 115 U/L | [facility] | | | Phosphatase | | | [facility] | | | | | | CORE | | | | | | LABORATORY | | | | | | (I) | | + + + + + + | ALT | 7 (L) | 10 - 65 U/L | [facility] | | | | | | [facility] | | | | | | CORE | | | | | | LABORATORY | | | | | | (I) | | + + + + + + | AST | 11 | 10 - 45 U/L | [facility] | | | | | | [facility] | | | | | | CORE | | | | | | LABORATORY | | | | | | (I) | | + + + + + + | Bilirubin | 0.4 | 0.1 - 1.5 mg/dL | [facility] | | | Total | | | [facility] | | | | | | CORE | | | | | | LABORATORY | | | | | | (I) | | + + + + + + | Estimated | >60Comment: Multiply | >=61 | [facility] | | | GFR | the calculated GFR by | mL/min/1.73m2 | [facility] | | | | 1.21 for | | CORE | | | | Americans. Adult GFR | | LABORATORY | | | | Result Intervals | | (I) | | | | measured in mL/min/1.73 | | | | | | m squared: GT 60: | | | | | | Normal renal function. | | | | | | LT or equal to 60: | | | | | | Chronic kidney disease, | | | | | | if confirmed over a 3 | | | | | | month period. A single | | | | | | determination is not | | | | | | considered diagnostic. | | | | | | 30-60 eGFR (Stage 3 | | | | | | CKD): Chronic renal | | | | | | disease. 15-29 eGFR | | | | | | (Stage 4 CKD): Chronic | | | | | | renal disease, consider | | | | | | nephrology consult. LT | | | | | | 15 eGFR (Stage 5 CKD): | | | | | | Renal failure.Performed | | | | | | by [facility] | | | | | | [address] | | | | | | [place] [id number] | | | | + + + + + + + + | Specimen | + + | Blood specimen | | (specimen) | + + + + + + + | Performing | Address | City/State/Zipcode | Phone Number | | Organization | | | | + + + + + | [facility] | [address] | [place] [address] | [phone] | | [facility] | | | | + + + + + CBC with Differential (01/12/2016 2:16 PM PDT) + + + + + + | Component | Value | Ref Range | Performed | Pathologist | | | | | At | Signature | + + + + + + | White Blood | 2.9 (L) | 3.8 - 11.0 K/uL | [facility] | | | Cells | | | [facility] | | | | | | CORE | | | | | | LABORATORY | | | | | | (I) | | + + + + + + | Red Blood | 4.14 | 3.70 - 5.10 | [facility] | | | Cells | | M/uL | [facility] | | | | | | CORE | | | | | | LABORATORY | | | | | | (I) | | + + + + + + | Hemoglobin | 13.0 | 11.3 - 15.5 | [facility] | | | | | g/dL | [facility] | | | | | | CORE | | | | | | LABORATORY | | | | | | (I) | | + + + + + + | Hematocrit | 38.3 | 34.0 - 46.0 % | [facility] | | | | | | [facility] | | | | | | CORE | | | | | | LABORATORY | | | | | | (I) | | + + + + + + | MCV | 92.6 | 80.0 - 100.0 fL | [facility] | | | | | | [facility] | | | | | | CORE | | | | | | LABORATORY | | | | | | (I) | | + + + + + + | MCH | 31.4 | 27.0 - 34.0 pg | [facility] | | | | | | [facility] | | | | | | CORE | | | | | | LABORATORY | | | | | | (I) | | + + + + + + | MCHC | 33.9 | 32.0 - 35.5 | [facility] | | | | | g/dL | [facility] | | | | | | CORE | | | | | | LABORATORY | | | | | | (I) | | + + + + + + | RDW-CV | 13.3 | 11.0 - 15.5 % | [facility] | | | | | | [facility] | | | | | | CORE | | | | | | LABORATORY | | | | | | (I) | | + + + + + + | Platelet | 352 | 150 - 400 K/uL | [facility] | | | Count | | | [facility] | | | | | | CORE | | | | | | LABORATORY | | | | | | (I) | | + + + + + + | % | 85.4 | % | [facility] | | | Neutrophils | | | [facility] | | | | | | CORE | | | | | | LABORATORY | | | | | | (I) | | + + + + + + | % | 13.4 | % | [facility] | | | Lymphocytes | | | [facility] | | | | | | CORE | | | | | | LABORATORY | | | | | | (I) | | + + + + + + | % Monocytes | 0.8 | % | [facility] | | | | | | [facility] | | | | | | CORE | | | | | | LABORATORY | | | | | | (I) | | + + + + + + | % | 0.0 | % | [facility] | | | Eosinophils | | | [facility] | | | | | | CORE | | | | | | LABORATORY | | | | | | (I) | | + + + + + + | % Basophils | 0.4 | % | [facility] | | | | | | [facility] | | | | | | C[facility] | | | | | | LABORATORY | | | | | | (I) | | + + + + + + | Absolute | 2.5 | 1.9 - 7.4 K/uL | [facility] | | | Neutrophils | | | [facility] | | | | | | CORE | | | | | | LABORATORY | | | | | | (I) | | + + + + + + | Absolute | 0.4 (L) | 1.0 - 3.9 K/uL | [facility] | | | Lymphocytes | | | [facility] | | | | | | CORE | | | | | | LABORATORY | | | | | | (I) | | + + + + + + | Absolute | 0.0 | 0.0 - 0.8 K/uL | [facility] | | | Monocytes | | | [facility] | | | | | | CORE | | | | | | LABORATORY | | | | | | (I) | | + + + + + + | Absolute | 0.0 | 0.0 - 0.2 K/uL | [facility] | | | Eosinophils | | | [facility] | | | | | | CORE | | | | | | LABORATORY | | | | | | (I) | | + + + + + + | Absolute | 0.0Comment: Performed | 0.0 - 0.2 K/uL | [facility] | | | Basophils | by [facility] | | [place] | | | | [address] [place] | | CORE | | | | [place] [address] | | LABORATORY | | | | | | (I) | | + + + + + + + + | Specimen | + + | Blood specimen | | (specimen) | + + + + + + + | Performing | Address | City/State/Zipcode | Phone Number | | Organization | | | | + + + + + | [facility] | [address] | [place] [address] | [phone] | | [facility] ([facility]) | | | | + + + + + ECG 12 lead (01/12/2016 2:08 PM PDT) + + + + + + | Component | Value | Ref Range | Performed | Pathologist | | | | | At | Signature | + + + + + + | VENTRICULAR | 60 | BPM | [facility] | | | RATE EKG | | | | | + + + + + + | ATRIAL RATE | 60 | BPM | [facility] | | + + + + + + | P-R | 122 | ms | [facility] | | | INTERVAL | | | | | + + + + + + | QRS | 92 | ms | [facility] | | | DURATION | | | | | + + + + + + | Q-T | 408 | ms | [facility] | | | INTERVAL | | | | | + + + + + + | Q-T | 408 | ms | [facility] | | | INTERVAL | | | | | | (CORRECTED) | | | | | + + + + + + | P WAVE AXIS | 33 | degrees | [facility] | | + + + + + + | QRS AXIS | -11 | degrees | [facility] | | + + + + + + | T AXIS | 58 | degrees | [facility] | | + + + + + + | INTERPRETAT | Normal sinus rhythm with | | [facility] | | | ION TEXT | sinus arrhythmiaNormal | | | | | | ECGNo previous ECGs | | | | | | availableConfirmed by | | | | | | MD Galdino, Ehsan ([id number]), | | | | | | general expeditor Sinan | | | | | | Jeana Garcia ([id number]) | | | | | | on 01/12/2016 3:45:38 PM | | | | + + + [...] + | Diagnosis | + + | Acute nonintractable headache, unspecified headache type - Primary | + + | Urinary tract infection, site unspecified | + + documented in this encounter Administered Medications + +--------+ + +------+------+ | Medication Order | MAR | Action | Dose | Rate | Site | | | Action | Date | | | | + +--------+ + +------+------+ | acetaminophen (TYLENOL) tablet | Given | 01/12/20 | 1,000 mg | | | | 1,000 mg 1,000 mg, Oral, ONCE, | | 16 3:07 | | | | | 01/12/16 at 1505, For 1 dose | | PM PDT | | | | + +--------+ + +------+------+ +---+---+ | | | +---+---+ + +-------+ +--------+---+---+ | cephalexin (KEFLEX) capsule 500 | Given | 01/12/20 | 500 mg | | | | mg 500 mg, Oral, ONCE, Mon | | 16 2:18 | | | | | 01/12/16 at 1355, For 1 dose, | | PM PDT | | | | | Indications: UTI - LOWER | | | | | | + +-------+ +--------+---+---+ +---+---+ | | | +---+---+ + +-------+ +-------+---+---+ | diphenhydrAMINE (BENADRYL) | Given | 01/12/20 | 25 mg | | | | capsule 25 mg 25 mg, Oral, ONCE, | | 16 3:07 | | | | | 01/12/16 at 1505, For 1 dose | | PM PDT | | | | + +-------+ +-------+---+---+ +---+---+ | | | +---+---+ + +---------+ +--------+-------+---+ | sodium chloride 0.9% (NS) bolus | New Bag | 01/12/20 | 1,000 | 2000 | | | 1,000 mL 1,000 mL, Intravenous, | | 16 2:18 | mLs | mL/hr | | | Administer over 30 Minutes, | | PM PDT | | | | | ONCE, 01/12/16 at 1405, For 1 | | | | | | | dose | | | | | | + +---------+ +--------+-------+---+ +---+---+ | | | +---+---+ documented in this encounter
--- OUTSIDE RECORDS SUMMARY | ~2020-03-24 | XMS | Encounter Summary ---
Demographics + + + | Address | [address] | | | [place] [address] | + + + | Home Phone | | + + + | Preferred Language | Unknown | + + + | Marital Status | Single | + + + | Adventism Affiliation | Unknown | + + + | Race | Unknown | + + + | Ethnic Group | Unknown | + + + Author + + + | Author | [facility] | | | and [place] | + + + | Organization | [facility] | | | and [...] Team Providers + +------+ + | Care News Clerk Name | Role | Phone | + +------+ + | Ced Lorenz MD | PCP | | + +------+ + Encounter Details +--------+ + + + + | Date | Type | Department | Care Team | Description | +--------+ + + + + | 09/05/ | [facility] | [place] | Mandeep Gillespie, | | | 2013 | Encounter | [facility] | | | | | | [facility] CL[facility] [address] | | | | | | [facility]TH [facility] [place], | | | | | | [place] [address] | | | | | | [phone] | | | +--------+ + + + [...]
--- OUTSIDE RECORDS SUMMARY | ~2020-03-24 | XMS | Encounter Summary ---
Demographics + + + | Address | [address] | | | [place] [address] | + + + | Home Phone [...] + + | Organization | [facility] | | | and [...] Team Providers + +------+ + | Care Pipe Changer Name | Role | Phone | + [...] (Discharge | | 2018 | | [facility] | MD | Letter ) | | | | MEDICAL CLINIC [address] | | | | | | [address] [facility] [place], | | | | | | [place] [address] | | | | | | [phone] | | | +--------+ + + + [...] 08/23/2017 3:47 PM PSTDischarge letter sent certif d was returned to us today 08/23/17. I called the patient Lin and told her I was calling from the [facility] and stated we had sent a letter from Dr. Gillespie that was re turned to us so I wanted to get an updated address from her so we could re-send it and Elenisaundra rekha hung up on me. Since I was unable to obtain a new mailing address what would you like me to do with the melisa almendarez letter? documented in this encounter Plan of Treatment Not on filedocumented as of this encounter Visit Diagnoses Not on filedocumented in this encounter"
--- OUTSIDE RECORDS SUMMARY | ~2020-03-24 | XMS | Encounter Summary ---
Demographics + + + | Address | [address] | | | [place] [address] | + + + | Home Phone [...] + + | Organization | [facility] | | | and [...] Team Providers + +------+ + | Care Electrical Journeyman Name | Role | Phone | + +------+ + | Ced Lorenz MD | PCP | | + +------+ + Encounter Details +--------+ + + + + | Date | Type | Department | Care Team | Description | +--------+ + + + + | 11/24/ | [facility] | [place] | Mandeep Gillespie, | | | 2016 | Encounter | [facility] | | | | | | MEDICAL CLINIC [address] | | | | | | 4TH [facility] [place], | | | | | | [place] [address] | | | | | | [phone] | | | +--------+ + + + [...]
--- OUTSIDE RECORDS SUMMARY | ~2020-03-24 | XMS | Encounter Summary ---
Demographics + + + | Address | [address] | | | [place] [address] | + + + | Home Phone | | + + + | Preferred Language | Unknown | + + + | Marital Status | Single | + + + | Orthodox Affiliation | Unknown | + + + | Race | or | + + + | Ethnic Group | Not or | + + + Author + + + | Author | [facility] | + + + | Organization | [facility] | + + + | Address | Unknown | + + + | Phone | Unavailable | + + + Support + + +---------+ + | Name | Relationship | Address | Phone | + + +---------+ + | Marlena Jonathan | ECON | Unknown | | + + +---------+ + Care Team Providers + +------+ + | Care Cdl B Driver Name | Role | Phone | [...] | | | | | | [place] [address] | | | +--------+--------+ + + + [...]
--- OUTSIDE RECORDS SUMMARY | ~2020-03-24 | XMS | Encounter Summary ---
Demographics + + + | Address | [address] | | | [place] [address] | + + + | Home Phone [...] + + + | Author | [facility] | | | and [place] | + + + | Organization | [facility] | | | and [...] Team Providers + +------+ + | Care Transport Tank Technician Name | Role | Phone | + +------+ + | Ced Lorenz MD | PCP | | + +------+ + Encounter Details +--------+ + + + + | Date | Type | Department | Care Team | Description | +--------+ + + + + | 01/21/ | [facility] [place] | Sandy Monk | | | 2017 | Encounter | [facility] | MARIELLA Haider | | | | | MEDICAL CLINIC [address] | | | | | | 4TH [facility] [place], | | | | | | [place] [address] | | | | | | [phone] | | | +--------+ + + + [...]
--- OUTSIDE RECORDS SUMMARY | ~2020-03-24 | XMS | Encounter Summary ---
Demographics + + + | Address | [address] | | | [place] [address] | + + + | Home Phone | | + + + | Preferred Language | Unknown | + + + | Marital Status | Single | + + + | Restoration Affiliation | Unknown | + + + | Race | Unknown | + + + | Ethnic Group | Unknown | + + + Author + + + | Author | [facility] | | | and [place] | + + + | Organization | [facility] | | | and [place] | [...] Team Providers + +------+ + | Care Shipboard Intelligence Analyst Name | Role | Phone | + [...] + + | 04/09/ | Emergency | [facility] | Getachew Cain | Internal carotid | | 2019 | | [facility] | Germain Bower MD | aneurysm (Primary | | | | CENTER [address] | [address] | Dx) | | | | [place] | [place] | | | | | [address] | [address] | | | | | [phone] | | | +--------+ + + + [...] documented as of this encounter Discharge Instructions Analia Morrison RN - 04/09/2019I discussed the internal carotid aneurys m with the neurosurgeon at [facility]. They recommend follow-up with appointment already made [...] | | 0 | | | | [id number] | mouth. | | | | 9 [...] might be d ifferent from the original. [facility] Lin Garcia Emergency Department Encounter Note [address] [place] [id number] PCP:Summer Gillespie MD [phone] eMERGENCY dEPARTMENT eNCOUnter CHIEF COMPLAINT Chief Complaint Patient presents with Headache (Adult - New Onset Or New Symptoms) TRIAGE ED Triage Notes, ED Triage Notes Sue Martin RN 04/09/2019 18:48 Pt reports headache that started three days ago. Progressively getting worse. Was seen at [facility] in [facility] and diagnosed with possible aneurysm in the right carotid. Pt is reporting right sided weakness. 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 HYDROcodone-acetaminophen (NORCO) 5-325 mg per tablet Take 1-2 tablets by mouth. hydrOXYzine pamoate (VISTARIL) 25 mg capsule Take 25 mg by mouth. MIU-[id number]-[id number]-FA PO Take 1 tablet by mouth. topiramate [...] edema, Noted tenderness right forearm. Diminis hed architectural coating finisher strength of the right forearm., No cyanosis, No clubbing. Good range of motion in a ll major joints. No tenderness to palpation or major deformities noted. Back:- No tenderness. Neurologic: Alert & oriented x 3, Normal motor function, Normal sensory function, No focal deficits noted, no facial assymetry noted. Equal power brake rebuilder in all extremities EKG Interpretation Interpreted by emergency department physician Rhythm: normal sinus Rate: 74 [place]: normal Ectopy: none Conduction: P wave normal, [...] performed from the aortic arch through the [place]. Multiplanar reformati ons were also [...] Abnormal; Notable for the following components: Specific [place] 1.047 (*) Blood, Urine Small (*) Nitrite, [...] her arm. They did a CT at [facility] which showed an incidental 2 mm internal carotid artery aneurysm. This appeared to been very discussed and referred with [facility] neurosurgeon. I called them again about this [...] internal carotid aneurysm with the neurosurgeon at [facility]. They recommend fo llow-up with appointment already made in [address] Schmidt. Likely no surgical interve ntion is indicated. Take pain medication and muscle relaxers as needed. FINAL IMPRESSION 1. Internal carotid aneurysm Portions of this chart may have been created with [employer] voice recognition software. Occasi onal wrong-word or sound-alike substitutions may have occurred due to the inherent avilez itations of voice recognition software. Please read the chart carefully and recognize, using context, where these substitutions have occurred Getachew Cain MD 04/09/192130 Eliel enriquez RN - 04/09/2019 6:46 PM PDTPt reports headache that started three days ago. Pro gressively getting worse. Was seen at [facility] in [facility] and diagnosed with possib le aneurysm in the right carotid. Pt is reporting right sided weakness. Was told by [facility] on to follow up in another ER [...] | | | ?MRN: | | | [id number] | | | [id number] | | | riteri | | | [...] | | | St. | | | [place] | | | y | | | [...] | | | St. | | | [place] | | | y | | | [...] | | | St. | | | [place] | | | y | | | [...] | | | St. | | | [place] | | | y | | | [...] | | | St. | | | [place] | | | y | | | [...] | | | St. | | | [place] | | | y | | | [...] | | | St. | | | [place] | | | y H. | | [...] | | | St. | | | [place] | | | y H. | | [...] | | | St. | | | [place] | | | y H. | | [...] | | | St. | | | [place] | | | y H. | | [...] | | | St. | | | [place] | | | y H. | | [...] | | | St. | | | [place] | | | y H. | | [...] | | | St. | | | [place] | | | y H. | | [...] M.D. | | | | | | Lining Stitcher | | | al | | | [...] + | [facility] | [address] | [place] | [phone] | | [facility] | | [address] | | | - LABORATORY | | [...] - 1.030 | [facility] | | | [place], | | | [facility] | | [...] ST. | [address] | [place] | [phone] | | [facility] | | [address] | | | - LABORATORY | | [...] performed from the aortic arch through the [place] | | | [place]. Multiplanar reformations [...] | from the aortic arch through the [place].Multiplanar reformations were also | | [...] at 1950 hours. Results were finalized at 2010 hours. | | | Dictated and Signed [...] hours. | | Results were finalized at 2010 hours.Dictated and Signed by: Devin Jenkins MD [...] 1950 hours. | |Results were finalized at 2010 hours. | | | |Dictated and Signed [...] + | [facility] | [address] | [place] | [phone] | | [facility] | | [address] | | | - LABORATORY | | | | + + + + + Troponin I (04/09/2019 7:15 PM PDT) + + + + + + | Component | Value | Ref Range | Performed | Pathologist | | | | | At | Signature | + + + + + + | Troponin I | <0.01Comment: | <0.06 ng/mL | [facility] | | | | Comment:Reference | | [facility] | | | | Ranges: 0.00-0.06 = [...] | | | | | | [employer] | | | | | [...] + | [facility] | [address] | [place] | [phone] | | [facility] | | [address] | | | - LABORATORY | | [...] [address] | [place] | [phone] | | [facility] | | [address] | | | - LABORATORY | | [...] in | 12 - 53 U/L | [facility] | | | | use as of October 11 | | [facility] | | | | 2018. Check reference [...] | + + + + + | [facility] | [address] | [place] | [phone] | | [facility] | | [address] | | | - LABORATORY | | [...] | 0.66 | 0.55 - 1.02 | [facility] | | | | | mg/dL | [facility] | | | | | | MEDICAL | | | | | | CENTER - | | | | | | LABORATORY | | + + + + + + | eGFR, | >60Comment: GLOMERULAR | >=60 | [facility] | | | non- | FILTRATION | mL/min/1.73m2 | [facility] | | | [place] | RATE,ESTIMATED | | MEDICAL | | | | mL/min/1.56g3Rozy than | | CENTER - | | [...] | | | | | mg/dL | [facility] | | | | | [...] + | [facility] | [address] | [place] | [phone] | | [facility] | | [address] | | | - LABORATORY | | [...] | | Cells | | M/uL | [facility] | | | | [...] | patients, use | K/uL | [facility] | | | Granulocyte | the special reference | | MEDICAL | | | s | ranges listed below. | | CENTER - | | | | | | LABORATORY | | + + + + + + | % nRBC | 0 | 0 - 2 per 100 | [facility] | | | | | WBCs | [facility] | | | | | | MEDICAL | | | | | | CENTER - | | | | | | LABORATORY | | + + + + + + | Absolute | 0.00 | 0.00 - 0.01 | [facility] | | | nRBC | | K/uL | [facility] | | | | [...] ranges: Trim. Absolute (K/uL) Percentage (%) | [facility] | | 1st 0.003-0.091 K/uL 0.0-0.9% 2nd 0.007-0.247 K/uL | [facility] | | 0.1-2.0% 3rd 0.018-0.456 K/uL 0.1-2.0% | - LABORATORY | + + + + + + + + | Performing | Address | City/State/Zipcode | Phone Number | | Organization | | | | + + + + + | [facility] | [address] | [place] | [phone] | | [facility] | | [address] | | | - LABORATORY | | | | + + + + + B Type Natriuretic Peptide (04/09/2019 7:15 PM PDT) + +-------+ + + + | Component | Value | Ref Range | Performed | Pathologist | | | | | At | Signature | + +-------+ + + + | BNP | 25 | <100 pg/mL | [facility] | | | | | | [facility] ST[facility] | [address] | [place] | [phone] | | [facility] | | [address] | | | - LABORATORY | | [...] | | | | KRISTEL PILLAI MD ([id number]) | | | | | | on [...]
--- OUTSIDE RECORDS SUMMARY | ~2020-03-24 | XMS | Encounter Summary ---
Demographics + + + | Address | [address] | | | [place] [address] | + + + | Home Phone | | + + + | Preferred Language | Unknown | + + + | Marital Status | Single | + + + | Amish Affiliation | Unknown | + + + | Race | Unknown | + + + | Ethnic Group | Unknown | + + + Author + + + | Author | [facility] | | | and [place] | + + + | Organization | [facility] | | | and [place] [...] Team Providers + +------+ + | Care Ballast Inspector Name | Role | Phone | + +------+ + | Ced Lorenz MD | PCP | | + +------+ + Encounter Details +--------+ + + + + | Date | Type | Department | Care Team | Description | +--------+ + + + + | 06/19/ | [facility] | [place] | Mandeep Gillespie, | | | 2012 | Encounter | [facility] | | | | | | MEDICAL CLINIC [address] | | | | | | [address] [facility] [place], | | | | | | [place] [address] | | | | | | [phone] | | | +--------+ + + + [...]
--- OUTSIDE RECORDS SUMMARY | ~2020-03-24 | XMS | Encounter Summary ---
Demographics + + + | Address | [address] | | | [place] [address] | + + + | Home Phone [...] + + + | Author | [facility] | | | and [place] | + + + | Organization | [facility] | | | and [...] Team Providers + +------+ + | Care Congressional Representative Name | Role | Phone | + +------+ + | Ced Lorenz MD | PCP | | + +------+ + Encounter Details +--------+ + + + + | Date | Type | Department | Care Team | Description | +--------+ + + + + | 05/23/ | Hospital | [place] | Mandeep Gillespie, | | | 2016 | Encounter | [facility] | | | | | | [place] | | | | | | [place] | | | | | | [address] | | | | | | [phone] | | | +--------+ + + + [...] hemorrhage, mass lesion, or midline shift. The bneito-white matter | | | interface is intact. The ventricles are symmetric. Sulci are age | | | appropriate. Basilar cisterns are patent. White matter has a | | | normal appearance. No obvious vascular abnormality. Paranasal | | | sinuses and mastoid air cells are clear. No fracture. | | | IMPRESSION: No acute intracranial process JOB #: [id number] | | | Digitally Released by: Leilani [...] | | | | | JOB #: [id number] | | Digitally Released by: Leilani Munson | | | | | | Read By: LEILANI MUNSON MD | | Date: 05/23/2017 14:15 | | | + + documented in this encounter Visit Diagnoses Not on filedocumented in this encounter"
--- OUTSIDE RECORDS SUMMARY | ~2020-03-24 | XMS | Encounter Summary ---
Demographics + + + | Address | [address] | | | [place] [address] | + + + | Home Phone [...] + | Organization | [facility] | | | and [...] Team Providers + +------+ + | Care Pasting Machine Operator Name | Role | Phone | + +------+ + | Mandeep Gillespie MD | PCP | Unavailable | + +------+ + Reason for Visit + +--------+ + | Reason | Onset | Comments | | | Date | | + +--------+ + | Medication Refill | 07/20/ | | | | 2016 | | + +--------+ + Encounter Details +--------+ + + + + | Date | Type | Department | Care Team | Description | +--------+ + + + + | 07/20/ | Telephone | [place] | Mandeep Gillespie, | Medication Refill | | 2017 | | [facility] | MD | | | | | MEDICAL CLINIC [address] | | | | | | 4TH [facility] [place], | | | | | | [place] [address] | | | | | | [phone] | | | +--------+ + + + [...] Encounter - Riri Abreu LPN - 07/21/2017 2:[address] of Dr[address] Dimas villa's mssg and verbalized understanding. Thanks sls Pls see other mssg from [facility]. No. I will not prescribe this as a routine med. She is highly unreliable and manipulati ve and I have no lalo she will do what she is told. I have given her the occasional scrip t for Xanax and now she is obviously buying it on the black market since she says she takes "up to 10 mg a day." I will not enable this behavior (Routing comment) Electronically sign ed by Riri Abreu LPN at 07/21/2017 2:57 PM PSTTelephone Encounter - Riri Abreu LPN - 07/20/2017 6:06 PM PSTPt asks if you would be willing to prescribe #2 low dose Ez ax daily. Pt states she has already been tapering on her own. Not sure if this would be ri abram wilson advise. Thanks sls 6: 08 PM PSTdocumented in this encounter Plan of Treatment Not on filedocumented as of this encounter Visit Diagnoses Not on filedocumented in this encounter
--- OUTSIDE RECORDS SUMMARY | ~2020-03-24 | XMS | Encounter Summary ---
Demographics + + + | Address | [address] | | | [place] [address] | + + + | Home Phone | | + + + | Preferred Language | Unknown | + + + | Marital Status | Single | + + + | Rastafarian Affiliation | Unknown | + + + | Race | or | + + + | Ethnic Group | Not or | + + + Author + + + | Author | [facility] | + + + | Organization | [facility] [employer] [facility] | + + + | Address | Unknown | + + + | Phone | Unavailable | + + + Support + + +---------+ + | Name | Relationship | Address | Phone | + + +---------+ + | Marlena Jonathan | ECON | Unknown | | + + +---------+ + Care Team Providers + +------+ + | Care Record Center Coordinator Name | Role | Phone | + [...] | | | | | | [place] [address] | | | +--------+--------+ + + + [...]
--- OUTSIDE RECORDS SUMMARY | ~2020-03-24 | XMS | Encounter Summary ---
Demographics + + + | Address | [address] | | | [place] [address] | + + + | Home Phone | | + + + | Preferred Language | Unknown | + + + | Marital Status | Single | + + + | Hoahaoism Affiliation | Unknown | + + + | Race | Unknown | + + + | Ethnic Group | Unknown | + + + Author + + + | Author | [facility] | | | and [place] | + + + | Organization | [facility] | | [...] Team Providers + +------+ + | Care Environmental Compliance Technician Name | Role | Phone | + +------+ + | Mandeep Gillespie MD | PCP | Unavailable | + +------+ + Reason for Visit +--------+--------+ + | Reason | Onset | Comments | | | Date | | +--------+--------+ + | Other | 08/10/ | Patient wanted to provide her statement of provider | | | 2017 | dismiss | +--------+--------+ + Encounter Details +--------+ + + + + | Date | Type | Department | Care Team | Description | +--------+ + + + + | 08/10/ | Telephone | [place] | Mandeep Gillespie, | Other (Patient | | 2017 | | [facility] MD | wanted to provide | | | | MEDICAL CL[facility]IC [address] | | her statement of | | | | [facility] [facility] [place], | | provider dismiss) | | | | [place] [address] | | | | | | [phone] | | | +--------+ + + + [...] this encounter Miscellaneous Notes Telephone Encounter - Eva Tapia - 08/10/2017 12:34 PM PSTPatient was transferred to me as she insisted in speaking to someone in management stating "I am not hanging up until I ta lk to someone". Vladimir transferred the call and Lin began stating, "I would like my mia rds from your establishment shredded or burned". I informed her we could not do that. I as ked her for clarification on what she needed to talk about and she stated that she was "drop ping him just like he dropped me". After asking for further clarification on who she was re ferring to she stated Dr oPnceam had "dropped her like a second and I'm going to do the same thing to him. I dont want anything to do with him or his nurse Zaida. I dont want anyone to have my records without my permission". I informed her that we would release records wit angelica a need for a signed ARY if/when it's continuation of care. She stated that she has to find a new doctor and that she doesn't want her new doctor to see what her old doctor has in her chart because she does not have a "opioids or alcohol problem and I want that off my re cord". She continued saying "it took me a long time to find a good doctor and I'm sure I'll find a better one soon. The front office supervisor is great, I'll give you that much and the other lad y that helps with anxiety and stuff, she's called me asking why I am not going there and I d on't want to tell her. I am not going to lie to you, I have really hurt feelings. I will h old him accountable if something happens to me. I was in the hospital for two weeks, I am d ropping him". I informed Lin that I could make note of our conversation and asked if there was anythin g else I could do for her. She said, "no thank you. Thank you for your patience you have b een so kind. Happy New Year". Conversation ended.Electronically signed by Eva Tapia at 1 10/11/2016 12:46 PM PSTdocumented in this encounter Plan of Treatment Not on filedocumented as of this encounter Visit Diagnoses Not on filedocumented in this encounter
--- OUTSIDE RECORDS SUMMARY | ~2020-03-24 | XMS | Encounter Summary ---
Demographics + + + | Address | [address] | | | [place] [address] | + + + | Home Phone [...] + + + | Organization | [facility] | | | and [...] Team Providers + +------+ + | Care Emr Implementation Specialist Name | Role | Phone | + +------+ + | Ced Lorenz MD | PCP | | + +------+ + Encounter Details +--------+ + + + + | Date | Type | Department | Care Team | Description | +--------+ + + + + | 06/16/ | [facility] | [place] | Mandeep Gillespie, | | | 2014 | Encounter | [facility] | | | | | | MEDICAL CLINIC [address] | | | | | | [facility]TH [facility] [place], | | | | | | [place] [address] | | | | | | [phone] | | | +--------+ + + + [...]
--- OUTSIDE RECORDS SUMMARY | ~2020-03-24 | XMS | Clinical Summary ---
Demographics + + + | Address | [address] | | | [place] [address] | + + + | Home Phone [...] Author + + + | Author | [facility] | + + + | Organization | [facility] | + + + | Address | Unknown | + + + | Phone | Unavailable | + + + Support + + +---------+ + | Name | Relationship | Address | Phone | + + +---------+ + | [place]len[place] | ECON | Unknown | | + + +---------+ + Care Team Providers + +------+ + | Care Pathology Specialist Name | Role | Phone | + +------+ + | Rhonda WatkinsP | PCP | | + +------+ + Source Comments RONN is fully live on both [facility] and [facility] In[facility] Allergies + + [...] PLUS | | [id number] | 6 | [id number] | id | | | OPEN | | esent | | [place], [place] | | | | CARD | | | | [id number] | | + +--------+ +--------+ + +--------+ | [facility] | | [phone] | Effect | [...] | 1975 | [phone] | [place] [address] | | | randi | | | 8 (Home) | | + +--------+ +--------+ + +
--- OUTSIDE RECORDS SUMMARY | ~2020-03-24 | XMS | Encounter Summary ---
Demographics + + + | Address | [address] | | | [place] [address] | + + + | Home Phone | | + + + | Preferred Language | Unknown | + + + | Marital Status | Single | + + + | Quaker Affiliation | Unknown | + + + | Race | Unknown | + + + | Ethnic Group | Unknown | + + + Author + + + | Author | [facility] | | | and [place] | + + + | Organization | [facility] | [...] Team Providers + +------+ + | Care Chemistry Technical Officer Name | Role | Phone | + +------+ + | Mandeep Gillespie MD | PCP | Unavailable | + +------+ + Reason for Visit +--------+--------+ + | Reason | Onset | Comments | | | Date | | +--------+--------+ + | Other | 07/27/ | Please call back | | | 2016 | | +--------+--------+ + Encounter Details +--------+ + + + + | Date | Type | Department | Care Team | Description | +--------+ + + + + | 07/27/ | Telephone | [place] | Mandeep Gillespie, | Other (Please call | | 2017 | | [facility] | MD | back) | | | | [facility] [address] | | | | | | [address] [facility] [place], | | | | | | [place] [address] | | | | | | [phone] | | | +--------+ + + + [...] Miscellaneous Notes Telephone Encounter - Riri Abreu, CLEANING ASSOCIATE - 07/27/2017 6:07 PM PSTI called Lin [...] for it. Julio sylvester elephone Encounter - Karl, Venu Shah - 07/27/2017 12:13 PM PSTPt called and [...]
--- OUTSIDE RECORDS SUMMARY | ~2020-03-24 | XMS | Encounter Summary ---
Demographics + + + | Address | [address] | | | [place] [address] | + + + | Home Phone | | + + + | Preferred Language | Unknown | + + + | Marital Status | Single | + + + | Mormonism Affiliation | Unknown | + + + | Race | Unknown | + + + | Ethnic Group | Unknown | + + + Author + + + | Author | [facility] | | | and [place] | + + + | Organization | [facility] | [...] Team Providers + +------+ + | Care Neurology Stroke Physician Name | Role | Phone | + [...] + + | 05/01/ | Emergency | [facility] | Wilbert Claire, | Migraine without | | 2019 | | [facility] | MD [address] | aura and without | | | | CENTER [address] | [facility] | status migrainosus, | | | | [place], [place] | [address] | not intractable | | | | [address] | | (Primary Dx) | | | | [phone] | | | +--------+ + + + [...] Care Everywhere.Headache, Migra ine: Stages and Treatment (Chinese)documented in this encounter Medications at Time of [...] documented as of this encounter ED Notes Wilbert Claire MD - 05/01/2019 9:20 PM PDTFormatting of this note might be different fro m the original. eMERGENCY dEPARTMENT eNCOUnter CHIEF COMPLAINT Chief Complaint Patient presents with Headache (Adult - New Onset Or New Symptoms) AMELIA Garcia is a 44 y.o. female who presents complaining of right sided headache gradua lly worsening over the last 2-3 days associated with nausea and photophobia. Patient has his tory of chronic recurrent migraine type headaches over the last 12 years since she was assau darius. 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 She was referred to a specialist at [facility] but has not f ollowed up there yet. She has also not followed up with her primary care provider. She has a history of chronic pelvic pain, depression, opioid dependence. No numbness or weakness in t he extremities. No neck pain. No bowel or bladder incontinence. No chest pain, shortness of breath, or abdominal pain. No fevers or chills. No vomiting. 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 HYDROcodone-acetaminophen (NORCO) 5-325 mg per tablet Take 1-2 tablets by mouth. ALLERGIES Allergies Allergen Reactions Aspirin Not specified from outside medical records ~ ANR Nsaids Not specified from outside medical records ~ ANR Gabapentin Palpitations FAMILY HISTORY History reviewed. No pertinent family [...] No Sexual activity: Yes REVIEW OF SYSTEMS A 12 system review of systems is otherwise negative except as noted in the HPI above. PHYSICAL EXAM VITAL SIGNS: (first vital signs):Temp: 36.7 C (98.1 F) Pulse: 55 Resp: 16 SpO2: 94 % BP : 111/60 Constitutional: Well developed, Well nourished, No acute distress, Non-toxic appearance. HENT: Normocephalic, Atraumatic, Bilateral external ears normal, Oral mucosa moist, stitcher operator ior pharynx no exudates, Nose normal. Neck-supple, nontender, no meningismus, No stridor. Eyes: PERRL, EOMI, Conjunctiva normal, No discharge. Respiratory: Breath sounds equal bilaterally, no adventitious sounds, No chest wall tender ness. Cardiovascular: Normal rate, normal S1, S2, no murmurs, rubs, or gallops GI: Abdomen soft, non-tender, non-distended, normal bowel sounds, no CVA tenderness : Musculoskeletal: Intact distal pulses, No edema, No tenderness, No cyanosis. Good range of motion in all major joints. No tenderness to palpation or major deformities noted. Back- No tenderness. Skin: Warm, Dry, No erythema, No rash or lesions. Lymphatic: Neurologic: Alert & oriented x 3, Cranial nerves II-XII intact, Normal sensation, motor, a nd strength in all four extremities, No focal deficits noted. Psychiatric: Affect flat, mood depressed. Labs Reviewed CBC WITH DIFFERENTIAL - Abnormal; Notable for the following components: Result Value WBC 3.3 (*) Hemoglobin 11.4 (*) Hematocrit 33.6 (*) % Neutrophils 41.2 (*) % Eosinophils 10.3 (*) % Basophils 1.5 (*) Absolute Neutrophils 1.36 (*) All other components within normal limits Narrative: IMMATURE GRANULOCYTES - For patients, use the following reference ranges: Trim. Absolute (K/uL) Percentage (%) 1st 0.003-0.091 K/uL 0.0-0.9% 2nd 0.007-0.247 K/uL 0.1-2.0% 3rd 0.018-0.456 K/uL 0.1-2.0% COMPREHENSIVE METABOLIC PANEL - Abnormal; Notable for the following components: Cl 108 (*) BUN 8 (*) Calcium 8.5 (*) ALT <7 (*) All other components within normal limits EXTRA LAVENDER TOP TUBE EXTRA BLUE TOP TUBE EXTRA GREEN TOP TUBE RADIOLOGY CT Results: Ct Angiogram Head Neck W Contrast Result Date: 05/01/2019 CT ANGIOGRAM OF THE HEAD WITH CONTRAST; CT ANGIOGRAM OF THE NECK WITH CONTRAST CLINICAL INF ORMATION: Right-sided headache. COMPARISON: CT ANGIOGRAM HEAD NECK W CONTRAST (04/09/2019); P ROCEDURE: CT Angiogram Head: Thin section axial images were obtained through the brain durin g the arterial phase after IV administration. CT Angiogram Neck: Thin section axial images w ere obtained through the neck during the arterial phase after IV administration. NASCET crit eria applied for internal carotid stenosis determination. 3D and multiplanar reconstructions were obtained from the acquisition data. Contrast: 100 ml Omnipaque 350 IV. At least one of the following CT dose optimization techniques were used: Automated exposure control; Adjust ment of mA and/or kV according to patient size; Use of iterative reconstruction technique. F INDINGS: See preliminary impression below. IMPRESSION: 1. The tiny right intracranial ICA a neurysm seen on prior CT angiogram from 04/09/2019 appears to be stable measuring up to 2 mm as before, best visualized on the coronal reformats (series 601, image 72). It is not clear ly visible on the axial or sagittal reformats due to greater slice thickness compared to the prior CT 2. Rest of the visualized intracranial and neck arteries are unremarkable for any acute finding. Signed by: Selena Mcnamara, Maria G Sign Date/Time: 05/01/2019 10:33 PM Report sen t:05/01/2019 10:33:00 PM ED COURSE & MEDICAL DECISION MAKING Pertinent Labs & Imaging studies reviewed. (See chart for details) Patient presented with migraine-like symptoms as described above. 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 No other concerning findings on exam. Patient was given IV saline, diphenhydr amine, metoclopramide, and dexamethasone with improvement in symptoms. Repeat brain imaging and vascular imaging of the head and neck shows no acute changes. Patient is discharged and should follow-up with primary care. Last Set of Vital Signs: Temp: 36.7 C (98.1 F) Pulse: 88 Resp: 16 SpO2: 98 % BP: 94/50 FINAL IMPRESSION 1. Migraine without aura and without status migrainosus, not intractable PLAN Follow-up Information Schedule an appointment as soon as possible for a visit with Primary care. New Prescriptions SUMATRIPTAN (IMITREX) 50 MG TABLET Take 1 tablet as needed for headache, may repeat one tablet 2 hours after initial dose if needed, not to exceed 100 mg in 24 hours Wilbert Claire MD 05/02/19 0011 TANoFarida beckford RN - 05/01/2019 8:58 PM PDTPatient chief complaint headache for the past three days. Patient rep orts getting gradually worse until she could not longer tolerate it today. Patient has a his tory of migraine headaches, reports this feels different. Patient recently diagnosed with an euryusm. documented in t his encounter Plan of Treatment + +------+--------+ + [...] | | n - | | | 05/01/ | | | 2019 | | | 8:34 | | | [...] | | | FICATI | | | ON?09/ | | | 17 | | | 9 | | | 20:31? | | | WATCHM | | | AN, | | | LIN | | | ?MRN: | | | [id number] | | | [id number] | | | riteri | | | a Met | | | Care | | | Guidel | | | inesSe | | | curity | | | and | | | Safety | | | Date | | | Locati | | | on | | | Type | | | Specif | | | ics | | | 06/05/ | | | 18 | | | 5:12 | | | PM [facility] | [place] | | | y | | | [...] | | | LWBS | | | 06/05/ | | | 18 | | | 5:12 | | | PM [facility] | | | [place] | | | y | | | [...] | | | St. | | | [place] | | | y | | | [...] | | | St. | | | [place] | | | y | | | [...] | | | St. | | | [place] | | | y | | | [...] | | | St. | | | [place] | | | y | | | [...] | | | St. | | | [place] | | | y H. | | [...] | | | St. | | | [place] | | | y H. | | [...] | | | St. | | | [place] | | | y H. | | [...] | | | St. | | | [place] | | | y H. | | [...] | | | St. | | | [place] | | | y H. | | [...] | | | St. | | | [place] | | | y H. | | [...] | | | St. | | | [place] | | | y H. | | [...] M.D. | | | | | | Bagging Machine Operator | | | al | | | [...] | | | [place] | | | [place] | | | | | | PROVID [...] | | the aortic arch through the minto of [place]. Multiplanar | | | reformations [...] [facility] | | | May 01, 2019 at 2233 hours. Dictated and Signed by: Devin Jenkins MD Electronically signed: 05/02/2019 7:57 AM | | [...] | | from the aortic arch throughthe minto of [place]. Multiplanar reformations and | | [...] | Top Tube | | | [facility] | | [...] [address] | [facility] | [phone] | | [facility] | | [address] | | | - LABORATORY | | [...] | | Top Tube | | | [facility] | | [...] [address] | [facility] | [phone] | | [facility] | | [address] | | | - LABORATORY | | [...] | | | Lavender | | | [facility] | | | Top Tube | | [...] + | [facility] | [address] | [facility] | [phone] | | [facility] | | [address] | | | - LABORATORY | | [...] | | | | | | [facility] | | | | | | [...] | | | | | mg/dL | [facility] | | | | | | MEDICAL | | | | | | CENTER - | | | | | | LABORATORY | | + + + + + + | eGFR, | >60Comment: GLOMERULAR | >=60 | [facility] | | | non- | FILTRATION | mL/min/1.73m2 | [facility] | | | [place] | RATE,ESTIMATED | | MEDICAL | | | | mL/min/1.30h2Ljdf than | | CENTER - | | [...] 8.5 (L) | 8.7 - 10.4 | [place] | | | | | mg/dL | [facility] | | | | | | MEDICAL | | | | | | CENTER - | | | | | | LABORATORY | | + + + + + + | Albumin | 4.0 | 3.2 - 4.8 g/dL | [facility] | | | | | | [facility] | | | | | | [...] + | BUN/Creatin | 11.6 | | [facility] | | | ine Ratio | | [...] [address] | [facility] | [phone] | | [facility] | | [address] | | | - LABORATORY | | | | + + + + + CBC with Differential (05/01/2019 9:37 PM PDT) + + + + + + | Component | Value | Ref Range | Performed | Pathologist | | | | | At | Signature | + + + + + + | White Blood | 3.3 (L) | 4.0 - 11.0 K/uL | [facility] | | | Cells | | | [facility] | | | | | | MEDICAL | | | | | | CENTER - | | | | | | LABORATORY | | + + + + + + | Red Blood | 3.84 | 3.70 - 5.20 | [...] Granulocyte | patients, use the | | [facility] | | | s | special reference ranges | | MEDICAL | | | | listed below. | | CENTER - | | | | | | LABORATORY | | + + + + + + | Absolute | 1.36 (L) | 1.80 - 8.50 | [facility] | | | Neutrophils | | K/uL | [facility] | | | | | | MEDICAL | | | | | | CENTER - | | | | | | LABORATORY | | + + + + + + | Absolute | 1.30 | 0.60 - 3.20 | [facility] | | | Lymphocytes | | K/uL | [facility] | | | | | | MEDICAL | | | | | | CENTER - | | | | | | LABORATORY | | + + + + + + | Absolute | 0.24 | 0.00 - 1.00 | [facility] | | | Monocytes | | K/uL | [facility] | [...] ranges: Trim. Absolute (K/uL) Percentage (%) | [facility] | | 1st 0.003-0.091 K/uL 0.0-0.9% 2nd 0.007-0.247 K/uL | [facility] CENTER | | 0.1-2.0% 3rd 0.018-0.456 K/uL 0.1-2.0% | - LABORATORY | + + + + + + + + | Performing | Address | City/State/Zipcode | Phone Number | | Organization | | | | + + + + + | [facility] | [address] | [facility] [place] | [phone] | | [facility] | | [address] | | | - LABORATORY | | [...] PDT | | | | | Starting e 05/01/19 at 2210, For | | | | [...] PDT | | | | | ONCE, [facility] 05/01/19 at 2125, For 1 | | [...] PDT | | | | | ONCE, [facility] 05/01/19 at 2245, For 1 | | | | | | | dose | | | | | | + +---------+ +--------+-------+---+ +---+---+ | | | +---+---+ documented in this encounter
--- OUTSIDE RECORDS SUMMARY | ~2020-03-24 | XMS | Encounter Summary ---
Demographics + + + | Address | [address] | | | [place] [address] | + + + | Home Phone [...] + + + | Author | [facility] | | | and [place] | + + + | Organization | [facility] | | | and [...] Providers + +------+ + | Care Manager Forms Name | Role | Phone | + +------+ + | Ced Lorenz MD | PCP | | + +------+ + Encounter Details +--------+ + + + + | Date | Type | Department | Care Team | Description | +--------+ + + + + | 02/09/ | [facility] | [place] | Mnadeep Gillespie, | | | 2017 | Encounter | [facility] | | | | | | MEDICAL CLINIC [address] | | | | | | [address] [facility] [place], | | | | | | [place] [address] | | | | | | [phone] | | | +--------+ + + + [...]
--- OUTSIDE RECORDS SUMMARY | ~2020-03-24 | XMS | Encounter Summary ---
Demographics + + + | Address | [address] | | | [place] [address] | + + + | Home Phone [...] + + + | Author | [facility] | | | and [place] | + + + | Organization | [facility] | | | and [place] [...] Team Providers + +------+ + | Care Streetsweeper Operator Name | Role | Phone | + +------+ + | Ced Lorenz MD | PCP | | + +------+ + Encounter Details +--------+ + + + + | Date | Type | Department | Care Team | Description | +--------+ + + + + | 01/31/ | [facility] | [place] | Mandeep Gillespie, | | | 2013 | Encounter | [facility] | | | | | | MEDICAL CLINIC [address] | | | | | | [address] [facility] [place], | | | | | | [place] [address] | | | | | | [phone] | | | +--------+ + + + [...]
--- OUTSIDE RECORDS SUMMARY | ~2020-03-24 | XMS | Encounter Summary ---
Demographics + + + | Address | [address] | | | [place] [address] | + + + | Home Phone | | + + + | Preferred Language | Unknown | + + + | Marital Status | Single | + + + | Bahai Affiliation | Unknown | + + + | Race | Unknown | + + + | Ethnic Group | Unknown | + + + Author + + + | Author | [facility] | | | and [place] | + + + | Organization | [facility] | [...] Providers + +------+ + | Care Zipper Lining Folder Name | Role | Phone | + [...] | +--------+ + + + + | 12/26/ | Telephone | [place] | Jose MiguelMandeep Fernie, | [facility] | [facility] | [facility] | [place] | | | | | [facility] CLIN[facility] [address] | | | | | | [address] [facility] [place], | | | | | | [place] [address] | | | | | | [phone] | | | +--------+ + + + [...] to pt that any further questions s hould be addressed to Yao the lead security officer. Pt stated, "I don't want to talk [...]
--- OUTSIDE RECORDS SUMMARY | ~2020-03-24 | XMS | Encounter Summary ---
Demographics + + + | Address | [address] | | | [place] [address] | + + + | Home Phone | | + + + | Preferred Language | Unknown | + + + | Marital Status | Single | + + + | Anabaptist Affiliation | Unknown | + + + | Race | Unknown | + + + | Ethnic Group | Unknown | + + + Author + + + | Author | [facility] | | | and [place] | + + + | Organization | [facility] | [...] Team Providers + +------+ + | Care Massage Coordinator Name | Role | Phone | + +------+ + | Ced Lorenz MD | PCP | | + +------+ + Encounter Details +--------+ + + + + | Date | Type | Department | Care Team | Description | +--------+ + + + + | 05/18/ | [facility] | [place] | Mandeep Gillespie, | | | 2012 | Encounter | [facility] | | | | | | MEDICAL CLINIC [address] | | | | | | [address] [facility] [place], | | | | | | [place] [address] | | | | | | [phone] | | | +--------+ + + + [...]
--- OUTSIDE RECORDS SUMMARY | ~2020-03-24 | XMS | Encounter Summary ---
Demographics + + + | Address | [address] | | | [place] [address] | + + + | Home Phone | | + + + | Preferred Language | Unknown | + + + | Marital Status | Single | + + + | Buddhist Affiliation | Unknown | + + + | Race | Unknown | + + + | Ethnic Group | Unknown | + + + Author + + + | Author | [facility] | | | and [place] | + + + | Organization | [facility] | | | and [place] [...] Team Providers + +------+ + | Care Bellhop Service Captain Name | Role | Phone | [...] (returning a | | 2016 | | [facility] | MD | call) | | | | MEDICAL CLINIC [address] | | | | | | [address] [facility] [place], | | | | | | [place] [address] | | | | | | [phone] | | | +--------+ + + + [...] a mental h ealth eval at either [facility] or [facility] or some place like that. Thanks sls [...]
--- OUTSIDE RECORDS SUMMARY | ~2020-03-24 | XMS | Encounter Summary ---
Demographics + + + | Address | [address] | | | [place] [address] | + + + | Home Phone [...] Author | [facility] | | | and [place] | + + + | Organization | [facility] | | | [...] Team Providers + +------+ + | Care Administrative Specialist Name | Role | Phone | [...] [place] | | | | | [address] | [address] | | | | | [phone] | [phone] | | | | | | | [...]
--- OUTSIDE RECORDS SUMMARY | ~2020-03-24 | XMS | Encounter Summary ---
Demographics + + + | Address | [address] | | | [place] [address] | + + + | Home Phone [...] + | Organization | [facility] | | | and [...] Team Providers + +------+ + | Care Shaker Out Name | Role | Phone | + +------+ + | Mandeep Gillespie MD | PCP | Unavailable | + +------+ + Reason for Visit +--------+--------+ + | Reason | Onset | Comments | | | Date | | +--------+--------+ + | Other | 07/20/ | PLEASE CALL [facility] | | | 2016 | | +--------+--------+ + Encounter Details +--------+ + + + + | Date | Type | Department | Care Team | Description | +--------+ + + + + | 07/20/ | Telephone | [place] | Mandeep Gillespie, | Other (PLEASE CALL | | 2017 | | [facility] | | [place]) | | | | MEDICAL CLINIC [address] | | | | | | [address] [facility] [place], | | | | | | [place] [address] | | | | | | [phone] | | | +--------+ + + + [...] she had contacted a "treatment facility in [facility] and called [facility], and that they won't [...]
--- OUTSIDE RECORDS SUMMARY | ~2020-03-24 | XMS | Encounter Summary ---
Demographics + + + | Address | [address] | | | [place] [address] | + + + | Home Phone | | + + + | Preferred Language | Unknown | + + + | Marital Status | Single | + + + | Judaism Affiliation | Unknown | + + + | Race | Unknown | + + + | Ethnic Group | Unknown | + + + Author + + + | Author | [facility] | | | and [place] | + + + | Organization | [facility] | | [...] Team Providers + +------+ + | Care Wind Tunnel Engineer Name | Role | Phone | [...] reaction ) | | | | [address] [facility] [place], | | | | | | [place] [address] | | | | | | [phone] | | | +--------+ + + + [...] Miscellaneous Notes Telephone Encounter - Riri Abreu ELAINA Billings - 07/13/2017 5:44 PM MANISHAI called pt [...] for her to speak with Yao the credit office manager. Pt stated, "you can bet I will". Thanks patel elephone Encounter - Venu Barajas - 07/13/2017 12:22 PM PSTP t returned your call and she has a new phone number. [phone] Thanks KenjiieElectronmagda signed by Venu Barajas at 07/13/2017 12:26 PM PSTTelephone Encounter - Riri Abreu LPN - 07/12/2017 11:58 AM PSTTried to call pt. Left mssg with just call back number. PATEL E lectronically signed by Riri Abreu LPN at [...]
--- OUTSIDE RECORDS SUMMARY | ~2020-03-24 | XMS | Encounter Summary ---
Demographics + + + | Address | [address] | | | [place] [address] | + + + | Home Phone [...] + + + | Author | [facility] | | | and [place] | + + + | Organization | [facility] | | | and [...] Team Providers + +------+ + | Care Steel Die Press Set Up Operator Name | Role | Phone | + +------+ + | Ced Lorenz MD | PCP | | + +------+ + Encounter Details +--------+ + + + + | Date | Type | Department | Care Team | Description | +--------+ + + + + | 03/19/ | Hospital | [place] | Mandeep Gillespie, | | | 2012 | Encounter | [facility] | | | | | | [facility]ICAL CLIN[facility] [address] | | | | | | [address] [place], | | | | | | [place] [address] | | | | | | [phone] | | | +--------+ + + + [...]
--- OUTSIDE RECORDS SUMMARY | ~2020-03-24 | XMS | Encounter Summary ---
Demographics + + + | Address | [address] | | | [place] [address] | + + + | Home Phone | | + + + | Preferred Language | Unknown | + + + | Marital Status | Single | + + + | Church Affiliation | Unknown | + + + | Race | Unknown | + + + | Ethnic Group | Unknown | + + + Author + + + | Author | [facility] | | | and [place] | + + + | Organization | [facility] | [...] Team Providers + +------+ + | Care Slitting Machine Feeder Name | Role | Phone | + +------+ + | Ced Lorenz MD | PCP | | + +------+ + Encounter Details +--------+ + + + + | Date | Type | Department | Care Team | Description | +--------+ + + + + | 01/24/ | [facility] | [place] | Mandeep Gillespie, | | | 2017 | Encounter | [facility] | | | | | | MEDICAL CLINIC [address] | | | | | | [address] [facility] [place], | | | | | | [place] [address] | | | | | | [phone] | | | +--------+ + + + [...]
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
--- OUTSIDE RECORDS SUMMARY | ~2020-03-24 | XMS | Encounter Summary ---
Demographics + + + | Address | [address] | | | [place] [address] | + + + | Home Phone [...] + | Organization | [facility] | | | and [...] Providers + +------+ + | Care Automatic Presser Name | Role | Phone | + +------+ + | Ced Lorenz MD | PCP | | + +------+ + Encounter Details +--------+ + + + + | Date | Type | Department | Care Team | Description | +--------+ + + + + | 12/03/ | [facility] | [place] | Mandeep Gillespie, | | | 2014 | Encounter | [facility] | | | | | | [facility] [address] | | | | | | [address] [facility] [place], | | | | | | [place] [address] | | | | | | [phone] | | | +--------+ + + + [...]
--- OUTSIDE RECORDS SUMMARY | ~2020-03-24 | XMS | Encounter Summary ---
Demographics + + + | Address | [address] | | | [place] [address] | + + + | Home Phone | | + + + | Preferred Language | Unknown | + + + | Marital Status | Single | + + + | Taoism Affiliation | Unknown | + + + | Race | Unknown | + + + | Ethnic Group | Unknown | + + + Author + + + | Author | [facility] | | | and [place] | + + + | Organization | [facility] [...] Team Providers + +------+ + | Care Pump House Technician Name | Role | Phone | + +------+ + PCP | Unavailable | + +------+ + Encounter Details +--------+ + + + + | Date | Type | Department | Care Team | Description | +--------+ + + + + | 06/23/ | Hospital | [facility] | Liborio Parsons | | | 2009 - | Encounter | [facility] | MD [place] [address] | | | | | [address] | [address] | | | 06/27/ | | [place]NA MARIE [place] | [place] [address] | | | 2009 | | [place], [place] | [phone] | | | | | [address] | | | | | | [phone] | | | +--------+ + + + [...]
--- OUTSIDE RECORDS SUMMARY | ~2020-03-24 | XMS | Encounter Summary ---
Demographics + + + | Address | [address] | | | [place] [address] | + + + | Home Phone [...] | Organization | [facility] | | | [...] Team Providers + +------+ + | Care Product Transfer Pumper Name | Role | Phone | + +------+ + | Mandeep Gillespie MD | PCP | Unavailable | + +------+ + Reason for Visit + +--------+ + | Reason | Onset | Comments | | | Date | | + +--------+ + | Medication Refill | 08/24/ | | | | 2019 | | + +--------+ + Encounter Details +--------+--------+ + + + | Date | Type | Department | Care Team | Description | +--------+--------+ + + + | 08/24/ | Refill | [place] | Mandeep Gillespie, | Medication Refill | | 2018 | | [facility] | MD | | | | | MEDICAL [facility] [address] | | | | | | [address] [place], | | | | | | [place] [address] | | | | | | [phone] | | | +--------+--------+ + + + Social History + + [...]
--- OUTSIDE RECORDS SUMMARY | ~2020-03-24 | XMS | Encounter Summary ---
Demographics + + + | Address | [address] | | | [place] [address] | + + + | Home Phone [...] + + + | Author | [facility] [employer] [facility] | + + + | Organization | [facility] [employer] [facility] | + + + | Address | Unknown | + + + | Phone | Unavailable | + + + Support + + +---------+ + | Name | Relationship | Address | Phone | + + +---------+ + | Marlena Jonathan | ECON | Unknown | | + + +---------+ + Care Team Providers + +------+ + | Care Clothes Separator Name | Role | Phone | + [...] | | | | | | [place] [address] | | | +--------+--------+ + + + [...]
--- OUTSIDE RECORDS SUMMARY | ~2020-03-24 | XMS | Encounter Summary ---
Demographics + + + | Address | [address] | | | [place] [address] | + + + | Home Phone [...] Organization | [facility] | [...] Team Providers + +------+ + | Care Foreign Languages Department Chair Name | Role | Phone | + +------+ + | Mandeep Gillespie MD | PCP | Unavailable | + +------+ + Reason for Visit + +--------+ + | Reason | Onset | Comments | | | Date | | + +--------+ + | Medication Refill | 07/22/ | | | | 2016 | | + +--------+ + Encounter Details +--------+ + + + + | Date | Type | Department | Care Team | Description | +--------+ + + + + | 07/22/ | Telephone | [place] | Mandeep Gillespie, | Medication Refill | | 2016 | | [facility] | MD | | | | | MEDICAL CLIN[facility] [address] | | | | | | 4TH [facility] [place], | | | | | | [place] [address] | | | | | | [phone] | | | +--------+ + + + [...] Telephone Encounter - Riri Abreu LPN - 07/22/2017 6:42 PM PSTPt states she has bee n taking Buproprion 3X daily. I called [facility] in [place] and they stated her most rece nt RX for Buproprion was 1 po bid. I told marlyn I would check with Dr. Gillespie Tuesday to se madrigal if he wanted her on it TID. Pt stated, "you guys never want to help me, you wouldn't hel p me taper on my benzo even though you knew I could have dangerous seizures and now you won' t help me with this". I just politely said to pt that we would call her back on Tuesday. Glenys rothman. Dr. Gillespie pls advise. Thanks sls elephone Encounter - Venu Barajas 07/22/2017 4:36 PM PSTPt ca lled and states that she is supposed to be taking it three times a day, her bottle states ta ke two day. Please call pt and advise. Thanks DonieElectronically signed by Venu abbasi 07/22/2017 4:40 PM PSTdocumented in this encounter Plan of Treatment Not on filedocumented as of this encounter Visit Diagnoses Not on filedocumented in this encounter
--- OUTSIDE RECORDS SUMMARY | ~2020-03-24 | XMS | Encounter Summary ---
Demographics + + + | Address | [address] | | | [place] [address] | + + + | Home Phone | | + + + | Preferred Language | Unknown | + + + | Marital Status | Single | + + + | Faith Affiliation | Unknown | + + + | Race | Unknown | + + + | Ethnic Group | Unknown | + + + Author + + + | Author | [facility] | | | and [place] | + + + | Organization | [facility] [...] Team Providers + +------+ + | Care Locator Name | Role | Phone | + +------+ + | Mandeep Gillespie MD | PCP | Unavailable | + +------+ + Reason for Visit +--------+--------+ + | Reason | Onset | Comments | | | Date | | +--------+--------+ + | Other | 07/04/ | problem list concern. | | | 2016 | | +--------+--------+ + Encounter Details +--------+ + + + + | Date | Type | Department | Care Team | Description | +--------+ + + + + | 07/04/ | Telephone | [place] | Mandeep Gillespie, | Other (problem list | | 2016 | | [facility] | MD | concern.) | | | | MEDICAL CLINIC [address] | | | | | | 4TH [facility] [place], | | | | | | [place] [address] | | | | | | [phone] | | | +--------+ + + + [...] Telephone Encounter - Riri Abreu LPN - 07/06/2017 8:56 AM PSTFormatting of this no te might be different from the original. Other (problem list concern.) S Fernie Gillespie MD You 2 days ago Just because some is recovered does not mean there is no problem. In particular, this is a disease we should always stay aware of since even a person who has been recovered for 20 y ears may still be at risk for relapse. (Routing comment) Tried to call patient back. Left her a voicemail to please call me back. When pt calls [facility], Please give her Dr. Gillespie's mssg above. Thanks sls elephone Encounter - Riri Abreu LPN - 2016 9:47 AM PSTPt asks if alcoholism can be removed from current problem list? (states s he no longer has a drinking problem) Isn't alcoholism a life long disease? Pls advise . Thanks sls elep andi Encounter - Elida Weinberg [facility] - 07/04/2017 9:09 AM PSTWhile patient was checking out after the appointment she brought her problem list with some concerns about what is lis nemo. She would like the alcohol abuse taken off as she doesn't drink anymore. She stated madeleine t she is working on the opiate addiction. I let her know only PCP can change these.Emigdio portillo signed by MOISES Higginbotham [facility] at 07/04/2017 9:13 AM PSTdocumented in this encounte r Plan of Treatment Not on filedocumented as of this encounter Visit Diagnoses Not on filedocumented in this encounter"
--- OUTSIDE RECORDS SUMMARY | ~2020-03-24 | XMS | Encounter Summary ---
Demographics + + + | Address | [address] | | | [place] [address] | + + + | Home Phone [...] + | Author | [facility] | | | and [place] | + + + | Organization | [facility] | | | and [...] Team Providers + +------+ + | Care Floor Layer Apprentice Name | Role | Phone | + [...] | | | | | [address] [place], | [address] | | | | | [place] [address] | [phone] | | | | | [phone] | | | +--------+ + + + [...]
--- OUTSIDE RECORDS SUMMARY | ~2020-03-24 | XMS | Encounter Summary ---
Demographics + + + | Address | [address] | | | [place] [address] | + + + | Home Phone [...] + | Author | [facility] | | | and [place] | + + + | Organization | [facility] | | [...] Team Providers + +------+ + | Care Language Interpreter Name | Role | Phone | + +------+ + | Ced Lorenz MD | PCP | | + +------+ + Encounter Details +--------+ + + + + | Date | Type | Department | Care Team | Description | +--------+ + + + + | 09/19/ | [facility] | [place] | Mandeep Gillespie, | | | 2013 | Encounter | [facility] | | | | | | MEDICAL CLINIC [address] | | | | | | 4TH [facility] [place], | | | | | | [place] [address] | | | | | | [phone] | | | +--------+ + + + [...]
--- OUTSIDE RECORDS SUMMARY | ~2020-03-24 | XMS | Encounter Summary ---
Demographics + + + | Address | [address] | | | [place] [address] | + + + | Home Phone [...] | Organization | [facility] | [...] Team Providers + +------+ + | Care Face Painter Name | Role | Phone | + +------+ + | Ced Lorenz MD | PCP | | + +------+ + Encounter Details +--------+ + + + + | Date | Type | Department | Care Team | Description | +--------+ + + + + | 01/14/ | [facility] | [place] | Mandeep Gillespie, | | | 2015 | Encounter | [facility] | | | | | | MEDICAL CLINIC [address] | | | | | | [address] [place], | | | | | | [place] [address] | | | | | | [phone] | | | +--------+ + + + [...]
--- OUTSIDE RECORDS SUMMARY | ~2020-03-24 | XMS | Encounter Summary ---
Demographics + + + | Address | [address] | | | [place] [address] | + + + | Home Phone [...] + | Organization | [facility] | | | and [...] + +------+ + | Care Chief Engineer Production Name | Role | Phone | + [...] + + | 05/02/ | Telephone | [facility] | [place] LeoncioDO | Referral Question | | 2019 | | NEUROSURGERY [address] | [address] | | | | | [address] | [address] | | | | | [place], [place] | [place] [address] | | | | | [address] | [phone] | | | | | [phone] | | | +--------+ + + + [...] and is needing to speak with a learning center coordinator. Please call her back at . If this is a symptom based call, was patient offered triage? Not Applicable If this is a symptom based call and you were unable to immediately transfer the call to a cuauhtemoc rasheed vertical punch operator was caller made aware that if at any time she feels it is an emergency they sh ould call 911 or go to the nearest emergency room? not applicable documented in this encounter Plan of Treatment Not on filedocumented as of this encounter Visit Diagnoses Not on filedocumented in this encounter"
--- OUTSIDE RECORDS SUMMARY | ~2020-03-24 | XMS | Encounter Summary ---
Demographics + + + | Address | [address] | | | [place] [address] | + + + | Home Phone [...] | Organization | [facility] | [...] Team Providers + +------+ + | Care Fish Warden Name | Role | Phone | + +------+ + | Ced Lorenz MD | PCP | | + +------+ + Encounter Details +--------+ + + + + | Date | Type | Department | Care Team | Description | +--------+ + + + + | 02/07/ | Hospital | [facility] | Vanessa Clay NP | | | 2017 | Encounter | [facility] | [address] | | | | | MEDICAL CLINIC [address] | [facility], [place] | | | | | [address] [place], | [address] | | | | | [place] [address] | [phone] | | | | | [phone] | | | +--------+ + + + [...]
--- OUTSIDE RECORDS SUMMARY | ~2020-03-24 | XMS | Encounter Summary ---
Demographics + + + | Address | [address] | | | [place] [address] | + + + | Home Phone | | + + + | Preferred Language | Unknown | + + + | Marital Status | Single | + + + | Congregational Affiliation | Unknown | + + + | Race | Unknown | + + + | Ethnic Group | Unknown | + + + Author + + + | Author | [facility] | | | and [place] | + + + | Organization | [facility] | [...] Team Providers + +------+ + | Care Upholstery Sewer Name | Role | Phone | + +------+ + | Ced Lorenz MD | PCP | | + +------+ + Encounter Details +--------+ + + + + | Date | Type | Department | Care Team | Description | +--------+ + + + + | 10/09/ | [facility] | [place] | Mandeep Gillespie, | | | 2016 | Encounter | [facility] | | | | | | MEDICAL CLINIC [address] | | | | | | 4TH [facility] [place], | | | | | | [place] [address] | | | | | | [phone] | | | +--------+ + + + [...]
--- OUTSIDE RECORDS SUMMARY | ~2020-03-24 | XMS | Encounter Summary ---
Demographics + + + | Address | [address] | | | [place] [address] | + + + | Home Phone [...] + + | Organization | [facility] | | | and [...] Providers + +------+ + | Care Upholstery Covers Inspector Name | Role | Phone | [...] | | | | | [facility] | | | | | | [place], [place] | | | | | | [address] | | | | | | [phone] | | | +--------+ + + + [...]
--- OUTSIDE RECORDS SUMMARY | ~2020-03-24 | XMS | Encounter Summary ---
Demographics + + + | Address | [address] | | | [place] [address] | + + + | Home Phone [...] + | Organization | [facility] | | [...] Team Providers + +------+ + | Care Ct Scan Technologist Name | Role | Phone | [...] | | | | | | [place] [address] | | | | | | [phone] | | | +--------+ + + + [...]
--- OUTSIDE RECORDS SUMMARY | ~2020-03-24 | XMS | Encounter Summary ---
Demographics + + + | Address | [address] | | | [place] [address] | + + + | Home Phone [...] + | Organization | [facility] | | [...] Team Providers + +------+ + | Care Virtual Recruiter Name | Role | Phone | + +------+ + | Mandeep Gillespie MD | PCP | Unavailable | + +------+ + Encounter Details +--------+ + + + + | Date | Type | Department | Care Team | Description | +--------+ + + + + | 06/28/ | Abstract | [place] | Josee Shields CC | | | 2017 | | [facility] | [facility] | | | | | MEDICAL CLINIC [address] | | | | | | [address] [place], | | | | | | [place] [address] | | | | | | [phone] | | | +--------+ + + + [...]
--- OUTSIDE RECORDS SUMMARY | ~2020-03-24 | XMS | Encounter Summary ---
Demographics + + + | Address | [address] | | | [place] [address] | + + + | Home Phone [...] + | Organization | [facility] | | [...] Team Providers + +------+ + | Care Mortgage Loan Interviewer Name | Role | Phone | + [...] | | | | | | [place] [address] | | | | | | [phone] | | | +--------+ + + + [...] told her I was calling from the [facility] and stated we had sent a [...] 4:36 PM PSTDISCHARGE LETTER SENT To: [facility] ADDRESS: [id number] [facility] [place] [address] TRACKING No: [id number] d ocumented in this encounter Plan of Treatment Not on filedocumented as of this encounter Visit Diagnoses Not on filedocumented in this encounter
--- OUTSIDE RECORDS SUMMARY | ~2020-03-24 | XMS | Encounter Summary ---
Demographics + + + | Address | [address] | | | [place] [address] | + + + | Home Phone [...] + | Organization | [facility] | | [...] Providers + +------+ + | Care Steel Welder Name | Role | Phone | + [...] a | | 2016 | | [facility] | MD | call) | | | | MEDICAL CLINIC [address] | | | | | | [address] [place], | | | | | | [place] [address] | | | | | | [phone] | | | +--------+ + + + [...]
--- OUTSIDE RECORDS SUMMARY | ~2020-03-24 | XMS | Encounter Summary ---
Demographics + + + | Address | [address] | | | [place] [address] | + + + | Home Phone | | + + + | Preferred Language | Unknown | + + + | Marital Status | Single | + + + | Mosque Affiliation | Unknown | + + + | Race | Unknown | + + + | Ethnic Group | Unknown | + + + Author + + + | Author | [facility] | | | and [place] | + + + | Organization | [facility] | [...] Team Providers + +------+ + | Care Wetland Scientist Name | Role | Phone | + [...] 2014 | | GASTROENTEROLOGY | [address], [place] | | | | | [address] [place] | [address] [place], [place] | | | | | [address] [place], [place] | [address] | | | | | [address] | | | | | | [phone] | | | +--------+ + + + [...]
--- OUTSIDE RECORDS SUMMARY | ~2020-03-24 | XMS | Encounter Summary ---
Demographics + + + | Address | [address] | | | [place] [address] | + + + | Home Phone [...] + | Organization | [facility] [...] Team Providers + +------+ + | Care Natural Gas Shothole Driller Name | Role | Phone | + +------+ + | Mandeep Gillespie MD | PCP | Unavailable | + +------+ + Reason for Visit +--------+--------+ + | Reason | Onset | Comments | | | Date | | +--------+--------+ + | Other | 06/27/ | PT ASKING FOR A CALL BACK. | | | 2017 | | +--------+--------+ + Encounter Details +--------+ + + + + | Date | Type | Department | Care Team | Description | +--------+ + + + + | 06/27/ | Telephone | [place] | Mandeep Gillespie, | Other (PT ASKING FOR | | 2016 | | [facility] | MD | A CALL BACK.) | | | | MEDICAL CLINIC [address] | | | | | | 4TH [facility] [place], | | | | | | [place] [address] | | | | | | [phone] | | | +--------+ + + + [...] this encounter Miscellaneous Notes Telephone Encounter - Venu Barajas - 06/27/2017 1:51 PM PSTPt called and it is not urge nt but she is asking to speak with you. Thanks Donie documented in this encounter Plan of Treatment Not on filedocumented as of this encounter Visit Diagnoses Not on filedocumented in this encounter"
--- OUTSIDE RECORDS SUMMARY | ~2020-03-24 | XMS | Encounter Summary ---
Demographics + + + | Address | [address] | | | [place] [address] | + + + | Home Phone | | + + + | Preferred Language | Unknown | + + + | Marital Status | Single | + + + | Zoroastrianism Affiliation | Unknown | + + + | Race | Unknown | + + + | Ethnic Group | Unknown | + + + Author + + + | Author | [facility] | | | and [place] | + + + | Organization | [facility] | | | and [place] [...] Team Providers + +------+ + | Care Missile Technician Name | Role | Phone | + +------+ + | Ced Lorenz MD | PCP | | + +------+ + Encounter Details +--------+ + + + + | Date | Type | Department | Care Team | Description | +--------+ + + + + | 07/23/ | [facility] | [place] | Mandeep Gillespie, | | | 2014 | Encounter | [facility] | | | | | | MEDICAL CLINIC [address] | | | | | | 4TH [facility] [place], | | | | | | [place] [address] | | | | | | [phone] | | | +--------+ + + + [...]
--- OUTSIDE RECORDS SUMMARY | ~2020-03-24 | XMS | Encounter Summary ---
Demographics + + + | Address | [address] | | | [place] [address] | + + + | Home Phone [...] | [facility] | | [...] Team Providers + +------+ + | Care Stock Blender Name | Role | Phone | + +------+ + | Ced Lorenz MD | PCP | | + +------+ + Encounter Details +--------+ + + + + | Date | Type | Department | Care Team | Description | +--------+ + + + + | 09/08/ | [facility] | [place] | Manedep Gillespie, | | | 2015 | Encounter | [facility] | | | | | | MEDICAL CLINIC [address] | | | | | | [address] [facility] [place], | | | | | | [place] [address] | | | | | | [phone] | | | +--------+ + + + [...]
--- OUTSIDE RECORDS SUMMARY | ~2020-03-24 | XMS | Encounter Summary ---
Demographics + + + | Address | [address] | | | [place] [address] | + + + | Home Phone [...] | Organization | [facility] | [...] + + + + | 05/26/ | [facility] | [place] | Mandeep Gillespie, | | | 2017 | Encounter | [facility] | | | | | | MEDICAL CLINIC [address] | | | | | | 4TH [facility] [place], | | | | | | [place] [address] | | | | | | [phone] | | | +--------+ + + + [...]
--- OUTSIDE RECORDS SUMMARY | ~2020-03-24 | XMS | Encounter Summary ---
Demographics + + + | Address | [address] | | | [place] [address] | + + + | Home Phone [...] + + | Author | [facility] | | | and [place] | + + + | Organization | [facility] | | | and [place] [...] Team Providers + +------+ + | Care School Cafeteria Cook Head Name | Role | Phone | + [...] MEDICAL CLINIC [address] | [place] [address] | Dx) | | | | [address] [place], | [phone] | | | | | [place] [address] | | | | | | [phone] | | | +--------+---------+ + + + [...]
--- OUTSIDE RECORDS SUMMARY | ~2020-03-24 | XMS | Encounter Summary ---
Demographics + + + | Address | [address] | | | [place] [address] | + + + | Home Phone | | + + + | Preferred Language | Unknown | + + + | Marital Status | Single | + + + | Bahai Affiliation | Unknown | + + + | Race | Unknown | + + + | Ethnic Group | Unknown | + + + Author + + + | Author | [facility] | | | and [place] | + + + | Organization | [facility] | | | and [place] [...] Team Providers + +------+ + | Care Wood And Wood Products Labourer Name | Role | Phone | + +------+ + | Ced Lorenz MD | PCP | | + +------+ + Encounter Details +--------+ + + + + | Date | Type | Department | Care Team | Description | +--------+ + + + + | 02/23/ | [facility] | [place] | Mandeep Gillespie, | | | 2016 | Encounter | [facility] | | | | | | MEDICAL CLINIC [address] | | | | | | [address] [facility] [place], | | | | | | [place] [address] | | | | | | [phone] | | | +--------+ + + + [...]
--- OUTSIDE RECORDS SUMMARY | ~2020-03-24 | XMS | Encounter Summary ---
Demographics + + + | Address | [address] | | | [place] [address] | + + + | Home Phone [...] + + + | Author | [facility] | | | and [place] | + + + | Organization | [facility] | | [...] Providers + +------+ + | Care Filtration Plant Operator Name | Role | Phone | + +------+ + | Ced Lorenz MD | PCP | | + +------+ + Encounter Details +--------+ + + + + | Date | Type | Department | Care Team | Description | +--------+ + + + + | 01/27/ | [facility] | [place] | Mandeep Gillespie, | | | 2016 | Encounter | [facility] | | | | | | MEDICAL CLINIC [address] | | | | | | 4TH [facility] [place], | | | | | | [place] [address] | | | | | | [phone] | | | +--------+ + + + [...]
--- OUTSIDE RECORDS SUMMARY | ~2020-03-24 | XMS | Encounter Summary ---
Demographics + + + | Address | [address] | | | [place] [address] | + + + | Home Phone [...] Author + + + | Author | [facility] | | | and [place] | + + + | Organization | [facility] | [...] Team Providers + +------+ + | Care Commercial Photographer Name | Role | Phone | + [...] 2014 | | GASTROENTEROLOGY | [address], [place] | | | | | [address] [place] | [address] [place], [place] | | | | | [address] [place], [place] | [address] | | | | | [address] | | | | | | [phone] | | | +--------+ + + + [...] | + +-------+ + + + | BUN, | 10 | 6 - 23 | [...] | | | QUALITATIVE | | | [facility] | | [...] [address] | [place] | [phone] | | [facility] | | [address], [facility] | | | - LABORATORY | | [...] | ine Ratio | | | [facility] | | [...] | bulin Ratio | | | [facility] | | [...] ST. | [address] | [place], [place] | [phone] | | [facility] | | [id number] | | | - LABORATORY | | [...]
--- OUTSIDE RECORDS SUMMARY | ~2020-03-24 | XMS | Encounter Summary ---
Demographics + + + | Address | [address] | | | [place] [address] | + + + | Home Phone [...] | [facility] | [...] Team Providers + +------+ + | Care Engine Testing Supervisor Name | Role | Phone | + +------+ + PCP | Unavailable | + +------+ + Encounter Details +--------+ + + + + | Date | Type | Department | Care Team | Description | +--------+ + + + + | 09/23/ | Hospital | [facility] | | | | 2008 | Encounter | [facility] | | | | | | CENTER [address] | | | | | | [place] | | | | | | [address] | | | | | | [phone] | | | +--------+ + + + [...]
--- OUTSIDE RECORDS SUMMARY | ~2020-03-24 | XMS | Encounter Summary ---
Demographics + + + | Address | [address] | | | [place] [address] | + + + | Home Phone [...] Team Providers + +------+ + | Care Carrot Tier Name | Role | Phone | + [...] Office | [place] | No, Physician p | Anxiety and | | 2017 | Visit | [facility] | [place] MSW | depression; Anxiety; | | | | [facility] [address] | [address] | Dysthymia | | | | [address] [place], | [place], [place] | | | | | [place] [address] | [address] | | | | | [phone] | | | +--------+---------+ + + + [...] of this encounter Progress Notes [place], MACHINE SANDER - 06/23/2017 11:45 AM PSTFormatting of this [...] treatment option s. Patient is to schedule [facility] follow up after she meet with PCP. Patient was offered on going [facility] services to learn skills/techniques for symptom management. Mental Status: MMS: Reserved, quiet, focused. Diagnosis: Dysthymic disorder moderate Anxiety severe PLAN: Patient is to schedule [facility] follow up after she meet with PCP. Patient was offered on going [facility] services to learn skills/techniques for symptom management. [...]
--- OUTSIDE RECORDS SUMMARY | ~2020-03-24 | XMS | Encounter Summary ---
Demographics + + + | Address | [address] | | | [place] [address] | + + + | Home Phone [...] + | Organization | [facility] | | [...] Providers + +------+ + | Care Cupola Tender Name | Role | Phone | + +------+ + | Ced Lorenz MD | PCP | | + +------+ + Encounter Details +--------+ + + + + | Date | Type | Department | Care Team | Description | +--------+ + + + + | 01/10/ | Emergency | [facility] | | Urinary tract | | 2015 | | EMERGENCY CENTER | | infection, site | | | | [address] | | unspecified; Acute | | | | [place] | | non intractable | | | | [address] | | tension-type | | | | [phone] | | headache | +--------+ + + [...] Alston PA-C Service: (none) Author Type: Physician Manugrapher Filed: 01/12/162338 Date of Service: 01/12/162338 Status: Signed Pattern Assembler: Khai Alston PA-C (Physician Manugrapher) Quick Note: On Keflex. documented in this e ncounter ED Notes Conversion Transaction, Provider Unknown - 01/11/2016 7:04 PM PDTFormatting of this note m ight be different from the original. ED Notes by Lila Paiz RN at 01/11/16 4189 Author: Lila Paiz RN Service: (none) Author Type: Registered Nurse Filed: 01/11/161909 Date of Service: 01/11/161903 Status: Signed Pattern Assembler: Lila Paiz RN (Registered Nurse) ED Discharge [...] 01/11/161835 Date of Service: 01/11/161834 Status: Signed Pattern Assembler: Lila Paiz RN (Registered Nurse) Pt up to BR with steady gait, without assistance. onver samir Transaction, Provider Unknown - 01/11/2016 5:45 PM PDT ED Notes by Lila Paiz RN at 01/11/161744 Author: Lila Paiz RN Service: (none) Author Type: Registered Nurse Filed: 01/11/161745 Date of Service: 01/11/161744 Status: Signed Pattern Assembler: Lila Paiz RN (Registered Nurse) Pt up to BR with steady gait. onver samir Transaction, Provider Unknown - 01/11/2016 5:27 PM PDT ED Notes by Lila Paiz RN at 01/11/161726 Author: Lila Paiz RN Service: (none) Author Type: Registered Nurse Filed: 01/11/16 172 Date of Service: 01/11/161726 Status: Signed Pattern Assembler: Lila Paiz RN (Registered Nurse) Pt resting [...] 01/11/161947 Date of Service: 01/11/161651 Status: Signed Pattern Assembler: Sean Mancuso MD (Physician) [facility] [...] headaches. She is typically cared for in [place] but has recently moved up to [place] about 1-2 weeks ago. She complains of [...] being cared for in emergency departments in [place] she states multiple times for thi s. [...] conversation with her a nd her male scientific illustrator about headache return precautions and other cautions were answered. A s they're new to the area they've been referred to primary care as well as to [facility] for further workup. She does understand to [...] prescription for oxycodone. I expla ined that [facility] per the 7 Best Practices we do not typically prescribe narcotics for acute exacerbations of chronic pain. Unfortunately she is allergic to all NSAIDs as the y cause her heart to race, and to other standard antimigraine therapy as they make her feel uncomfortable. I'm recommending Tylenol. I counseled her to follow up with the PM[facility] and to discuss further pain management with them. I hope for that the antibiotic s also will help control her pain. DIAGNOSIS ICD-10-CM ICD-9-CM 1. Urinary tract infection, site unspecified N39.0 599.0 2. Acute non intractable tension-type headache G44.209 339.10 DISPOSITION Patient will be discharged home DISCHARGE MEDICATIONS Discharge Medication List as of 01/11/2016 6:24 PM Sean Mancuso MD 19:48 01/11/[address] [address] [facility] [address], [address] [facility] [id number] Cc File, Physician Not On This note was generated using [employer] software and despite proofreading might include inaccu rate undercoater. onversion Transacti on, Provider Unknown - 01/11/2016 4:45 PM PDTFormatting of this note might be different fro m the original. ED Notes by Lila Paiz RN at 01/11/161644 Author: Lila Paiz RN Service: (none) Author Type: Registered Nurse Filed: 01/11/161645 Date of Service: 01/11/161644 Status: Signed Pattern Assembler: Lila Paiz RN (Registered Nurse) Pt states [...] 01/11/161629 Date of Service: 01/11/161629 Status: Signed Pattern Assembler: Afshin Crews RN (Registered Nurse) ED Triage [...] - 1.035 | EXTERNAL | | | [place], | | | LAB | | | [...] | | | | | | Renal [id number]: | | | | | | Chronic Kidney disease | | | | | | if confirmed over a 3 | | | | | | month [id number]: | | | | | | Renal [...]
--- OUTSIDE RECORDS SUMMARY | ~2020-03-24 | XMS | Encounter Summary ---
Demographics + + + | Address | [address] | | | [place] [address] | + + + | Home Phone | | + + + | Preferred Language | Unknown | + + + | Marital Status | Single | + + + | Tenriism Affiliation | Unknown | + + + | Race | Unknown | + + + | Ethnic Group | Unknown | + + + Author + + + | Author | [facility] | | | and [place] | + + + | Organization | [facility] | | [...] Team Providers + +------+ + | Care Locomotive Inspector Name | Role | Phone | + +------+ + PCP | Unavailable | + +------+ + Encounter Details +--------+ + + + + | Date | Type | Department | Care Team | Description | +--------+ + + + + | 10/26/ | Hospital | [facility] | | | | 2008 | Encounter | [facility] | | | | | | CENTER [address] | | | | | | [place] | | | | | | [address] | | | | | | [phone] | | | +--------+ + + + [...]
--- OUTSIDE RECORDS SUMMARY | ~2020-03-24 | XMS | Encounter Summary ---
Demographics + + + | Address | [address] | | | [place] [address] | + + + | Home Phone [...] | Organization | [facility] | | | [...] Providers + +------+ + | Care Regional Marketing Manager Name | Role | Phone | + +------+ + | Ced Lorenz MD | PCP | | + +------+ + Encounter Details +--------+ + + + + | Date | Type | Department | Care Team | Description | +--------+ + + + + | 02/13/ | [facility] | [place] | Mandeep Gillespie, | | | 2012 | Encounter | [facility] | | | | | | MEDICAL CLINIC [address] | | | | | | [address] [place], | | | | | | [place] [address] | | | | | | [phone] | | | +--------+ + + + [...]
--- OUTSIDE RECORDS SUMMARY | ~2020-03-24 | XMS | Encounter Summary ---
Demographics + + + | Address | [address] | | | [place] [address] | + + + | Home Phone [...] Team Providers + +------+ + | Care Pantograph Watcher Name | Role | Phone | + [...]
--- OUTSIDE RECORDS SUMMARY | ~2020-03-24 | XMS | Encounter Summary ---
Demographics + + + | Address | [address] | | | [place] [address] | + + + | Home Phone [...] + | Organization | [facility] | | | [...] Team Providers + +------+ + | Care Insulation Worker Apprentice Name | Role | Phone | [...] (Primary Dx) | | | | [address] [place], | | | | | | [place] [address] | | | | | | [phone] | | | +--------+---------+ + + + [...] 8:30 AM PSTTry topamax 25 [facility]. Make a follow [...] last encounter, imaging, other notes from [facility] behavioral health consultant and notes from her gynecologic exam [...] mildly depressed, flat affect Summer Gillespie MD [facility] umented in this encounter Plan of Treatment Not on filedocumented as of this encounter Visit Diagnoses + + | Diagnosis | + + | 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
--- OUTSIDE RECORDS SUMMARY | ~2020-03-24 | XMS | Encounter Summary ---
Demographics + + + | Address | [address] | | | [place] [address] | + + + | Home Phone [...] + + | Author | [facility] [employer] [facility] | + + + | Organization | [facility] [employer] [facility] | + + + | Address | Unknown | + + + | Phone | Unavailable | + + + Support + + +---------+ + | Name | Relationship | Address | Phone | + + +---------+ + | Marlena Jonathan | ECON | Unknown | | + + +---------+ + Care Team Providers + +------+ + | Care Forestry Farm Laborer Name | Role | Phone | + +------+ + | Rhonda Watkins | PCP | | + +------+ + Encounter Details +--------+ + + + + | Date | Type | Department | Care Team | Description | +--------+ + + + + | 05/01/ | Outside | UNKNOWN DEPARTMENT | Other, Faculty | | | 2019 | Records | [address] [facility] | [phone] | | | | | [address] | | | | | | [place], [place] | | | | | | [address] | | | +--------+ + + + [...]
--- OUTSIDE RECORDS SUMMARY | ~2020-03-24 | XMS | Encounter Summary ---
Demographics + + + | Address | [address] | | | [place] [address] | + + + | Home Phone [...] | Organization | [facility] | | | and [place] [...] Team Providers + +------+ + | Care Java Jsf Developer Name | Role | Phone | + +------+ + | Ced Lorenz MD | PCP | | + +------+ + Encounter Details +--------+ + + + + | Date | Type | Department | Care Team | Description | +--------+ + + + + | 04/23/ | [facility] | [place] | Mandeep Gillespie, | | | 2015 | Encounter | [facility] | | | | | | MEDICAL CLINIC [address] | | | | | | [address]TH [facility] [place], | | | | | | [place] [address] | | | | | | [phone] | | | +--------+ + + + [...]
--- OUTSIDE RECORDS SUMMARY | ~2020-03-24 | XMS | Clinical Summary ---
Demographics + + + | Address | [address] | | | [place] [address] | + + + | Home Phone [...] Author + + + | Author | [facility] | + + + | Organization | [facility] | + + + | Address | Unknown | + + + | Phone | Unavailable | + + + Support + + +---------+ + | Name | Relationship | Address | Phone | + + +---------+ + | Marlena Grady | ECON | Unknown | | + + +---------+ + Care Team Providers + +------+ + | Care Micro Computer Specialist Name | Role | Phone | + +------+ + | Rhonda WatkinsP | PCP | | + +------+ + Source Comments [place] is fully live on both [facility] and [facility] InPatient.[facility] Allergies + + + + + [...] PLUS | | 018-Pr | 6 | [phone] | id | | | OPEN | | esent | | [place], [place] | | | | CARD | | | | [phone] | | + +--------+ +--------+ + +--------+ | [facility] | | [phone] | Effect | [...] | 1975 | [phone] | [place] [address] | | | randi | | | 8 (Home) | | + +--------+ +--------+ + +
--- OUTSIDE RECORDS SUMMARY | ~2020-03-24 | XMS | Encounter Summary ---
Demographics + + + | Address | [address] | | | [place] [address] | + + + | Home Phone [...] Organization | [facility] | | | and [place] [...] Team Providers + +------+ + | Care Adult Remedial Education Instructor Name | Role | Phone | [...] [address] | | | | | | RUBBER HEEL AND SOLE PRESS TENDER [address] | [address] | | | | | | [address] | [place], [place] | | | | | | [place], | [address] Phone: | | | | | | [place] [address] | [phone] | | | | | | Phone: | | | | | | | [phone] | | | | | | | Fax: | | | | | | | [phone] | | +--------+ + + + + + Reason for Visit +--------+--------+ + | Reason | Onset | Comments | | | Date | | +--------+--------+ + | Other | 06/20/ | | | | 2017 | | +--------+--------+ + Encounter Details +--------+ + + + + | Date | Type | Department | Care Team | Description | +--------+ + + + + | 06/20/ | Telephone | [place] | Mandeep Gillespie, | Other | | 2016 | | [facility] | MD | | | | | MEDICAL CLINIC [address] | | | | | | [address] [place], | | | | | | [place] [address] | | | | | | [phone] | | | +--------+ + + + [...] but states she will try this out. tcDc man signed by MOISES Chen CMA at 06/20/2017 2:56 PM PSTTelephone Encounter - Sim Weir - 06/20/2017 1:58 PM PSTPt called back and wanted to let you know that she wa s diagnosed with PTSD, by Dr Cali Marmolejo, please call pt with questions/robinElectronically s igned by Sim Giles at 06/20/2017 2:02 PM PSTTelephone Encounter - Kamryn Villela C C MILLWRIGHT SUPERVISOR - 06/20/2017 10:11 AM PSTPt. States even [...]
--- OUTSIDE RECORDS SUMMARY | ~2020-03-24 | XMS | Encounter Summary ---
Demographics + + + | Address | [address] | | | [place] [address] | + + + | Home Phone [...] | Author | [facility] [employer] [facility] | + + + | Organization | [facility] [employer] [facility] | + + + | Address | Unknown | + + + | Phone | Unavailable | + + + Support + + +---------+ + | Name | Relationship | Address | Phone | + + +---------+ + | Marlena Jonathan | ECON | Unknown | | + + +---------+ + Care Team Providers + +------+ + | Care Dial Lathe Operator Name | Role | Phone | + +------+ + | Rhonda Watkins | PCP | | + +------+ + Encounter Details +--------+ + + + + | Date | Type | Department | Care Team | Description | +--------+ + + + + | 05/01/ | Outside | UNKNOWN DEPARTMENT | Other, Faculty | | | 2019 | Records | [address] [facility] | [phone] | | | | | [address] | | | | | | [place], [place] | | | | | | [address] | | | +--------+ + + + [...]
--- OUTSIDE RECORDS SUMMARY | ~2020-03-24 | XMS | Encounter Summary ---
Demographics + + + | Address | [address] | | | [place] [address] | + + + | Home Phone | | + + + | Preferred Language | Unknown | + + + | Marital Status | Single | + + + | Lutheran Affiliation | Unknown | + + + | Race | Unknown | + + + | Ethnic Group | Unknown | + + + Author + + + | Author | [facility] | | | and [place] | + + + | Organization | [facility] | | | and [place] [...] Team Providers + +------+ + | Care Route Returner Name | Role | Phone | + [...] [place] | | | | | [address] | [address] | | | | | [phone] | [phone] | | | | | | | [...]
--- OUTSIDE RECORDS SUMMARY | ~2020-03-24 | XMS | Encounter Summary ---
Demographics + + + | Address | [address] | | | [place] [address] | + + + | Home Phone [...] | Organization | [facility] | | | and [place] [...] Providers + +------+ + | Care Solar Tech Name | Role | Phone | + +------+ + | Ced Lorenz MD | PCP | | + +------+ + Encounter Details +--------+ + + + + | Date | Type | Department | Care Team | Description | +--------+ + + + + | 11/04/ | [facility] | [place] | Mandeep Gillespie, | | | 2016 | Encounter | [facility] | | | | | | MEDICAL CLINIC [address] | | | | | | [address] [facility] [place], | | | | | | [place] [address] | | | | | | [phone] | | | +--------+ + + + [...]
--- OUTSIDE RECORDS SUMMARY | ~2020-03-24 | XMS | Encounter Summary ---
Demographics + + + | Address | [address] | | | [place] [address] | + + + | Home Phone [...] + + + | Author | [facility] | + + + | Organization | [facility] [facility] | + + + | Address | Unknown | + + + | Phone | Unavailable | + + + Support + + +---------+ + | Name | Relationship | Address | Phone | + + +---------+ + | Marlena Jonathan | ECON | Unknown | | + + +---------+ + Care Team Providers + +------+ + | Care Sales And Business Development Manager Name | Role | Phone | + +------+ + | Rhonda Watkins | PCP | | + +------+ + Encounter Details +--------+ + + + + | Date | Type | Department | Care Team | Description | +--------+ + + + + | 04/09/ | Outside | UNKNOWN DEPARTMENT | Other, Faculty | | | 2019 | Records | [address] [facility] | [phone] | | | | | [address] | | | | | | [place], [place] | | | | | | [address] | | | +--------+ + + + [...]
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
--- OUTSIDE RECORDS SUMMARY | ~2020-03-24 | XMS | Encounter Summary ---
Demographics + + + | Address | [address] | | | [place] [address] | + + + | Home Phone [...] | [facility] | [...] Team Providers + +------+ + | Care Taffy Candy Maker Name | Role | Phone | [...] | | | | | | [place] [address] | | | | | | [phone] | | | +--------+ + + + [...]
--- OUTSIDE RECORDS SUMMARY | ~2020-03-24 | XMS | Encounter Summary ---
Demographics + + + | Address | [address] | | | [place] [address] | + + + | Home Phone [...] | [facility] | | | and [...] Team Providers + +------+ + | Care Nursing Officer Name | Role | Phone | + +------+ + | Ced Lorenz MD | PCP | | + +------+ + Encounter Details +--------+ + + + + | Date | Type | Department | Care Team | Description | +--------+ + + + + | 10/25/ | [facility] | [place] | Mandeep Gillespie, | | | 2013 | Encounter | [facility] | | | | | | MEDICAL CLINIC [address] | | | | | | 4TH [facility] [place], | | | | | | [place] [address] | | | | | | [phone] | | | +--------+ + + + [...]
--- OUTSIDE RECORDS SUMMARY | ~2020-03-24 | XMS | Encounter Summary ---
Demographics + + + | Address | [address] | | | [place] [address] | + + + | Home Phone [...] Organization | [facility] | | [...] Team Providers + +------+ + | Care Melter Loader Name | Role | Phone | [...] | Diagnoses | Mandeep Gillespie | [facility] | | | Services | Medicine / | Anxiety | MD Fernie | Regional | | | Required | Primary Care | Procedures | [address] | Primary Care | | | | | eval and | [place], | [address] | | | | | treat | [place] | [place], [place] | | | | | | [address] | [address] | | | | | | | Phone: | | | | | | | [phone] | | | | | | | Fax: | | | | | | | [phone] | +--------+ + + + + + Encounter Details +--------+ + + + + | Date | Type | Department | Care Team | Description | +--------+ + + + + | 07/22/ | Orders Only | [place] | Mandeep Gillespie, | Anxiety (Primary Dx) | | 2017 | | [facility] | MD | | | | | MEDICAL CLINIC [address] | | | | | | [address] [place], | | | | | | [place] [address] | | | | | | [phone] | | | +--------+ + + + [...]
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
--- OUTSIDE RECORDS SUMMARY | ~2020-03-24 | XMS | Encounter Summary ---
Demographics + + + | Address | [address] | | | [place] [address] | + + + | Home Phone [...] | [facility] [...] Providers + +------+ + | Care Legal Activity Adjudicator Name | Role | Phone | + +------+ + | Ced Lorenz MD | PCP | | + +------+ + Encounter Details +--------+ + + + + | Date | Type | Department | Care Team | Description | +--------+ + + + + | 01/27/ | [facility] | [place] | Mandeep Gillespie, | | | 2016 | Encounter | [facility] | | | | | | [facility] [address] | | | | | | [address] [facility] [place], | | | | | | [place] [address] | | | | | | [phone] | | | +--------+ + + + [...]
--- OUTSIDE RECORDS SUMMARY | ~2020-03-24 | XMS | Encounter Summary ---
Demographics + + + | Address | [address] | | | [place] [address] | + + + | Home Phone [...] + +------+ + | Care Customer Service Correspondence Clerk Name | Role | Phone | [...]
--- OUTSIDE RECORDS SUMMARY | ~2020-03-24 | XMS | Encounter Summary ---
Demographics + + + | Address | [address] | | | [place] [address] | + + + | Home Phone [...] Author + + + | Author | [facility] [employer] [facility] | + + + | Organization | [facility] [employer] [facility] | + + + | Address | Unknown | + + + | Phone | Unavailable | + + + Support + + +---------+ + | Name | Relationship | Address | Phone | + + +---------+ + | Marlena Jonathan | ECON | Unknown | | + + +---------+ + Care Team Providers + +------+ + | Care Wolf Hunter Name | Role | Phone | + +------+ + | Rhonda Watkins | PCP | | + +------+ + Encounter Details +--------+ + + + + | Date | Type | Department | Care Team | Description | +--------+ + + + + | 04/09/ | Outside | UNKNOWN DEPARTMENT | Other, Faculty | | | 2019 | Records | [address] [facility] | [phone] | | | | | [address] | | | | | | [place], [place] | | | | | | [address] | | | +--------+ + + + [...]
--- OUTSIDE RECORDS SUMMARY | ~2020-03-24 | XMS | Encounter Summary ---
Demographics + + + | Address | [address] | | | [place] [address] | + + + | Home Phone [...] | Organization | [facility] | | | and [place] [...] Providers + +------+ + | Care Real Time Operator Name | Role | Phone | + +------+ + | Ellie Perez MD | PCP | | + +------+ + Encounter Details +--------+ + + + + | Date | Type | Department | Care Team | Description | +--------+ + + + + | 07/27/ | Telephone | [place] | [place], | | | 2016 | | [facility] | [address], | | | | | [facility] | [facility] [place], [place] | | | | | [address] [place], | [address] | | | | | [place] [address] | | | | | | [phone] | | | +--------+ + + + [...]
--- OUTSIDE RECORDS SUMMARY | ~2020-03-24 | XMS | Encounter Summary ---
Demographics + + + | Address | [address] | | | [place] [address] | + + + | Home Phone [...] Author | [facility] | | | and [place] | + + + | Organization | [facility] | | | and [place] [...] Team Providers + +------+ + | Care Timber Skidder Name | Role | Phone | + +------+ + | Ced Lorenz MD | PCP | | + +------+ + Encounter Details +--------+ + + + + | Date | Type | Department | Care Team | Description | +--------+ + + + + | 07/18/ | [facility] | [place] | Mandeep Gillespie, | | | 2012 | Encounter | [facility] | | | | | | MEDICAL [address] | | | | | | [address] [facility] [place], | | | | | | [place] [address] | | | | | | [phone] | | | +--------+ + + + [...]
--- OUTSIDE RECORDS SUMMARY | ~2020-03-24 | XMS | Encounter Summary ---
Demographics + + + | Address | [address] | | | [place] [address] | + + + | Home Phone [...] [facility] | [...] Team Providers + +------+ + | Care Sort Worker Name | Role | Phone | + +------+ + | Ced Lorenz MD | PCP | | + +------+ + Encounter Details +--------+ + + + + | Date | Type | Department | Care Team | Description | +--------+ + + + + | 10/29/ | [facility] | [place] | Mandeep Gillespie, | | | 2015 | Encounter | [facility] | | | | | | MEDICAL CL[facility] | | | | | | [address] [facility] [place], | | | | | | [place] [address] | | | | | | [phone] | | | +--------+ + + + [...]
--- OUTSIDE RECORDS SUMMARY | ~2020-03-24 | XMS | Encounter Summary ---
Demographics + + + | Address | [address] | | | [place] [address] | + + + | Home Phone [...] and Services [facility] | | | and [place] | + + + | Organization | [facility] | | | and [...] Providers + +------+ + | Care Customer Care Voice Consultant Name | Role | Phone | + +------+ + | Ced Lorenz MD | PCP | | + +------+ + Encounter Details +--------+ + + + + | Date | Type | Department | Care Team | Description | +--------+ + + + + | 12/09/ | [facility] | [place] | Mandeep Gillespie, | | | 2017 | Encounter | [facility] | | | | | | MEDICAL [facility] | | | | | | [address]TH [facility] [place], | | | | | | [place] [address] | | | | | | [phone] | | | +--------+ + + + [...]
--- OUTSIDE RECORDS SUMMARY | ~2020-03-24 | XMS | Encounter Summary ---
Demographics + + + | Address | [address] | | | [place] [address] | + + + | Home Phone [...] | Organization | [facility] | [...] Team Providers + +------+ + | Care Support Services Tech Name | Role | Phone | [...] | | | | | headache | [place], | [place], [place] | | | | | Procedures | [place] | [address] | | | | | MRI Brain wo | [address] | Phone: | | | | | Contrast | | [phone] | | | | | | | Fax: | | | | | | | [phone] | +--------+--------+ + + + + Reason [...] | | | | | headache | [place], | [place], [place] | | | | | Procedures | [place] | [address] | | | | | MRI Brain wo | [phone] | Phone: | | | | | Contrast | | [phone] | | | | | | | Fax: | | | | | | | [phone] | +--------+--------+ + + + + Encounter Details +--------+ + + + + | Date | Type | Department | Care Team | Description | +--------+ + + + + | 07/01/ | Hospital | [facility] | Mandeep Gillespie, | New daily persistent | | 2017 | Encounter | Hospital MRI [address] | MD | headache | | | | [address] | | | | | | [place] | | | | | | [address] | | | | | | [phone] | | | +--------+ + + + [...]
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
[2020-03-24] MEDS ORDERED: SUBOXONE 8 MG-1 EAC1 SL (21:58)
== END 2020-03-24 23:13 | disposition home or self-care (01) ==
LOC: ED 21:20
DX: S06.9X9A Unspecified intracranial injury with loss of consciousness of unspecified duration, initial encounter (principal); S00.03XA Contusion of scalp, initial encounter; S40.012A Contusion of left shoulder, initial encounter; R07.89 Other chest pain; J45.909 Unspecified asthma, uncomplicated; G43.909 Migraine, unspecified, not intractable, without status migrainosus; F17.200 Nicotine dependence, unspecified, uncomplicated; Z88.6 Allergy status to analgesic agent; Z88.8 Allergy status to other drugs, medicaments and biological substances; Z79.899 Other long term (current) drug therapy; W22.8XXA Striking against or struck by other objects, initial encounter
CPT/HCPCS: 70450; 71046; 72125; 73030; 99284-25

== ENCOUNTER 2020-03-27 18:31 | Emergency (ER) | payer OTHER ==
[~2020-03-27] VITALS: Ht 160 cm; Wt 53.1 kg
--- OUTSIDE RECORDS SUMMARY | ~2020-03-27 | XMS | Encounter Summary ---
Demographics + + + | Address | [address] | | | [place] [address] | + + + | Home Phone | | + + + | Preferred Language | Unknown | + + + | Marital Status | Single | + + + | Jewish Affiliation | Unknown | + + + | Race | Unknown | + + + | Ethnic Group | Unknown | + + + Author + + + | Author | [facility] | | | and [place] | + + + | Organization | [facility] | | | and [place] | [...] Team Providers + +------+ + | Care Filtration Supervisor Name | Role | Phone | + +------+ + | Ced Lorenz MD | PCP | | + +------+ + Encounter Details +--------+ + + + + | Date | Type | Department | Care Team | Description | +--------+ + + + + | 02/09/ | [facility] | [place] | Mandeep Gillespie, | | | 2017 | Encounter | [facility] | | | | | | MEDICAL CLIN[facility] [address] | | | | | | [address]TH [facility] [place], | | | | | | [place] [address] | | | | | | [phone] | | | +--------+ + + + [...] + + documented as of this encounter Medications at Time of Discharge + + + +---------+ + + | Medication | Sig | Dispensed | Refills | Start | End Date | | | | | | Date | | + + + +---------+ + + | buPROPion | Take 150 mg by mouth | | 0 | | | | (WELLBUTRIN SR) 150 | 3 times daily. | | | | 7 | | mg 12 hr tablet | | | | | | + + + +---------+ + + | | take one tablet by | | 0 | 04/27/20 | | | HYDROcodone-acetamin | mouth every 4-6 | | | 12 | 7 | | ophen (NORCO) | hours as needed | | | | | | 7.5-325 mg per | | | | | | | tablet | | | | | | + + + +---------+ + + | hydrOXYzine | Take 25 mg by mouth. | | 0 | 03/16/20 | | | pamoate (VISTARIL) | | | | 12 | 9 | | 25 mg capsule | | | | | | + + + +---------+ + + | SUMAtriptan | Take 1 tablet by | 10 | 0 | 01/12/20 | | | (IMITREX) 50 mg | mouth every 2 hours | tablet | | 16 | 7 | | tablet | as needed for | | | | | | | Migraine. | | | | | + + + +---------+ + + documented as of this encounter Plan of Treatment Not on filedocumented as of this encounter Visit Diagnoses Not on filedocumented in this encounter"
--- OUTSIDE RECORDS SUMMARY | ~2020-03-27 | XMS | Encounter Summary ---
Demographics + + + | Address | [address] | | | [place] [address] | + + + | Home Phone | | + + + | Preferred Language | Unknown | + + + | Marital Status | Single | + + + | Scientologist Affiliation | Unknown | + + + | Race | Unknown | + + + | Ethnic Group | Unknown | + + + Author + + + | Author | [facility] | | | and [place] | + + + | Organization | [facility] | | | and [place] | [...] Team Providers + +------+ + | Care Dog Food Shredder Operator Name | Role | Phone | + +------+ + | Ced Lorenz MD | PCP | | + +------+ + Encounter Details +--------+ + + + + | Date | Type | Department | Care Team | Description | +--------+ + + + + | 09/05/ | [facility] | [place] | Mandeep Gillespie, | | | 2013 | Encounter | [facility] | | | | | | MEDICAL CLIN[facility] [address] | | | | | | [address]TH [facility] [place], | | | | | | [place] [address] | | | | | | [phone] | | | +--------+ + + + + Social History + +-------+ [...] + +---------+ + + | buPROPion | | | 0 | 04/27/20 | | | (WELLBUTRIN) 100 mg | | | | 12 | 5 | | tablet | | | | [...]
--- OUTSIDE RECORDS SUMMARY | ~2020-03-27 | XMS | Encounter Summary ---
Demographics + + + | Address | [address] | | | [place] [address] | + + + | Home Phone | | + + + | Preferred Language | Unknown | + + + | Marital Status | Single | + + + | Jehovah'S Witness Affiliation | Unknown | + + + | Race | or | + + + | Ethnic Group | Not or | + + + Author + + + | Author | [facility] [employer] | + + + | Organization | [facility] [employer] [facility] | + + + | Address | Unknown | + + + | Phone | Unavailable | + + + Support + + +---------+ + | Name | Relationship | Address | Phone | + + +---------+ + | Marlena Jonathan | ECON | Unknown | | + + +---------+ + Care Team Providers + +------+ + | Care Textile Machinery Instructor Name | Role | Phone | + +------+ + | Rhonda Watkins | PCP | | + +------+ + Encounter Details +--------+--------+ + + + | Date | Type | Department | Care Team | Description | +--------+--------+ + + + | 04/08/ | Intake | Transfer Center | | N/A | | 2019 | | [address] | | | | | | [place], | | | | | | [place] [address] | | | +--------+--------+ + + + [...]
--- OUTSIDE RECORDS SUMMARY | ~2020-03-27 | XMS | Encounter Summary ---
Demographics + + + | Address | [address] | | | [place] [address] | + + + | Home Phone | | + + + | Preferred Language | Unknown | + + + | Marital Status | Single | + + + | Yazidism Affiliation | Unknown | + + + | Race | Unknown | + + + | Ethnic Group | Unknown | + + + Author + + + | Author | [facility] | | | and [place] | + + + | Organization | [facility] | | | and [place] [...] Team Providers + +------+ + | Care Silk Screen Printer Helper Name | Role | Phone | + +------+ + | Ced Lorenz MD | PCP | | + +------+ + Encounter Details +--------+ + + + + | Date | Type | Department | Care Team | Description | +--------+ + + + + | 07/18/ | [facility] | [place] | Mandeep Gillespie, | | | 2012 | Encounter | [facility] | | | | | | MEDICAL CLIN[facility] [address] | | | | | | [address]TH [facility] [place], | | | | | | [place] [address] | | | | | | [phone] | | | +--------+ + + + [...]
--- OUTSIDE RECORDS SUMMARY | ~2020-03-27 | XMS | Encounter Summary ---
Demographics + + + | Address | [address] | | | [place] [address] | + + + | Home Phone | | + + + | Preferred Language | Unknown | + + + | Marital Status | Single | + + + | Quaker Affiliation | Unknown | + + + | Race | Unknown | + + + | Ethnic Group | Unknown | + + + Author + + + | Author | [facility] | | | and [place] | + + + | Organization | [facility] | | | and [place] [...] Team Providers + +------+ + | Care It Software Developer Name | Role | Phone | + +------+ + | Ced Lorenz MD | PCP | | + +------+ + Encounter Details +--------+ + + + + | Date | Type | Department | Care Team | Description | +--------+ + + + + | 02/07/ | Hospital | [facility] | Vanessa Clay NP | | | 2017 | Encounter | [facility] | [address] | | | | | MEDICAL CL[address] | [facility], [place] | | | | | [address] [place], | [address] | | | | | [place] [address] | [phone] | | | | | [phone] | | | +--------+ + + + [...]
--- OUTSIDE RECORDS SUMMARY | ~2020-03-27 | XMS | Encounter Summary ---
Demographics + + + | Address | [address] | | | [place] [address] | + + + | Home Phone | | + + + | Preferred Language | Unknown | + + + | Marital Status | Single | + + + | Taoist Affiliation | Unknown | + + + | Race | or | + + + | Ethnic Group | Not or | + + + Author + + + | Author | [facility] | + + + | Organization | [facility] [employer] [facility] | + + + | Address | Unknown | + + + | Phone | Unavailable | + + + Support + + +---------+ + | Name | Relationship | Address | Phone | + + +---------+ + | Marlena Jonathan | ECON | Unknown | | + + +---------+ + Care Team Providers + +------+ + | Care Treater Helper Name | Role | Phone | + +------+ + | Rhonda Watkins | PCP | | + +------+ + Encounter Details +--------+ + + + + | Date | Type | Department | Care Team | Description | +--------+ + + + + | 04/09/ | Outside | UNKNOWN DEPARTMENT | Other, Faculty | | | 2019 | Records | [address] [facility] | [phone] | | | | | [address] | | | | | | [place], [place] | | | | | | [address] | | | +--------+ + + + [...]
--- OUTSIDE RECORDS SUMMARY | ~2020-03-27 | XMS | Encounter Summary ---
Demographics + + + | Address | [address] | | | [place] [address] | + + + | Home Phone | | + + + | Preferred Language | Unknown | + + + | Marital Status | Single | + + + | Gnosticism Affiliation | Unknown | + + + [...] Team Providers + +------+ + | Care Assembler Camper Name | Role | Phone | + [...]
--- OUTSIDE RECORDS SUMMARY | ~2020-03-27 | XMS | Encounter Summary ---
Demographics + + + | Address | [address] | | | [place] [address] | + + + | Home Phone | | + + + | Preferred Language | Unknown | + + + | Marital Status | Single | + + + | Islam Affiliation | Unknown | + + + | Race | Unknown | + + + | Ethnic Group | Unknown | + + + Author + + + | Author | [facility] | | | and [place] | + + + | Organization | [facility] | | | and [place] | [...] Team Providers + +------+ + | Care Surveillance Systems Engineer Name | Role | Phone | [...] a | | 2016 | | [facility] | MD | call) | | | | MEDICAL CLIN[address] | | | | | | [address] [place], | | | | | | [place] [address] | | | | | | [phone] | | | +--------+ + + + [...] this encounter Miscellaneous Notes Telephone Encounter - Tisha Sim S - 07/06/2017 9:05 AM PSTPlease see message from 06/16 . Left message for patient. Pt returned a call, please call/robin 17 2:57 PM PSTdocumented in this encounter Plan of Treatment Not on filedocumented as of this encounter Visit Diagnoses Not on filedocumented in this encounter"
--- OUTSIDE RECORDS SUMMARY | ~2020-03-27 | XMS | Encounter Summary ---
Demographics + + + | Address | [address] | | | [place] [address] | + + + | Home Phone | | + + + | Preferred Language | Unknown | + + + | Marital Status | Single | + + + | Nondenominational Affiliation | Unknown | + + + | Race | Unknown | + + + | Ethnic Group | Unknown | + + + Author + + + | Author | [facility] | | | and [place] | + + + | Organization | [facility] | | | and [...] Team Providers + +------+ + | Care Automatic Lathe Setter Name | Role | Phone | + +------+ + | Ced Lorenz MD | PCP | | + +------+ + Encounter Details +--------+ + + + + | Date | Type | Department | Care Team | Description | +--------+ + + + + | 04/23/ | [facility] | [place] | Mandeep Gillespie, | | | 2015 | Encounter | [facility] | | | | | | MEDICAL CLIN[address] | | | | | | [address]TH [facility] [place], | | | | | | [place] [address] | | | | | | [phone] | | | +--------+ + + + [...]
--- OUTSIDE RECORDS SUMMARY | ~2020-03-27 | XMS | Encounter Summary ---
Demographics + + + | Address | [address] | | | [place] [address] | + + + | Home Phone | | + + + | Preferred Language | Unknown | + + + | Marital Status | Single | + + + | Episcopal Affiliation | Unknown | + + + | Race | Unknown | + + + | Ethnic Group | Unknown | + + + Author + + + | Author | [facility] | | | and [place] | + + + | Organization | [facility] and [facility] | [...] Providers + +------+ + | Care Supervisor Tubing Name | Role | Phone | + [...] | | | | | | [address]TH [facility] [place], | | | | | | [place] [address] | | | | | | [phone] | | | +--------+ + + + [...]
--- OUTSIDE RECORDS SUMMARY | ~2020-03-27 | XMS | Encounter Summary ---
Demographics + + + | Address | [address] | | | [place] [address] | + + + | Home Phone | | + + + | Preferred Language | Unknown | + + + | Marital Status | Single | + + + | Judaism Affiliation | Unknown | + + + | Race | Unknown | + + + | Ethnic Group | Unknown | + + + Author + + + | Author | [facility] | | | and [place] | + + + | Organization | [facility] | | | and [...] Team Providers + +------+ + | Care Marketing Segment Manager Name | Role | Phone | + +------+ + | Ced Lorenz MD | PCP | | + +------+ + Encounter Details +--------+ + + + + | Date | Type | Department | Care Team | Description | +--------+ + + + + | 11/24/ | [facility] | [place] | Mandeep Gillespie, | | | 2016 | Encounter | [facility] | | | | | | MEDICAL CLINIC [address] | | | | | | [address]TH [facility] [place], | | | | | | [place] [address] | | | | | | [phone] | | | +--------+ + + + [...]
--- OUTSIDE RECORDS SUMMARY | ~2020-03-27 | XMS | Encounter Summary ---
Demographics + + + | Address | [address] | | | [place] [address] | + + + | Home Phone | | + + + | Preferred Language | Unknown | + + + | Marital Status | Single | + + + | Mandaen Affiliation | Unknown | + + + | Race | Unknown | + + + | Ethnic Group | Unknown | + + + Author + + + | Author | [facility] | | | and [place] | + + + | Organization | [facility] | | | and [place] [...] Team Providers + +------+ + | Care Cash Posting Specialist Name | Role | Phone | + +------+ + | Ellie Perez MD | PCP | | + +------+ + Encounter Details +--------+ + + + + | Date | Type | Department | Care Team | Description | +--------+ + + + + | 07/27/ | Telephone | [place] | [place], | | | 2016 | | [facility] | CYTOTECHNOLOGIST/HISTOTECHNOLOGIST [address], | | | | | MEDICAL CLIN[address] | [facility] [place], [place] | | | | | [address] [place], | [address] | | | | | [place] [address] | | | | | | [phone] | | | +--------+ + + + [...]
--- OUTSIDE RECORDS SUMMARY | ~2020-03-27 | XMS | Clinical Summary ---
Demographics + + + | Address | [address] | | | [place] [address] | + + + | Home Phone | | + + + | Preferred Language | Unknown | + + + | Marital Status | Single | + + + | Taoism Affiliation | Unknown | + + + | Race | or | + + + | Ethnic Group | Not or | + + + Author + + + | Author | [facility] | + + + | Organization | [facility] | + + + | Address | Unknown | + + + | Phone | Unavailable | + + + Support + + +---------+ + | Name | Relationship | Address | Phone | + + +---------+ + | Marlena [place] | ECON | Unknown | | + + +---------+ + Care Team Providers + +------+ + | Care Oleomargarine Maker Name | Role | Phone | + +------+ + | Rhonda WatkinsP | PCP | | + +------+ + Source Comments [place] is fully live on both [facility] Ambulatory and [facility] InPatient.[facility] Allergies + + + + + + | Active Allergy | Reactions | Severity | Noted | Comments | | | | | Date | | + + + + + + | Aspirin | Tachycardia | Medium | 11/15/19 | Rapid heart beat, | | | | | 13 | fatigue. Rapid | | | | | | hear beat, low | | | | | | energy Not | | | | | | specified from | | | | | | outside medical | | | | | | records ~ ANR | + + + + + + | Gabapentin | Palpitations | Low | 04/09/20 | | | | | | 19 | | + + + + + + | Nsaids | GI Bleed | | 05/25/20 | Not specified from | | (Non-Steroidal | | | 19 | outside medical | | Anti-Inflammatory | | | | records ~ ANR | | Drug) | | | | | + + + + + + Medications + + + +---------+------+------+-------+ | Medication | Sig | Dispensed | Refills | Star | End | Statu | | | | | | t | Date | s | | | | | | Date | | | + + + +---------+------+------+-------+ | buPROPion SR 150 | Take 150 mg by | | 0 | 01/1 | | Activ | | mg oral tablet | mouth. | | | 0/20 | | e | | sustained-release 12 | | | | 19 | | | | hr | | | | | | | + + + +---------+------+------+-------+ | | Take by mouth. | | 0 | 01/2 | | Activ | | HYDROcodone-acetamin | | | | 4/20 | | e | | ophen 5-325 mg oral | | | | 18 | | | | tablet | | | | | | | + + + +---------+------+------+-------+ | hydrOXYzine | Take 25 mg by mouth. | | 0 | 08/0 | | Activ | | pamoate 25 mg oral | | | | 2/20 | | e | | capsule | | | | 12 | | | + + + +---------+------+------+-------+ | SUMAtriptan 50 mg | Take 1 tablet as | | 0 | 04/15 | | Activ | | oral tablet | needed for headache, | | | 03/03 | | e | | | may repeat one | | | [...] | + + + +---------+------+------+-------+ Active Problems Not on file Social History + +-------+ +--------+------+ | Tobacco [...] | + + + + + | Pneumococcal | | | | | vaccination (1 of 1 | 2 | | | | - PPSV23) | | | | + + + + + | Influenza (Flu) | | 06/11/2018, 05/21/2015, | | | vaccination (#1) | 9 | 07/22/2014, Additional history | | | | | exists | | + + + + + Results Not on filefrom Last 3 Months Insurance + +--------+ +--------+ + +--------+ | Payer | Benefi | Subscriber | Effect | Phone | Address | Type | | | t Plan | ID | darryl | | | | | | / | | Dates | | | | | | Group | | | | | | + +--------+ +--------+ + +--------+ | [place] | OHP | xxxxxxxx | | [phone] | [address] | [address] | | | PLUS | | [phone] | id | | | OPEN | | esent | | [place], [place] | | | | CARD | | | | [phone] | | + +--------+ +--------+ + +--------+ | [facility] | | [phone] | Effect | | | Agency | | SERVICE | | | darryl | | | | | | HEALTH | | for | | | | | | | | all | | | | | | SERVIC | | dates | | | | | | E | | | | | | + +--------+ +--------+ + +--------+ + +--------+ +--------+ + + | Guarantor [...] | | al/Fam | | 1975 | [phone] | [place] [address] | | | randi | | | 8 (Home) | | + +--------+ +--------+ + +
--- OUTSIDE RECORDS SUMMARY | ~2020-03-27 | XMS | Encounter Summary ---
Demographics + + + | Address | [address] | | | [place] [address] | + + + | Home Phone | | + + + | Preferred Language | Unknown | + + + | Marital Status | Single | + + + | Anabaptism Affiliation | Unknown | + + + | Race | or | + + + | Ethnic Group | Not or | + + + Author + + + | Author | [facility] | + + + | Organization | [facility] test company [facility] | + + + | Address | Unknown | + + + | Phone | Unavailable | + + + Support + + +---------+ + | Name | Relationship | Address | Phone | + + +---------+ + | Marlena Jonathan | ECON | Unknown | | + + +---------+ + Care Team Providers + +------+ + | Care Trapper Animal Name | Role | Phone | + +------+ + | Rhonda Watkins | PCP | | + +------+ + Encounter Details +--------+ + + + + | Date | Type | Department | Care Team | Description | +--------+ + + + + | 05/01/ | Outside | UNKNOWN DEPARTMENT | Other, Faculty | | | 2019 | Records | [address] [facility] | [phone] | | | | | [address] | | | | | | [place], [place] | | | | | | [address] | | | +--------+ + + + [...] + | OUTSIDE RADIOLOGY - | | 05/01/2019 | | Results for this | | CT | | 12:00 AM | | procedure are in the | | | | PDT | | results section. | + +--------+ + + + documented in this encounter Results OUTSIDE RADIOLOGY - CT (05/01/2019 12:00 AM PDT) + + + | Narrative | Performed At | + + + | | | + + + documented in this encounter Visit Diagnoses Not on filedocumented in this encounter"
--- OUTSIDE RECORDS SUMMARY | ~2020-03-27 | XMS | Encounter Summary ---
Demographics + + + | Address | [address] | | | [place] [address] | + + + | Home Phone | | + + + | Preferred Language | Unknown | + + + | Marital Status | Single | + + + | Orthodoxy Affiliation | Unknown | + + + | Race | Unknown | + + + | Ethnic Group | Unknown | + + + Author + + + | Author | [facility] | | | and [place] | + + + | Organization | [facility] | | | and [place] [...] Team Providers + +------+ + | Care Divinity Professor Name | Role | Phone | + +------+ + | Ced Lorenz MD | PCP | | + +------+ + Encounter Details +--------+ + + + + | Date | Type | Department | Care Team | Description | +--------+ + + + + | 09/08/ | [facility] | [place] | Mandeep Gillespie, | | | 2015 | Encounter | [facility] | | | | | | MEDICAL CLIN[address] | | | | | | [address]TH [facility] [place], | | | | | | [place] [address] | | | | | | [phone] | | | +--------+ + + + [...]
--- OUTSIDE RECORDS SUMMARY | ~2020-03-27 | XMS | Encounter Summary ---
Demographics + + + | Address | [address] | | | [place] [address] | + + + | Home Phone | | + + + | Preferred Language | Unknown | + + + | Marital Status | Single | + + + | Yarsanism Affiliation | Unknown | + + + | Race | Unknown | + + + | Ethnic Group | Unknown | + + + Author + + + | Author | [facility] | | | and [place] | + + + | Organization | [facility] | | | and [place] [...] Team Providers + +------+ + | Care Zipper Setter Chainstitch Name | Role | Phone | + +------+ + | Mandeep Gillespie MD | PCP | Unavailable | + +------+ + Reason for Visit +--------+ + | Reason | Comments | +--------+ + | Other | CERTIFIED MAIL | +--------+ + Encounter Details +--------+ + + + + | Date | Type | Department | Care Team | Description | +--------+ + + + + | 12/13/ | [facility] | [place] | Mandeep Gillespie, | Other (CERTIFIED | | 2017 | on | [facility] | MD | MAIL) | | | | MEDICAL CLINIC [address] | | | | | | [address] [place], | | | | | | [place] [address] | | | | | | [phone] | | | +--------+ + + + [...] + documented as of this encounter Progress Bhavna Haynes - 07/27/2017 4:36 PM PSTCopy of certified mail slip and letter will be sca nned and put in the "media" tab. havna Granger - 07/27/2017 4:36 PM PSTDischarge letter sent certified was returned to us today 08/23/17. I called the patient Lin and told her I was calling from the [facility] and stated we had sent a letter from Dr. Gillespie that was returned to us so I wanted to get an updated address from her so we could re-send it and Lin hung up on me. Since I was unable to obtain a new mailing address what would you like me to do with the melisa almendarez letter? ichael Granger - 07/27/2017 4:36 PM PSTDISCHARGE LETTER SENT To: [facility] ADDRESS: [id number] [place] [address] TRACKING No: [id number] d ocumented in this encounter Plan of Treatment Not on filedocumented as of this encounter Visit Diagnoses Not on filedocumented in this encounter
--- OUTSIDE RECORDS SUMMARY | ~2020-03-27 | XMS | Encounter Summary ---
Demographics + + + | Address | [address] | | | [place] [address] | + + + | Home Phone | | + + + | Preferred Language | Unknown | + + + | Marital Status | Single | + + + | Jewish Affiliation | Unknown | + + + | Race | Unknown | + + + | Ethnic Group | Unknown | + + + Author + + + | Author | [facility] | | | and [place] | + + + | Organization | [facility] and [facility] | | | and [...] Team Providers + +------+ + | Care Accounting Administrator Name | Role | Phone | + +------+ + | Mandeep Gillespie MD | PCP | Unavailable | + +------+ + Reason for Visit +--------+--------+ + | Reason | Onset | Comments | | | Date | | +--------+--------+ + | Other | 07/21/ | returning a call | | | 2016 | | +--------+--------+ + Encounter Details +--------+ + + + + | Date | Type | Department | Care Team | Description | +--------+ + + + + | 07/21/ | Telephone | [place] | Jose MiguelMandeepith, | Other (returning a | | 2016 | | [facility] | MD | call) | | | | MEDICAL CLINIC [address] | | | | | | [address] [facility] [place], | | | | | | [place] [address] | | | | | | [phone] | | | +--------+ + + + [...] Telephone Encounter - Riri Abreu LPN - 07/21/2017 2:51 PM PSTBettana called me and s tated that all Lin needs to do is to go off of the xanax and she needs to have a mental h ealth eval at either [facility] or [facility] or some place like that. Thanks sls Electronically sig miley by Riri Abreu LPN at 07/21/2017 2:52 PM PSTTelephone Encounter - Vneu Barajas - 07/21/2017 1:45 PM PSTBetty returning Zaida's call. Thanks Donie elephone Encounter - Sim Giles - 7 9:26 AM PSTBetty is returning Zaida's call, please call/robin documented in this encounter Plan of Treatment Not on filedocumented as of this encounter Visit Diagnoses Not on filedocumented in this encounter"
--- OUTSIDE RECORDS SUMMARY | ~2020-03-27 | XMS | Encounter Summary ---
Demographics + + + | Address | [address] | | | [place] [address] | + + + | Home Phone | | + + + | Preferred Language | Unknown | + + + | Marital Status | Single | + + + | Yazdanism Affiliation | Unknown | + + + | Race | Unknown | + + + | Ethnic Group | Unknown | + + + Author + + + | Author | [facility] | | | and [place] | + + + | Organization | [facility] [...] Team Providers + +------+ + | Care Gwot Ia/Ilo Intelligence Support Name | Role | Phone | + +------+ + | Ced Lorenz MD | PCP | | + +------+ + Encounter Details +--------+ + + + + | Date | Type | Department | Care Team | Description | +--------+ + + + + | 05/24/ | Hospital | [place] | Donell Osman | | | 2016 | Encounter | [facility] | MD Roh[address] | | | | | [address] [place] | [address] | | | | | [place], [place] | [place] | | | | | [address] | [address] | | | | | [phone] | [phone] | | | | | | | | +--------+ + + + [...]
--- OUTSIDE RECORDS SUMMARY | ~2020-03-27 | XMS | Encounter Summary ---
Demographics + + + | Address | [address] | | | [place] [address] | + + + | Home Phone [...] + + + | Author | [facility] [employer] [facility] | + + + | Organization | [facility] [employer] [facility] | + + + | Address | Unknown | + + + | Phone | Unavailable | + + + Support + + +---------+ + | Name | Relationship | Address | Phone | + + +---------+ + | Marlena Jonathan | ECON | Unknown | | + + +---------+ + Care Team Providers + +------+ + | Care Compliance Representative Dealer Name | Role | Phone | + [...] | | | | | | [place] [address] | | | +--------+--------+ + + + [...]
--- OUTSIDE RECORDS SUMMARY | ~2020-03-27 | XMS | Encounter Summary ---
Demographics + + + | Address | [address] | | | [place] [address] | + + + | Home Phone | | + + + | Preferred Language | Unknown | + + + | Marital Status | Single | + + + | Latter-Day Affiliation | Unknown | + + + | Race | Unknown | + + + | Ethnic Group | Unknown | + + + Author + + + | Author | [facility] | | | and [place] | + + + | Organization | [facility] | | | and [...] Team Providers + +------+ + | Care Deputy Of Counter Intelligence Name | Role | Phone | + [...] [place] | | | | | | [address] | | | | | | [phone] | | | +--------+ + + + [...] IMPRESSION: No acute intracranial process JOB #: [id number] | | | Digitally Released by: Leilani [...] | | | | | JOB #: [id number] | | Digitally Released by: Leilani Munson | | | | | | Read By: LEILANI MUNSON MD | | Date: 05/23/2017 14:15 | | | + + documented in this encounter Visit Diagnoses Not on filedocumented in this encounter"
--- OUTSIDE RECORDS SUMMARY | ~2020-03-27 | XMS | Encounter Summary ---
Demographics + + + | Address | [address] | | | [place] [address] | + + + | Home Phone | | + + + | Preferred Language | Unknown | + + + | Marital Status | Single | + + + | Rastafari Affiliation | Unknown | + + + [...] Team Providers + +------+ + | Care Assistance Representative Name | Role | Phone [...] Acute nonintractable | | 2016 | | [facility] | [address] | headache, | | | | EMERGENCY [address] | DR LANDA, | unspecified headache | | | | [place] | [place] | type (Primary Dx); | | | | | [phone] | Urinary tract | | | | [phone] | | infection, site | | | [...] be sent through Care Everywhere.HEADACHE, UNSPE CIFIED ([place])URINARY TRACT INFECTIONS IN WOMEN ([place])documented in this encounter Medications at Time of [...] several days. Patient was initially seen at [facility], then at [facility]. The patient's headache was gradual onset. It [...] h difficulty. The patient was seen at [facility] after [facility]. The patien ayleen was treated for migraine headache. She went home. She was also dx with urinary tract inf ection. After her initial [facility] visit, the patient stood up, and had an episode of possib ly syncope versus seizure. The pt relates to me that she felt her eyelids "flutter" and she was aware of rhythmic movements of her chest. She went back to [facility] and was admitted. Red madrigal had neg [...] ECGs available Confirmed by MD Ahmadi Arwyn ([id number]), film or videotape editor Jeana Oneal ([id number]) on 01/12/2016 3: 45:38 PM ED COURSE [...] Dr. Sean Mancuso of Emergency medicine at [facility] -- he answered when I attempted to [...] Hanks CNA - 01/12/2016 4:10 PM PDTCalled [facility] room to find a physician who can speak about this patient going AMA leinayleen, Eva Madrigal RN - 01/12/2016 4:05 PM PDTPt states pain m eds are not working. notified. Eva Aguilar RN - 01/12/2016 3:10 PM PDTPt ambulated to bathroom [facility]. Without staff assistance. No episodes of [...] like episode yesterday prior to going to [facility]. Hx of endometriosis. Came from [facility], was there from 2100 last night until 1230 this afternoon. I felt like she was not being treated well, boyfriend states they were going to admit her, but the y took too long. They felt like they were mistreated and wanted "proper care" here at [facility]. They drove straight from [facility] to [place]. D Triage Notes - Lindsey Magallanes RN - 01/12/2016 1:08 PM PDTGreet: Pt. Has endometriosis, was seen and godfrey gnosed by clinic with bladder infection but went to [facility] yesterday with other symptoms of dizziness, "tunnel vision," and "blacking out." Dc'd from [facility] and went home and "murray d a [...] [place] | | | | | | [place] [address] | | | | + + + + + + + + | Specimen | + + | Blood specimen | | (specimen) | + + + + + + + | Performing | Address | City/State/Zipcode | Phone Number | | Organization | | | | + + + + + | [facility] [place] | [address] | [place] [address] | [phone] | | C[facility] (I) | | [...] | | Cells | | M/uL | [place] | | | | | | CORE [...] | CORE | | | | [place] [address] | | LABORATORY | | | | [...] + + | [facility] | [address] | [place] [address] | [phone] | | C[facility] LAB[facility]ATORY (I) | | [...] | | | | | MD Galdino, Eshan ([id number]), | | | | | | film or videotape editor Sinan | | | | | | Jeana Garcia ([id number]) | | | | | | on [...]
--- OUTSIDE RECORDS SUMMARY | ~2020-03-27 | XMS | Encounter Summary ---
Demographics + + + | Address | [address] | | | [place] [address] | + + + | Home Phone | | + + + | Preferred Language | Unknown | + + + | Marital Status | Single | + + + | Judaism Affiliation | Unknown | + + + | Race | Unknown | + + + | Ethnic Group | Unknown | + + + Author + + + | Author | [facility] | | | and [place] | + + + | Organization | [facility] | | | and [place] [...] Team Providers + +------+ + | Care Senior Writer Name | Role | Phone | + +------+ + | Ced Lorenz MD | PCP | | + +------+ + Reason for Visit +---------+--------+ + | Reason | Onset | Comments | | | Date | | +---------+--------+ + | No Show | 12/23/ | | | | 2014 | | +---------+--------+ + Encounter Details +--------+ + + + + | Date | Type | Department | Care Team | Description | +--------+ + + + + | 12/23/ | Telephone | [facility] | Landon Russlel MD | No Show | | 2014 | | GASTROENTEROLOGY | [address], [place] | | | | | [address] [place] | [address] [place], [place] | | | | | [address] [place], [place] | [address] | | | | | [address] | | | | | | [phone] | | | +--------+ + + + [...] this encounter Miscellaneous Notes Telephone Encounter - Rona Jaime RN - 12/23/2014 3:41 PM PDTPatient did not chris w for office visit today. She did not call and cancel. Therefore we will not reschedule shanna knight per Doctor Yvonne. documented in this encounter Plan of Treatment Not on filedocumented as of this encounter Visit Diagnoses Not on filedocumented in this encounter"
--- OUTSIDE RECORDS SUMMARY | ~2020-03-27 | XMS | Encounter Summary ---
Demographics + + + | Address | [address] | | | [place] [address] | + + + | Home Phone | | + + + | Preferred Language | Unknown | + + + | Marital Status | Single | + + + | Presybeterian Affiliation | Unknown | + + + | Race | Unknown | + + + | Ethnic Group | Unknown | + + + Author + + + | Author | [facility] | | | and [place] | + + + | Organization | [facility] | | | and [place] [...] Team Providers + +------+ + | Care Revenue Integrity Analyst Name | Role | Phone | + +------+ + | Ced Lorenz MD | PCP | | + +------+ + Encounter Details +--------+ + + + + | Date | Type | Department | Care Team | Description | +--------+ + + + + | 01/21/ | [facility] [place] | Sandy Monk | | | 2017 | Encounter | [facility] | MARIELLA Haider | | | | | MEDICAL CLINIC [address] | | | | | | [address] [facility] [place], | | | | | | [place] [address] | | | | | | [phone] | | | +--------+ + + + [...]
--- OUTSIDE RECORDS SUMMARY | ~2020-03-27 | XMS | Encounter Summary ---
Demographics + + + | Address | [address] | | | [place] [address] | + + + | Home Phone [...] + + + | Author | [facility] | | | and [place] | + + + | Organization | [facility] | [...] Team Providers + +------+ + | Care Freight Trucker Name | Role | Phone | + [...] | | | | | [facility] | | | | | | [place], [place] | | | | | | [address] | | | | | | [phone] | | | +--------+ + + + [...]
--- OUTSIDE RECORDS SUMMARY | ~2020-03-27 | XMS | Encounter Summary ---
Demographics + + + | Address | [address] | | | [place] [address] | + + + | Home Phone [...] Author | [facility] | + + + | Organization | [facility] [employer] [facility] | + + + | Address | Unknown | + + + | Phone | Unavailable | + + + Support + + +---------+ + | Name | Relationship | Address | Phone | + + +---------+ + | Marlena Jonathan | ECON | Unknown | | + + +---------+ + Care Team Providers + +------+ + | Care Milk Of Lime Slaker Name | Role | Phone | + +------+ + | Rhonda Watkins | PCP | | + +------+ + Encounter Details +--------+ + + + + | Date | Type | Department | Care Team | Description | +--------+ + + + + | 04/09/ | Outside | UNKNOWN DEPARTMENT | Other, Faculty | | | 2019 | Records | [address] [facility] | [phone] | | | | | [address] | | | | | | [place], [place] | | | | | | [address] | | | +--------+ + + + [...]
--- OUTSIDE RECORDS SUMMARY | ~2020-03-27 | XMS | Encounter Summary ---
Demographics + + + | Address | [address] | | | [place] [address] | + + + | Home Phone [...] Organization | [facility] | [...] Team Providers + +------+ + | Care Job Estimator Name | Role | Phone | + +------+ + | Ced Lorenz MD | PCP | | + +------+ + Encounter Details +--------+ + + + + | Date | Type | Department | Care Team | Description | +--------+ + + + + | 09/19/ | [facility] | [place] | Mandeep Gillespie, | | | 2013 | Encounter | [facility] | | | | | | MEDICAL CLINIC [address] | | | | | | [address] [facility] [place], | | | | | | [place] [address] | | | | | | [phone] | | | +--------+ + + + [...]
--- OUTSIDE RECORDS SUMMARY | ~2020-03-27 | XMS | Encounter Summary ---
Demographics + + + | Address | [address] | | | [place] [address] | + + + | Home Phone [...] | [facility] | | [...] Team Providers + +------+ + | Care Automotive Glass Technician Name | Role | Phone | + +------+ + | Ced Lorenz MD | PCP | | + +------+ + Encounter Details +--------+ + + + + | Date | Type | Department | Care Team | Description | +--------+ + + + + | 02/13/ | [facility] | [place] | Mandeep Gillespie, | | | 2012 | Encounter | [facility] | | | | | | MEDICAL CLINIC [address] | | | | | | [address] [place], | | | | | | [place] [address] | | | | | | [phone] | | | +--------+ + + + [...]
--- OUTSIDE RECORDS SUMMARY | ~2020-03-27 | XMS | Encounter Summary ---
Demographics + + + | Address | [address] | | | [place] [address] | + + + | Home Phone | | + + + | Preferred Language | Unknown | + + + | Marital Status | Single | + + + | Baptism Affiliation | Unknown | + + + | Race | Unknown | + + + | Ethnic Group | Unknown | + + + Author + + + | Author | [facility] | | | and [place] | + + + | Organization | [facility] | | | and [...] Providers + +------+ + | Care Accounting Systems Analyst Name | Role | Phone | + +------+ + | Ced Lorenz MD | PCP | | + +------+ + Encounter Details +--------+ + + + + | Date | Type | Department | Care Team | Description | +--------+ + + + + | 02/07/ | Hospital | [facility] | Vanessa Clay NP | | | 2017 | Encounter | [facility] | [address] | | | | | MEDICAL CLINIC [address] | [facility], [place] | | | | | [address] [place], | [address] | | | | | [place] [address] | [phone] | | | | | [phone] | | | +--------+ + + + [...]
--- OUTSIDE RECORDS SUMMARY | ~2020-03-27 | XMS | Encounter Summary ---
Demographics + + + | Address | [address] | | | [place] [address] | + + + | Home Phone [...] Organization | [facility] [...] Team Providers + +------+ + | Care Service Unit Operator Name | Role | Phone | + +------+ + | Mandeep Gillespie MD | PCP | Unavailable | + +------+ + Reason for Visit + +--------+ + | Reason | Onset | Comments | | | Date | | + +--------+ + | Referral Question | 05/02/ | | | | 2018 | | + +--------+ + Encounter Details +--------+ + + + + | Date | Type | Department | Care Team | Description | +--------+ + + + + | 05/02/ | Telephone | [facility] | [place] | Referral Question | | 2019 | | NEUROSURGERY [address] | [address] | | | | | [address] | [address] | | | | | [place], [place] | [place] [address] | | | | | [address] | [phone] | | | | | [phone] | | | +--------+ + + + [...] this encounter Miscellaneous Notes Telephone Encounter - Marilu Alvarez - 05/03/2019 2:13 PM PDTReturned Eleonora london tatolivia referral is for neurosurgery. I explained it is in review with Dr. Valdivia and we'll se e how he would like to proceed. elephone Encounter - Evin Taryn Cuauhtemoc - 05/02/2019 8:44 AM PDTAlecia- Heraclio Garcia , is calling regarding Referral Question and would like a call back. Additional Call Details: Caller states they were wanting for the referral to go to neurolo gy instead, and is needing to speak with a park activities coordinator. Please call her back at . If this is a symptom based call, was patient offered triage? Not Applicable If this is a symptom based call and you were unable to immediately transfer the call to a cuauhtemoc rasheed leave coordinator was caller made aware that if at any time she feels it is an emergency they sh ould call 911 or go to the nearest emergency room? not applicable documented in this encounter Plan of Treatment Not on filedocumented as of this encounter Visit Diagnoses Not on filedocumented in this encounter"
--- OUTSIDE RECORDS SUMMARY | ~2020-03-27 | XMS | Encounter Summary ---
Demographics + + + | Address | [address] | | | [place] [address] | + + + | Home Phone [...] [facility] | | | and [...] Team Providers + +------+ + | Care Appliance Fixer Name | Role | Phone | + +------+ + | Ced Lorenz MD | PCP | | + +------+ + Encounter Details +--------+ + + + + | Date | Type | Department | Care Team | Description | +--------+ + + + + | 01/24/ | [facility] | [place] | Mandeep Gillespie, | | | 2017 | Encounter | [facility] | | | | | | MEDICAL CLINIC [address] | | | | | | [address] [facility] [place], | | | | | | [place] [address] | | | | | | [phone] | | | +--------+ + + + [...]
--- OUTSIDE RECORDS SUMMARY | ~2020-03-27 | XMS | Encounter Summary ---
Demographics + + + | Address | [address] | | | [place] [address] | + + + | Home Phone [...] + | Organization | [facility] | | | and [...] Team Providers + +------+ + | Care Wastewater Treatment Plant Operator Name | Role | Phone | [...] | Diagnoses | Mandeep Gillespie | [facility] | | | Services | Medicine / | Anxiety | MD Fernie | Regional | | | Required | Primary Care | Procedures | [address] | Primary Care | | | | | eval and | [place], | [address] | | | | | treat | [place] | [place], [place] | | | | | | [address] | [address] | | | | | | | Phone: | | | | | | | [phone] | | | | | | | Fax: | | | | | | | [phone] | +--------+ + + + + + Encounter Details +--------+ + + + + | Date | Type | Department | Care Team | Description | +--------+ + + + + | 07/22/ | Orders Only | [place] | Mandeep Gillespie, | Anxiety (Primary Dx) | | 2017 | | [facility] | MD | | | | | MEDICAL CLINIC [address] | | | | | | [address] [place], | | | | | | [place] [address] | | | | | | [phone] | | | +--------+ + + + [...]
--- OUTSIDE RECORDS SUMMARY | ~2020-03-27 | XMS | Encounter Summary ---
Demographics + + + | Address | [address] | | | [place] [address] | + + + | Home Phone [...] Organization | [facility] | | [...] Providers + +------+ + | Care Zipper Trimmer Hand Name | Role | Phone | + +------+ + | Ced Lorenz MD | PCP | | + +------+ + Encounter Details +--------+ + + + + | Date | Type | Department | Care Team | Description | +--------+ + + + + | 01/27/ | [facility] | [place] | Mandeep Gillespie, | | | 2016 | Encounter | [facility] | | | | | | MEDICAL CLINIC [address] | | | | | | [address] [facility] [place], | | | | | | [place] [address] | | | | | | [phone] | | | +--------+ + + + [...]
--- OUTSIDE RECORDS SUMMARY | ~2020-03-27 | XMS | Encounter Summary ---
Demographics + + + | Address | [address] | | | [place] [address] | + + + | Home Phone [...] Author + + + | Author | [facility] | + + + | Organization | [facility] [employer] [facility] | + + + | Address | Unknown | + + + | Phone | Unavailable | + + + Support + + +---------+ + | Name | Relationship | Address | Phone | + + +---------+ + | Marlena Jonathan | ECON | Unknown | | + + +---------+ + Care Team Providers + +------+ + | Care Shoe Stamper Name | Role | Phone | + [...] | | | | | | [place] [address] | | | +--------+--------+ + + + [...]
--- OUTSIDE RECORDS SUMMARY | ~2020-03-27 | XMS | Encounter Summary ---
Demographics + + + | Address | [address] | | | [place] [address] | + + + | Home Phone [...] + + + | Author | [facility] [employer] [facility] | + + + | Organization | [facility] [employer] [facility] | + + + | Address | Unknown | + + + | Phone | Unavailable | + + + Support + + +---------+ + | Name | Relationship | Address | Phone | + + +---------+ + | Marlena Jonathan | ECON | Unknown | | + + +---------+ + Care Team Providers + +------+ + | Care Spring Production Supervisor Name | Role | Phone | [...] | le headache, | Andrew Dee | [place] for | | | | | unspecified | [address] | Health and | | | | | chronicity | [place], [place] | Healing, | | | | | pattern, | [address] | [address], | | | | | unspecified | Phone: | [address]th Floor | | | | | headache | [phone] | [place], [place] | | | | | type | Fax: | [address] | | | | | Headaches | [phone] | Phone: | | | | | and | | [phone] | | | | | intermittent | | Fax: | | | | | episodes of | | [phone] | | | | | RUE | [...] | | | | | aneurysm | [address] | [address] | | | | | Procedures | [address] | Ave | | | | | [place] NEW | [address] | [place], [place] | | | | | PATIENT | [place], | [address] | | | | | [address] [place] | [place] [address] | Phone: | | | | | EST PATIENT | Phone: | [phone] | | | | | LEVEL V | [phone] | Fax: | | | | | | Fax: | [phone] | | | | | | [phone] | | +--------+--------+ + + + + [...] | | | Ave Center for | [facility] [place] | unspecified | | | | Health and Healing, | [address] | chronicity pattern, | | | | [facility] | [phone] | unspecified headache | | | | floor [place], [place] | | type (Primary Dx) | | | | [address] | | | | | | [phone] | | | +--------+---------+ + + + [...] 5 ye ars. I spent 20 minutes biwk-ap-bima with the patient of which greater than [...] s or concerns arise. Colleen Schmidt MD Shirt Maker Director, Cerebrovascular and Skull Base Surgery Department of Neurological Surgery and Interventional Neuroradiology [facility] & [address] [place] [address] documented in this encou nter Plan of Treatment Not on filedocumented as of this encounter Visit Diagnoses + + | Diagnosis | + + | Nonintractable headache, unspecified chronicity pattern, unspecified headache type - | | Primary | + + documented in this encounter
--- OUTSIDE RECORDS SUMMARY | ~2020-03-27 | XMS | Encounter Summary ---
Demographics + + + | Address | [address] | | | [place] [address] | + + + | Home Phone [...] Organization | [facility] [...] Team Providers + +------+ + | Care Low Altitude Air Defense Officer Name | Role | Phone | + +------+ + | Ced Lorenz MD | PCP | | + +------+ + Encounter Details +--------+ + + + + | Date | Type | Department | Care Team | Description | +--------+ + + + + | 11/04/ | [facility] | [place] | Mandeep Gillespie, | | | 2016 | Encounter | [facility] | | | | | | MEDICAL CLIN[facility] [address] | | | | | | [facility]TH [facility] [place], | | | | | | [place] [address] | | | | | | [phone] | | | +--------+ + + + [...]
--- OUTSIDE RECORDS SUMMARY | ~2020-03-27 | XMS | Encounter Summary ---
Demographics + + + | Address | [address] | | | [place] [address] | + + + | Home Phone [...] + + + | Author | [facility] | | | and [place] | + + + | Organization | [facility] | | [...] Team Providers + +------+ + | Care Employee Representative Name | Role | Phone | + +------+ + | Ced Lorenz MD | PCP | | + +------+ + Encounter Details +--------+ + + + + | Date | Type | Department | Care Team | Description | +--------+ + + + + | 02/23/ | [facility] | [place] | Mandeep Gillespie, | | | 2016 | Encounter | [facility] | | | | | | MEDICAL CLINIC [address] | | | | | | [address] [facility] [place], | | | | | | [place] [address] | | | | | | [phone] | | | +--------+ + + + [...]
--- OUTSIDE RECORDS SUMMARY | ~2020-03-27 | XMS | Encounter Summary ---
Demographics + + + | Address | [address] | | | [place] [address] | + + + | Home Phone [...] | Organization | [facility] | | | and [...] Team Providers + +------+ + | Care Squad Leader Name | Role | Phone | + +------+ + | Ced Lorenz MD | PCP | | + +------+ + Encounter Details +--------+ + + + + | Date | Type | Department | Care Team | Description | +--------+ + + + + | 01/31/ | [facility] | [place] | Mandeep Gillespie, | | | 2013 | Encounter | [facility] | | | | | | MEDICAL CLINIC [address] | | | | | | [address] [facility] [place], | | | | | | [place] [address] | | | | | | [phone] | | | +--------+ + + + [...]
--- OUTSIDE RECORDS SUMMARY | ~2020-03-27 | XMS | Encounter Summary ---
Demographics + + + | Address | [address] | | | [place] [address] | + + + | Home Phone [...] Organization | [facility] | | | and [place] [...] Team Providers + +------+ + | Care Mac Artist Name | Role | Phone | + +------+ + | Mandeep Gillespie MD | PCP | Unavailable | + +------+ + Encounter Details +--------+ + + + + | Date | Type | Department | Care Team | Description | +--------+ + + + + | 06/28/ | Abstract | [place] | Josee Shields CC | | | 2017 | | [facility] | [facility] | | | | | MEDICAL CLINIC [address] | | | | | | [address] [place], | | | | | | [place] [address] | | | | | | [phone] | | | +--------+ + + + [...]
--- OUTSIDE RECORDS SUMMARY | ~2020-03-27 | XMS | Clinical Summary ---
Demographics + + + | Address | [address] | | | [place] [address] | + + + | Home Phone [...] Author + + + | Author | [facility] | + + + | Organization | [facility] | + + + | Address | Unknown | + + + | Phone | Unavailable | + + + Support + + +---------+ + | Name | Relationship | Address | Phone | + + +---------+ + | Marlena Buncombe | ECON | Unknown | | + + +---------+ + Care Team Providers + +------+ + | Care Hotel Operations Manager Name | Role | Phone | + +------+ + | Rhonda WatkinsP | PCP | | + +------+ + Source Comments [place] is fully live on both [facility] and [facility] In[facility] Allergies + + + + + [...] PLUS | | [phone] | 6 | [id number] | id | | | OPEN | | esent | | [place], [place] | | | | CARD | | | | [phone] | | + +--------+ +--------+ + +--------+ | [facility] | | [phone] | Effect | [...] | 1975 | [phone] | [place] [address] | | | randi | | | 8 (Home) | | + +--------+ +--------+ + +
--- OUTSIDE RECORDS SUMMARY | ~2020-03-27 | XMS | Encounter Summary ---
Demographics + + + | Address | [address] | | | [place] [address] | + + + | Home Phone [...] [facility] | | [...] Team Providers + +------+ + | Care Shellfish Farming Supervisor Name | Role | Phone | [...] reaction ) | | | | [address]TH [facility] [place], | | | | | | [place] [address] | | | | | | [phone] | | | +--------+ + + + [...] for her to speak with Yao the space operations officer. Pt stated, "you can bet I will". Thanks patel elephone Encounter - Venu Barajas - 07/13/2017 12:22 PM PSTP t returned your call and she has a new phone number. [phone] Thanks KenjiieElectronmagda signed by Venu Barajas at [...]
--- OUTSIDE RECORDS SUMMARY | ~2020-03-27 | XMS | Encounter Summary ---
Demographics + + + | Address | [address] | | | [place] [address] | + + + | Home Phone | | + + + | Preferred Language | Unknown | + + + | Marital Status | Single | + + + | Mu-Ism Affiliation | Unknown | + + + | Race | Unknown | + + + | Ethnic Group | Unknown | + + + Author + + + | Author | [facility] | | | and [place] | + + + | Organization | [facility] | | [...] Team Providers + +------+ + | Care Crm Campaign Manager Name | Role | Phone | + +------+ + | Ced Lorenz MD | PCP | | + +------+ + Encounter Details +--------+ + + + + | Date | Type | Department | Care Team | Description | +--------+ + + + + | 12/09/ | [facility] | [place] | Mandeep Gillespie, | | | 2017 | Encounter | [facility] | | | | | | MEDICAL CLINIC [address] | | | | | | [address]TH [facility] [place], | | | | | | [place] [address] | | | | | | [phone] | | | +--------+ + + + [...]
--- OUTSIDE RECORDS SUMMARY | ~2020-03-27 | XMS | Encounter Summary ---
Demographics + + + | Address | [address] | | | [place] [address] | + + + | Home Phone [...] + | Organization | [facility] [...] Team Providers + +------+ + | Care Fur Polisher Name | Role | Phone | + +------+ + | Ced Lorenz MD | PCP | | + +------+ + Encounter Details +--------+ + + + + | Date | Type | Department | Care Team | Description | +--------+ + + + + | 01/10/ | Emergency | [facility] | | Urinary tract | | 2015 | | EMERG[facility]Y CENTER | | infection, site | | | | [address] | | unspecified; Acute | | | | [place] | | non intractable | | | | [address] | | tension-type | | | | [phone] | | headache | +--------+ + + [...] Alston PA-C Service: (none) Author Type: Physician Hide Salter Filed: 01/12/162338 Date of Service: 01/12/162338 Status: Signed Manager Membership: Khai Alston PA-C (Physician Hide Salter) Quick Note: On Keflex. documented in this e ncounter ED Notes Conversion Transaction, Provider Unknown - 01/11/2016 7:04 PM PDTFormatting of this note m ight be different from the original. ED Notes by Lila Paiz RN at 01/11/16 7397 Author: Lila Paiz RN Service: (none) Author Type: Registered Nurse Filed: 01/11/161909 Date of Service: 01/11/161903 Status: Signed Manager Membership: Lila Paiz RN (Registered Nurse) ED Discharge [...] 01/11/161835 Date of Service: 01/11/161834 Status: Signed Manager Membership: Lila Paiz RN (Registered Nurse) Pt up to BR with steady gait, without assistance. onver samir Transaction, Provider Unknown - 01/11/2016 5:45 PM PDT ED Notes by Lila Paiz RN at 01/11/161744 Author: Lila Paiz RN Service: (none) Author Type: Registered Nurse Filed: 01/11/161745 Date of Service: 01/11/161744 Status: Signed Manager Membership: Lila Paiz RN (Registered Nurse) Pt up to BR with steady gait. onver samir Transaction, Provider Unknown - 01/11/2016 5:27 PM PDT ED Notes by Lila Paiz RN at 01/11/161726 Author: Lila Paiz RN Service: (none) Author Type: Registered Nurse Filed: 01/11/16 172 Date of Service: 01/11/161726 Status: Signed Manager Membership: Lila Paiz RN (Registered Nurse) Pt resting quietly, lights turned down, warm blankets given, boyfriend at bedside. Pt encou raged to use call button for any needs. Plan of care reviewed- waiting for lab results and f or fluids to go in. Will try for urine after fluids. illSean oglesby MD - 01/11/2016 4:52 PM PDTFormatting of this note might be different from the o riginal. ED Provider Notes by Sean Mancuso MD at 01/11/161651 Author: Sean Mancuso MD Service: (none) Author Type: Physician Filed: 01/11/161947 Date of Service: 01/11/161651 Status: Signed Manager Membership: Sean Mancuso MD (Physician) [facility] EMERGENCY DEPARTMENT Visit Date: 01/11/2016 Arrived by: Car Accompanied by: Significant Other Primary Care Provider: File, Physician Not On History obtained from: patient History Limitation: none ED RECORD CHIEF COMPLAINT HEADACHE HISTORY OF PRESENT ILLNESS (11/20) Lin Garcia is 41 y.o. female with a headache, presyncope, scotoma. She has a history of frequent migraine headaches. She is typically cared for in [place] but has recently moved up to [place] about 1-2 weeks ago. She complains of [...] being cared for in emergency departments in [place] she states multiple times for thi s. [...] conversation with her a nd her male coconut boiler about headache return precautions and other cautions [...] prescription for oxycodone. I expla ined that [facility] per the 7 Best Practices we do not typically prescribe narcotics for acute exacerbations of chronic pain. Unfortunately she is allergic to all NSAIDs as the y cause her heart to race, and to other standard antimigraine therapy as they make her feel uncomfortable. I'm recommending Tylenol. I counseled her to follow up with the PMD to [facility] and to discuss further pain management with them. I hope for that the antibiotic s also will help control her pain. DIAGNOSIS ICD-10-CM ICD-9-CM 1. Urinary tract infection, site unspecified N39.0 599.0 2. Acute non intractable tension-type headache G44.209 339.10 DISPOSITION Patient will be discharged home DISCHARGE MEDICATIONS Discharge Medication List as of 01/11/2016 6:24 PM Sean Mancuso MD 19:48 01/11/[address] [address] [facility] [address], [address] [facility] [id number] Cc File, Physician Not On This note was generated using Glanse software and despite proofreading might include inaccu rate all around presser. onversion Transacti on, Provider Unknown - 01/11/2016 4:45 PM PDTFormatting of this note might be different fro m the original. ED Notes by Lila Paiz RN at 01/11/161644 Author: Lila Paiz RN Service: (none) Author Type: Registered Nurse Filed: 01/11/161645 Date of Service: 01/11/161644 Status: Signed Manager Membership: Lila Paiz RN (Registered Nurse) Pt states "I see things go across my eyes, then I can't see for a while". Boyfriend at bedside states pt has been so dizzy she has required stand-by assistance, and had a near-syncopal episode in the shower. onver samir Transaction, Provider Unknown - 01/11/2016 4:30 PM PDT ED Notes by Afshin Crews RN at 01/11/161629 Author: Afshin Crews RN Service: (none) Author Type: Registered Nurse Filed: 01/11/161629 Date of Service: 01/11/161629 Status: Signed Manager Membership: Afshin Crews RN (Registered Nurse) ED Triage [...] - 1.035 | EXTERNAL | | | [place], | | | LAB | | | [...] | | | | | | Renal [id number]: | | | | | | Chronic Kidney disease | | | | | | if confirmed over a 3 | | | | | | month [id number]: | | | | | | Renal [...]
--- OUTSIDE RECORDS SUMMARY | ~2020-03-27 | XMS | Encounter Summary ---
Demographics + + + | Address | [address] | | | [place] [address] | + + + | Home Phone [...] + | Author | [facility] | | | and [place] | + + + | Organization | [facility] | | | and [place] [...] Team Providers + +------+ + | Care Learning Facilitator Name | Role | Phone | + +------+ + | Mandeep Gillespie MD | PCP | Unavailable | + +------+ + Encounter Details +--------+ + + + + | Date | Type | Department | Care Team | Description | +--------+ + + + + | 08/11/ | Orders Only | [place] | Mandeep Gillespie, | | | 2017 | | [facility] | | | | | | MEDICAL CLINIC [address] | | | | | | [address] [place], | | | | | | [place] [address] | | | | | | [phone] | | | +--------+ + + + [...]
--- OUTSIDE RECORDS SUMMARY | ~2020-03-27 | XMS | Encounter Summary ---
Demographics + + + | Address | [address] | | | [place] [address] | + + + | Home Phone | | + + + | Preferred Language | Unknown | + + + | Marital Status | Single | + + + | Denominational Affiliation | Unknown | + + + | Race | Unknown | + + + | Ethnic Group | Unknown | + + + Author + + + | Author | [facility] | | | and [place] | + + + | Organization | [facility] | | [...] Team Providers + +------+ + | Care Satellite Dish Installer Name | Role | Phone | [...] | | | | | | [place] [address] | | | | | | [phone] | | | +--------+ + + + [...] please call me back. When pt calls [facility], Please give her Dr. Gillespie's mssg above. Thanks sls elephone Encounter - Riri Abreu LPN - 2016 9:47 AM PSTPt asks if alcoholism can be removed from current problem list? (states s he no longer has a drinking problem) Isn't alcoholism a life long disease? Pls advise . Thanks sls elep andi Encounter - Elida Weinberg CC [facility] - 07/04/2017 9:09 AM PSTWhile patient was [...] these.Emigdio portillo signed by MOISES Higginbotham [facility] at 07/04/2017 9:13 AM PSTdocumented in this encounte r Plan of Treatment Not on filedocumented as of this encounter Visit Diagnoses Not on filedocumented in this encounter"
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
--- OUTSIDE RECORDS SUMMARY | ~2020-03-27 | XMS | Encounter Summary ---
Demographics + + + | Address | [address] | | | [place] [address] | + + + | Home Phone | | + + + | Preferred Language | Unknown | + + + | Marital Status | Single | + + + | Scientology Affiliation | Unknown | + + + | Race | Unknown | + + + | Ethnic Group | Unknown | + + + Author + + + | Author | [facility] | | | and [place] | + + + | Organization | [facility] | | | and [...] Team Providers + +------+ + | Care Foster Care Case Manager Name | Role | Phone | [...] (Primary Dx) | | | | [address] [place], | | | | | | [place] [address] | | | | | | [phone] | | | +--------+---------+ + + + [...] 8:30 AM PSTTry topamax 25 [facility] at [facility]. Make a follow up [...] from last encounter, imaging, [facility] senior application security consultant and notes from her gynecologic exam [...] mildly depressed, flat affect Summer [facility]illespie MD [facility] umented in this encounter Plan of Treatment Not on filedocumented as of this encounter Visit Diagnoses + + | Diagnosis | + + | 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
--- OUTSIDE RECORDS SUMMARY | ~2020-03-27 | XMS | Encounter Summary ---
Demographics + + + | Address | [address] | | | [place] [address] | + + + | Home Phone | | + + + | Preferred Language | Unknown | + + + | Marital Status | Single | + + + | Uatsdin Affiliation | Unknown | + + + | Race | Unknown | + + + | Ethnic Group | Unknown | + + + Author + + + | Author | [facility] | | | and [place] | + + + | Organization | [facility] [...] Team Providers + +------+ + | Care Utilization Reviewer Name | Role | Phone | + +------+ + | Ced Lorenz MD | PCP | | + +------+ + Encounter Details +--------+ + + + + | Date | Type | Department | Care Team | Description | +--------+ + + + + | 01/14/ | [facility] | [place] | Mandeep Gillespie, | | | 2015 | Encounter | [facility] | | | | | | MEDICAL CLINIC [address] | | | | | | [address] [place], | | | | | | [place] [address] | | | | | | [phone] | | | +--------+ + + + [...]
--- OUTSIDE RECORDS SUMMARY | ~2020-03-27 | XMS | Encounter Summary ---
Demographics + + + | Address | [address] | | | [place] [address] | + + + | Home Phone [...] | Author | [facility] | | | and [place] | + + + | Organization | [facility] [...] Team Providers + +------+ + | Care Superintendent Of Generation Name | Role | Phone | + [...] [place] | | | | | [address] | [address] | | | | | [phone] | [phone] | | | | | | | [...]
--- OUTSIDE RECORDS SUMMARY | ~2020-03-27 | XMS | Encounter Summary ---
Demographics + + + | Address | [address] | | | [place] [address] | + + + | Home Phone [...] | [facility] | [...] Team Providers + +------+ + | Care Gis Software Engineer Name | Role | Phone | [...] + + | 04/09/ | Emergency | [facility] | Getachew Cain | Internal carotid | | 2019 | | [facility] | Germain Bower MD | aneurysm (Primary | | | | CENTER [address] | [address] | Dx) | | | | [place] | [place] | | | | | [address] | [address] | | | | | [phone] | | | +--------+ + + + [...] carotid aneurys m with the neurosurgeon at [facility]. They recommend follow-up with appointment already made [...] | | 0 | | | | [id number] | mouth. | | | | 9 [...] might be d ifferent from the original. [facility] Emergency Department Encounter Note [address] [place] [id number] PCP:Summer Gillespie MD [phone] eMERGENCY dEPARTMENT eNCOUnter CHIEF COMPLAINT Chief Complaint Patient presents with Headache (Adult - New Onset Or New Symptoms) TRIAGE ED Triage Notes, ED Triage Notes Sue Martin RN 04/09/2019 18:48 Pt reports headache that started three days ago. Progressively getting worse. Was seen at [facility] in [facility] and diagnosed with possible aneurysm in the right carotid. Pt is reporting right sided weakness. Was told by [facility] to follow up in another [...] SURGERY all teeth LAPAROSCOPY Diagnostic CURRENT MEDICATIONS INFORMATION ASSURANCE SPECIALIST Home Medications Medication Sig buPROPion (WELLBUTRIN SR) 150 mg 12 hr tablet Take 1 tablet by mouth 3 times daily. HYDROcodone-acetaminophen (NORCO) 5-325 mg per tablet Take 1-2 tablets by mouth. hydrOXYzine pamoate (VISTARIL) 25 mg capsule Take 25 mg by mouth. ARY-EUJENDOM-VIZO-FA PO Take 1 tablet by mouth. topiramate [...] edema, Noted tenderness right forearm. Diminis hed oil field tester strength of the right forearm., No cyanosis, No clubbing. Good range of motion in a ll major joints. No tenderness to palpation or major deformities noted. Back:- No tenderness. Neurologic: Alert & oriented x 3, Normal motor function, Normal sensory function, No focal deficits noted, no facial assymetry noted. Equal hcc coders in all extremities EKG Interpretation Interpreted by emergency department physician Rhythm: normal sinus Rate: 74 [place]: normal Ectopy: none Conduction: P wave normal, [...] performed from the aortic arch through the [facility] [place]. Multiplanar reformati ons were also [...] Abnormal; Notable for the following components: Specific [place] 1.047 (*) Blood, Urine Small (*) Nitrite, [...] arm. They did a CT at [facility] which showed an incidental 2 mm internal [...] internal carotid aneurysm with the neurosurgeon at [facility]. They recommend fo llow-up with appointment already made in [address] Schmidt. Likely no surgical interve ntion is indicated. Take pain medication and muscle relaxers as needed. FINAL IMPRESSION 1. Internal carotid aneurysm Portions of this chart may have been created with [employer] voice recognition software. Occasi onal wrong-word or sound-alike substitutions may have occurred due to the inherent avilez itations of voice recognition software. Please read the chart carefully and recognize, using context, where these substitutions have occurred Getachew Cain MD 04/09/192130 Eliel enriquez RN - 04/09/2019 6:46 PM PDTPt reports headache that started three days ago. Pro gressively getting worse. Was seen at [facility] in [facility] and diagnosed with possib le aneurysm in the right carotid. Pt is reporting right sided weakness. Was told by [facility] on to follow up in another ER [...] | | | ?MRN: | | | [id number] | | | [id number] | | | riteri | | | [...] | | | St. | | | [place] | | | y | | | [...] | | | St. | | | [place] | | | y | | | [...] | | | yMedic | | | al/Bsihop | | | gical5 | | | /6/19 | | | 12:00 | | | AM | | | [facility] | | [facility] | | | [place] | | | y | | | [...] | | | St. | | | [place] | | | y | | | [...] | | | St. | | | [place] | | | y | | | [...] | | | St. | | | [place] | | | y | | | [...] | | | St. | | | [place] | | | y H. | | [...] | | | St. | | | [place] | | | y H. | | [...] | | | St. | | | [place] | | | y H. | | [...] | | | St. | | | [place] | | | y H. | | [...] | | | St. | | | [place] | | | y H. | | [...] | | | St. | | | [place] | | | y H. | | [...] | | | St. | | | [place] | | | y H. | | [...] M.D. | | | | | | Gut Carrier | | | al | | | [...] + | [facility] | [address] | [place] | [phone] | | [facility] | | [address] | | | - LABORATORY | | [...] - 1.030 | [facility] | | | [place], | | | [facility] | | [...] [address] | [place] | [phone] | | [facility] | | [address] | | | - LABORATORY | | [...] performed from the aortic arch through the [facility] cross of | | | [place]. Multiplanar reformations [...] | from the aortic arch through the [facility] [place].Multiplanar reformations were also | | [...] + | [facility] | [address] | [place] | [phone] | | [facility] | | [address] | | | - LABORATORY | | [...] | | | | | | [employer] | | | | | [...] + | [facility] | [address] | [place] | [phone] | | [facility] | | [address] | | | - LABORATORY | | [...] [address] | [place] | [phone] | | [facility] | | [address] | | | - LABORATORY | | [...] in | 12 - 53 U/L | [facility] | | | | use as of October 11 | | [facility] | | | | 2018. Check [...] + | [facility] | [address] | [place] | [phone] | | [facility] | | [address] | | | - LABORATORY | | [...] | | | | | mg/dL | [facility] | | | | | | MEDICAL | | | | | | CENTER - | | | | | | LABORATORY | | + + + + + + | eGFR, | >60Comment: GLOMERULAR | >=60 | [facility] | | | non- | FILTRATION | mL/min/1.73m2 | [facility] | | | [place] | RATE,ESTIMATED | | MEDICAL | | | | mL/min/1.93w2Snpm than | | CENTER - | | [...] | | | | | mg/dL | [facility] | | | | | | [...] + | [facility] | [address] | [place] | [phone] | | [facility] | | [address] | | | - LABORATORY | | [...] ranges: Trim. Absolute (K/uL) Percentage (%) | [facility] | | 1st 0.003-0.091 K/uL 0.0-0.9% 2nd 0.007-0.247 K/uL | [facility] | | 0.1-2.0% 3rd 0.018-0.456 K/uL 0.1-2.0% | - LABORATORY | + + + + + + + + | Performing | Address | City/State/Zipcode | Phone Number | | Organization | | | | + + + + + | [facility] | [address] | [place] | [phone] | | [facility] | | [address] | | | - LABORATORY | | [...] [address] | [place] | [phone] | | [facility] | | [address] | | | - LABORATORY | | [...] | | | | KRISTEL PILLAI MD ([id number]) | | | | | | on [...]
--- OUTSIDE RECORDS SUMMARY | ~2020-03-27 | XMS | Encounter Summary ---
Demographics + + + | Address | [address] | | | [place] [address] | + + + | Home Phone [...] | Organization | [facility] | [...] Team Providers + +------+ + | Care Cigar Brander Name | Role | Phone | + [...] | | | | | headache | Waterproof, | [place], [place] | | | | | Procedures | [place] | [address] | | | | | MRI Brain wo | [address] | Phone: | | | | | Contrast | | [phone] | | | | | | | Fax: | | | | | | | [phone] | +--------+--------+ + + + + Reason [...] | | | | | headache | Waterproof, | [place], [place] | | | | | Procedures | [place] | [address] | | | | | MRI Brain wo | [address] | Phone: | | | | | Contrast | | [phone] | | | | | | | Fax: | | | | | | | [phone] | +--------+--------+ + + + + Encounter Details +--------+ + + + + | Date | Type | Department | Care Team | Description | +--------+ + + + + | 07/01/ | Hospital | [facility] | Mandeep Gillespie, | New daily persistent | | 2017 | Encounter | Hospital MRI [address] | MD | headache | | | | [address] | | | | | | [place] | | | | | | [address] | | | | | | [phone] | | | +--------+ + + + [...] one tablet by | | 0 | 09/13/20 | | | HYDROcodone-acetamin | mouth every [...] appear | | | similar to the 2008 study. 3. Paranasal sinus disease. Dictated | [...]
--- OUTSIDE RECORDS SUMMARY | ~2020-03-27 | XMS | Encounter Summary ---
Demographics + + + | Address | [address] | | | [place] [address] | + + + | Home Phone [...] [facility] | | [...] Providers + +------+ + | Care Marketing Content Manager Name | Role | Phone | [...] | | | | | | [place] [address] | | | | | | [phone] | | | +--------+ + + + [...] she had contacted a "treatment facility in [facility] and called [facility], and that [...]
--- OUTSIDE RECORDS SUMMARY | ~2020-03-27 | XMS | Encounter Summary ---
Demographics + + + | Address | [address] | | | [place] [address] | + + + | Home Phone [...] + | Author | [facility] | | | and [place] | + + + | Organization | [facility] | | | and [place] [...] Team Providers + +------+ + | Care Primary Substance Abuse Counselor Name | Role | Phone | + +------+ + PCP | Unavailable | + +------+ + Encounter Details +--------+ + + + + | Date | Type | Department | Care Team | Description | +--------+ + + + + | 09/23/ | Hospital | [facility] | | | | 2008 | Encounter | [facility] EM[facility] | | | | | | CENTER [address] | | | | | | [place] | | | | | | [address] | | | | | | [phone] | | | +--------+ + + + [...]
--- OUTSIDE RECORDS SUMMARY | ~2020-03-27 | XMS | Encounter Summary ---
Demographics + + + | Address | [address] | | | [place] [address] | + + + | Home Phone [...] Organization | [facility] [...] + | 06/30/ | Office | [place] Hernándezlme, Wilbert J, | Anxiety and | | 2017 | Visit | [facility] | DNP [address] | depression (Primary | | | | [facility] [address] | [place] [address] | Dx) | | | | [address] [place], | [phone] | | | | | [place] [address] | | | | | | [phone] | | | +--------+---------+ + + + [...]
--- OUTSIDE RECORDS SUMMARY | ~2020-03-27 | XMS | Encounter Summary ---
Demographics + + + | Address | [address] | | | [place] [address] | + + + | Home Phone [...] + | Organization | [facility] | [...] Team Providers + +------+ + | Care Housekeeper/Custodian/Laundry Worker Name | Role | Phone | + +------+ + | Ced Lorenz MD | PCP | | + +------+ + Encounter Details +--------+ + + + + | Date | Type | Department | Care Team | Description | +--------+ + + + + | 05/11/ | [facility] | [place] | Mandeep Gillespie, | | | 2017 | Encounter | [facility] | | | | | | MEDICAL CL[facility] [address] | | | | | | [address] [facility] [place], | | | | | | [place] [address] | | | | | | [phone] | | | +--------+ + + + [...]
--- OUTSIDE RECORDS SUMMARY | ~2020-03-27 | XMS | Encounter Summary ---
Demographics + + + | Address | [address] | | | [place] [address] | + + + | Home Phone [...] + + | Author | [facility] [employer] [facility] | + + + | Organization | [facility] [employer] [facility] | + + + | Address | Unknown | + + + | Phone | Unavailable | + + + Support + + +---------+ + | Name | Relationship | Address | Phone | + + +---------+ + | Marlena Jonathan | ECON | Unknown | | + + +---------+ + Care Team Providers + +------+ + | Care Natural Resources Manager Name | Role | Phone | + +------+ + | Rhonda Watkins | PCP | | + +------+ + Encounter Details +--------+ + + + + | Date | Type | Department | Care Team | Description | +--------+ + + + + | 05/01/ | Outside | UNKNOWN DEPARTMENT | Other, Faculty | | | 2019 | Records | [address] [facility] | [phone] | | | | | [address] | | | | | | [place], [place] | | | | | | [address] | | | +--------+ + + + [...]
--- OUTSIDE RECORDS SUMMARY | ~2020-03-27 | XMS | Encounter Summary ---
Demographics + + + | Address | [address] | | | [place] [address] | + + + | Home Phone | | + + + | Preferred Language | Unknown | + + + | Marital Status | Single | + + + | Confucianist Affiliation | Unknown | + + + | Race | Unknown | + + + | Ethnic Group | Unknown | + + + Author + + + | Author | [facility] | | | and [place] | + + + | Organization | [facility] | [...] Team Providers + +------+ + | Care Claim Administrator Name | Role | Phone | + +------+ + | Ced Lorenz MD | PCP | | + +------+ + Encounter Details +--------+ + + + + | Date | Type | Department | Care Team | Description | +--------+ + + + + | [facility] [place] | Mandeep Gillespie, | | | 2016 | Encounter | [facility] | | | | | | [facility]ICAL [facility] [address] | | | | | | [address] [facility] [place], | | | | | | [place] [address] | | | | | | [phone] | | | +--------+ + + + [...]
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
--- OUTSIDE RECORDS SUMMARY | ~2020-03-27 | XMS | Encounter Summary ---
Demographics + + + | Address | [address] | | | [place] [address] | + + + | Home Phone [...] Author + + + | Author | [facility] | + + + | Organization | [facility] | + + + | Address | Unknown | + + + | Phone | Unavailable | + + + Support + + +---------+ + | Name | Relationship | Address | Phone | + + +---------+ + | Marlena Jonathan | ECON | Unknown | | + + +---------+ + Care Team Providers + +------+ + | Care Supervisor Production Name | Role | Phone | [...] | | | | | | [place] [address] | | | +--------+--------+ + + + [...]
--- OUTSIDE RECORDS SUMMARY | ~2020-03-27 | XMS | Encounter Summary ---
Demographics + + + | Address | [address] | | | [place] [address] | + + + | Home Phone [...] | [facility] | | | and [...] Team Providers + +------+ + | Care Extruder Tender Name | Role | Phone | [...] | | | | | | [place] [address] | | | | | | [phone] | | | +--------+ + + + [...] told her I was calling from the [facility] and stated we had sent a [...]
--- OUTSIDE RECORDS SUMMARY | ~2020-03-27 | XMS | Encounter Summary ---
Demographics + + + | Address | [address] | | | [place] [address] | + + + | Home Phone [...] Organization | [facility] | | | and [place] | [...] Team Providers + +------+ + | Care Production Material Coordinator Name | Role | Phone | [...] statement of | | | | [facility] [facility] [place], | | provider dismiss) | | | | [place] [address] | | | | | | [phone] | | | +--------+ + + + [...] was re ferring to she stated Dr Ponceam had "dropped her like a second and [...] find a better one soon. The front desk admin is great, I'll give you that much [...]
--- OUTSIDE RECORDS SUMMARY | ~2020-03-27 | XMS | Encounter Summary ---
Demographics + + + | Address | [address] | | | [place] [address] | + + + | Home Phone [...] | Organization | [facility] | [...] Team Providers + +------+ + | Care Solutions Specialist Name | Role | Phone | [...] Refill | | 2016 | | [facility] | MD | | | | | MEDICAL CL[facility] [address] | | | | | | 4TH [facility] [place], | | | | | | [place] [address] | | | | | | [phone] | | | +--------+ + + + [...] 3X daily. I called Brayan vila in [place] and they stated her most rece nt [...]
--- OUTSIDE RECORDS SUMMARY | ~2020-03-27 | XMS | Encounter Summary ---
Demographics + + + | Address | [address] | | | [place] [address] | + + + | Home Phone [...] | Located Within [facility] | | | and [...] Team Providers + +------+ + | Care Bonding Machine Operator Name | Role | Phone | + +------+ + | Ced Lorenz MD | PCP | | + +------+ + Encounter Details +--------+ + + + + | Date | Type | Department | Care Team | Description | +--------+ + + + + | 05/18/ | [facility] | [place] | Mandeep Gillespie, | | | 2012 | Encounter | [facility] | | | | | | MEDICAL CLINIC [address] | | | | | | 4TH [facility] [place], | | | | | | [place] [address] | | | | | | [phone] | | | +--------+ + + + [...]
--- OUTSIDE RECORDS SUMMARY | ~2020-03-27 | XMS | Encounter Summary ---
Demographics + + + | Address | [address] | | | [place] [address] | + + + | Home Phone [...] Organization | [facility] | [...] Team Providers + +------+ + | Care Clock Repairer Name | Role | Phone | [...] Refill | | 2017 | | [facility] | MD | | | | | MEDICAL CLINIC [address] | | | | | | [address]TH [facility] [place], | | | | | | [place] [address] | | | | | | [phone] | | | +--------+ + + + [...] Thanks sls Pls see other mssg from [facility] at A ssociates. No. I will not [...]
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
--- OUTSIDE RECORDS SUMMARY | ~2020-03-27 | XMS | Encounter Summary ---
Demographics + + + | Address | [address] | | | [place] [address] | + + + | Home Phone [...] | Organization | [facility] [...] Team Providers + +------+ + | Care Underground Truck Operator Name | Role | Phone | + +------+ + PCP | Unavailable | + +------+ + Encounter Details +--------+ + + + + | Date | Type | Department | Care Team | Description | +--------+ + + + + | 06/23/ | Hospital | [facility] | Liborio Parsons | | | 2009 - | Encounter | [facility] | MD [place] [address] | | | | | AND DEL[address] | [address] | | | 06/27/ | | [place] | [place] [address] | | | 2009 | | [place], [place] | [phone] | | | | | [address] | | | | | | [phone] | | | +--------+ + + + [...]
--- OUTSIDE RECORDS SUMMARY | ~2020-03-27 | XMS | Encounter Summary ---
Demographics + + + | Address | [address] | | | [place] [address] | + + + | Home Phone [...] Team Providers + +------+ + | Care Roundhouse Supervisor Name | Role | Phone | [...]
--- OUTSIDE RECORDS SUMMARY | ~2020-03-27 | XMS | Encounter Summary ---
Demographics + + + | Address | [address] | | | [place] [address] | + + + | Home Phone [...] + + | Author | [facility] | | | and [place] | + + + | Organization | [facility] and [facility] | [...] Team Providers + +------+ + | Care Lease Purchase Driver Name | Role | Phone | + +------+ + | Ced Lorenz MD | PCP | | + +------+ + Encounter Details +--------+ + + + + | Date | Type | Department | Care Team | Description | +--------+ + + + + | 06/19/ | [facility] | [place] | Mandeep iGllespie, | | | 2012 | Encounter | [facility] | | | | | | MEDICAL CLINIC [address] | | | | | | 4TH [facility] [place], | | | | | | [place] [address] | | | | | | [phone] | | | +--------+ + + + [...]
--- OUTSIDE RECORDS SUMMARY | ~2020-03-27 | XMS | Encounter Summary ---
Demographics + + + | Address | [address] | | | [place] [address] | + + + | Home Phone [...] | Organization | [facility] [...] Team Providers + +------+ + | Care Jewel Sorter Name | Role | Phone | + [...] | | | | | | [place] [address] | | | | | | [phone] | | | +--------+ + + + [...]
--- OUTSIDE RECORDS SUMMARY | ~2020-03-27 | XMS | Encounter Summary ---
Demographics + + + | Address | [address] | | | [place] [address] | + + + | Home Phone | | + + + | Preferred Language | Unknown | + + + | Marital Status | Single | + + + | Caodaism Affiliation | Unknown | + + + | Race | Unknown | + + + | Ethnic Group | Unknown | + + + Author + + + | Author | [facility] | | | and [place] | + + + | Organization | [facility] | | [...] Team Providers + +------+ + | Care Artificial Breeding Distributor Name | Role | Phone | + +------+ + | Mandeep Gillespie MD | PCP | Unavailable | + +------+ + Encounter Details +--------+ + + + + | Date | Type | Department | Care Team | Description | +--------+ + + + + | 06/30/ | Abstract | [place] | Mandeep Gillespie, | | | 2017 | | [facility] | | | | | | MEDICAL CLINIC [address] | | | | | | [address] [place], | | | | | | [place] [address] | | | | | | [phone] | | | +--------+ + + + [...]
--- OUTSIDE RECORDS SUMMARY | ~2020-03-27 | XMS | Encounter Summary ---
Demographics + + + | Address | [address] | | | [place] [address] | + + + | Home Phone [...] Organization | [facility] | [...] Providers + +------+ + | Care Public Housing Interviewer Name | Role | Phone | + +------+ + | Ced Lorenz MD | PCP | | + +------+ + Encounter Details +--------+ + + + + | Date | Type | Department | Care Team | Description | +--------+ + + + + | 05/26/ | [facility] | [place] | Mandeep Gillespie, | | | 2017 | Encounter | [facility] | | | | | | MEDICAL CLINIC [address] | | | | | | 4TH [facility] [place], | | | | | | [place] [address] | | | | | | [phone] | | | +--------+ + + + [...]
--- OUTSIDE RECORDS SUMMARY | ~2020-03-27 | XMS | Encounter Summary ---
Demographics + + + | Address | [address] | | | [place] [address] | + + + | Home Phone [...] | Organization | [facility] [...] Providers + +------+ + | Care Customer Service Engineer Name | Role | Phone | [...] | | | | | | [place] [address] | | | | | | [phone] | | | +--------+ + + + [...]
--- OUTSIDE RECORDS SUMMARY | ~2020-03-27 | XMS | Encounter Summary ---
Demographics + + + | Address | [address] | | | [place] [address] | + + + | Home Phone [...] Author + + + | Author | [facility] | + + + | Organization | [facility] [employer] [facility] | + + + | Address | Unknown | + + + | Phone | Unavailable | + + + Support + + +---------+ + | Name | Relationship | Address | Phone | + + +---------+ + | Marlena Jonathan | ECON | Unknown | | + + +---------+ + Care Team Providers + +------+ + | Care Force Variation Equipment Tender Name | Role | Phone | [...] | le headache, | Andrew Dee | [place] [facility] | | | | | unspecified | [address] | Health and | | | | | chronicity | [place], [place] | Healing, | | | | | pattern, | [address] | [address], | | | | | unspecified | Phone: | [address]th Floor | | | | | headache | [phone] | [place], [place] | | | | | type | Fax: | [address] | | | | | Headaches | [phone] | Phone: | | | | | and | | [phone] | | | | | intermittent | | Fax: | | | | | episodes of | | [phone] | | | | | RUE | [...] | | | | | aneurysm | [address] | [address] | | | | | Procedures | [address] | Ave | | | | | MD NEW | [address] | [place], [place] | | | | | PATIENT | [place], | [address] | | | | | LEVEL V MD | [place] [address] | Phone: | | | | | EST PATIENT | Phone: | [phone] | | | | | LEVEL V | [phone] | Fax: | | | | | | Fax: | [phone] | | | | | | [phone] | | +--------+--------+ + + + + [...] | | | Ave [facility] for | [facility] [place] | unspecified | | | | Health and Healing, | [address] | chronicity pattern, | | | | [facility] | [phone] | unspecified headache | | | | floor [place], [place] | | type (Primary Dx) | | | | [address] | | | | | | [phone] | | | +--------+---------+ + + + [...] 5 ye ars. I spent 20 minutes [id number] with the patient of which greater than [...] s or concerns arise. Colleen Schmidt MD Solar Tech Director, Cerebrovascular and Skull Base Surgery Department of Neurological Surgery and Interventional Neuroradiology [facility] & [address] [place] [address] documented in this encou nter Plan of Treatment Not on filedocumented as of this encounter Visit Diagnoses + + | Diagnosis | + + | Nonintractable headache, unspecified chronicity pattern, unspecified headache type - | | Primary | + + documented in this encounter
--- OUTSIDE RECORDS SUMMARY | ~2020-03-27 | XMS | Encounter Summary ---
Demographics + + + | Address | [address] | | | [place] [address] | + + + | Home Phone [...] + | Organization | [facility] | [...] Team Providers + +------+ + | Care Control Electrician Name | Role | Phone | + [...] [place] | Jose MiguelMandeep Fernie, | Other ([facility]) | | 2017 | | [facility] | [place] | | | | | MEDICAL CLINIC [address] | | | | | | [address] [place], | | | | | | [place] [address] | | | | | | [phone] | | | +--------+ + + + [...] s hould be addressed to Yao the photographic intelligence officer. Pt stated, "I don't want to [...]
--- OUTSIDE RECORDS SUMMARY | ~2020-03-27 | XMS | Encounter Summary ---
Demographics + + + | Address | [address] | | | [place] [address] | + + + | Home Phone [...] + | Organization | [facility] [...] Team Providers + +------+ + | Care Lock And Dam Equipment Repairer Name | Role | Phone | + +------+ + | Ced Lorenz MD | PCP | | + +------+ + Encounter Details +--------+ + + + + | Date | Type | Department | Care Team | Description | +--------+ + + + + | 06/16/ | [facility] | [place] | Mandeep Gillespie, | | | 2014 | Encounter | [facility] | | | | | | MEDICAL CLINIC [address] | | | | | | 4TH [facility] [place], | | | | | | [place] [address] | | | | | | [phone] | | | +--------+ + + + [...]
--- OUTSIDE RECORDS SUMMARY | ~2020-03-27 | XMS | Encounter Summary ---
Demographics + + + | Address | [address] | | | [place] [address] | + + + | Home Phone [...] + | Organization | [facility] | | [...] Team Providers + +------+ + | Care Electronic Security Specialist Name | Role | Phone | [...] [place] | | | | | | [address] | [address] | | | | | | [address] | [place], [place] | | | | | | [place], | [address] Phone: | | | | | | [place] [address] | [phone] | | | | | | Phone: | | | | | | | [phone] | | | | | | | Fax: | | | | | | | [phone] | | +--------+ + + + + [...] | Other | | 2016 | | [facility] | MD | | | | | MEDICAL CLINIC [address] | | | | | | [address] [place], | | | | | | [place] [address] | | | | | | [phone] | | | +--------+ + + + [...] PSTTelephone Encounter - Kamryn Villela C C MAINTENANCE MILLWRIGHT - 06/20/2017 10:11 AM PSTPt. States even [...]
--- OUTSIDE RECORDS SUMMARY | ~2020-03-27 | XMS | Encounter Summary ---
Demographics + + + | Address | [address] | | | [place] [address] | + + + | Home Phone [...] | Organization | [facility] | | | [...] Team Providers + +------+ + | Care Legal Secretary Name | Role | Phone | + +------+ + | Ced Lorenz MD | PCP | | + +------+ + Encounter Details +--------+ + + + + | Date | Type | Department | Care Team | Description | +--------+ + + + + | 12/03/ | [facility] | [place] | Mandeep Gillespie, | | | 2014 | Encounter | [facility] | | | | | | MEDICAL CLINIC [address] | | | | | | [address] [facility] [place], | | | | | | [place] [address] | | | | | | [phone] | | | +--------+ + + + [...]
--- OUTSIDE RECORDS SUMMARY | ~2020-03-27 | XMS | Encounter Summary ---
Demographics + + + | Address | [address] | | | [place] [address] | + + + | Home Phone [...] + | Organization | [facility] | | [...] Team Providers + +------+ + | Care Member Of Technical Staff Name | Role | Phone | + [...] (Please call | | 2017 | | [facility] | MD | back) | | | | MEDICAL CLINIC [address] | | | | | | [address] [facility] [place], | | | | | | [place] [address] | | | | | | [phone] | | | +--------+ + + + [...] Miscellaneous Notes Telephone Encounter - Riri Abreu, QUALITY AUDITOR - 07/27/2017 6:07 PM PSTI called Lin [...]
--- OUTSIDE RECORDS SUMMARY | ~2020-03-27 | XMS | Encounter Summary ---
Demographics + + + | Address | [address] | | | [place] [address] | + + + | Home Phone [...] + | Author | [facility] | | | and [place] | + + + | Organization | [facility] | | | and [place] [...] Team Providers + +------+ + | Care Mutual Funds Agent Name | Role | Phone | [...] | 05/01/ | Emergency | [facility] | Wilbert Claire, | Migraine without | | 2019 | | MED CTR EM[facility]Y | MD [address] | aura and without | | | | CENTER [address] | [facility] [place] | status migrainosus, | | | | [place], [place] | [address] | not intractable | | | | [address] | | (Primary Dx) | | | | [phone] | | | +--------+ + + + [...] Care Everywhere.Headache, Migra ine: Stages and Treatment (Welsh)documented in this encounter Medications at Time of [...] She was referred to a specialist at [facility] but has not f ollowed [...] SURGERY all teeth LAPAROSCOPY Diagnostic 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 Neck-supple, [...] for any acute finding. Signed by: Selena Mcnmaara, Maria G Sign Date/Time: 05/01/2019 10:33 PM Report sen t:05/01/2019 10:33:00 PM ED COURSE & MEDICAL DECISION MAKING Pertinent Labs & Imaging studies reviewed. (See chart for details) Patient presented with migraine-like symptoms as described above. She has a history of manager metrology shaheed migraines. No other concerning findings on [...] | | | ?MRN: | | | [id number] | | | [id number] | | | riteri | | | [...] | | | St. | | | [place] | | | y | | | [...] | | | St. | | | [place] | | | y | | | [...] | | | St. | | | [place] | | | y | | | [...] | | | St. | | | [place] | | | y | | | [...] | | | St. | | | [place] | | | y | | | [...] | | | St. | | | [place] | | | y | | | [...] | | | St. | | | [place] | | | y H. | | [...] | | | St. | | | [place] | | | y H. | | [...] | | | St. | | | [place] | | | y H. | | [...] | | | St. | | | [place] | | | y H. | | [...] | | | St. | | | [place] | | | y H. | | [...] | | | St. | | | [place] | | | y H. | | [...] | | | St. | | | [place] | | | y H. 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 Multiplanar | | | reformations [...] reported to the ER staff by the [facility] radiologist on | | | May [...] | | from the aortic arch throughthe chilkat of [place]. Multiplanar reformations and | | [...] [address] | [facility] [place] | [phone] | | [facility] | | [address] | | | - LABORATORY | | [...] [address] | [facility] [place] | [phone] | | [facility] | | [address] | | | - LABORATORY | | [...] + | [facility] | [address] | [facility] [place] | [phone] | | [facility] | | [address] | | | - LABORATORY | | [...] | mL/min/1.73m2 | [facility] | | | [place] | RATE,ESTIMATED | | MEDICAL | | | | mL/min/1.52n5Grch than | | CENTER - | | [...] 8.5 (L) | 8.7 - 10.4 | [place] | | | | | mg/dL | [facility] | | | | | | MEDICAL | | | | | | CENTER - | | | | | | LABORATORY | | + + + + + + | Albumin | 4.0 | 3.2 - 4.8 g/dL | [facility] | | | | | | Elana [...] [address] | [facility] [place] | [phone] | | [facility] | | [address] | | | - LABORATORY | | [...] 0.003-0.091 K/uL 0.0-0.9% 2nd 0.007-0.247 K/uL | [facility]ENTER | | 0.1-2.0% 3rd 0.018-0.456 K/uL 0.1-2.0% | - LABORATORY | + + + + + + + + | Performing | Address | City/State/Zipcode | Phone Number | | Organization | | | | + + + + + | [address] | [address] | [place] | [phone] | | [facility] | | [address] | | | - LABORATORY | | [...] PDT | | | | | ONCE, [facility] 05/01/19 at 2125, For 1 | [...] PDT | | | | | ONCE, [facility] 05/01/19 at 2245, For 1 | | | | | | | dose | | | | | | + +---------+ +--------+-------+---+ +---+---+ | | | +---+---+ documented in this encounter
--- OUTSIDE RECORDS SUMMARY | ~2020-03-27 | XMS | Encounter Summary ---
Demographics + + + | Address | [address] | | | [place] [address] | + + + | Home Phone [...] | Organization | [facility] [...] Team Providers + +------+ + | Care Event Management Consultant Name | Role | Phone | [...] Refill | | 2018 | | [facility] | MD | | | | | MEDICAL CLINIC [address] | | | | | | [address] [place], | | | | | | [place] [address] | | | | | | [phone] | | | +--------+--------+ + + + [...]
--- OUTSIDE RECORDS SUMMARY | ~2020-03-27 | XMS | Encounter Summary ---
Demographics + + + | Address | [address] | | | [place] [address] | + + + | Home Phone | | + + + | Preferred Language | Unknown | + + + | Marital Status | Single | + + + | Holiness Affiliation | Unknown | + + + | Race | Unknown | + + + | Ethnic Group | Unknown | + + + Author + + + | Author | [facility] | | | and [place] | + + + | Organization | [facility] [...] Team Providers + +------+ + | Care Tub Wash Operator Name | Role | Phone | + +------+ + | Ced Lorenz MD | PCP | | + +------+ + Encounter Details +--------+ + + + + | Date | Type | Department | Care Team | Description | +--------+ + + + + | 07/23/ | [facility] | [place] | Mandeep Gillespie, | | | 2014 | Encounter | [facility] | | | | | | MEDICAL CLINIC [address] | | | | | | [address] [facility] [place], | | | | | | [place] [address] | | | | | | [phone] | | | +--------+ + + + [...]
--- OUTSIDE RECORDS SUMMARY | ~2020-03-27 | XMS | Encounter Summary ---
Demographics + + + | Address | [address] | | | [place] [address] | + + + | Home Phone [...] | Organization | [facility] | | | and [place] [...] Team Providers + +------+ + | Care Health Information Assistant Name | Role | Phone | + +------+ + | Ced Lorenz MD | PCP | | + +------+ + Encounter Details +--------+ + + + + | Date | Type | Department | Care Team | Description | +--------+ + + + + | 10/25/ | [facility] | [place] | Mandeep Gillespie, | | | 2013 | Encounter | [facility] | | | | | | MEDICAL CLINIC [address] | | | | | | 4TH [facility] [place], | | | | | | [place] [address] | | | | | | [phone] | | | +--------+ + + + [...]
--- OUTSIDE RECORDS SUMMARY | ~2020-03-27 | XMS | Encounter Summary ---
Demographics + + + | Address | [address] | | | [place] [address] | + + + | Home Phone [...] | Organization | [facility] [...] Team Providers + +------+ + | Care Head Porter Baggage Name | Role | Phone | + [...] Dysthymia | | | | [address] [place], | [place], [place] | | | | | [place] [address] | [address] | | | | | [phone] | | | +--------+---------+ + + + [...] of this encounter Progress Notes [place], HOBBING PRESS OPERATOR - 06/23/2017 11:45 AM PSTFormatting of this [...] treatment option s. Patient is to schedule [facility] follow up after she meet with PCP. Patient was offered on going [facility] services to learn skills/techniques for symptom management. Mental Status: MMS: Reserved, quiet, focused. Diagnosis: Dysthymic disorder moderate Anxiety severe PLAN: Patient is to schedule [facility] follow up after she meet with PCP. Patient was offered on going [facility] services to learn skills/techniques for symptom management. [...]
--- OUTSIDE RECORDS SUMMARY | ~2020-03-27 | XMS | Encounter Summary ---
Demographics + + + | Address | [address] | | | [place] [address] | + + + | Home Phone [...] + | Organization | [facility] | | [...] Team Providers + +------+ + | Care Psychiatric Security Nurse Name | Role | Phone | + [...] 2014 | | GASTROENTEROLOGY | [address], [place] | | | | | [address] [place] | [address] [place], [place] | | | | | [address] [place], [place] | [address] | | | | | [address] | | | | | | [phone] | | | +--------+ + + + [...] [address] | [facility] [place] | [phone] | | [facility] | | [address], [facility] | | | - LABORATORY | [...] ST. | [address] | [place], [place] | [phone] | | [facility] | | [address] | | | - LABORATORY | | [...]
--- OUTSIDE RECORDS SUMMARY | ~2020-03-27 | XMS | Encounter Summary ---
Demographics + + + | Address | [address] | | | [place] [address] | + + + | Home Phone [...] Organization | [facility] | | [...] Team Providers + +------+ + | Care Languages And Literature Instructor Name | Role | Phone | + +------+ + | Ced Lorenz MD | PCP | | + +------+ + Encounter Details +--------+ + + + + | Date | Type | Department | Care Team | Description | +--------+ + + + + | 10/29/ | [facility] | [place] | Mandeep Gillespie, | | | 2015 | Encounter | [facility] | | | | | | MEDICAL CLINIC [address] | | | | | | [address] [facility] [place], | | | | | | [place] [address] | | | | | | [phone] | | | +--------+ + + + [...]
--- OUTSIDE RECORDS SUMMARY | ~2020-03-27 | XMS | Encounter Summary ---
Demographics + + + | Address | [address] | | | [place] [address] | + + + | Home Phone [...] Author | [facility] | | | and [place] | + + + | Organization | [facility] | | [...] Team Providers + +------+ + | Care Operations Consultant Name | Role | Phone | + +------+ + PCP | Unavailable | + +------+ + Encounter Details +--------+ + + + + | Date | Type | Department | Care Team | Description | +--------+ + + + + | 10/26/ | Hospital | [facility] | | | | 2008 | Encounter | MED CTR EMERGENCY | | | | | | CENTER [address] | | | | | | [place] | | | | | | [address] | | | | | | [phone] | | | +--------+ + + + [...]
--- OUTSIDE RECORDS SUMMARY | ~2020-03-27 | XMS | Encounter Summary ---
Demographics + + + | Address | [address] | | | [place] [address] | + + + | Home Phone [...] | [facility] [...] Providers + +------+ + | Care Accountant Tax Name | Role | Phone | + +------+ + | Ced Lorenz MD | PCP | | + +------+ + Encounter Details +--------+ + + + + | Date | Type | Department | Care Team | Description | +--------+ + + + + | 10/09/ | [facility] | [place] | Mandeep Gillespie, | | | 2016 | Encounter | [facility] | | | | | | MEDICAL CLINIC [address] | | | | | | 4TH [facility] [place], | | | | | | [place] [address] | | | | | | [phone] | | | +--------+ + + + [...]
[~2020-03-27 18:31] MED LIST changes: +SUBOXONE 8 MG-1 EAC1 SL
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
[2020-03-27] MEDS ORDERED: PREDNISONE20 MG PO (19:18)
== END 2020-03-27 19:32 | disposition home or self-care (01) ==
LOC: ED 18:31
DX: S06.0X9A Concussion with loss of consciousness of unspecified duration, initial encounter (principal); S40.012D Contusion of left shoulder, subsequent encounter; J45.909 Unspecified asthma, uncomplicated; G43.909 Migraine, unspecified, not intractable, without status migrainosus; F17.200 Nicotine dependence, unspecified, uncomplicated; Z88.6 Allergy status to analgesic agent; Z88.8 Allergy status to other drugs, medicaments and biological substances; Z88.5 Allergy status to narcotic agent; Z79.899 Other long term (current) drug therapy
CPT/HCPCS: 99283

== ENCOUNTER 2020-05-18 03:14 | Emergency (ER) | payer OTHER ==
[~2020-05-18] VITALS: Ht 160 cm; Wt 53.1 kg
--- OUTSIDE RECORDS SUMMARY | ~2020-05-18 | XMS | Encounter Summary ---
Demographics + + + | Address | [address] | | | [place] [address] | + + + | Home Phone | | + + + | Preferred Language | Unknown | + + + | Marital Status | Single | + + + | Oriental Orthodox Affiliation | Unknown | + + + | Race | Unknown | + + + | Ethnic Group | Not or | + + + Author + + + | Author | [facility] | | | and [place] | + + + | Organization | [facility] | | | and [place] | + + + | Address | Unknown | + + + | Phone | Unavailable | + + + Support + + +---------+ + | Name | Relationship | Address | Phone | + + +---------+ + | Gloria Oliveira | ECON | Unknown | | + + +---------+ + Care Team Providers + +------+ + | Care Construction Equipment Mechanic Name | Role | Phone | + +------+ + | Mandeep Gillespie MD | PCP | Unavailable | + +------+ + Reason for Visit +--------+--------+ + | Reason | Onset | Comments | | | Date | | +--------+--------+ + | Other | 07/27/ | Please call back | | | 2017 | | +--------+--------+ + Encounter Details +--------+ + + + + | Date | Type | Department | Care Team | Description | +--------+ + + + + | 07/27/ | Telephone | [place] | Mandeep Gillespie, | Other (Please call | | 2017 | | [facility] | MD | back) | | | | MEDICAL CLINIC [address] | | | | | | 4TH [facility] [place], | | | | | | [place] [address] | | | | | | [phone] | | | +--------+ + + + + Social History + + + +--------+------+ | Tobacco Use | Types | Packs/Day | Years | Date | | | | | Used | | + + + +--------+------+ | Current Every Day | Cigarettes | 1 | | | | Smoker | | | | | + + + +--------+------+ + + +---------+ + | Alcohol Use | Drinks/Week | oz/Week | Comments | + + +---------+ + | No | | | | + + +---------+ + + + + | Sex Assigned at | Date Recorded | | | | + + + | Not on file | | + + + documented as of this encounter Functional Status + + + + | Functional Status | Response | Date of Assessment | + + + + | Are you deaf or do you have serious | No | 01/12/2016 | | difficulty hearing? | | | + + + + | Are you blind or do you have serious | No | 01/12/2016 | | difficulty seeing, even when wearing | | | | glasses? | | | + + + + | Do you have serious difficulty walking or | No | 01/12/2016 | | climbing stairs? (5 years old or older) | | | + + + + | Do you have difficulty dressing or bathing? | No | 01/12/2016 | | (5 years old or older) | | | + + + + | Because of a physical, mental, or emotional | No | 01/12/2016 | | condition, do you have difficulty doing | | | | errands alone such as visiting a doctor's | | | | office or shopping? [15 years old or | | | | older)] | | | + + + + + + + + | Cognitive Status | Response | Date of Assessment | + + + + | Because of a physical, mental, or emotional | No | 01/12/2016 | | condition, do you have serious difficulty | | | | concentrating, remembering, or making | | | | decisions? (5 years old or older) | | | + + + + documented as of this encounter Miscellaneous Notes Telephone Encounter - Riri Abreu, ELAINA - 07/27/2017 6:07 PM PSTI called Lin back. She stated, "I am concerned because no one is doing anything about my headaches. I am no Longer addicted to Opiates. I don't want to be a guinea pig for trying other treatments that most likely won't work I know what works. (opioids). I am stressed out and my antidepr essant is not working and nothing is being done. Dr. Gillespie wouldn't help me taper off of m y xanax so I might have seizures". I explained that Dr. Gillespie can't refill her Xanax due to her taking drugs off of the street. She would be at high risk for overdose or having med interact with the street drugs. Pt started to go on about how no one was helping her and I stated to her that Dr Laguna sent her a letter that she should be receiving within the nex t few days. And the letter would explain things better. Pt said she would watch for it. Julio sylvester elephone Encounter - Venu Barajas - 07/27/2017 12:13 PM PSTPt called and is asking for Zaida to c all her back in regards to a few questions she has about her headaches. Thanks Rosa man signed by Venu Barajas at 07/27/2017 12:15 PM PSTdocumented in this encounter Plan of Treatment Not on filedocumented as of this encounter Visit Diagnoses Not on filedocumented in this encounter
--- OUTSIDE RECORDS SUMMARY | ~2020-05-18 | XMS | Encounter Summary ---
Demographics + + + | Address | [address] | | | [place] [address] | + + + | Home Phone [...] Author + + + | Author | [facility] | | | and [place] | + + + | Organization | [facility] | | | and [...] Team Providers + +------+ + | Care Instructor Industrial Design Name | Role | Phone | + +------+ + | Mandeep Gillespie MD | PCP | Unavailable | + +------+ + Reason for Visit + +--------+ + | Reason | Onset | Comments | | | Date | | + +--------+ + | Allergic Reaction | 07/11/ | Poss allergic reaction | | | 2016 | | + +--------+ + Encounter Details +--------+ + + + + | Date | Type | Department | Care Team | Description | +--------+ + + + + | 07/11/ | Telephone | [place] [facility] | Mandeep Gillespie, | Allergic Reaction | | 2017 | | [facility] MD | (Poss allergic | | | | [facility] [address] | | reaction ) | | | | 4TH [facility] [place], | | | | | | [place] [address] | | | | | | [phone] | | | +--------+ + + + [...] Miscellaneous Notes Telephone Encounter - Riri Abreu, COAL TRIMMER MACHINE OPERATOR - 07/13/2017 5:44 PM MANISHAI called pt back and gave her Dr. Gillespie's mssg. (he was not able to disrupt his schedule to squeeze her in soon er than her regular appoinment). Pt stated, "he could see me sooner if he wanted to". Pt s tated over and over, "what am I supposed to do, just put up with this". I finally stated to pt that if she was unhappy it would be best for her to speak with Yao the dental office assistant. Pt stated, "you can bet I will". Thanks nga elephone Encounter - Venu Barajas - 07/13/2017 12:22 PM PSTP t returned your call and she has a new phone number. [phone] Thanks DaisyElectronmagda signed by Venu Barajas at 07/13/2017 12:26 PM PSTTelephone Encounter - Riri Abreu LPN - 07/12/2017 11:58 AM PSTTried to call pt. Left mssg with just call back number. NGA Whitney lectronically signed by Riri Abreu LPN at 07/12/2017 11:59 AM PSTTelephone Encounter - Riri Abreu LPN - 07/12/2017 10:53 AM PSTPlease advise regarding pt's mssg below. Leann sylvester elephon e Encounter - Adelia Heaton - 07/11/2017 4:54 PM PSTPt states she thinks she is having allergic reaction to TOPAMAX. She states she is not calmed down, heart is racing, has heada ches, and sweating. Pt would also like to discuss getting in to see before her justen t on 08/04/17. Please call pt. Leann/Adelia documented in this encounter Plan of Treatment Not on filedocumented as of this encounter Visit Diagnoses Not on filedocumented in this encounter
--- OUTSIDE RECORDS SUMMARY | ~2020-05-18 | XMS | Encounter Summary ---
Demographics + + + | Address | [address] | | | [place] [address] | + + + | Home Phone | | + + + | Preferred Language | Unknown | + + + | Marital Status | Single | + + + | Hindu Affiliation | Unknown | + + + | Race | Unknown | + + + | Ethnic Group | Not or | + + + Author + + + | Author | [facility] | | | and [place] | + + + | Organization | [facility] | | | and [...] Team Providers + +------+ + | Care Log Hooker Name | Role | Phone | + +------+ + | Ced Lorenz MD | PCP | | + +------+ + Encounter Details +--------+ + + + + | Date | Type | Department | Care Team | Description | +--------+ + + + + | 01/14/ | [facility] [place] | Mandeep Gillespie, | | | 2015 | Encounter | [facility] | | | | | | MEDICAL CL[facility] [address] | | | | | | 4TH [facility], | | | | | | [place] [address] | | | | | | [phone] | | | +--------+ + + + + Social History + +-------+ +--------+------+ | Tobacco Use | Types | Packs/Day | Years | Date | | | | | Used | | + +-------+ +--------+------+ | Current Every Day | | | | | | Smoker | | | | | + +-------+ +--------+------+ + + +---------+ + | Alcohol [...]
--- OUTSIDE RECORDS SUMMARY | ~2020-05-18 | XMS | Encounter Summary ---
Demographics + + + | Address | [address] | | | [place] [address] | + + + | Home Phone | | + + + | Preferred Language | Unknown | + + + | Marital Status | Single | + + + | Moravian Affiliation | Unknown | + + + | Race | or | + + + | Ethnic Group | Not or | + + + Author + + + | Author | [facility] | + + + | Organization | [facility] | + + + | Address | Unknown | + + + | Phone | Unavailable | + + + Support + + +---------+ + | Name | Relationship | Address | Phone | + + +---------+ + | Marlena Jonathan | ECON | Unknown | | + + +---------+ + Care Team Providers + +------+ + | Care Piano Regulator Inspector Name | Role | Phone | + +------+ + | Rhonda Watkins | PCP | | + +------+ + Reason for Referral Consultation (Routine) +--------+--------+ + + + + | Status | Reason | Specialty | Diagnoses / | Referred By | Referred To | | | | | Procedures | Contact | Contact | +--------+--------+ + + + + | Closed | | Neurology | Diagnoses | Mantovani, | [facility] | | | | | | Maryuri, | [facility] [address] | | | | | Nonintractab | MD [address] | | | | | le headache, | [place] | [facility] | | | | | unspecified | [address] | Health and | | | | | chronicity | [place], [place] | Healing, | | | | | pattern, | [address] | [address], | | | | | unspecified | Phone: | 8th Floor | | | | | headache | [phone] | [place], [place] | | | | | type | Fax: | [address] | | | | | Headaches | [phone] | Phone: | | | | | and | | [phone] | | | | | intermittent | | Fax: | | | | | episodes of | | [phone] | | | | | RUE | | | | | | | weakness | | | | | | | Procedures | | | | | | | CONSULT TO | | | | | | | NEUROLOGY | | | +--------+--------+ + + + + Reason for Visit + + + | Reason | Comments | + + + | New patient | | | consultation | | + + + | MRI Results | | + + + | Ct Scan Result | | + + + Intake Referral (Routine) +--------+--------+ + + + + | Status | Reason | Specialty | Diagnoses / | Referred By | Referred To | | | | | Procedures | Contact | Contact | +--------+--------+ + + + + | Closed | | Neurological | Diagnoses | Roland, | Roxana, | | | | Surgery | suspected | GIOVANNI Ellis | MD Colleen | | | | | aneurysm | [address] | [address] | | | | | Procedures | [address] | Ave | | | | | [place] | [address] | [place], [place] | | | | | PATIENT | [place], | [address] | | | | | [place] | [place] [address] | Phone: | | | | | EST PATIENT | Phone: | [phone] | | | | | LEVEL V | [phone] | Fax: | | | | | | Fax: | [phone] | | | | | | [phone] | | +--------+--------+ + + + + Encounter Details +--------+---------+ + + + | Date | Type | Department | Care Team | Description | +--------+---------+ + + + | 05/25/ | Office | Neurosurgery at | Colleen Schmidt MD | Nonintractable | | 2019 | Visit | [facility] [address] | [address] | headache, | | | | [facility] for | [facility] [place] | unspecified | | | | Health and Healing, | [address] | chronicity pattern, | | | | [facility] | [phone] | unspecified headache | | | | floor [place], [place] | | type (Primary Dx) | | | | [address] | | | | | | [phone] | | | +--------+---------+ + + + Social History + +-------+ +--------+------+ | Tobacco Use | Types | Packs/Day | Years | Date | | | | | Used | | + +-------+ +--------+------+ | Never Smoker | | | | | + +-------+ +--------+------+ + + + | Sex Assigned at | Date Recorded | | | | + + + | Not on file | | + + + documented as of this encounter Last Filed Vital Signs + + + + + | Vital Sign | Reading | Time Taken | Comments | + + + + + | Blood Pressure | 122/70 | 05/25/2019 10:44 AM | | | | | PDT | | + + + + + | Pulse | - | - | | + + + + + | Temperature | - | - | | + + + + + | Respiratory Rate | - | - | | + + + + + | Oxygen Saturation | - | - | | + + + + + | Inhaled Oxygen | - | - | | | Concentration | | | | + + + + + | Weight | 52.2 kg (115 lb) | 05/25/2019 10:44 AM | | | | | PDT | | + + + + + | Height | 167.6 cm (5' 6") | 05/25/2019 10:44 AM | | | | | PDT | | + + + + + | Body Mass Index | 18.56 | 05/25/2019 10:44 AM | | | | | PDT | | + + + + + documented in this encounter Progress Notes Maryuri Aguilar MD - 05/25/2019 10:00 AM PDTFormatting of this note might be differe nt from the original. NEUROSURGERY NEW PATIENT CLINIC VISIT HPI: Lin Garcia is a 44 y.o. 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 Patient reports that she has been always having headaches, but since about 6/8 weeks ago th ey became different and more intense. She also reports intermittent episodes of acute pain a nd weakness in RUE since then. She went to OSH, where her images revealed a 2 mm right inte rnal carotid artery cavernous aneurysm, for which she presents to clinic today. PMH: No past medical history on file. PSH: No past surgical history on file. MEDS: No current outpatient medications on file prior to visit. No current facility-administered medications on file prior to visit. ALLERGIES: Allergies No Known Allergies Review of Systems: General: No constitutional symptoms of fevers, fatigue, chills, weight loss or sweats. Eyes: No changes in vision loss, double vision Ears, Nose and Throat: No hearing loss Respiratory: No shortness of breath, cough, chest discomfort or wheezing. Musculoskeletal: No joint pain, swelling, stiffness, arthritis, muscle aches, muscle cramp s or loss of strength. Cardiovascular: No chest pain, skipping beats, lightheadedness, difficulty breathing uprig ht or lying down Gastrointestinal: No loss of appetite, excessive appetite Genitourinary: No urinary frequency Neurologic: No unusual headaches, inability to speak, poor balance, numbness, tingling, tr emors, memory loss, disturbances in coordination or sensation of room spinning. Skin: No itching, rash, poor wound healing, night sweats, changes in skin color, dryness, flushing or suspicious lesions. Psychological: No abnormal anxiety, depression, thoughts of suicide or hallucinations. Endrocrine: No heat intolerance, cold intolerance, excessive hunger or excessive thirst. PHYSICAL EXAM: There were no vitals taken for this visit. Awake, alert, oriented to self, time, place, situation Following commands briskly Speech fluent PERRL EOMI Visual rizvi full to confrontation bilaterally Facial sensation intact Face symmetric Shoulder shrug equal bilaterally Tongue midline Strength: No pronator drift RUE: exam limited by pain. 4+/5 D/B/T 4-/5 HG LUE: 5/5 D/B/T/HG RLE: 5/5 HF/KE/DF/PF LLE: 5/ HF/KE/DF/PF SILT IMAGING: CTA from 04/2019 ASSESSMENT AND PLAN: Lin Garcia is a 44 y.o. 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 It is unlikely that her s ymptoms are related to her aneurysm, she will need Neurology workup. - referral to Neurology -CTA in 5 years. Patient seen, examined, and discussed with staff, Dr. Schmidt, who agrees with the above asse ssment and plan. Maryuri Aguilar MD Resident Physician Department of Neurosurgery Neurosurgery Attending Note I saw and evaluated this patient on 05/25/2019 with my resident during our neurosurgical cl in. See also my resident's note from today's visit. I agree with the documentation findin gs and plan of care. Please refer to Dr. Aguilar history and physical for details of presentation. I told her that her CTa finding looks like very tiny aneurysm is in the cavernous sinus and not creating any risk for brain bleeding and no need for treatment. I recommend CTA in 5 ye ars. I spent 20 minutes [id number] with the patient of which greater than 50% was spent counse ling the patient regarding the details of their progress. I answered all questions and the patient expressed understanding at the conclusion of this office visit. In addition, I inst ructed the patient to call the office or return should any issues or return should any issue s or concerns arise. Colleen Schmidt MD Child Care Assistant Director, Cerebrovascular and Skull Base Surgery Department of Neurological Surgery and Interventional Neuroradiology [address] [place] [address] documented in this encou nter Plan of Treatment Not on filedocumented as of this encounter Visit Diagnoses + + | Diagnosis | + + | Nonintractable headache, unspecified chronicity pattern, unspecified headache type - | | Primary | + + documented in this encounter
--- OUTSIDE RECORDS SUMMARY | ~2020-05-18 | XMS | Encounter Summary ---
Demographics + + + | Address | [address] | | | [place] [address] | + + + | Home Phone | | + + + | Preferred Language | Unknown | + + + | Marital Status | Single | + + + | Temple Affiliation | Unknown | + + + | Race | Unknown | + + + | Ethnic Group | Not or | + + + Author + + + | Author | [facility] | | | and [place] | + + + | Organization | [facility] | | | [...] Team Providers + +------+ + | Care Labeling Strategist Name | Role | Phone | + +------+ + PCP | Unavailable | + +------+ + Encounter Details +--------+ + + + + | Date | Type | Department | Care Team | Description | +--------+ + + + + | 04/27/ | Abstract | [facility] | DATA MIGRATION YE | | | 2011 | | Conversion Location | SR | | | | | [facility] | | | | | | [place], [place] | | | | | | [address] | | | | | | [phone] | | | +--------+ + + + [...] + + + | Blood Pressure | 130/85 | 04/13/2010 12:00 AM | | | | | PDT [...] + + + + | Weight | 49.9 kg (110 lb) | 05/13/2010 12:00 AM | | | | | PDT | | + + + + + | Height | 160 cm (5' 3") | 04/13/2010 12:00 AM | | | | | PDT | | + + + + + | Body Mass Index | 19.49 | 04/13/2010 12:00 AM | | | | | PDT | | + + + + + documented in this encounter Plan of Treatment Not on filedocumented as of this encounter Visit Diagnoses Not on filedocumented in this encounter
--- OUTSIDE RECORDS SUMMARY | ~2020-05-18 | XMS | Encounter Summary ---
Demographics + + + | Address | [address] | | | [place] [address] | + + + | Home Phone [...] | [facility] | | | and [...] Team Providers + +------+ + | Care Concrete Mixer Loader Truck Mounted Name | Role | Phone | + +------+ + | Ced Lorenz MD | PCP | | + +------+ + Encounter Details +--------+ + + + + | Date | Type | Department | Care Team | Description | +--------+ + + + + | 09/19/ | [facility] [place] [facility] | Mandeep Gillespie, | | | 2013 | Encounter | [facility] | | | | | | MEDICAL CL[facility] [address] | | | | | | 4TH [facility], | | | | | | [place] [address] | | | | | | [phone] | | | +--------+ + + + [...]
--- OUTSIDE RECORDS SUMMARY | ~2020-05-18 | XMS | Encounter Summary ---
Demographics + + + | Address | [address] | | | [place] [address] | + + + | Home Phone | | + + + | Preferred Language | Unknown | + + + | Marital Status | Single | + + + | Yazidi Affiliation | Unknown | + + + | Race | Unknown | + + + | Ethnic Group | Not or | + + + Author + + + | Author | [facility] | | | and [place] | + + + | Organization | [facility] | [...] Team Providers + +------+ + | Care Wildland Firefighter Name | Role | Phone | + +------+ + | Ced Lorenz MD | PCP | | + +------+ + Encounter Details +--------+ + + + + | Date | Type | Department | Care Team | Description | +--------+ + + + + | 04/23/ | [facility] [place] [facility] | Mandeep Gillespie, | | | 2015 | Encounter | [facility] | | | | | | MEDICAL CLIN[facility] [address] | | | | | | 4TH [facility], | | | | | | [place] [address] | | | | | | [phone] | | | +--------+ + + + [...]
--- OUTSIDE RECORDS SUMMARY | ~2020-05-18 | XMS | Encounter Summary ---
Demographics + + + | Address | [address] | | | [place] [address] | + + + | Home Phone [...] | Author | [facility] | | | and [...] Team Providers + +------+ + | Care Internal Consultant Name | Role | Phone | + +------+ + | Ced Lorenz MD | PCP | | + +------+ + Encounter Details +--------+ + + + + | Date | Type | Department | Care Team | Description | +--------+ + + + + | 07/18/ | [facility] [place] | Mandeep Gillespie, | | | 2012 | Encounter | [facility] | | | | | | MEDICAL CLIN[facility] [address] | | | | | | 4TH [facility], | | | | | | [place] [address] | | | | | | [phone] | | | +--------+ + + + [...]
--- OUTSIDE RECORDS SUMMARY | ~2020-05-18 | XMS | Encounter Summary ---
Demographics + + + | Address | [address] | | | [place] [address] | + + + | Home Phone | | + + + | Preferred Language | Unknown | + + + | Marital Status | Single | + + + | Muslim Affiliation | Unknown | + + + | Race | Unknown | + + + | Ethnic Group | Not or | + + + Author + + + | Author | [facility] | | | and [place] | + + + | Organization | [facility] | | [...] Team Providers + +------+ + | Care Door Trimmer Name | Role | Phone | + +------+ + | Mandeep Gillespie MD | PCP | Unavailable | + +------+ + Reason for Visit +--------+--------+ + | Reason | Onset | Comments | | | Date | | +--------+--------+ + | Letter | 08/23/ | Discharge Letter | | | 2018 | | +--------+--------+ + Encounter Details +--------+ + + + + | Date | Type | Department | Care Team | Description | +--------+ + + + + | 08/23/ | Telephone | [place] [facility] | Mandeep Gillespie, | Letter (Discharge | | 2018 | | [facility] | MD | Letter ) | | | | MEDICAL CLIN[facility] [address] | | | | | | 4TH [facility] [place], | | | | | | [place] [address] | | | | | | [phone] | | | +--------+ + + + [...] this encounter Miscellaneous Notes Telephone Encounter - Bhavna Granger - 08/23/2017 3:47 PM PSTDischarge letter sent certif [facility] us today 08/23/17. I called the patient Lin and told her I was calling from the [facility] and stated we had sent a letter from Dr. Gillespie that was re turned to us so I wanted to get an updated address from her so we could re-send it and Elenisaundra da silva hung up on me. Since I was unable to obtain a new mailing address what would you like me to do with the melisa almendarez letter? documented in this encounter Plan of Treatment Not on filedocumented as of this encounter Visit Diagnoses Not on filedocumented in this encounter"
--- OUTSIDE RECORDS SUMMARY | ~2020-05-18 | XMS | Encounter Summary ---
Demographics + + + | Address | [address] | | | [place] [address] | + + + | Home Phone | | + + + | Preferred Language | Unknown | + + + | Marital Status | Single | + + + | Gnosticist Affiliation | Unknown | + + + | Race | Unknown | + + + | Ethnic Group | Not or | + + + Author + + + | Author | [facility] | | | and [place] | + + + | Organization | [facility] | | [...] Team Providers + +------+ + | Care Kier Drier Name | Role | Phone | + +------+ + | Mandeep Gillespie MD | PCP | Unavailable | + +------+ + Reason for Visit +--------+--------+ + | Reason | Onset | Comments | | | Date | | +--------+--------+ + | Other | 07/20/ | PLEASE CALL ADVISE | | | 2017 | | +--------+--------+ + Encounter Details +--------+ + + + + | Date | Type | Department | Care Team | Description | +--------+ + + + + | 07/20/ | Telephone | [place] [facility] | Mandeep Gillespie, | Other (PLEASE CALL | | 2017 | | [facility]) | | | | MEDICAL CLIN[facility] [address] | | | | | | [address]TH [facility] [place], | | | | | | [place] [address] | | | | | | [phone] | | | +--------+ + + + [...] encounter Miscellaneous Notes Telephone Encounter - Riri Abreu LPN - 07/20/2017 6:03 PM PSTPt notified of Dr. Dimas villa's mssg and verbalized understanding. sls elephone Encounter - Riri Abreu LPN - 07/20/2017 11:44 AM PSTI called Lin back. She stated that she had contacted a "treatment facility in [facility] and called [facility], and that they won't let her come to treatment until she has tapered off of her Xanax". Pt stated , "I was taking Xanax before Dr. Gillespie prescribed it for me, I just got it. I have been taking up to 10 mg daily and I need Dr. Gillespie to taper me off of them ". Pt also stated, "I used to not take my opioids as prescribed but now I am at the place where I will take them as prescribed". Pt sounded very tired and lots of deep sighs betw een phrases. Pls advise. Thanks sls Electronically signed by Riri Abreu LPN at 01/2017 11:47 AM PSTTelephone Encounter - Venu Barajas - 07/20/2017 8:32 AM PSTPt called and needs to talk with Dr. Gillespie. She is trying to get into treatment and is wanting to ta lk about working on getting tapered off the pills she is addicted to. Pt states that she has to be tapered off before the treatment facility will take her. Pt is getting conflicting in formation. and just really needs to talk to someone.Please call and advise. Thanks Wanda zimmermannically signed by Venu Barajas at 07/20/2017 8:40 AM PSTdocumented in this encounter Plan of Treatment Not on filedocumented as of this encounter Visit Diagnoses Not on filedocumented in this encounter
--- OUTSIDE RECORDS SUMMARY | ~2020-05-18 | XMS | Encounter Summary ---
Demographics + + + | Address | [address] | | | [place] [address] | + + + | Home Phone | | + + + | Preferred Language | Unknown | + + + | Marital Status | Single | + + + | Restorationism Affiliation | Unknown | + + + | Race | Unknown | + + + | Ethnic Group | Not or | + + + Author + + + | Author | [facility] | | | and [place] [...] Team Providers + +------+ + | Care Magnetic Grinder Operator Name | Role | Phone | + +------+ + | Mandeep Gillespie MD | PCP | Unavailable | + +------+ + Encounter Details +--------+ + + + + | Date | Type | Department | Care Team | Description | +--------+ + + + + | 06/30/ | Abstract | [place] [facility] | Mandeep Gillespie, | | | 2016 | | [facility] | | | | | | MEDICAL CLINIC [address] | | | | | | [address] [place], | | | | | | [place] [address] | | | | | | [phone] | | | +--------+ + + + [...] | + +--------+ + + + | EXTERNAL LAB: PAP | Routin | 05/24/2017 | | Results for this | | SMEAR | e | | | procedure are in the | | | | | | results section. | + +--------+ + + + documented in this encounter Results External Lab: PAP Smear (05/24/2017) + + + + + + | Component | Value | Ref Range | Performed | Pathologist | | | | | At | Signature | + + + + + + | Pap Smear, | No evidence of | | | | | External | intraepithelial lesion | | | | | | or malignancy | | | | + + + + + + documented in this encounter Visit Diagnoses Not on filedocumented in this encounter"
--- OUTSIDE RECORDS SUMMARY | ~2020-05-18 | XMS | Encounter Summary ---
Demographics + + + | Address | [address] | | | [place] [address] | + + + | Home Phone [...] Author + + + | Author | [facility] | | | and [place] | + + + | Organization | [facility] | | | [...] Team Providers + +------+ + | Care Picture Framer Name | Role | Phone | + +------+ + | Mandeep Gillespie MD | PCP | Unavailable | + +------+ + Reason for Visit +--------+--------+ + | Reason | Onset | Comments | | | Date | | +--------+--------+ + | Other | 07/06/ | pt missed a call | | | 2016 | | +--------+--------+ + Encounter Details +--------+ + + + + | Date | Type | Department | Care Team | Description | +--------+ + + + + | 07/06/ | Telephone | [place] [facility] | Mandeep Gillespie, | Other (pt missed a | | 2016 | | [facility] | MD | call) | | | | [facility] [address] | | | | | | [address] [facility] [place], | | | | | | [place] [address] | | | | | | [phone] | | | +--------+ + + + [...] this encounter Miscellaneous Notes Telephone Encounter - Sim Giles - 07/06/2017 9:05 AM PSTPlease see message from 06/16 . Left message for patient. Pt returned a call, please call/robin documented in this encounter Plan of Treatment Not on filedocumented as of this encounter Visit Diagnoses Not on filedocumented in this encounter"
--- OUTSIDE RECORDS SUMMARY | ~2020-05-18 | XMS | Encounter Summary ---
Demographics + + + | Address | [address] | | | [place] [address] | + + + | Home Phone [...] Author + + + | Author | [facility] | | | and [place] | + + + | Organization | [facility] | | | and [...] Team Providers + +------+ + | Care Marketing/Sales Person Name | Role | Phone | + +------+ + | Mandeep Gillespie MD | PCP | Unavailable | + +------+ + Reason for Visit +--------+--------+ + | Reason | Onset | Comments | | | Date | | +--------+--------+ + | Other | 08/09/ | [facility] | | | 2016 | | +--------+--------+ + Encounter Details +--------+ + + + + | Date | Type | Department | Care Team | Description | +--------+ + + + + | 08/09/ | Telephone | [facility] | Mandeep Gillespie, | Other ([facility]) | | 2017 | | [facility] | MD | | | | | [facility] [address] | | | | | | [address] [facility] [place], | | | | | | [place] [address] | | | | | | [phone] | | | +--------+ + + + [...] Telephone Encounter - Riri Abreu LPN - 08/09/2017 9:03 AM PSTI called pt to let he r know that the front called her last week to let her know that her appt had been cancelled and that was the only reason they were calling. I stated to pt that any further questions s ceciliauld be addressed to Yao the medical office clerk. Pt stated, "I don't want to talk to any of yo u, don't call me". I stated back to Lin that I was only returning her call and all futur e calls need to be directed to Yao. Thanks sls elephone Encounter - Emma Jose - 08/09/2017 8:03 AM PS TPatient is calling to ask why she keeps getting phone calls from nurse last week when Dr. Vitaly garza dropped her as a patient. Patient not happy nor friendly. Emma Broderick documented in this encou nter Plan of Treatment Not on filedocumented as of this encounter Visit Diagnoses Not on filedocumented in this encounter
--- OUTSIDE RECORDS SUMMARY | ~2020-05-18 | XMS | Encounter Summary ---
Demographics + + + | Address | [address] | | | [place] [address] | + + + | Home Phone | | + + + | Preferred Language | Unknown | + + + | Marital Status | Single | + + + | Caodaism Affiliation | Unknown | + + + | Race | Unknown | + + + | Ethnic Group | Not or | + + + Author + + + | Author | [facility] | | | and [place] | + + + | Organization | [facility] | | | and [...] Team Providers + +------+ + | Care Framing Mill Supervisor Name | Role | Phone | + +------+ + | Cde Lorenz MD | PCP | | + +------+ + Encounter Details +--------+ + + + + | Date | Type | Department | Care Team | Description | +--------+ + + + + | 05/23/ | Hospital | [facility] | Mandeep Gillespie, | | | 2017 | Encounter | [facility] [address] | | | | | | [address] | | | | | | [place] | | | | | | [address] | | | | | | [phone] | | | +--------+ + + + [...] + +--------+ + + + | CT HEAD WO CONTRAST | Routin | 05/23/2017 | | Results for this | | | e | 1:36 PM | | procedure are in the | | | | PDT | | results section. | + +--------+ + + + documented in this encounter Results CT Head wo Contrast (05/23/2017 1:36 PM PDT) + + | Specimen | + + | | + + + + + | Narrative | Performed At | + + + | EXAMINATION: CT HEAD W/O CONTRAST HISTORY: Severe headaches | | | for several weeks. COMPARISON STUDY: No comparison. | | | TECHNIQUE: 5 mm axial slices were acquired through the brain without | | | contrast. Automated dose reduction is utilized DOSE REPORT: | | | DLP mGy-cm FINDINGS: No evidence of an acute intracranial | | | hemorrhage, mass lesion, or midline shift. The benito-white matter | | | interface is intact. The ventricles are symmetric. Sulci are age | | | appropriate. Basilar cisterns are patent. White matter has a | | | normal appearance. No obvious vascular abnormality. Paranasal | | | sinuses and mastoid air cells are clear. No fracture. | | | IMPRESSION: No acute intracranial process JOB #: [id number] | | | Digitally Released by: Leilani Munson Read By: LEILANI Porter | | | MD [facility] Date: 05/23/2017 14:15 | | + + + + + | Procedure Note | + + | Meir, Rad Results In - 08/26/2017 8:59 AM PST EXAMINATION: | | CT HEAD W/O CONTRAST | | | | HISTORY: | | Severe headaches for several weeks. | | | | COMPARISON STUDY: | | No comparison. | | | | TECHNIQUE: | | 5 mm axial slices were acquired through the brain without contrast. Automated | | dose reduction is utilized | | | | DOSE REPORT: | | DLP mGy-cm | | | | FINDINGS: | | No evidence of an acute intracranial hemorrhage, mass lesion, or midline | | shift. The benito-white matter interface is intact. The ventricles are | | symmetric. Sulci are age appropriate. Basilar cisterns are patent. White | | matter has a normal appearance. No obvious vascular abnormality. Paranasal | | sinuses and mastoid air cells are clear. No fracture. | | | | IMPRESSION: | | No acute intracranial process | | | | | | JOB #: [id number] | | Digitally Released by: Leilani Munson | | | | | | Read By: LEILANI MNUSON MD | | Date: 05/23/2017 14:15 | | | + + documented in this encounter Visit Diagnoses Not on filedocumented in this encounter"
--- OUTSIDE RECORDS SUMMARY | ~2020-05-18 | XMS | Encounter Summary ---
Demographics + + + | Address | [address] | | | [place] [address] | + + + | Home Phone | | + + + | Preferred Language | Unknown | + + + | Marital Status | Single | + + + | Sikh Affiliation | Unknown | + + + | Race | Unknown | + + + | Ethnic Group | Not or | + + + Author + + + | Author | [facility] | | | and [place] | + + + | Organization | [facility] | | | [...] Team Providers + +------+ + | Care Lawn And Tree Service Spray Supervisor Name | Role | Phone | + +------+ + | Ced Lorenz MD | PCP | | + +------+ + Encounter Details +--------+ + + + + | Date | Type | Department | Care Team | Description | +--------+ + + + + | 10/25/ | [facility] [place] [facility] | Mandeep Gillespie, | | | 2013 | Encounter | [facility] | | | | | | [facility] [address] | | | | | | [address] [facility], | | | | | | [place] [address] | | | | | | [phone] | | | +--------+ + + + [...]
--- OUTSIDE RECORDS SUMMARY | ~2020-05-18 | XMS | Encounter Summary ---
Demographics + + + | Address | [address] | | | [place] [address] | + + + | Home Phone [...] Author + + + | Author | [facility] | | | and [place] | + + + | Organization | [facility] | | | [...] Team Providers + +------+ + | Care Rigger Helper Name | Role | Phone | + +------+ + | Mandeep Gillespie MD | PCP | Unavailable | + +------+ + Reason for Visit +--------+--------+ + | Reason | Onset | Comments | | | Date | | +--------+--------+ + | Other | 07/21/ | Please call pt | | | 2017 | | +--------+--------+ + Encounter Details +--------+ + + + + | Date | Type | Department | Care Team | Description | +--------+ + + + + | 07/21/ | Telephone | [facility] [facility] | Mandeep Gillespie, | Other (Please call | | 2017 | | [facility] | MD | pt ) | | | | [facility] [address] | | | | | | [address] [facility] [place], | | | | | | [place] [address] | | | | | | [phone] | | | +--------+ + + + [...] this encounter Miscellaneous Notes Telephone Encounter - Adelia Heaton - 07/21/2017 12:17 PM PSTPt is calling to speak wi th you about being tapered off of med. Pt states she has called several Detox facilities and none of them can help her. Pt was upset and crying and is not sure what else she can do. Pl chase call pt to discuss and advise. Leann/Adelia documented in this encounter Plan of Treatment Not on filedocumented as of this encounter Visit Diagnoses Not on filedocumented in this encounter"
--- OUTSIDE RECORDS SUMMARY | ~2020-05-18 | XMS | Encounter Summary ---
Demographics + + + | Address | [address] | | | [place] [address] | + + + | Home Phone | | + + + | Preferred Language | Unknown | + + + | Marital Status | Single | + + + | Sabianist Affiliation | Unknown | + + + | Race | Unknown | + + + | Ethnic Group | Not or | + + + Author + + + | Author | [facility] | | | and [...] Team Providers + +------+ + | Care Reproduction Artist Name | Role | Phone | + +------+ + | Ellie Perez MD | PCP | | + +------+ + Encounter Details +--------+ + + + + | Date | Type | Department | Care Team | Description | +--------+ + + + + | 07/27/ | Telephone | [facility] | [place], | | | 2016 | | [facility] | COMMUNITY DIRECTOR [address], | | | | | [facility] [address] | [facility] [place], [place] | | | | | [address] [place], | [address] | | | | | [place] [address] | | | | | | [phone] | | | +--------+ + + + [...]
--- OUTSIDE RECORDS SUMMARY | ~2020-05-18 | XMS | Encounter Summary ---
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 | Role | Phone [...] + + + + | 04/09/ | Emergency | [facility] | Getachew Cain | Internal carotid | | 2019 | | [facility] | Germain Bower MD | aneurysm (Primary | | | | CENTER [address] | [address] | Dx) | | | | [facility] [place] | [facility] [place] | | | | | [id number] | [id number] | | | | | [phone] | | | +--------+ + + + [...] + + + | Blood Pressure | 108/64 | 04/09/2019 8:30 PM | | | | | PDT | | + + + + + | Pulse | 64 | 04/09/2019 9:00 PM | | | | | PDT | | + + + + + | Temperature | 37.1 C (98.7 F) | 04/09/2019 6:43 PM | | | | | PDT | | + + + + + | Respiratory Rate | 16 | 04/09/2019 6:43 PM | | | | | PDT | | + + + + + | Oxygen Saturation | 98% | 04/09/2019 9:00 PM | | | | | PDT | | + + + + + | Inhaled Oxygen | - | - | | | Concentration | | | | + + + + + | Weight | 52.2 kg (115 lb) | 04/09/2019 6:43 PM | | | | | PDT | | + + + + + | Height | 160 cm (5' 3") | 04/09/2019 6:43 PM | | | | | PDT | | + + + + + | Body Mass Index | 20.37 | 04/09/2019 6:43 PM | | | | | PDT [...] documented as of this encounter Discharge Instructions Instructions Analia Grimes RN - 04/09/2019I discussed the internal carotid aneurys m with the neurosurgeon at [facility]. They recommend follow-up with appointment already made in [address] Schmidt. Likely no surgical intervention is indicated. Take pain medication and muscle relaxers as needed. documented in this encounter Medications at Time of [...] 1-2 tablets by | | 0 | 09/07/19 | | | HYDROcodone-acetamin | mouth. | | | 18 | | | ophen (NORCO) 5-325 | | | | | | | mg per tablet | | | | | | + + + +---------+ + + | cyclobenzaprine | Take 1 tablet by | 21 | 0 | 04/09/20 | | | (FLEXERIL) 10 mg | mouth 3 times daily | tablet | | 19 | 9 | | tablet | as needed for Muscle | | | | | | | spasms. | | | | | + + + +---------+ + + | gabapentin | Take 2 capsules by | 40 | 0 | 04/09/20 | | | (NEURONTIN) 100 mg | mouth 3 times daily. | capsule | | 19 | 9 | | capsule | | | | | | + + + +---------+ + + | | Take 1-2 tablets by | 15 | 0 | 04/09/20 | | | HYDROcodone-acetamin | mouth every 6 hours | tablet | | 19 | 9 | | ophen (NORCO) 5-325 | as needed for Pain. | | | | | | mg [...] + +---------+ + + | | Take 1 tablet by | | 0 | | | | [id number] | mouth. | | | | 9 | | PO | | | | | | + + + +---------+ + + | topiramate | Take 1 tablet by | 30 | 11 | 07/04/20 | | | (TOPAMAX) 25 mg | mouth nightly. | tablet | | 17 | 9 | | tabletIndications: | | | | | | | Headaches due to old | | | | | | | head injury | | | | | | + + + +---------+ + + documented as of this encounter ED Notes Getachew Cain MD - 04/09/2019 9:26 PM PDTFormatting of this note might be d ifferent from the original. [facility] Lin Garcia Emergency Department Encounter Note [address] [place] [id number] PCP:Summer Gillespie MD [phone] eMERGENCY dEPARTMENT eNCOUnter CHIEF COMPLAINT Chief Complaint Patient presents with Headache (Adult - New Onset Or New Symptoms) TRIAGE ED Triage Notes, ED Triage Notes Sue Martin RN 04/09/2019 18:48 Pt reports headache that started three days ago. Progressively getting worse. Was seen at [facility] in [facility] and diagnosed with possible aneurysm in the right carotid. Pt is reporting right sided weakness. Was told by [facility] to follow up in another ER if she c ontinued to have problems, otherwise to have a repeat CT in 6 months to one year. HPI Lin Garcia is a 44 y.o. female who presents significant headache after hitting her hea d proximate 3 days ago. Is progressively getting worse. She is having some spasm to her ri ght arm as well and weakness to her right arm and leg. 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 HYDROcodone-acetaminophen (NORCO) 5-325 mg per tablet Take 1-2 tablets by mouth. hydrOXYzine pamoate (VISTARIL) 25 mg capsule Take 25 mg by mouth. [id number] PO Take 1 tablet by mouth. topiramate (TOPAMAX) 25 mg tablet Take 1 tablet by mouth nightly. ALLERGIES Allergies Allergen Reactions Aspirin Not specified from outside medical records ~ ANR Nsaids Not specified from outside medical records ~ ANR FAMILY HISTORY History reviewed. No pertinent family history. SOCIAL HISTORY Social History Socioeconomic History Marital status: Single Spouse name: Not on file Number of children: Not on file Years of education: Not on file Highest education level: Not on file Tobacco Use Smoking status: Current Every Day Smoker Packs/day: 1.00 Types: Cigarettes Substance and Sexual Activity Alcohol use: No Drug use: No Sexual activity: Yes REVIEW OF SYSTEMS Please see HPI, All systems negative except as marked. Twelve point review of system comp leted my me. PHYSICAL EXAM VITAL SIGNS: Temp: 37.1 C (98.7 F) Pulse: 77 Resp: 16 SpO2: 99 % BP: 119/64 Constitutional: Well developed, Well nourished, Non-toxic appearance. HENT: Normocephalic, tenderness to the right parietal portion of the scalp., Bilateral ext ernal ears normal, Oropharynx moist, No oral exudates, Nose normal. Neck- Normal range of mo tion, No tenderness, Supple, No stridor. Eyes: PERRL, EOMI, Conjunctiva normal, No discharge. Respiratory: Normal breath sounds, No respiratory distress, No wheezing, No chest tenderne ss. Cardiovascular: Normal heart rate, Normal rhythm, No murmurs, No rubs, No gallops. GI: Bowel sounds normal, Soft, No tenderness, No masses, No pulsatile masses. : defered Musculoskeletal: Intact distal pulses, No edema, Noted tenderness right forearm. 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 Good range of motion in a ll major joints. No tenderness to palpation or major deformities noted. Back:- No tenderness. Neurologic: Alert & oriented x 3, Normal motor function, Normal sensory function, No focal deficits noted, no facial assymetry noted. 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 T Waves: no acute change Q Waves: none RADIOLOGY Ct Cervical Spine Wo Contrast Result Date: 04/09/[address] CERVICAL SPINE 04/09/2019 7:36 PM CLINICAL HISTORY: HEADACHE (ADULT - NEW ON SET OR NEW SYMPTOMS) COMPARISON: None TECHNIQUE: Axial unenhanced images are performe d through the cervical spine, along with coronal and sagittal reformations. FINDINGS: Ther e is reversal of the cervical lordosis. Craniocervical alignment and cervical vertebral hei ght, disc spaces and alignment are otherwise maintained without evident fracture or subluxat ion. No bony central canal or foraminal stenosis is evident. Imaged lung apices are clear. Soft tissue structures are unremarkable. IMPRESSION - 1. REVERSAL OF THE CERVICAL LORDOS IS. Images were provided for interpretation on April 09, 2019 at 1950 hours. Results were f inalized at 2010 hours. Dictated and Signed by: Devin Jenkins MD Electronically signed: 04/09 8:[address] Angiogram Head Neck W Contrast Result Date: 04/09/2019 UNENHANCED AND ENHANCED CTA HEAD AND ENHANCED CTA NECK WITH MULTIPLANAR REFORMATIONS 7:36 PM CLINICAL HISTORY: Suspect Acute Stroke COMPARISON: Unenhanced cervical CT from the same day TECHNIQUE: Axial unenhanced images were performed through the head. F ollowing the uneventful intravenous administration of 105 mL Omnipaque-350 contrast, axial i mages are performed from the aortic arch through the [place] of [place]. Multiplanar reformati ons were also performed. HEAD FINDINGS: There is early cerebral atrophy. Clay-white di fferentiation is maintained. The cerebral parenchyma, ventricles, brainstem and cerebellum are otherwise unremarkable. There is no mass effect, abnormal parenchymal enhancement, evid ence of intracranial hemorrhage or extra-axial abnormality. There are early degenerative carrie nges of the right temporomandibular joint. The bones and soft tissues, including the parana margo sinuses, middle ear cavities and mastoid air cells, are otherwise unremarkable. A 2 mm a neurysm is suspected along the posterior margin of the tortuous cavernous segment of the rig ht internal carotid artery. The distal internal carotid arteries are otherwise widely paten t and unremarkable along with the basilar artery, bilateral superior cerebellar arteries and bilateral anterior, middle and posterior cerebral arteries. Patent anterior and left poste rior communicating arteries are visible. Patent anterior and posterior inferior cerebellar arteries are also visible. No vessel occlusion, stenosis or dissection is apparent. NECK FI NDINGS: The aortic arch is widely patent. There is variant common origin of the brachiocep halic and left common carotid arteries and direct origin of the left vertebral artery from t he arch, proximal to the subclavian artery origin. The brachiocephalic artery, bilateral dean bclavian arteries and bilateral common, internal and external carotid arteries are widely pa tent allowing for motion artifact at the brachiocephalic artery origin. Vertebral arteries are codominant and widely patent. No vessel occlusion, stenosis or dissection is apparent. The venous structures appear patent and unremarkable. The pharynx, larynx and trachea are u nremarkable, along with the thyroid, submandibular and parotid glands. No pathologic lymph node enlargement is evident. The imaged upper lungs are clear. There is reversal of the ce rvical lordosis. Osseous structures are otherwise unremarkable. IMPRESSION - 1. 2 MM ANEUR YSM SUSPECTED ALONG THE POSTERIOR MARGIN OF THE CAVERNOUS RIGHT INTERNAL CAROTID ARTERY. TH E CERVICAL AND INTRACRANIAL ARTERIAL SYSTEMS ARE OTHERWISE WIDELY PATENT. 2. EARLY CEREBRAL ATROPHY WITHOUT EVIDENCE OF ACUTE INTRACRANIAL DISEASE. Images were provided for interpreta tion on April 09, 2019 at 1950 hours. Results were finalized at 2005 hours. Dictated and Si gned by: Devin Jenkins MD Electronically signed: 04/09/2019 8:08 PM LAB Labs Reviewed CBC WITH DIFFERENTIAL - Abnormal; Notable for the following components: Result Value RBC 3.63 (*) Hemoglobin 11.2 (*) Hematocrit 32.4 (*) % Neutrophils 31.6 (*) % Lymphocytes 49.4 (*) % Eosinophils 11.6 (*) Absolute Neutrophils 1.33 (*) Absolute Eosinophils 0.49 (*) All other components within normal limits Narrative: IMMATURE GRANULOCYTES - For patients, use the following reference ranges: Trim. Absolute (K/uL) Percentage (%) 1st 0.003-0.091 K/uL 0.0-0.9% 2nd 0.007-0.247 K/uL 0.1-2.0% 3rd 0.018-0.456 K/uL 0.1-2.0% COMPREHENSIVE METABOLIC PANEL - Abnormal; Notable for the following components: BUN 7 (*) Calcium 8.5 (*) All other components within normal limits URINALYSIS WITH MICROSCOPIC WITH CULTURE IF INDICATED - Abnormal; Notable for the following components: Specific [place] 1.047 (*) Blood, Urine Small (*) Nitrite, Urine Positive (*) Leukocyte Esterase, Urine Small (*) WBC UA 2-5 (*) RBC UA 2-5 (*) SQUAMOUS EPITHELIAL UA 15-25 (*) MUCUS UA Present (*) All other components within normal limits B TYPE NATRIURETIC PEPTIDE - Normal LIPASE - Normal PROTIME INR - Normal TROPONIN I - Normal ALCOHOL - Normal DRUGS OF ABUSE, SCREEN, URINE ED COURSE & MEDICAL DECISION MAKING Pertinent Labs & Imaging studies reviewed. (See chart for details) Nursing notes reviewed. Patient with what appears to be a mild head injury a couple days ago she had a headache and some numbness to her arm. They did a CT at [facility] which showed an incidental 2 mm internal carotid artery aneurysm. This appeared to been very discussed and referred with [facility] neurosurgeon. I called them again about this finding again on our CT study they stated that they needed to see the patient in a couple weeks but likely no surgical intervention wo uld be entertained. Patient has some ongoing headache and arm pain. We are treating her ar m pain with Neurontin and Flexeril. She is given further reassurance. She does not appear to be in acute distress at this time. Patient is otherwise stable. Patient encouraged to f ollow-up with her primary care physician and return for severe worsening symptoms. New Prescriptions CYCLOBENZAPRINE (FLEXERIL) 10 MG TABLET Take 1 tablet by mouth 3 times daily as needed for Muscle spasms. GABAPENTIN (NEURONTIN) 100 MG CAPSULE Take 2 capsules by mouth 3 times daily. HYDROCODONE-ACETAMINOPHEN (NORCO) 5-325 MG PER TABLET Take 1-2 tablets by mouth every 6 hours as needed for Pain. Discharge Instructions I discussed the internal carotid aneurysm with the neurosurgeon at [facility]. They recommend fo llow-up with appointment already made in [address] Schmidt. Likely no surgical interve ntion is indicated. Take pain medication and muscle relaxers as needed. FINAL IMPRESSION 1. Internal carotid aneurysm Portions of this chart may have been created with [employer] voice recognition software. Occasi onal wrong-word or sound-alike substitutions may have occurred due to the inherent avilez itations of voice recognition software. Please read the chart carefully and recognize, using context, where these substitutions have occurred Getachew Cain MD 04/09/[id number] Eliel enriquez RN - 04/09/2019 6:46 PM PDTPt reports headache that started three days ago. Pro gressively getting worse. Was seen at [facility] in [facility] and diagnosed with possib le aneurysm in the right carotid. Pt is reporting right sided weakness. Was told by [facility] on to follow up in another ER if she continued to have problems, otherwise to have a repeat CT in 6 months to one year. 6 :48 PM PDTdocumented in this encounter Plan of Treatment + +------+--------+ + + | Name | Type | Priori | Associated Diagnoses | Date/Time | | | | ty | | | + +------+--------+ + + | ED INFORMATION | ARMANDO | Routin | | 04/09/2019 6:22 PM | | EXCHANGE | | e | | PDT | + +------+--------+ + + documented as of this encounter Procedures + +--------+ + + + | Procedure Name | Priori | Date/Time | Associated Diagnosis | Comments | | | ty | | | | + +--------+ + + + | URINALYSIS WITH | STAT | 04/09/2019 | | Results for this | | MICROSCOPIC WITH | | 8:55 PM | | procedure are in the | | CULTURE IF INDICATED | | PDT | | results section. | + +--------+ + + + | DRUGS OF ABUSE, | STAT | 04/09/2019 | | Results for this | | SCREEN, URINE | | 8:55 PM | | procedure are in the | | | | PDT | | results section. | + +--------+ + + + | CT ANGIOGRAM HEAD | STAT | 04/09/2019 | | Results for this | | NECK | | 7:41 PM | | procedure are in the | | | | PDT | | results section. | + +--------+ + + + | CT CERVICAL SPINE WO | STAT | 04/09/2019 | | Results for this | | CONTRAST | | 7:41 PM | | procedure are in the | | | | PDT | | results section. | + +--------+ + + + | XR CHEST AP PORTABLE | STAT | 04/09/2019 | | Results for this | | | | 7:28 PM | | procedure are in the | | | | PDT | | results section. | + +--------+ + + + | TROPONIN I | Routin | 04/09/2019 | | Results for this | | | e | 7:15 PM | | procedure are in the | | | | PDT | | results section. | + +--------+ + + + | PROTIME INR | STAT | 04/09/2019 | | Results for this | | | | 7:15 PM | | procedure are in the | | | | PDT | | results section. | + +--------+ + + + | CBC WITH | STAT | 04/09/2019 | | Results for this | | DIFFERENTIAL | | 7:15 PM | | procedure are in the | | | | PDT | | results section. | + +--------+ + + + | B TYPE NATRIURETIC | STAT | 04/09/2019 | | Results for this | | PEPTIDE | | 7:15 PM | | procedure are in the | | | | PDT | | results section. | + +--------+ + + + | LIPASE | STAT | 04/09/2019 | | Results for this | | | | 7:15 PM | | procedure are in the | | | | PDT | | results section. | + +--------+ + + + | ALCOHOL | STAT | 04/09/2019 | | Results for this | | | | 7:15 PM | | procedure are in the | | | | PDT | | results section. | + +--------+ + + + | COMPREHENSIVE | STAT | 04/09/2019 | | Results for this | | METABOLIC PANEL | | 7:15 PM | | procedure are in the | | | | PDT | | results section. | + +--------+ + + + | ECG 12 LEAD | STAT | 04/09/2019 | | Results for this | | | | 7:10 PM | | procedure are in the | | | | PDT | | results section. | + +--------+ + + + | OXYGEN THERAPY | STAT | 04/09/2019 | | | | | | 7:02 PM | | | | | | PDT | | | + +--------+ + + + | ED INFORMATION | Routin | 04/09/2019 | | | | EXCHANGE | e | 6:22 PM | | | | | | PDT | | | + +--------+ + + + +---+--------+ | | | | | Proced | | | ure | | | Note - | | | Meir, | | | Lab In | | | | | | Hlseve | | | n - | | | | | | 2018 | | | 6:23 | | | PM PDT | | [...] | | | 9 | | | 18:21? | | | WATCHM | | | AN, | | | LIN | | | ?MRN: | | | [id number] | | | [id number] | | | riteri | | | [...] | | | St. | | | [place] | | | y | | | [...] | | | St. | | | [place] | | | y | | | [...] | | | St. | | | [place] | | | y | | | [...] | | | St. | | | [place] | | | y | | | [...] | | | St. | | | [place] | | | y | | | [...] | | | Center | | | 1 0 | | | [facility] [place] | | | y | | | Hospit | | | al 7 0 | | | Total | | | 8 0 | | | Note: | | [...] | | | int | | | Aug | | | [...] | | | pain | | | Aug | | | 25, | | | 2019 | | | [facility] | | | [place] | | | y H. | | | [place] | | | [place] | | | [facility] | | | ncy | | | Chief | | | Compla | | | int: R | | | HAND | | | PAIN/N | | | ON | | | INJURY | | | May | | | 3, | | | 2019 | | | [facility] | [facility] | | | [place] | | | y H. | | [...] | | | St. | | | [place] | | | y H. | | [...] | | | St. | | | [place] | | | y H. | | [...] | | | St. | | | [place] | | | y H. | | [...] | | | St. | | | [place] | | | y H. | | [...] | | | St. | | | [place] | | | y H. | | [...] | | | ovider | | | PRC | | | Type | | | Phone | | | [...] M.D. | | | | | | [employer] | | | al | | | [...] | | | [facility] | | | [facility] | | | [facility] | | | [facility] | | | | | | Primar | | | [...] | | | [email or web address] | | | /patie | | | [phone] | | | [id number] | | | [id number] | | | [phone] | | | [phone] | | | [id number] | | | [phone] | | | PLEASE | | | [...] | | | ed.? | | | 2019 | | | [employer]le[employer] | | | tive | | | Medica | | | l | | | Techno | | | logies | | | , Inc. | | | - | | | [email or web address] | | | llecti | | | vemedi | | | [email or web address] | | | m | +---+--------+ documented in this encounter Results Drugs of Abuse, Screen, Urine (04/09/2019 8:55 PM PDT) + + + + + + | Component | Value | Ref Range | Performed | Pathologist | | | | | At | Signature | + + + + + + | Amphetamine | Negative | Negative | [facility] | | | Screen, | | | [facility] | | | Urine | | | MEDICAL | | | | | | CENTER - | | | | | | LABORATORY | | + + + + + + | Barbiturate | Negative | Negative | [facility] | | | s Screen, | | | [facility] | | | Urine | | | MEDICAL | | | | | | CENTER - | | | | | | LABORATORY | | + + + + + + | Benzodiazep | Positive (A) | Negative | [facility] | | | kirby | | | [facility] | | | Screen, | | | MEDICAL | | | Urine | | | CENTER - | | | | | | LABORATORY | | + + + + + + | Cannabinoid | Negative | Negative | [facility] | | | s Screen, | | | [facility] | | | Urine | | | MEDICAL | | | | | | CENTER - | | | | | | LABORATORY | | + + + + + + | Cocaine | Negative | Negative | [facility] | | | Screen, | | | [facility] | | | Urine | | | MEDICAL | | | | | | CENTER - | | | | | | LABORATORY | | + + + + + + | Methadone | Negative | Negative | [facility] | | | Screen, | | | [facility] | | | Urine | | | MEDICAL | | | | | | CENTER - | | | | | | LABORATORY | | + + + + + + | Opiates | Positive (A) | Negative | [facility] | | | Screen, | | | [facility] | | | Urine | | | MEDICAL | | | | | | CENTER - | | | | | | LABORATORY | | + + + + + + + + | Specimen | + + | Urine - Urine | | specimen obtained by | | clean catch | | procedure (specimen) | + + + + + + + | Performing | Address | City/State/Zipcode | Phone Number | | Organization | | | | + + + + + | [facility] | [address] | [place] | [phone] | | [facility] | | [id number] | | | - LABORATORY | | | | + + + + + Urinalysis with Microscopic with Culture if Indicated (04/09/2019 8:55 PM PDT) + + + + + + | Component | Value | Ref Range | Performed | Pathologist | | | | | At | Signature | + + + + + + | Color, | Yellow | Light Yellow, | [facility] | | | Urine | | Yellow, Straw | [facility] | | | | | | MEDICAL | | | | | | CENTER - | | | | | | LABORATORY | | + + + + + + | Clarity, | Clear | Clear | [facility] | | | Urine | | | [facility] | | | | | | MEDICAL | | | | | | CENTER - | | | | | | LABORATORY | | + + + + + + | pH, Urine | 7.0 | 5.0 - 8.0 | [facility] | | | | | | [facility] | | | | | | MEDICAL | | | | | | CENTER - | | | | | | LABORATORY | | + + + + + + | Specific | 1.047 (H) | 1.001 - 1.030 | [facility] | | | [place], | | | [facility] | | | Urine | | | MEDICAL | | | | | | CENTER - | | | | | | LABORATORY | | + + + + + + | Protein, | Negative | Negative | [facility] | | | Urine | | | [facility] | | | | | | MEDICAL | | | | | | CENTER - | | | | | | LABORATORY | | + + + + + + | Blood, | Small (A) | Negative | [facility] | | | Urine | | | [facility] | | | | | | MEDICAL | | | | | | CENTER - | | | | | | LABORATORY | | + + + + + + | Glucose, | Negative | Negative | [facility] | | | Urine | | | [facility] | | | | | | MEDICAL | | | | | | CENTER - | | | | | | LABORATORY | | + + + + + + | Ketones, | Negative | Negative | [facility] | | | Urine | | | [facility] | | | | | | MEDICAL | | | | | | CENTER - | | | | | | LABORATORY | | + + + + + + | Bilirubin, | Negative | Negative | [facility] | | | Urine | | | [facility] | | | | | | MEDICAL | | | | | | CENTER - | | | | | | LABORATORY | | + + + + + + | Nitrite, | Positive (A) | Negative | [facility] | | | Urine | | | [facility] | | | | | | MEDICAL | | | | | | CENTER - | | | | | | LABORATORY | | + + + + + + | Leukocyte | Small (A) | Negative | [facility] | | | Esterase, | | | [facility] | | | Urine | | | MEDICAL | | | | | | CENTER - | | | | | | LABORATORY | | + + + + + + | Urobilinoge | Negative | 0.2 mg/dL, 1.0 | [facility] | | | n, Urine | | mg/dL, Negative | [facility] | | | | | | MEDICAL | | | | | | CENTER - | | | | | | LABORATORY | | + + + + + + | White Blood | 2-5 (A) | 0 - 2 /HPF | [facility] | | | Cells, | | | [facility] | | | Urine | | | MEDICAL | | | | | | CENTER - | | | | | | LABORATORY | | + + + + + + | Red Blood | 2-5 (A) | 0 - 2 /HPF | [facility] | | | Cells, | | | [facility] | | | Urine | | | MEDICAL | | | | | | CENTER - | | | | | | LABORATORY | | + + + + + + | Squamous | 15-25 (A) | 0 - 2 /LPF | [facility] | | | Epithelial | | | [facility] | | | Cells, | | | MEDICAL | | | Urine | | | CENTER - | | | | | | LABORATORY | | + + + + + + | Bacteria, | Negative | Negative /HPF | [facility] | | | Urine | | | [facility] | | | | | | MEDICAL | | | | | | CENTER - | | | | | | LABORATORY | | + + + + + + | Mucus, | Present (A) | Negative /LPF | [facility] | | | Urine | | | [facility] | | | | | | MEDICAL | | | | | | CENTER - | | | | | | LABORATORY | | + + + + + + | Urine | Urine Culture Not | | [facility] | | | Comment | Indicated | | [facility] | | | | | | MEDICAL | | | | | | CENTER - | | | | | | LABORATORY | | + + + + + + + + | Specimen | + + | Urine - Urine | | specimen obtained by | | clean catch | | procedure (specimen) | + + + + + + + | Performing | Address | City/State/Zipcode | Phone Number | | Organization | | | | + + + + + | [facility] | [address] | [place] | [phone] | | [facility] | | [address] | | | - LABORATORY | | | | + + + + + CT Angiogram Head Neck w Contrast (04/09/2019 7:41 PM PDT) + + | Specimen | + + | | + + + + + | Narrative | Performed At | + + + | UNENHANCED AND ENHANCED CTA HEAD AND ENHANCED CTA NECK WITH | [facility] | | MULTIPLANAR REFORMATIONS 04/09/2019 7:36 PM CLINICAL | | | HISTORY: Suspect Acute Stroke COMPARISON: Unenhanced | | | cervical CT from the same day TECHNIQUE: Axial unenhanced images | | | were performed through the head. Following the uneventful | | | intravenous administration of 105 mL Omnipaque-350 contrast, axial | | | images are performed from the aortic arch through the [place] | | | [place]. Multiplanar reformations were also performed. HEAD | | | FINDINGS: There is early cerebral atrophy. Clay-white | | | differentiation is maintained. The cerebral parenchyma, ventricles, | | | brainstem and cerebellum are otherwise unremarkable. There is no | | | mass effect, abnormal parenchymal enhancement, evidence of | | | intracranial hemorrhage or extra-axial abnormality. There are early | | | degenerative changes of the right temporomandibular joint. The | | | bones and soft tissues, including the paranasal sinuses, middle ear | | | cavities and mastoid air cells, are otherwise unremarkable. A 2 | | | mm aneurysm is suspected along the posterior margin of the tortuous | | | cavernous segment of the right internal carotid artery. The distal | | | internal carotid arteries are otherwise widely patent and | | | unremarkable along with the basilar artery, bilateral superior | | | cerebellar arteries and bilateral anterior, middle and posterior | | | cerebral arteries. Patent anterior and left posterior communicating | | | arteries are visible. Patent anterior and posterior inferior | | | cerebellar arteries are also visible. No vessel occlusion, stenosis | | | or dissection is apparent. NECK FINDINGS: The aortic arch is | | | widely patent. There is variant common origin of the | | | brachiocephalic and left common carotid arteries and direct origin of | | | the left vertebral artery from the arch, proximal to the subclavian | | | artery origin. The brachiocephalic artery, bilateral subclavian | | | arteries and bilateral common, internal and external carotid arteries | | | are widely patent allowing for motion artifact at the | | | brachiocephalic artery origin. Vertebral arteries are codominant | | | and widely patent. No vessel occlusion, stenosis or dissection is | | | apparent. The venous structures appear patent and unremarkable. | | | The pharynx, larynx and trachea are unremarkable, along with the | | | thyroid, submandibular and parotid glands. No pathologic lymph node | | | enlargement is evident. The imaged upper lungs are clear. There | | | is reversal of the cervical lordosis. Osseous structures are | | | otherwise unremarkable. IMPRESSION - 1. 2 MM ANEURYSM | | | SUSPECTED ALONG THE POSTERIOR MARGIN OF THE CAVERNOUS RIGHT INTERNAL | | | CAROTID ARTERY. THE CERVICAL AND INTRACRANIAL ARTERIAL SYSTEMS ARE | | | OTHERWISE WIDELY PATENT. 2. EARLY CEREBRAL ATROPHY WITHOUT | | | EVIDENCE OF ACUTE INTRACRANIAL DISEASE. Images were provided for | | | interpretation on April 09, 2019 at 1950 hours. Results were | | | finalized at 2005 hours. Dictated and Signed by: Devin Jenkins MD | | | Electronically signed: 04/09/2019 8:08 PM | | + + + + + | Procedure Note | + + | Meir, Rad Results In - 04/09/2019 8:11 PM PDT UNENHANCED AND ENHANCED CTA HEAD AND | | ENHANCED CTA NECK WITH MULTIPLANARREFORMATIONS 04/09/2019 7:36 PMCLINICAL HISTORY: | | Suspect Acute Stroke COMPARISON: Unenhanced cervical CT from the same dayTECHNIQUE: | | Axial unenhanced images were performed through the head. Followingthe uneventful | | intravenous administration of 105 mL Omnipaque-350 contrast,axial images are performed | | from the aortic arch through the [place].Multiplanar reformations were also | | performed.HEAD FINDINGS: There is early cerebral atrophy. Clay-white differentiation | | ismaintained. The cerebral parenchyma, ventricles, brainstem and cerebellum | | areotherwise unremarkable. There is no mass effect, abnormal parenchymalenhancement, | | evidence of intracranial hemorrhage or extra-axial abnormality. There are early | | degenerative changes of the right temporomandibular joint. Thebones and soft tissues, | | including the paranasal sinuses, middle ear cavities andmastoid air cells, are otherwise | | unremarkable.A 2 mm aneurysm is suspected along the posterior margin of the | | tortuouscavernous segment of the right internal carotid artery. The distal | | internalcarotid arteries are otherwise widely patent and unremarkable along with | | thebasilar artery, bilateral superior cerebellar arteries and bilateral anterior,middle | | and posterior cerebral arteries. Patent anterior and left posteriorcommunicating | | arteries are visible. Patent anterior and posterior inferiorcerebellar arteries are | | also visible. No vessel occlusion, stenosis ordissection is apparent.NECK FINDINGS: | | The aortic arch is widely patent. There is variant commonorigin of the brachiocephalic | | and left common carotid arteries and direct originof the left vertebral artery from the | | arch, proximal to the subclavian arteryorigin. The brachiocephalic artery, bilateral | | subclavian arteries and bilateralcommon, internal and external carotid arteries are | | widely patent allowing formotion artifact at the brachiocephalic artery origin. | | Vertebral arteries arecodominant and widely patent. No vessel occlusion, stenosis or | | dissection isapparent. The venous structures appear patent and unremarkable.The | | pharynx, larynx and trachea are unremarkable, along with the thyroid,submandibular and | | parotid glands. No pathologic lymph node enlargement isevident. The imaged upper lungs | | are clear. There is reversal of the cervicallordosis. Osseous structures are | | otherwise unremarkable.IMPRESSION -1. 2 MM ANEURYSM SUSPECTED ALONG THE POSTERIOR | | MARGIN OF THE CAVERNOUS RIGHTINTERNAL CAROTID ARTERY. THE CERVICAL AND INTRACRANIAL | | ARTERIAL SYSTEMS AREOTHERWISE WIDELY PATENT.2. EARLY CEREBRAL ATROPHY WITHOUT EVIDENCE | | OF ACUTE INTRACRANIAL DISEASE.Images were provided for interpretation on April 09, 2019 | | at 1950 hours. Results were finalized at 2004 hours.Dictated and Signed by: Devin | | MD Gregory Electronically signed: 04/09/2019 8:08 PM | |codominant and widely patent. No vessel occlusion, stenosis or dissection is | |apparent. The venous structures appear patent and unremarkable. | | | |The pharynx, larynx and trachea are unremarkable, along with the thyroid, | |submandibular and parotid glands. No pathologic lymph node enlargement is | |evident. The imaged upper lungs are clear. There is reversal of the cervical | |lordosis. Osseous structures are otherwise unremarkable. | | | |IMPRESSION - | | | |1. 2 MM ANEURYSM SUSPECTED ALONG THE POSTERIOR MARGIN OF THE CAVERNOUS RIGHT | |INTERNAL CAROTID ARTERY. THE CERVICAL AND INTRACRANIAL ARTERIAL SYSTEMS ARE | |OTHERWISE WIDELY PATENT. | | | |2. EARLY CEREBRAL ATROPHY WITHOUT EVIDENCE OF ACUTE INTRACRANIAL DISEASE. | | | |Images were provided for interpretation on April 09, 2019 at 1950 hours. | |Results were finalized at 2004 hours. | | | |Dictated and Signed by: Devin Jenkins MD | | Electronically signed: 04/09/2019 8:08 PM | + + + +---------+ + + | Performing | Address | City/State[facility] | Phone Number | | Organization | | | | + +---------+ + + | [facility] | | | | + +---------+ + + CT Cervical Spine wo Contrast (04/09/2019 7:41 PM PDT) + + | Specimen | + + | | + + + + + | Narrative | Performed At | + + + | UNENHANCED CT CERVICAL SPINE 04/09/2019 7:36 PM CLINICAL | [facility] | | HISTORY: HEADACHE (ADULT - NEW ONSET OR NEW SYMPTOMS) | | | COMPARISON: None TECHNIQUE: Axial unenhanced images are | | | performed through the cervical spine, along with coronal and sagittal | | | reformations. FINDINGS: There is reversal of the cervical | | | lordosis. Craniocervical alignment and cervical vertebral height, | | | disc spaces and alignment are otherwise maintained without evident | | | fracture or subluxation. No bony central canal or foraminal | | | stenosis is evident. Imaged lung apices are clear. Soft tissue | | | structures are unremarkable. IMPRESSION - 1. REVERSAL OF | | | THE CERVICAL LORDOSIS. Images were provided for interpretation on | | | April 09, 2019 at 1950 hours. Results were finalized at 2009 hours. | | | Dictated and Signed by: Devin Jenkins MD Electronically | | | signed: 04/09/2019 8:11 PM | | + + + + + | Procedure Note | + + | Meir, Rad Results In - 04/09/2019 8:14 PM PDT UNENHANCED CT CERVICAL SPINE 04/09/2019 | | 7:36 PM CLINICAL HISTORY: HEADACHE (ADULT - NEW ONSET OR NEW SYMPTOMS) COMPARISON: | | None TECHNIQUE: Axial unenhanced images are performed through the cervical spine,along | | with coronal and sagittal reformations. FINDINGS: There is reversal of the cervical | | lordosis. Craniocervical alignmentand cervical vertebral height, disc spaces and | | alignment are otherwisemaintained without evident fracture or subluxation. No bony | | central canal orforaminal stenosis is evident. Imaged lung apices are clear. Soft | | tissuestructures are unremarkable. IMPRESSION - 1. REVERSAL OF THE CERVICAL | | LORDOSIS.Images were provided for interpretation on April 09, 2019 at 1950 hours. | | Results were finalized at 2009 hours.Dictated and Signed by: Devin Jenkins MD | | Electronically signed: 04/09/2019 8:11 PM | |maintained without evident fracture or subluxation. No bony central canal or | |foraminal stenosis is evident. Imaged lung apices are clear. Soft tissue | |structures are unremarkable. | | | |IMPRESSION - | |1. REVERSAL OF THE CERVICAL LORDOSIS. | | | |Images were provided for interpretation on April 09, 2019 at 1950 hours. | |Results were finalized at 2009 hours. | | | |Dictated and Signed by: Devin Jenkins MD | | Electronically signed: 04/09/2019 8:11 PM | + + + +---------+ + + | Performing | Address | City/State/Zipcode | Phone Number | | Organization | | | | + +---------+ + + | [facility] | | | | + +---------+ + + XR Chest AP Portable (04/09/2019 7:28 PM PDT) + + | Specimen | + + | | + + + + + | Narrative | Performed At | + + + | SINGLE AP CHEST 04/09/2019 7:28 PM CLINICAL HISTORY: HEADACHE | [facility] | | (ADULT - NEW ONSET OR NEW SYMPTOMS) COMPARISON: None available | | | FINDINGS: The cardiomediastinal silhouette and pulmonary vasculature | | | are unremarkable. The lungs are clear, without visible pneumothorax | | | or pleural effusion. The bones and soft tissues are unremarkable. | | | IMPRESSION - 1. NO RADIOGRAPHIC EVIDENCE OF ACTIVE DISEASE | | | IN THE CHEST. Dictated and Signed by: Devin Jenkins MD | | | Electronically signed: 04/09/2019 10:02 PM | | + + + + + | Procedure Note | + + | Meir, Rad Results In - 04/09/2019 10:05 PM PDT SINGLE AP CHEST 04/09/2019 7:28 PM | | | | CLINICAL HISTORY: HEADACHE (ADULT - NEW ONSET OR NEW SYMPTOMS) | | | | COMPARISON: None available | | | | FINDINGS: The cardiomediastinal silhouette and pulmonary vasculature are | | unremarkable. The lungs are clear, without visible pneumothorax or pleural | | effusion. The bones and soft tissues are unremarkable. | | | | IMPRESSION - | | | | 1. NO RADIOGRAPHIC EVIDENCE OF ACTIVE DISEASE IN THE CHEST. | | | | Dictated and Signed by: Devin Jenkins MD | | Electronically signed: 04/09/2019 10:02 PM | + + + +---------+ + + | Performing | Address | City/State/Zipcode | Phone Number | | Organization | | | | + +---------+ + + | [facility] | | | | + +---------+ + + Ethanol (04/09/2019 7:15 PM PDT) + +-------+ + + + | Component | Value | Ref Range | Performed | Pathologist | | | | | At | Signature | + +-------+ + + + | ALCOHOL, | <6 | <=6 mg/dL | [facility] | | | SERUM/PLASM | | | [facility] | | | A | | | MEDICAL | | | [...] + | [facility] | [address] | [facility] | [phone] | | [facility] | | [address] | | | - LABORATORY | | | | + + + + + Troponin I (04/09/2019 7:15 PM PDT) + + + + + + | Component | Value | Ref Range | Performed | Pathologist | | | | | At | Signature | + + + + + + | Troponin I | <0.01Comment: | <0.06 ng/mL | [facility] | | | | Comment:Reference | | [facility] | | | | Ranges: 0.00-0.06 = | | MEDICAL | | | | NORMAL >0.06 = | | CENTER - | | | | SUSPICIOUS FOR | | LABORATORY | | | | MYOCARDIAL DAMAGE NOTE: | | | | | | Values greater than | | | | | | 0.78 ng/mL have been | | | | | | shown to be strongly | | | | | | associated with acute | | | | | | myocardial infarction. | | | | | | [employer] [place] [employer] | | | | | | [employer] ([employer]) | | | | | | recommends a decision | | | | | | limit of 0.06 ng/mL for | | | | | | this assay. Results | | | | | | greater than 0.06 can | | | | | | reflect a pre-infarct | | | | | | acute coronary syndrome, | | | | | | but can also reflect | | | | | | myocardial necrosis or | | | | | | injury that is not due | | | | | | to coronary artery | | | | | | disease. Some of these | | | | | | causes are sepsis, | | | | | | hypocolemia, atrial | | | | | | fibrillation, heart | | | | | | failure, pulmonary | | | | | | embolism, myocarditis, | | | | | | myocardial contusion, | | | | | | and renal failure. The | | | | | | diagnosis of myocardial | | | | | | infarction should be | | | | | | based on a combination | | | | | | of the patient's | | | | | | clinical presentation | | | | | | and the clinical | | | | | | laboratory test results | | | | | | (especially serial | | | | | | troponin levels). | | | | + + + + + + + + | Specimen | + + | Blood | + + + + + + + | Performing | Address | City/State/Zipcode | Phone Number | | Organization | | | | + + + + + | [facility] | [address] | [place] | [phone] | | [facility] | | [address] | | | - LABORATORY | | | | + + + + + Protime INR (04/09/2019 7:15 PM PDT) + + + + + + | Component | Value | Ref Range | Performed | Pathologist | | | | | At | Signature | + + + + + + | Prothrombin | 12.8 | 11.3 - 13.9 | [facility] | | | Time | | seconds | [facility] | | | | | | MEDICAL | | | | | | CENTER - | | | | | | LABORATORY | | + + + + + + | INR | 1.0Comment: Usual Oral | 0.9 - 1.1 | [facility] | | | | Anticoagulation Range: | | [facility] | | | | 2.0 - 3.0High | | MEDICAL | | | | Level Oral | | CENTER - | | | | Anticoagulation Range: | | LABORATORY | | | | 2.5 - 3.5 | | | | + + + + + + + + | Specimen | + + | Blood | + + + + + + + | Performing | Address | City/State/Zipcode | Phone Number | | Organization | | | | + + + + + | [facility] | [address] | [place] | [phone] | | [facility] | | [address] | | | - LABORATORY | | | | + + + + + Lipase (04/09/2019 7:15 PM PDT) + + + + + + | Component | Value | Ref Range | Performed | Pathologist | | | | | At | Signature | + + + + + + | Lipase | 33Comment: New method in | 12 - 53 U/L | [facility] | | | | use as of October 11 | | [facility] | | | | 2018. Check reference | | MEDICAL | | | | range for changes.Some | | CENTER - | | | | analytes show | | LABORATORY | | | | significant variation | | | | | | from the previous | | | | | | method.It may be | | | | | | necessary to set a new | | | | | | baseline for this | | | | | | analyte. | | | | + + + + + + + + | Specimen | + + | Blood | + + + + + + + | Performing | Address | City/State/Zipcode | Phone Number | | Organization | | | | + + + + + | [facility] | [address] | [place] | [phone] | | [facility] | | [address] | | | - LABORATORY | | | | + + + + + Comprehensive Metabolic Panel (04/09/2019 7:15 PM PDT) + + + + + + | Component | Value | Ref Range | Performed | Pathologist | | | | | At | Signature | + + + + + + | Na | 140 | 136 - 145 | [facility] | | | | | mmol/L | [facility] | | | | | | MEDICAL | | | | | | CENTER - | | | | | | LABORATORY | | + + + + + + | K | 3.4 | 3.4 - 5.1 | [facility] | | | | | mmol/L | [facility] | | | | | | MEDICAL | | | | | | CENTER - | | | | | | LABORATORY | | + + + + + + | Cl | 106 | 98 - 107 mmol/L | [facility] | | | | | | [facility] | | | | | | MEDICAL | | | | | | CENTER - | | | | | | LABORATORY | | + + + + + + | CO2 | 27 | 20 - 31 mmol/L | [facility] | | | | | | [facility] | | | | | | MEDICAL | | | | | | CENTER - | | | | | | LABORATORY | | + + + + + + | Anion Gap | 7 | 3 - 16 mmol/L | [facility] | | | | | | [facility] | | | | | | MEDICAL | | | | | | CENTER - | | | | | | LABORATORY | | + + + + + + | Glucose | 88 | 60 - 106 mg/dL | [facility] | | | | | | [facility] | | | | | | MEDICAL | | | | | | CENTER - | | | | | | LABORATORY | | + + + + + + | BUN | 7 (L) | 9 - 23 mg/dL | [facility] | | | | | | [facility] | | | | | | MEDICAL | | | | | | CENTER - | | | | | | LABORATORY | | + + + + + + | Creatinine | 0.66 | 0.55 - 1.02 | [facility] | | | | | mg/dL | [facility] | | | | | | MEDICAL | | | | | | CENTER - | | | | | | LABORATORY | | + + + + + + | eGFR, | >60Comment: GLOMERULAR | >=60 | [facility] | | | non- | FILTRATION | mL/min/1.73m2 | [facility] | | | [place] | RATE,ESTIMATED | | MEDICAL | | | | mL/min/[id number] than | | CENTER - | | [...] 8.5 (L) | 8.7 - 10.4 | [facility] | | | | | mg/dL | [facility] | | | | | | MEDICAL | | | | | | CENTER - | | | | | | LABORATORY | | + + + + + + | Albumin | 3.9 | 3.2 - 4.8 g/dL | [facility] | | | | | | [facility] | | | | | [facility]ICAL | | | | | | CENTER - | | | | | | LABORATORY | | + + + + + + | Bilirubin | 0.3 | 0.3 - 1.2 mg/dL | [facility] | | | Total | | | [facility] | | | | | | [facility]ICAL | | | | | | CENTER - | | | | | | LABORATORY | | + + + + + + | Total | 6.5 | 5.7 - 8.2 g/dL | [facility] | | | Protein | | | [facility] | | | | | | [facility]ICAL | | | | | | CENTER - | | | | | | LABORATORY | | + + + + + + | AST | 17 | 0 - 34 U/L | [facility] | | | | | | [facility] | | | | | | MEDICAL | | | | | | CENTER - | | | | | | LABORATORY | | + + + + + + | ALT | 10 | 10 - 49 U/L | [facility] | | | | | | [facility] | | | | | | MEDICAL | | | | | | CENTER - | | | | | | LABORATORY | | + + + + + + | Alkaline | 54 | 46 - 116 U/L | [facility] [...] + + + + | BUN/Creatin | 10.6 | | [facility] | | | ine [...] + | [facility] | [address] | [place] | [phone] | | [facility] | | [address] | | | - LABORATORY | | | | + + + + + CBC with Differential (04/09/2019 7:15 PM PDT) + + + + + + | Component | Value | Ref Range | Performed | Pathologist | | | | | At | Signature | + + + + + + | White Blood | 4.2 | 4.0 - 11.0 K/uL | [facility] | | | Cells | | | [facility] | | | | | | MEDICAL | | | | | | CENTER - | | | | | | LABORATORY | | + + + + + + | Red Blood | 3.63 (L) | 3.70 - 5.20 | [facility] | | | Cells | | M/uL | [facility] | | | | | | MEDICAL | | | | | | CENTER - | | | | | | LABORATORY | | + + + + + + | Hemoglobin | 11.2 (L) | 11.5 - 16.0 | [facility] | | | | | g/dL | [facility] | | | | | | MEDICAL | | | | | | CENTER - | | | | | | LABORATORY | | + + + + + + | Hematocrit | 32.4 (L) | 34.0 - 47.0 % | [facility] | | | | | | [facility] | | | | | | MEDICAL | | | | | | CENTER - | | | | | | LABORATORY | | + + + + + + | MCV | 89.3 | 83.0 - 101.0 fL | [facility] | | | | | | [facility] | | | | | | MEDICAL | | | | | | CENTER - | | | | | | LABORATORY | | + + + + + + | MCH | 30.9 | 28.0 - 35.0 pg | [facility] | | | | | | [facility] | | | | | | MEDICAL | | | | | | CENTER - | | | | | | LABORATORY | | + + + + + + | MCHC | 34.6 | 32.0 - 36.0 | [facility] | | | | | g/dL | [facility] | | | | | | MEDICAL | | | | | | CENTER - | | | | | | LABORATORY | | + + + + + + | RDW-CV | 12.1 | <15.0 % | [facility] | | | | | | [facility] | | | | | | MEDICAL | | | | | | CENTER - | | | | | | LABORATORY | | + + + + + + | RDW-SD | 39.7 | 35.1 - 46.3 fL | [facility] | | | | | | [facility] | | | | | | MEDICAL | | | | | | CENTER - | | | | | | LABORATORY | | + + + + + + | Platelet | 322 | 140 - 440 K/uL | [facility] | | | Count | | | [facility] | | | | | | MEDICAL | | | | | | CENTER - | | | | | | LABORATORY | | + + + + + + | MPV | 9.2 | 6.5 - 12.4 fL | [facility] | | | | | | [facility] | | | | | | MEDICAL | | | | | | CENTER - | | | | | | LABORATORY | | + + + + + + | % | 31.6 (L) | 45.0 - 82.0 % | [facility] | | | Neutrophils | | | [facility] | | | | | | MEDICAL | | | | | | CENTER - | | | | | | LABORATORY | | + + + + + + | % | 49.4 (H) | 20.0 - 45.0 % | [facility] | | | Lymphocytes | | | [facility] | | | | | | MEDICAL | | | | | | CENTER - | | | | | | LABORATORY | | + + + + + + | % Monocytes | 6.4 | 4.0 - 12.0 % | [facility] | | | | | | [facility] | | | | | | MEDICAL | | | | | | CENTER - | | | | | | LABORATORY | | + + + + + + | % | 11.6 (H) | 0.0 - 5.0 % | [facility] | | | Eosinophils | | | [facility] | | | | | | MEDICAL | | | | | | CENTER - | | | | | | LABORATORY | | + + + + + + | % Basophils | 1.0 | 0.0 - 1.0 % | [facility] | | | | | | [facility] | | | | | | MEDICAL | | | | | | CENTER - | | | | | | LABORATORY | | + + + + + + | % Immature | 0.0Comment: For | 0.0 - 0.4 % | [facility] | | | Granulocyte | patients, use the | | [facility] | | | s | special reference ranges | | MEDICAL | | | | listed below. | | CENTER - | | | | | | LABORATORY | | + + + + + + | Absolute | 1.33 (L) | 1.80 - 8.50 | [facility] | | | Neutrophils | | K/uL | [facility] | | | | | | MEDICAL | | | | | | CENTER - | | | | | | LABORATORY | | + + + + + + | Absolute | 2.08 | 0.60 - 3.20 | [facility] | | | Lymphocytes | | K/uL | [facility] | | | | | | MEDICAL | | | | | | CENTER - | | | | | | LABORATORY | | + + + + + + | Absolute | 0.27 | 0.00 - 1.00 | [facility] | | | Monocytes | | K/uL | [facility] | | | | | | MEDICAL | | | | | | CENTER - | | | | | | LABORATORY | | + + + + + + | Absolute | 0.49 (H) | 0.00 - 0.40 | [facility] | | | Eosinophils | | K/uL | [facility] | | | | | | MEDICAL | | | | | | CENTER - | | | | | | LABORATORY | | + + + + + + | Absolute | 0.04 | 0.00 - 0.10 | [facility] | | | Basophils | | K/uL | [facility] | | | | | | MEDICAL | | | | | | CENTER - | | | | | | LABORATORY | | + + + + + + | Absolute | 0.00Comment: For | 0.00 - 0.03 | [facility] [...] | | | | | WBCs | [facility] | | | | [...] ranges: Trim. Absolute (K/uL) Percentage (%) | [facility] | | 1st 0.003-0.091 K/uL 0.0-0.9% 2nd 0.007-0.247 K/uL | [facility] | | 0.1-2.0% 3rd 0.018-0.456 K/uL 0.1-2.0% | - LABORATORY | + + + + + + + + | Performing | Address | City/State/Zipcode | Phone Number | | Organization | | | | + + + + + | [facility] | [address] | [place] | [phone] | | [facility] | | [address] | | | - LABORATORY | | | | + + + + + B Type Natriuretic Peptide (04/09/2019 7:15 PM PDT) + +-------+ + + + | Component | Value | Ref Range | Performed | Pathologist | | | | | At | Signature | + +-------+ + + + | BNP | 25 | <100 pg/mL | [facility] | | | | | | [facility] | | | | | [...] [address] | [facility] | [phone] | | [facility] | | [address] | | | - LABORATORY | | | | + + + + + ECG 12 lead (04/09/2019 7:10 PM PDT) + + + + + + | Component | Value | Ref Range | Performed | Pathologist | | | | | At | Signature | + + + + + + | VENTRICULAR | 74 | BPM | [facility] | | | RATE EKG | | | | | + + + + + + | ATRIAL RATE | 74 | BPM | [facility] | | + + + + + + | P-R | 138 | ms | [facility] | | | INTERVAL | | | | | + + + + + + | QRS | 90 | ms | [facility] | | | DURATION | | | | | + + + + + + | Q-T | 412 | ms | [facility] | | | INTERVAL | | | | | + + + + + + | Q-T | 457 | ms | [facility] | | | INTERVAL | | | | | | (CORRECTED) | | | | | + + + + + + | P WAVE AXIS | 39 | degrees | [facility] | | + + + + + + | QRS AXIS | -45 | degrees | [facility] | | + + + + + + | T AXIS | 40 | degrees | [facility] | | + + + + + + | INTERPRETAT | Normal sinus rhythmRSR' | | [facility] | | | ION TEXT | or QR pattern in V1 | | | | | | suggests right | | | | | | ventricular conduction | | | | | | delayLeft anterior | | | | | | fascicular blockAbnormal | | | | | | ECGNo previous ECGs | | | | | | availableConfirmed by | | | | | | KRISTEL PILLAI MD ([id number]) | | | | | | on 04/10/2019 6:15:47 AM | | | | + + + + + + + + | Specimen | + + | | + + + + + | Narrative | Performed At | + + + | | | + + + + +---------+ + + | Performing | Address | City/State/Zipcode | Phone Number | | Organization | | | | + +---------+ + + | [facility] | | | | + +---------+ + + documented in this encounter Visit Diagnoses + + | Diagnosis | + + | 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 | + + documented in this encounter Administered Medications + +--------+ +-------+------+------+ | Medication Order | MAR | Action | Dose | Rate | Site | | | Action | Date | | | | + +--------+ +-------+------+------+ | cyclobenzaprine (FLEXERIL) | Given | 04/09/20 | 10 mg | | | | tablet 10 mg 10 mg, Oral, ONCE, | | 19 9:34 | | | | | 04/09/19 at 2120, For 1 dose | | PM PDT | | | | + +--------+ +-------+------+------+ +---+---+ | | | +---+---+ + +-------+ +---------+---+---+ | iohexol (OMNIPAQUE 350) 350 | Given | 04/09/20 | 105 mLs | | | | mg/mL injection 105 mL 105 mL, | | 19 7:44 | | | | | Intravenous, ONCE PRN, Other, | | PM PDT | | | | | Starting 04/09/19 at 1941, For | | | | | | | 1 dose, Cat Scanner | | | | | | + +-------+ +---------+---+---+ +---+---+ | | | +---+---+ + +-------+ +------+---+---+ | morphine injection 4 mg 4 mg, | Given | 04/09/20 | 4 mg | | | | Intravenous, ONCE, 04/09/19 at | | 19 7:21 | | | | | 1920, For 1 dose | | PM PDT | | | | + +-------+ +------+---+---+ +---+---+ | | | +---+---+ + +-------+ +------+---+---+ | prochlorperazine (COMPAZINE) | Given | 04/09/20 | 5 mg | | | | injection 5 mg 5 mg, | | 19 7:22 | | | | | Intravenous, EVERY 6 HOURS PRN, | | PM PDT | | | | | Nausea, Vomiting, Starting Mon | | | | | | | 04/09/19 at 1917 | | | | | | + +-------+ +------+---+---+ +---+---+ | | | +---+---+ + +------+ +--------+-------+---+ | sodium chloride 0.9% (NS) bolus | Push | 04/09/20 | 75 mLs | 4500 | | | 75 mL 75 mL, Intravenous, | | 19 7:44 | | mL/hr | | | Administer over 1 Minutes, ONCE | | PM PDT | | | | | PRN, for contrast study, Starting | | | | | | | 04/09/19 at 1944, For 1 dose, | | | | | | | May infuse at a different rate | | | | | | | per protocol., Cat Scanner | | | | | | + +------+ +--------+-------+---+ +---+---+ | | | +---+---+ documented in this encounter
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
--- OUTSIDE RECORDS SUMMARY | ~2020-05-18 | XMS | Encounter Summary ---
Demographics + + + | Address | [address] | | | [place] [address] | + + + | Home Phone [...] + + + | Author | [facility] | + + + | Organization | [facility] | + + + | Address | Unknown | + + + | Phone | Unavailable | + + + Support + + +---------+ + | Name | Relationship | Address | Phone | + + +---------+ + | Marlena Jonathan | ECON | Unknown | | + + +---------+ + Care Team Providers + +------+ + | Care [employer] Band Teacher Name | Role | Phone | + +------+ + | Rhonda Watkins | PCP | | + +------+ + Encounter Details +--------+ + + + + | Date | Type | Department | Care Team | Description | +--------+ + + + + | 05/01/ | Outside | UNKNOWN DEPARTMENT | Other, Faculty | | | 2019 | Records | [address] [facility] | [phone] | | | | | [address] | | | | | | [place], [place] | | | | | | [address] | | | +--------+ + + + [...]
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
--- OUTSIDE RECORDS SUMMARY | ~2020-05-18 | XMS | Encounter Summary ---
Demographics + + + | Address | [address] | | | [place] [address] | + + + | Home Phone [...] | Author | [facility] | | | and [place] | + + + | Organization | [facility] | | | [...] Team Providers + +------+ + | Care Appellate Court Clerk Name | Role | Phone | + +------+ + | Ced Lorenz MD | PCP | | + +------+ + Encounter Details +--------+ + + + + | Date | Type | Department | Care Team | Description | +--------+ + + + + | 02/23/ | [facility] Ariana RUDDYDevonte SALGADO | Mandeep Gillespie, | | | 2016 | Encounter | [facility] | | | | | | [facility] [address] | | | | | | [address] [facility], | | | | | | [place] [address] | | | | | | [phone] | | | +--------+ + + + [...]
--- OUTSIDE RECORDS SUMMARY | ~2020-05-18 | XMS | Encounter Summary ---
Demographics + + + | Address | [address] | | | [place] [address] | + + + | Home Phone [...] Author + + + | Author | [facility] | | | and [place] | + + + | Organization | [facility] | | [...] Team Providers + +------+ + | Care Solid Waste Management Engineer Name | Role | Phone | + +------+ + | Ced Lorenz MD | PCP | | + +------+ + Encounter Details +--------+ + + + + | Date | Type | Department | Care Team | Description | +--------+ + + + + | 07/23/ | [facility] Ariana RUDDYDevonte SALGADO | Mandeep Gillespie, | | | 2015 | Encounter | [facility] | | | | | | [facility]ICAL CLIN[facility] [address] | | | | | | [address] [facility], | | | | | | [place] [address] | | | | | | [phone] | | | +--------+ + + + [...]
--- OUTSIDE RECORDS SUMMARY | ~2020-05-18 | XMS | Encounter Summary ---
Demographics + + + | Address | [address] | | | [place] [address] | + + + | Home Phone [...] + | Author | [facility] | | | and [place] [...] Team Providers + +------+ + | Care Nurses Superintendent Name | Role | Phone | + +------+ + | Mandeep Gillespie MD | PCP | Unavailable | + +------+ + Reason for Visit + + + | Reason | Comments | + + + | Anxiety | | + + + | Depression | | + + + Encounter Details +--------+---------+ + + + | Date | Type | Department | Care Team | Description | +--------+---------+ + + + | 06/23/ | Office | [place] | Nupur, Physician p | Anxiety and | | 2017 | Visit | [facility] | [place] MSW | depression; Anxiety; | | | | [facility] | [address] | Dysthymia | | | | [facility]TH [facility], | [place], [place] | | | | | [place] [address] | [address] | | | | | [phone] | | | +--------+---------+ + + + [...] documented as of this encounter Progress Notes [place], METAL TURNER - 06/23/2017 11:45 AM PSTFormatting of this note might be different fr om the original. Lin Jose : 1975 Date of Service: 06/23/2017 17:18 INITIAL BEHAVIORAL HEALTH ASSESSMENT Referred by: Jose Miguel Supervising Physician: Emile Chief Complaint: Anxiety and Depression Problem List: Patient Active Problem List Diagnosis Date Noted Dysthymic disorder moderate 06/23/2017 Anxiety severe 06/23/2017 ENDOMETRIOSIS UNSPEC SYMPTOM ASSOC W/FEMALE GENITAL ORGANS Note Last Updated: 05/17/2015 ICD-10 Record update PELVIC PAIN, CHRONIC Current Med List Current Outpatient Prescriptions: buPROPion (WELLBUTRIN SR) 150 mg 12 hr tablet, Take 150 mg by mouth 3 times daily., Di sp: , Rfl: HYDROcodone-acetaminophen (NORCO) 7.5-325 mg per tablet, take one tablet by mouth ever y 4-6 hours as needed (Patient taking differently: Take 1 tablet by mouth every 6 hours as n eeded.), Disp: , Rfl: SUMAtriptan (IMITREX) 50 mg tablet, Take 1 tablet by mouth every 2 hours as needed for Migraine., Disp: 10 tablet, Rfl: 0 BEHAVIORAL HEALTH HISTORY Family/Significant Relationships, Living Situation, Care Providers: Not provided Legal Status: None Family History of Psychiatric Illness: None reported Psychiatric History: None reported Family History of Addictions/Substance Abuse: None Addictions/Substance Abuse History: None Psychopharm History: None Brief Developmental History: None provided Trauma/Abuse/Exploitation History: None reported. 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 BEHAVIORAL HEALTH INTERVENTION Intervention: Patient was administered the DONTAE and PHQ9 screenings. Patient scored the highest for DONTAE ( 21) and PHQ9 (14) moderate. Patient is wanting medication to manage her anxiety. Patient w as informed screenings would be provided to provider for review and discuss treatment option s. Patient is to schedule [facility] follow up after she meet with PCP. Patient was offered on going [facility] services to learn skills/techniques for symptom management. Mental Status: MMS: Reserved, quiet, focused. Diagnosis: Dysthymic disorder moderate Anxiety severe PLAN: Patient is to schedule [facility] follow up after she meet with PCP. Patient was offered on going [facility] services to learn skills/techniques for symptom management. Time with Patient: 45 minutes MARIKA Championlectronically signed by YAMILEX Ibarra at 06/28/2017 2:13 PM PST Associated attestation - Hugh Callahan DO - 06/28/2017 2:13 PM PSTAgreedocumented in this encounter Plan of Treatment Not on filedocumented as of this encounter Visit Diagnoses + + | Diagnosis | + + | Anxiety and depression Dysthymic disorder | + + | Anxiety Anxiety state, unspecified | + + | Dysthymia Dysthymic disorder | + + documented in this encounter"
--- OUTSIDE RECORDS SUMMARY | ~2020-05-18 | XMS | Encounter Summary ---
Demographics + + + | Address | [address] | | | [place] [address] | + + + | Home Phone [...] + + + | Author | [facility] | | | and [place] | + + + | Organization | [facility] | | | [...] Team Providers + +------+ + | Care Gas Cutting Machine Operator Name | Role | Phone | + +------+ + | Ced Lorenz MD | PCP | | + +------+ + Encounter Details +--------+ + + + + | Date | Type | Department | Care Team | Description | +--------+ + + + + | 12/09/ | [facility] [place] | Mandeep Gillespie, | | | 2017 | Encounter | [facility] | | | | | | MEDICAL CL[facility] [address] | | | | | | 4TH [facility], | | | | | | [place] [address] | | | | | | [phone] | | | +--------+ + + + [...]
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
--- OUTSIDE RECORDS SUMMARY | ~2020-05-18 | XMS | Encounter Summary ---
Demographics + + + | Address | [address] | | | [place] [address] | + + + | Home Phone | | + + + | Preferred Language | Unknown | + + + | Marital Status | Single | + + + | Evangelical Affiliation | Unknown | + + + | Race | Unknown | + + + | Ethnic Group | Not or | + + + Author + + + | Author | [facility] | | | and [place] | + + + | Organization | [facility] | | | [...] Team Providers + +------+ + | Care Bass Viol Repairer Name | Role | Phone | + +------+ + | Ced Lorenz MD | PCP | | + +------+ + Encounter Details +--------+ + + + + | Date | Type | Department | Care Team | Description | +--------+ + + + + | 01/31/ | [facility] [place] | Mandeep Gillespie, | | | 2013 | Encounter | [facility] | | | | | | MEDICAL CLIN[facility] [address] | | | | | | 4TH [facility], | | | | | | [place] [address] | | | | | | [phone] | | | +--------+ + + + [...]
--- OUTSIDE RECORDS SUMMARY | ~2020-05-18 | XMS | Encounter Summary ---
Demographics + + + | Address | [address] | | | [place] [address] | + + + | Home Phone [...] | Author | [facility] | | | and [place] | + + + | Organization | [facility] [...] Team Providers + +------+ + | Care Pen Ruler Operator Name | Role | Phone | [...] Gillespie, | Other (returning a | | 2016 | | [facility] | MD | call) | | | | MEDICAL CL[facility] [address] | | | | | | 4TH [facility] [place], | | | | | | [place] [address] | | | | | | [phone] | | | +--------+ + + + [...] a mental h ealth eval at either [facility] or [facility] or some place like that. Thanks sls Electronically sig miley by Riri Abreu LPN at 07/21/2017 2:52 PM PSTTelephone Encounter - Venu Barajas - 07/21/2017 1:45 PM PSTBetty returning Zaida's call. Thanks Donie elephone Encounter - Sim Giles - 7 9:26 AM PSTLilia is returning Zaida's call, please call/robin documented in this encounter Plan of Treatment Not on filedocumented as of this encounter Visit Diagnoses Not on filedocumented in this encounter"
--- OUTSIDE RECORDS SUMMARY | ~2020-05-18 | XMS | Encounter Summary ---
Demographics + + + | Address | [address] | | | [place] [address] | + + + | Home Phone | | + + + | Preferred Language | Unknown | + + + | Marital Status | Single | + + + | Pentecostal Affiliation | Unknown | + + + | Race | Unknown | + + + | Ethnic Group | Not or | + + + Author + + + | Author | [facility] | | | and [place] | + + + | Organization | [facility] | | [...] Team Providers + +------+ + | Care Appeals Manager Name | Role | Phone | + +------+ + | Ced Lorenz MD | PCP | | + +------+ + Encounter Details +--------+ + + + + | Date | Type | Department | Care Team | Description | +--------+ + + + + | 02/07/ | [facility] | [facility] | Vanessa Clay NP | | | 2017 | Encounter | [facility] | [address] | | | | | MEDICAL CLIN[facility] [address] | [place], [place] | | | | | [address] [place], | [address] | | | | | [place] [address] | [phone] | | | | | [phone] | | | +--------+ + + + [...]
--- OUTSIDE RECORDS SUMMARY | ~2020-05-18 | XMS | Encounter Summary ---
Demographics + + + | Address | [address] | | | [place] [address] | + + + | Home Phone [...] Author + + + | Author | [facility] | | | and [place] | + + + | Organization | [facility] | | | [...] Providers + +------+ + | Care Manager Income Tax Name | Role | Phone | + +------+ + | Ced Lornez MD | PCP | | + +------+ + Encounter Details +--------+ + + + + | Date | Type | Department | Care Team | Description | +--------+ + + + + | 05/26/ | [facility] [place] | Mandeep Gillespie, | | | 2017 | Encounter | [facility] | | | | | | MEDICAL CLIN[facility] [address] | | | | | | 4TH [facility], | | | | | | [place] [address] | | | | | | [phone] | | | +--------+ + + + [...]
--- OUTSIDE RECORDS SUMMARY | ~2020-05-18 | XMS | Encounter Summary ---
Demographics + + + | Address | [address] | | | [place] [address] | + + + | Home Phone | | + + + | Preferred Language | Unknown | + + + | Marital Status | Single | + + + | Yarsani Affiliation | Unknown | + + + | Race | Unknown | + + + | Ethnic Group | Not or | + + + Author + + + | Author | [facility] | | | and [place] | + + + | Organization | [facility] | | | [...] Team Providers + +------+ + | Care Parts Counter Clerk Name | Role | Phone | + +------+ + | Ced Lorenz MD | PCP | | + +------+ + Encounter Details +--------+ + + + + | Date | Type | Department | Care Team | Description | +--------+ + + + + | 01/21/ | [facility] [place] | Sandy Monk | | | 2017 | Encounter | [facility] | MARIELLA Haider | | | | | MEDICAL CLIN[facility] [address] | | | | | | 4TH [facility] [place], | | | | | | [place] [address] | | | | | | [phone] | | | +--------+ + + + [...]
--- OUTSIDE RECORDS SUMMARY | ~2020-05-18 | XMS | Encounter Summary ---
Demographics + + + | Address | [address] | | | [place] [address] | + + + | Home Phone | | + + + | Preferred Language | Unknown | + + + | Marital Status | Single | + + + | Zoroastrian Affiliation | Unknown | + + + | Race | Unknown | + + + | Ethnic Group | Not or | + + + Author + + + | Author | [facility] | | | and [place] | + + + | Organization | [facility] | | | [...] Team Providers + +------+ + | Care Personal Service Representative Name | Role | Phone | + +------+ + | Ced Lorenz MD | PCP | | + +------+ + Encounter Details +--------+ + + + + | Date | Type | Department | Care Team | Description | +--------+ + + + + | 11/24/ | [facility] [place] | Mandeep Gillespie, | | | 2016 | Encounter | [facility] | | | | | | MEDICAL CLINIC [address] | | | | | | 4TH [facility], | | | | | | [place] [address] | | | | | | [phone] | | | +--------+ + + + [...]
--- OUTSIDE RECORDS SUMMARY | ~2020-05-18 | XMS | Encounter Summary ---
Demographics + + + | Address | [address] | | | [place] [address] | + + + | Home Phone | | + + + | Preferred Language | Unknown | + + + | Marital Status | Single | + + + | Sikhism Affiliation | Unknown | + + + | Race | Unknown | + + + | Ethnic Group | Not or | + + + Author + + + | Author | [facility] | | | and [place] | + + + | Organization | [facility] | | [...] Team Providers + +------+ + | Care Customer Assistance Representative Name | Role | Phone | + +------+ + | Mandeep Gillespie MD | PCP | Unavailable | + +------+ + Reason for Referral Evaluate & Treat (Routine) +--------+ + + + + + | Status | Reason | Specialty | Diagnoses / | Referred By | Referred To | | | | | Procedures | Contact | Contact | +--------+ + + + + + | Closed | Specialty | Family | Diagnoses | Mandeep Gillespie | [facility] | | | Services | Medicine / | Anxiety | MD Fernie | Regional | | | Required | Primary Care | Procedures | [address] | Primary Care | | | | | eval and | [place], | [address] | | | | | treat | [place] | [place], [place] | | | | | | [address] | [address] | | | | | | | Phone: | | | | | | | [phone] | | | | | | | Fax: | | | | | | | [phone] | +--------+ + + + + + Encounter Details +--------+ + + + + | Date | Type | Department | Care Team | Description | +--------+ + + + + | 07/22/ | Orders Only | [place] [facility] | Mandeep Gillespie, | Anxiety (Primary Dx) | | 2017 | | [facility] | MD | | | | | MEDICAL CLIN[facility] [address] | | | | | | [address] [place], | | | | | | [place] [address] | | | | | | [phone] | | | +--------+ + + + [...] of this encounter Plan of Treatment + + +--------+ + + | Name | Type | Priori | Associated Diagnoses | Order Schedule | | | | ty | | | + + +--------+ + + | * [facility] | Outpatient | Routin | Anxiety | Ordered: 07/22/2017 | | [facility] | Referral | e | | | | Care and Behavioral | | | | | | Health - [facility] | | | | | | Referral | | | | | + + +--------+ + + documented as of this encounter Visit Diagnoses + + | Diagnosis | + + | Anxiety - Primary Anxiety state, unspecified | + + documented in this encounter"
--- OUTSIDE RECORDS SUMMARY | ~2020-05-18 | XMS | Encounter Summary ---
Demographics + + + | Address | [address] | | | [place] [address] | + + + | Home Phone [...] Author + + + | Author | [facility] | | | and [place] | + + + | Organization | [facility] | | | [...] Team Providers + +------+ + | Care Laborer Demolition Name | Role | Phone | + +------+ + | Ced Lorenz MD | PCP | | + +------+ + Encounter Details +--------+ + + + + | Date | Type | Department | Care Team | Description | +--------+ + + + + | 01/24/ | [facility] [place] | Mandeep Gillespie, | | | 2017 | Encounter | [facility] | | | | | | MEDICAL CLIN[facility] [address] | | | | | | 4TH [facility], | | | | | | [place] [address] | | | | | | [phone] | | | +--------+ + + + [...]
--- OUTSIDE RECORDS SUMMARY | ~2020-05-18 | XMS | Encounter Summary ---
Demographics + + + | Address | [address] | | | [place] [address] | + + + | Home Phone [...] | [facility] | | | and [...] Team Providers + +------+ + | Care Boiler House Supervisor Name | Role | Phone | + +------+ + PCP | Unavailable | + +------+ + Encounter Details +--------+ + + + + | Date | Type | Department | Care Team | Description | +--------+ + + + + | 09/23/ | Hospital | [facility] | | | | 2008 | Encounter | [facility] | | | | | | [place] [address] | | | | | | [place] | | | | | | [address] | | | | | | [phone] | | | +--------+ + + + [...]
--- OUTSIDE RECORDS SUMMARY | ~2020-05-18 | XMS | Encounter Summary ---
Demographics + + + | Address | [address] | | | [place] [address] | + + + | Home Phone [...] Author | [facility] | | | and [place] | + + + | Organization | [facility] Services [...] Team Providers + +------+ + | Care Environment Friendly Landscape Designer Name | Role | Phone | + +------+ + | Ced Lorenz MD | PCP | | + +------+ + Encounter Details +--------+ + + + + | Date | Type | Department | Care Team | Description | +--------+ + + + + | 10/09/ | [facility] [place] | Mandeep Gillespie, | | | 2016 | Encounter | [facility] | | | | | | MEDICAL CLINIC [address] | | | | | | 4TH [facility], | | | | | | [place] [address] | | | | | | [phone] | | | +--------+ + + + [...]
--- OUTSIDE RECORDS SUMMARY | ~2020-05-18 | XMS | Encounter Summary ---
Demographics + + + | Address | [address] | | | [place] [address] | + + + | Home Phone [...] Author | [facility] | | | and [place] | + + + | Organization | [facility] Services [...] Team Providers + +------+ + | Care Negative Cleaner Name | Role | Phone | + [...] + | 07/20/ | Telephone | [place] | Mandeep Gillespie, | Medication Refill | | 2017 | | [facility] | [place] | | | | | MEDICAL CLIN[facility] [address] | | | | | | 4TH [facility] [place], | | | | | | [place] [address] | | | | | | [phone] | | | +--------+ + + + [...] 2:[address] Dr[address] Dimas vlila's mssg and verbalized understanding. Thanks [facility] Pls see other mssg from [place] at [facility]. No. I will not [...]
--- OUTSIDE RECORDS SUMMARY | ~2020-05-18 | XMS | Encounter Summary ---
Demographics + + + | Address | [address] | | | [place] [address] | + + + | Home Phone [...] + + | Author | [facility] | + + + | Organization | [facility] | + + + | Address | Unknown | + + + | Phone | Unavailable | + + + Support + + +---------+ + | Name | Relationship | Address | Phone | + + +---------+ + | Marlena Jonathan | ECON | Unknown | | + + +---------+ + Care Team Providers + +------+ + | Care Business Agent Name | Role | Phone | + +------+ + | Rhonda Watkins | PCP | | + +------+ + Encounter Details +--------+--------+ + + + | Date | Type | Department | Care Team | Description | +--------+--------+ + + + | 04/08/ | Intake | Transfer Center | | | | 2019 | | [address] | | | | | | [place], | | | | | | [place] [address] | | | +--------+--------+ + + + [...]
--- OUTSIDE RECORDS SUMMARY | ~2020-05-18 | XMS | Encounter Summary ---
Demographics + + + | Address | [address] | | | [place] [address] | + + + | Home Phone [...] + | Author | [facility] | | | and [place] | + + + | Organization | [facility] | [...] Team Providers + +------+ + | Care Letterer Name | Role | Phone | + +------+ + PCP | Unavailable | + +------+ + Encounter Details +--------+ + + + + | Date | Type | Department | Care Team | Description | +--------+ + + + + | 10/26/ | Hospital | [facility] | | | | 2008 | Encounter | [facility] | | | | | | [address] | | | | | | [place] | | | | | | [address] | | | | | | [phone] | | | +--------+ + + + [...]
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
--- OUTSIDE RECORDS SUMMARY | ~2020-05-18 | XMS | Encounter Summary ---
Demographics + + + | Address | [address] | | | [place] [address] | + + + | Home Phone [...] | Author | [facility] | | | and [place] [...] Team Providers + +------+ + | Care Audio Visual Coordinator Name | Role | Phone | + +------+ + PCP | Unavailable | + +------+ + Encounter Details +--------+ + + + + | Date | Type | Department | Care Team | Description | +--------+ + + + + | 06/23/ | Hospital | [facility] | Liborio Parsons | | | 2008 - | Encounter | [facility] Manish [facility] | | | | | AND DEL[address] | | | 06/27/ | | [place] [address]IE [place] | [place] [address] | | | 2008 | | [place], [place] | [phone] | | | | | [address] | | | | | | [phone] | | | +--------+ + + + [...]
--- OUTSIDE RECORDS SUMMARY | ~2020-05-18 | XMS | Encounter Summary ---
Demographics + + + | Address | [address] | | | [place] [address] | + + + | Home Phone [...] | Author | [facility] | | | and [place] | + + + | Organization | [facility] [...] Team Providers + +------+ + | Care E Business Consultant Name | Role | Phone | + +------+ + | Mandeep Gillespie MD | PCP | Unavailable | + +------+ + Encounter Details +--------+ + + + + | Date | Type | Department | Care Team | Description | +--------+ + + + + | 08/11/ | Orders Only | [place] | Mandeep Gillespie, | | | 2018 | | [facility] | | | | | | MEDICAL CLIN[facility] [address] | | | | | | [address] [place], | | | | | | [place] [address] | | | | | | [phone] | | | +--------+ + + + [...]
--- OUTSIDE RECORDS SUMMARY | ~2020-05-18 | XMS | Encounter Summary ---
Demographics + + + | Address | [address] | | | [place] [address] | + + + | Home Phone [...] Author + + + | Author | [facility] | | | and [place] | + + + | Organization | [facility] | | [...] Team Providers + +------+ + | Care Cardiology Associate Name | Role | Phone | + +------+ + | Ced Lorenz MD | PCP | | + +------+ + Encounter Details +--------+ + + + + | Date | Type | Department | Care Team | Description | +--------+ + + + + | 06/19/ | [facility] [place] | Mandeep Gillespie, | | | 2012 | Encounter | [facility] | | | | | | MEDICAL CLIN[facility] [address] | | | | | | [facility]TH [facility], | | | | | | [place] [address] | | | | | | [phone] | | | +--------+ + + + [...]
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
--- OUTSIDE RECORDS SUMMARY | ~2020-05-18 | XMS | Encounter Summary ---
Demographics + + + | Address | [address] | | | [place] [address] | + + + | Home Phone [...] Author + + + | Author | [facility] | | | and [place] | + + + | Organization | [facility] | | [...] Team Providers + +------+ + | Care Airplane Pilot Photogrammetry Name | Role | Phone | + +------+ + | Ced Lorenz MD | PCP | | + +------+ + Encounter Details +--------+ + + + + | Date | Type | Department | Care Team | Description | +--------+ + + + + | 09/05/ | [facility] [place] | Mandeep Gillespie, | | | 2013 | Encounter | [facility] | | | | | | MEDICAL CLIN[facility] [address] | | | | | | [address]TH [facility], | | | | | | [place] [address] | | | | | | [phone] | | | +--------+ + + + [...]
--- OUTSIDE RECORDS SUMMARY | ~2020-05-18 | XMS | Encounter Summary ---
Demographics + + + | Address | [address] | | | [place] [address] | + + + | Home Phone [...] Author | [facility] | | | and [place] | + + + | Organization | [facility] Services [...] Team Providers + +------+ + | Care Regional Retail Sales Manager Name | Role | Phone | [...] | | | | | headache | [place], | [place], [place] | | | | | Procedures | [place] | [address] | | | | | MRI Brain wo | [id number] | Phone: | | | | | Contrast | | [phone] | | | | | | | Fax: | | | | | | | [phone] | +--------+--------+ + + + + Reason [...] | | | | | headache | [place], | [place], [place] | | | | | Procedures | [place] | [address] | | | | | MRI Brain wo | [address] | Phone: | | | | | Contrast | | [phone] | | | | | | | Fax: | | | | | | | [phone] | +--------+--------+ + + + + Encounter Details +--------+ + + + + | Date | Type | Department | Care Team | Description | +--------+ + + + + | 07/01/ | Hospital | [place] [facility] | Mandeep Gillespie, | New daily persistent | | 2017 | Encounter | Hospital MRI [address] | MD | headache | | | | [address] | | | | | | [place] | | | | | | [address] | | | | | | [phone] | | | +--------+ + + + [...] The findings do appear similar to the 2009 study. | |3. Paranasal sinus disease. | [...]
--- OUTSIDE RECORDS SUMMARY | ~2020-05-18 | XMS | Encounter Summary ---
Demographics + + + | Address | [address] | | | [place] [address] | + + + | Home Phone [...] + + + | Author | [facility] | | | and [place] | + + + | Organization | [facility] | | | [...] Team Providers + +------+ + | Care Transition Mgr Rn Name | Role | Phone | + [...] Telephone | [facility] | Landon Russell MD | No Show | | 2014 | | GASTROENTEROLOGY | [address], [place] | | | | | [address] [place] | [address] [place], [place] | | | | | [address] [place], [place] | [address] | | | | | [address] | | | | | | [phone] | | | +--------+ + + + [...]
--- OUTSIDE RECORDS SUMMARY | ~2020-05-18 | XMS | Encounter Summary ---
Demographics + + + | Address | [address] | | | [place] [address] | + + + | Home Phone [...] + | Author | [facility] | | | and [place] | + + + | Organization | [facility] | [...] Team Providers + +------+ + | Care Automation Engineering Manager Name | Role | Phone | + +------+ + | Ced Lorenz MD | PCP | | + +------+ + Encounter Details +--------+ + + + + | Date | Type | Department | Care Team | Description | +--------+ + + + + | 06/16/ | [facility] [place] | Mandeep Gillespie, | | | 2015 | Encounter | [facility] | | | | | | MEDICAL CLIN[facility] [address] | | | | | | [address]TH [facility], | | | | | | [place] [address] | | | | | | [phone] | | | +--------+ + + + [...]
--- OUTSIDE RECORDS SUMMARY | ~2020-05-18 | XMS | Encounter Summary ---
Demographics + + + | Address | [address] | | | [place] [address] | + + + | Home Phone [...] Author | [facility] | | | and [...] Team Providers + +------+ + | Care Radiographer Technologist Name | Role | Phone | + +------+ + | Mandeep Gillespie MD | PCP | Unavailable | + +------+ + Encounter Details +--------+ + + + + | Date | Type | Department | Care Team | Description | +--------+ + + + + | 06/28/ | Abstract | [place] | [facility] | | | 2016 | | [facility] | | | | | MEDICAL CLIN[facility] [address] | | | | | | [address] [facility] [place], | | | | | | [place] [address] | | | | | | [phone] | | | +--------+ + + + [...]
--- OUTSIDE RECORDS SUMMARY | ~2020-05-18 | XMS | Encounter Summary ---
Demographics + + + | Address | [address] | | | [place] [address] | + + + | Home Phone [...] + + + | Author | [facility] | | | and [place] | + + + | Organization | [facility] | | | [...] Team Providers + +------+ + | Care Automated Manufacturing Instructor Name | Role | Phone | + +------+ + | Ced Lorenz MD | PCP | | + +------+ + Encounter Details +--------+ + + + + | Date | Type | Department | Care Team | Description | +--------+ + + + + | 05/18/ | [facility] [place] | Mandeep Gillespie, | | | 2012 | Encounter | [facility] | | | | | | MEDICAL CLIN[facility] [address] | | | | | | [address]TH [facility], | | | | | | [place] [address] | | | | | | [phone] | | | +--------+ + + + [...]
--- OUTSIDE RECORDS SUMMARY | ~2020-05-18 | XMS | Encounter Summary ---
Demographics + + + | Address | [address] | | | [place] [address] | + + + | Home Phone [...] | Author | [facility] | | | and [place] | + + + | Organization | [facility] [...] Team Providers + +------+ + | Care Anesthesiology Resident Name | Role | Phone | + +------+ + | Ced Lorenz MD | PCP | | + +------+ + Encounter Details +--------+ + + + + | Date | Type | Department | Care Team | Description | +--------+ + + + + | 03/19/ | [facility] [place] | Mandeep Gillespie, | | | 2012 | Encounter | [facility] | | | | | | MEDICAL CLIN[address] | | | | | | 4TH [facility], | | | | | | [place] [address] | | | | | | [phone] | | | +--------+ + + + [...]
--- OUTSIDE RECORDS SUMMARY | ~2020-05-18 | XMS | Encounter Summary ---
Demographics + + + | Address | [address] | | | [place] [address] | + + + | Home Phone [...] Author + + + | Author | [facility] | | | and [place] | + + + | Organization | [facility] | | | [...] Team Providers + +------+ + | Care Vocational Aide Name | Role | Phone | + +------+ + | Ced Lorenz MD | PCP | | + +------+ + Encounter Details +--------+ + + + + | Date | Type | Department | Care Team | Description | +--------+ + + + + | 02/09/ | [facility] [place] | Mandeep Gillespie, | | | 2017 | Encounter | [facility] | | | | | | MEDICAL CLINIC [address] | | | | | | 4TH [facility], | | | | | | [place] [address] | | | | | | [phone] | | | +--------+ + + + [...]
--- OUTSIDE RECORDS SUMMARY | ~2020-05-18 | XMS | Encounter Summary ---
Demographics + + + | Address | [address] | | | [place] [address] | + + + | Home Phone [...] Author | [facility] | | | and [place] | + + + | Organization | [facility] Services [...] Team Providers + +------+ + | Care Bundling Machine Operator Name | Role | Phone [...] + + + + | 07/27/ | Documentati | [place] | Mandeep Gillespie, | Other (CERTIFIED | | 2017 | on | [facility] | | MAIL) | | | | MEDICAL CLIN[facility] [address] | | | | | | [address] [place], | | | | | | [place] [address] | | | | | | [phone] | | | +--------+ + + + [...] told her I was calling from the [facility] and stated we had sent a [...] PSTDISCHARGE LETTER SENT To: [place] ADDRESS: [id number] [place] [address] [place] [address] TRACKING No: [id number] d ocumented in this encounter Plan of Treatment Not on filedocumented as of this encounter Visit Diagnoses Not on filedocumented in this encounter
--- OUTSIDE RECORDS SUMMARY | ~2020-05-18 | XMS | Encounter Summary ---
Demographics + + + | Address | [address] | | | [place] [address] | + + + | Home Phone [...] + | Author | [facility] | | | and [place] | + + + | Organization | [facility] | [...] Team Providers + +------+ + | Care Shell Maker Lockstitch Name | Role | Phone | + [...] + + | 05/01/ | Emergency | [facility] | Wilbert Claire, | Migraine without | | 2019 | | MED CTR EMERG[facility]Y | MD [address] | aura and without | | | | CENTER [address] | [place] | status migrainosus, | | | | [place], [place] | [address] | not intractable | | | | [address] | | (Primary Dx) | | | | [phone] | | | +--------+ + + + [...] Care Everywhere.Headache, Migra ine: Stages and Treatment (Luxembourgish)documented in this encounter Medications at Time of [...] (Adult - New Onset Or New Symptoms) HPI Lin Garcia is a 44 y.o. female who presents complaining of right sided headache gradua lly worsening over the last 2-3 days associated with nausea and photophobia. Patient has his tory of chronic recurrent migraine type headaches over the last 12 years since she was assau lted. 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 She was referred to a specialist at [facility] but has not f ollowed up there [...] SURGERY all teeth LAPAROSCOPY Diagnostic CURRENT MEDICATIONS PRESSER FIRST Home Medications Medication Sig buPROPion (WELLBUTRIN SR) [...] Bilateral external ears normal, Oral mucosa moist, computer applications instructor ior pharynx no exudates, Nose normal. Neck-supple, [...] described above. 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 No other concerning findings [...] 24 hours Wilbert Claire MD 05/02/19 0011 Farida Hylton RN - 05/01/2019 8:58 PM PDTPatient chief [...] | | | ON?09/ | | | [address] | | | 9 | | | 20:31? | | | WATCHM | | | AN, | | | LIN | | | ?MRN: | | | [id number] | | | [id number] | | | riteri | | | [...] | | | St. | | | [facility] | | | y | | | [...] | | | St. | | | [facility] | | | y | | | [...] | | | St. | | | [facility] | | | y | | | [...] | | | St. | | | [facility] | | | y | | | [...] | | | St. | | | [facility] | | | y | | | [...] | | | St. | | | [facility] | | | y | | | [...] | | | St. | | | [facility] | | | y H. | | [...] | | | St. | | | Alliance | | | y H. | | [...] | | | St. | | | [facility] | | | y H. | | [...] | | | St. | | | Alliance | | | y H. | | [...] | | | St. | | | [facility] | | | y H. | | [...] | | | St. | | | [facility] | | | y H. | | [...] | | | St. | | | [facility] | | | y H. | | [...] M.D. | | | | | | [employer] | | | al | | | [...] | | | [place] | | | [place] | | | | | | PROVID [...] | | the aortic arch through the te-moak of [place]. Multiplanar | | | reformations [...] [facility] | | | May 01, 2019 at 2233 hours. Dictated and Signed by: Devin Lane | | MD Gregory Electronically signed: 05/02/2019 [...] | | from the aortic arch throughthe te-moak of [place]. Multiplanar reformations and | | [...] reported to the ER [facility] on | | May 01, 2019 [...] ST. | [address] | [place] | [phone] | | [facility] | | [address] | | | - LABORATORY | | [...] [address] | [place] | [phone] | | [facility] | | [address] | | | - LABORATORY | | [...] + | [facility] | [address] | [place] | [phone] | | [facility] | | [address] | | | - LABORATORY | | [...] 88 | 60 - 106 mg/dL | [facility] | | | | | | [facility] | | | | | | MEDICAL | | | | | | CENTER - | | | | | | LABORATORY | | + + + + + + | BUN | 8 (L) | 9 - 23 mg/dL | [facility] | | | | | | [facility] | | | | | | MEDICAL | | | | | | CENTER - | | | | | | LABORATORY | | + + + + + + | Creatinine | 0.69 | 0.55 - 1.02 | [facility] | | | | | mg/dL | [facility] | | | | | | MEDICAL | | | | | | CENTER - | | | | | | LABORATORY | | + + + + + + | eGFR, | >60Comment: GLOMERULAR | >=60 | [facility] | | | non- | FILTRATION | mL/min/1.73m2 | [facility] | | | Ukrainian | RATE,ESTIMATED | | MEDICAL | | | | mL/min/1.78s5Goer than | | CENTER - | | [...] 8.5 (L) | 8.7 - 10.4 | [facility] | | | | | mg/dL | [...] + + | [facility] | [address] | [place] [place] | [phone] | | [facility] | | [address] | | | - LABORATORY | | [...] | | Cells | | | [facility] | | | | | | MEDICAL | | | | | | CENTER - | | | | | | LABORATORY | | + + + + + + | Red Blood | 3.84 | 3.70 - 5.20 | [facility] | | | Cells | | M/uL | [facility] | | | | | [...] Trim. Absolute (K/uL) Percentage (%) | [facility] | | 1st 0.003-0.091 K/uL 0.0-0.9% 2nd 0.007-0.247 K/uL | [facility] | | 0.1-2.0% 3rd 0.018-0.456 K/uL 0.1-2.0% | - LABORATORY | + + + + + + + + | Performing | Address | City/State/Zipcode | Phone Number | | Organization | | | | + + + + + | [facility] | [address] | [place] | [phone] | | [facility] | | [address] | | | - LABORATORY | | [...] | | | | | Intravenous, ONCE, 05/01/19 at | | PM PDT | | | | | 2250, For 1 dose | | | | | | + +--------+ +------+------+------+ +---+---+ | | | +---+---+ + +-------+ +-------+---+---+ | diphenhydrAMINE (BENADRYL) | Given | 05/01/20 | 25 mg | | | | injection 25 mg 25 mg, | | 19 9:34 | | | | | Intravenous, ONCE, 05/01/19 at | | PM PDT | [...] PDT | | | | | ONCE, [facility] 05/01/19 at 2125, For 1 | [...] PDT | | | | | ONCE, [facility] 05/01/19 at 2245, For 1 | | | | | | | dose | | | | | | + +---------+ +--------+-------+---+ +---+---+ | | | +---+---+ documented in this encounter
--- OUTSIDE RECORDS SUMMARY | ~2020-05-18 | XMS | Encounter Summary ---
Demographics + + + | Address | [address] | | | [place] [address] | + + + | Home Phone [...] + + | Author | [facility] | | | and [place] [...] Team Providers + +------+ + | Care Grey Stock Recorder Name | Role | Phone | + +------+ + | Ced Lorenz MD | PCP | | + +------+ + Encounter Details +--------+ + + + + | Date | Type | Department | Care Team | Description | +--------+ + + + + | 01/27/ | [facility] [place] | Mandeep Gillespie, | | | 2016 | Encounter | [facility] | | | | | | MEDICAL CLINIC [address] | | | | | | [address]TH [facility] [place], | | | | | | [place] [address] | | | | | | [phone] | | | +--------+ + + + [...]
--- OUTSIDE RECORDS SUMMARY | ~2020-05-18 | XMS | Encounter Summary ---
Demographics + + + | Address | [address] | | | [place] [address] | + + + | Home Phone [...] Providers + +------+ + | Care Tire Regrooving Machine Operator Name | Role | Phone [...]
--- OUTSIDE RECORDS SUMMARY | ~2020-05-18 | XMS | Encounter Summary ---
Demographics + + + | Address | [address] | | | [place] [address] | + + + | Home Phone [...] | Author | [facility] | | | and [place] | + + + | Organization | [facility] [...] Team Providers + +------+ + | Care Auto Appraiser Name | Role | Phone | + +------+ + | Ced Lorenz MD | PCP | | + +------+ + Encounter Details +--------+ + + + + | Date | Type | Department | Care Team | Description | +--------+ + + + + | 01/27/ | [facility] [place] | Mandeep Gillespie, | | | 2016 | Encounter | [facility] | | | | | | MEDICAL CLINIC [address] | | | | | | 4TH [facility], | | | | | | [place] [address] | | | | | | [phone] | | | +--------+ + + + [...]
--- OUTSIDE RECORDS SUMMARY | ~2020-05-18 | XMS | Encounter Summary ---
Demographics + + + | Address | [address] | | | [place] [address] | + + + | Home Phone [...] + + | Author | [facility] | [...] Providers + +------+ + | Care Superintendent Production Name | Role | Phone | [...] + + | Closed | Specialty | Behavioral | Diagnoses | | Sergio, | | | Services | Health | Anxiety | Sharda | YAMILEX Ojeda | | | Required | | | Essence garcia, | [address] | | | | | | CLASSIFICATION ANALYST [address] | [place] | | | | | | [address] | [place], [place] | | | | | | [place], | [address] Phone: | | | | | | [place] [address] | [phone] | | | | | | Phone: | | | | | | | [phone] | | | | | | | Fax: | | | | | | | [phone] | | +--------+ + + + + + Reason for Visit +--------+--------+ + | Reason | Onset | Comments | | | Date | | +--------+--------+ + | Other | 06/20/ | | | | 2016 | | +--------+--------+ + Encounter Details +--------+ + + + + | Date | Type | Department | Care Team | Description | +--------+ + + + + | 06/20/ | Telephone | [place] | Mandeep Gillespie, | Other | | 2016 | | [facility] | MD | | | | | MEDICAL CLINIC [address] | | | | | | 4TH [facility] [place], | | | | | | [place] [address] | | | | | | [phone] | | | +--------+ + + + [...] this encounter Miscellaneous Notes Telephone Encounter - Kamryn Villela CC CMA - 06/20/2017 2:55 PM PSTPt. Was notified t prem ramirez put a referral in to . Pt. Was angry but states she will try this out. Tiffanie man signed by MOISES Chen CMA at 06/20/2017 2:56 PM PSTTelephone Encounter - Sim Weir - 06/20/2017 1:58 PM PSTPt called back and wanted to let you know that she wa s diagnosed with PTSD, by Dr Cali Marmolejo, please call pt with questions/robinElectronically s igned by Sim Giles at 06/20/2017 2:02 PM PSTTelephone Encounter - Kamryn Villela C C STRETCHING MACHINE OPERATOR - 06/20/2017 10:11 AM PSTPt. States even with with her anxiety medication she feels li ke her anxiety is still not ok. She would like to know what can she take? Should she be seen ? Please advise. Thank you. tcw 17 10:18 AM PSTTelephone Encounter - Sim Giles - 06/20/2017 9:26 AM PSTPt is under a lot of stress and pts anxiety is pretty high, pt would like to talk to regarding this, pleas e call as soon as possible/robin documented in this encounter Plan of Treatment + + +--------+ + + | Name | Type | Priori | Associated Diagnoses | Order Schedule | | | | ty | | | + + +--------+ + + | Behavioral Health, | Outpatient | Routin | Anxiety | Ordered: 06/20/2017 | | External - AMB | Referral | e | | | | Referral | | | | | + + +--------+ + + documented as of this encounter Visit Diagnoses + + | Diagnosis | + + | Anxiety - Primary Anxiety state, unspecified | + + documented in this encounter"
--- OUTSIDE RECORDS SUMMARY | ~2020-05-18 | XMS | Encounter Summary ---
Demographics + + + | Address | [address] | | | [place] [address] | + + + | Home Phone [...] Author | [facility] | | | and [place] | + + + | Organization | [facility] Services [...] Providers + +------+ + | Care Sales Special Agent Name | Role | Phone | + +------+ + | Ced Lorenz MD | PCP | | + +------+ + Encounter Details +--------+ + + + + | Date | Type | Department | Care Team | Description | +--------+ + + + + | 10/29/ | [facility] [place] | Mandeep Gillespie, | | | 2015 | Encounter | [facility] | | | | | | MEDICAL CLINIC [address] | | | | | | [address]TH [facility], | | | | | | [place] [address] | | | | | | [phone] | | | +--------+ + + + [...]
--- OUTSIDE RECORDS SUMMARY | ~2020-05-18 | XMS | Encounter Summary ---
Demographics + + + | Address | [address] | | | [place] [address] | + + + | Home Phone [...] | Author | [facility] | | | and [place] | + + + | Organization | [facility] [...] Team Providers + +------+ + | Care Securities Clerk Name | Role | Phone | [...] Refill | | 2018 | | [facility] | MD | | | | | MEDICAL CLINIC [address] | | | | | | 4TH [facility] [place], | | | | | | [place] [address] | | | | | | [phone] | | | +--------+--------+ + + + [...]
--- OUTSIDE RECORDS SUMMARY | ~2020-05-18 | XMS | Encounter Summary ---
Demographics + + + | Address | [address] | | | [place] [address] | + + + | Home Phone [...] | Author | [facility] | | | and [place] | + + + | Organization | [facility] [...] Team Providers + +------+ + | Care Funeral Service Licensee Name | Role | Phone | + +------+ + | Mandeep Gillespie MD | PCP | Unavailable | + +------+ + Reason for Visit +--------+--------+ + | Reason | Onset | Comments | | | Date | | +--------+--------+ + | Other | 06/27/ | PT ASKING FOR A CALL BACK. | | | 2016 | | +--------+--------+ + Encounter Details +--------+ + + + + | Date | Type | Department | Care Team | Description | +--------+ + + + + | 06/27/ | Telephone | [place] | Mandeep Gillespie, | Other (PT ASKING FOR | | 2016 | | [facility] | MD | A CALL BACK.) | | | | MEDICAL CLINIC [address] | | | | | | [address] [facility] [place], | | | | | | [place] [address] | | | | | | [phone] | | | +--------+ + + + [...]
--- OUTSIDE RECORDS SUMMARY | ~2020-05-18 | XMS | Encounter Summary ---
Demographics + + + | Address | [address] | | | [place] [address] | + + + | Home Phone [...] Author + + + | Author | [facility] | | | and [place] | + + + | Organization | [facility] | | | [...] Team Providers + +------+ + | Care Roller Shop Utility Worker Name | Role | Phone | + +------+ + | Ced Lorenz MD | PCP | | + +------+ + Encounter Details +--------+ + + + + | Date | Type | Department | Care Team | Description | +--------+ + + + + | 11/04/ | [facility] [place] | Mandeep Gillespie, | | | 2016 | Encounter | [facility] | | | | | | MEDICAL CLINIC [address] | | | | | | 4TH [facility], | | | | | | [place] [address] | | | | | | [phone] | | | +--------+ + + + [...]
--- OUTSIDE RECORDS SUMMARY | ~2020-05-18 | XMS | Encounter Summary ---
Demographics + + + | Address | [address] | | | [place] [address] | + + + | Home Phone [...] | Author | [facility] | | | and [place] | + + + | Organization | [facility] [...] Team Providers + +------+ + | Care Inspector Scales Name | Role | Phone | + +------+ + | Ced Lorenz MD | PCP | | + +------+ + Encounter Details +--------+ + + + + | Date | Type | Department | Care Team | Description | +--------+ + + + + | 12/03/ | [facility] [place] | Mandeep Gillespie, | | | 2014 | Encounter | [facility] | | | | | | MEDICAL CLINIC [address] | | | | | | [address]TH [facility], | | | | | | [place] [address] | | | | | | [phone] | | | +--------+ + + + [...]
--- OUTSIDE RECORDS SUMMARY | ~2020-05-18 | XMS | Encounter Summary ---
Demographics + + + | Address | [address] | | | [place] [address] | + + + | Home Phone [...] Author | [facility] | | | and [place] | + + + | Organization | [facility] Services [...] Team Providers + +------+ + | Care Tooling Engineering Tech Name | Role | Phone | [...] Refill | | 2017 | | [facility] | [place] | | | | | MEDICAL CLINIC [address] | | | | | | [address] [facility] [place], | | | | | | [place] [address] | | | | | | [phone] | | | +--------+ + + + [...] this encounter Miscellaneous Notes Telephone Encounter - BradyRiri Manuelito, ELAINA - 07/22/2017 6:42 PM PSTPt states she has bee n taking Buproprion 3X daily. I called [facility] in [place] and they stated her most rece nt [...] pls advise. Thanks sls elephone Encounter - Karl, Venu Shah - 07/22/2017 4:36 PM PSTPt ca lled and [...]
--- OUTSIDE RECORDS SUMMARY | ~2020-05-18 | XMS | Encounter Summary ---
Demographics + + + | Address | [address] | | | [place] [address] | + + + | Home Phone [...] + + + | Author | [facility] | | | and [place] | + + + | Organization | [facility] | | [...] Team Providers + +------+ + | Care Cardiovascular Radiologic Technologist Name | Role | Phone | [...] Acute nonintractable | | 2016 | | [facility] | [address] | headache, | | | | EMERGENCY [address] | DR LANDA, | unspecified headache | | | | [place], [place] | [place] | type (Primary Dx); | | | | [address] | [phone] | Urinary tract | | | | [phone] | | infection, site | | | [...] be sent through Care Everywhere.HEADACHE, UNSPE CIFIED (AFGHAN)URINARY TRACT INFECTIONS IN WOMEN (AFGHAN)documented in this encounter Medications at Time of [...] Patient presents with Dizziness Possible Seizure Dysuria HPI Lin Garcia is a 41 y.o. female who presents with a chief complaint of headache. The h istory is as per the patient recent medical records. Her hx includes chronic pain, endometri osis, opioid dependence, migraine headaches. This is her 4th visit for the same in the past several days. Patient was initially seen at [facility], then at [facility]. The patient's headache was gradual [...] h difficulty. The patient was seen at [facility] after [facility]. The patien t was treated for migraine headache. She went home. She was also dx with urinary tract inf ection. After her initial [facility] visit, the patient stood up, and had an episode of possib ly syncope versus seizure. The pt relates to me that she felt her eyelids "flutter" and she was aware of rhythmic movements of her chest. She went back to [facility] and was admitted. Sh e had neg CT head. MRI head was [...] ECGs available Confirmed by MD Ahmadi Arwyn ([id number]), desk editor Jeana Oneal ([id number]) on 01/12/2016 3: 45:38 PM ED COURSE [...] Dr. Sean Mancuso of Emergency medicine at [facility] -- he answered when I attempted to [...] admission here. I discussed her results with er at length. I will refer her [...] the chart carefully and recognize, using context, darnell madrigal these substitutions have occurred. Ehsan Ahmadi MD 01/12/16 1746 Poncho Aguilar RN - 01/12/2016 4:41 PM PDTPt wheeled out in a wheelchair to the lobby to wait for mario nce to come and get pt. P DTRoss, Piper Billings CNA - 01/12/2016 4:10 PM PDTCalled [facility] Emergency room to find a physician who can speak about this patient going AMA Eva Aguilar RN - 01/12/2016 4:05 PM PDTPt states pain m eds are not working. notified. Eva Aguilar RN - 01/12/2016 3:10 PM PDTPt ambulated to bathroom [facility]. Without staff assistance. No episodes of syncope observed. Eva Aguilar RN - 01/12/2016 2:30 PM PDTPt is in room. Lights out. Laying supine in bed. Tolerating fluids well. documented in this encounter Miscellaneous Notes ED Triage Notes - Eva Ventura RN - 01/12/2016 1:13 PM PDTMigraine headache for 6 days . Dizzy when she stands up, tunnel vision. Seizure like episode yesterday prior to going to [facility]. Hx of endometriosis. Came from [facility], was there from 2100 last night until 1230 this afternoon. I felt like she was not being treated well, boyfriend states they were going to admit her, but the y took too long. They felt like they were mistreated and wanted "proper care" here at [facility]. They drove straight from [facility] to [place]. D Triage Notes - Lindsey Magallanes RN - 01/12/2016 1:08 PM PDTGreet: Pt. Has endometriosis, was seen and godfrey gnosed by clinic with bladder infection but went to [facility] yesterday with other symptoms of dizziness, "tunnel vision," and "blacking out." Dc'd from [facility] and went home and "murray d a [...] | | | | | | [place] [address] | | | | + + + + + + + + | Specimen | + + | Blood specimen | | (specimen) | + + + + + + + | Performing | Address | City/State[facility] | Phone Number | | Organization | | | | + + + + + | [facility] | [address] | [place] [address] | [phone] | | [facility] (I) | | [...] (L) | 3.8 - 11.0 K/uL | [facility] | | | Cells | | | [...] [facility] | | | Basophils | by PRM[facility] | | [place] | | | | [address] [place] | | CORE | | | | [place] [address] | | LABORATORY | | | | [...] + + | [facility] | [address] | [place] [address] | [phone] | | [facility] (I) | | [...] | | | | MD Galdino, Ehsan ([id number]), | | | | | | desk editor Sinan | | | | | | [place] Garcia ([id number]) | | | | | | on [...]
--- OUTSIDE RECORDS SUMMARY | ~2020-05-18 | XMS | Clinical Summary ---
Demographics + + + | Address | [address] | | | [place] [address] | + + + | Home Phone [...] Author + + + | Author | [facility] | + + + | Organization | [facility] | + + + | Address | Unknown | + + + | Phone | Unavailable | + + + Support + + +---------+ + | Name | Relationship | Address | Phone | + + +---------+ + | Marlena Estill | ECON | Unknown | | + + +---------+ + Care Team Providers + +------+ + | Care Material Control Clerk Name | Role | Phone | + +------+ + | Rhonda WatkinsP | PCP | | + +------+ + Source Comments [facility] is fully live on both [facility] Amb[facility] and [facility] Allergies + + + [...] + + | Influenza (Flu) | | 06/11/20 | | | vaccination (#1) | 0 | 18, | | [...] +--------+ | MEDICAID [place] | OHP | [id number] | | [phone] | [address] | | | PLUS | | [address] | [phone] | [phone] | id | | | OPEN | | esent | | [place], [place] | | | | CARD | | | | [address] | | + +--------+ +--------+ + +--------+ | [facility] | [facility] | [address] | Effect | | | Agency | [...] | | al/Ravinder | | 1975 | [phone] | [place] [address] | | | randi | | | 8 (Home) | | + +--------+ +--------+ + +
--- OUTSIDE RECORDS SUMMARY | ~2020-05-18 | XMS | Encounter Summary ---
Demographics + + + | Address | [address] | | | [place] [address] | + + + | Home Phone [...] + | Author | [facility] | [...] Team Providers + +------+ + | Care Clerical Administrator Name | Role | Phone | + +------+ + | Ced Lorenz MD | PCP | | + +------+ + Encounter Details +--------+ + + + + | Date | Type | Department | Care Team | Description | +--------+ + + + + | 05/18/ | Hospital | [place] | Donell Osman | | | 2017 | Encounter | [facility] | MD [address] | | | | | [address] [place] | [address] [place] | | | | | [place] | [place] | | | | | [address] | [address] | | | | | [phone] | [phone] | | | | | | | [...]
--- OUTSIDE RECORDS SUMMARY | ~2020-05-18 | XMS | Encounter Summary ---
Demographics + + + | Address | [address] | | | [place] [address] | + + + | Home Phone [...] | Author | [facility] | | | and [place] [...] Providers + +------+ + | Care Bottom Cager Name | Role | Phone | + +------+ + | Ced Lorenz MD | PCP | | + +------+ + Encounter Details +--------+ + + + + | Date | Type | Department | Care Team | Description | +--------+ + + + + | 01/10/ | Emergency | [facility] | | Convulsions, | | 2016 - | | EMERGENCY CENTER | | unspecified | | | | [address] | | convulsion type | | 01/11/ | | [facility] | | ([facility]); Headache, | | 2015 | | [phone] | | unspecified headache | | | | [phone] | | type; Hypoglycemia; | | | [...] Date of Service: 01/12/16 1142 Status: Signed Site Head: Betty Rivas MD (Physician) [facility] Medicine Discharge Summary LEFT AMA Patient: Lin [...] TROY ANN Dictated: 01/11/2016 11:48 PM Job: [id number] Mr Brain Without And With Contrast 01/12/2016 1. No acute infarct, intracranial mass lesion, or hemorrhage. 2. No evidence of mesial temporal sclerosis. 3. Mild nonspecific supratentorial white matter changes. The differential diagnosis includes chronic microvascular ischemic changes, sequelae from chron ic migraine headaches or prior inflammation/infection, and demyelination. Dictated by: JANEY CORBETT Dictated: 01/12/2016 1:52 AM Job: [id number] Condition on discharge: Improved. Last . Admission Wt:None Recorded Exam significant for Filed Vitals: 01/12/16 0634 01/12/16 0715 01/12/16 1030 01/12/16 1100 BP: 108/72 107/66 112/80 Temp: Resp: 18 18 17 16 SpO2: 100% 100% 99% See exam from H&P Patient Discharge Instructions: PT LEFT AMA Follow-up Information Follow up with Mark Bruner MD In 2 weeks. Specialty: Neurology Contact information [address] [place] [phone] Discharge Coordination: Disposition: home. Time spent on discharge coordination: 75+ mins spent on this patient today Betty Rivas MD [facility] Medicine Office Quality Metrics: Core measures: Not [...] Notes by Aaron Gaitan RPh at 01/12/16 1053 Author: Aaron Gaitan RPh Service: (none) Author Type: Pharmacist Filed: 01/12/16 1104 Date of Service: 01/12/16 2135 Status: Signed Site Head: Aaron Gaitan RPh (Pharmacist) Pharmacy Note Asked by attending physician to ascertain pt's narcotic prescription dispense history. [facility] did not turn up a history for this pt, likely due to her previous residence in [place]. Using medication dispense information in [facility], and confirming with [facility] ([phone]), the following opioid prescriptions have been dispensed in the past year: Hydrocodone-acetaminophen 5-325 mg, dispensed 2016, quantity 15, si tab q6h prn Oxycodone-acetaminophen 10-325 mg, dispensed 09/08/2015, quantity 100, si tab q6h prn Oxycodone-acetaminophen 7.5-325 mg, dispensed 04/24/2015, quantity 100, si tab q6h prn This may not necessarily represent a complete prescription history. Thanks, Aaron Gaitan, PharmD Ashtyn Govea MD - 01/12/2016 10:37 AM PDTFormatting of this note might be different from the origin al. Progress Notes by Betty Rivas MD at 01/12/16 1037 Author: Betty Rivas MD Service: (none) Author Type: Physician Filed: 01/12/16 1039 Date of Service: 01/12/16 1037 Status: Signed Site Head: Betty Rivas MD (Physician) [facility] Update: Called maria del carmen to give [...] Date of Service: 01/12/16 0733 Status: Signed Site Head: Betty Rivas MD (Physician) [facility] Medicine History and Physical Exam Patient: Lin Garcia Room: [place] [address] Admission Date: 01/11/2016 Primary Care Provider: File, Physician Not On Specialists: In [place] Chief Complaint: headache History Information: Obtained from: [...] TROY ANN Dictated: 01/11/2016 11:48 PM Job: [id number] Mr Brain Without And With Contrast 01/12/2016 1. No acute infarct, intracranial mass lesion, or hemorrhage. 2. No evidence of mesial temporal sclerosis. 3. Mild nonspecific supratentorial white matter changes. The differential diagnosis includes chronic microvascular ischemic changes, sequelae from chron ic migraine headaches or prior inflammation/infection, and demyelination. Dictated by: JANEY CORBETT Dictated: 01/12/2016 1:52 AM Job: [id number] Reason for Admission: Lin Garcia is a [...] tomorrow -unfortunately could not obtain records from [place] today as no fax available to receive re lease and they cannot release records without patient permission. PCP in [place] name Ad raya phone number [phone] -will stop wellbutrin; needs to switch to [...] -had pharmacy do search for prescriptions in [facility] (she has been here 9 days) and [...] Notes by Amy Gonzalez RN at 01/12/16 6857 Author: Amy Gonzalez RN Service: (none) Author Type: Registered Nurse Filed: 01/12/16 3301 Date of Service: 01/12/167 Status: Signed Site Head: Amy Gonzalez RN (Registered Nurse) Dr. Rivas returned page due to patient requesting to be discharged. This RN discussed discha rge instructions with Dr. Rivas, pt is able to sign out AMA and Imitrex will be prescribed if pt chooses. This RN went into patient's room, fitang at the bedside and speaking mostly for [...] e doesn't have to sign anything." Joby, charge histotechnologist, notified. Dr. Rivas notified. AMA paperwork signed by LORRI Wright, and this RN. Chloe Hollis RN - 01/12/2016 11:35 AM PDT ED Notes by Chloe Bentley RN at 01/12/16 2828 Author: Chloe Bentley RN Service: (none) Author Type: Registered Nurse Filed: 01/12/16 121 Date of Service: 01/12/16 1130 Status: Signed Site Head: Chloe Bentley RN (Registered Nurse) Report given and transferred care to Amy BLACKMON for break coverage. Chloe Cintron R N - 01/12/2016 11:15 AM PDT ED Notes by Chloe Bentley RN at 01/12/161114 Author: Chloe Bentley RN Service: (none) Author Type: Registered Nurse Filed: 01/12/166 Date of Service: 01/12/161114 Status: Signed Site Head: Chloe Bentley RN (Registered Nurse) Notified by admitting MD Rivas, pt.'s boyfriend will be arriving to ED and is angry regardin g pt boarding in the ED. Notified band shover Joby and Security. Upon arrival, pt and boyfriend with complains of treatment received while in ED. band shover Tim at bedside regarding complaints. Chloe Cintron R N - 01/12/2016 8:31 AM PDT ED Notes by Chloe Bentley RN at 01/12/16830 Author: Chloe Bentley RN Service: (none) Author Type: Registered Nurse Filed: 01/12/1636 Date of Service: 01/12/16830 Status: Signed Site Head: Chloe Bentley RN (Registered Nurse) PRN medication [...] ED Notes by Chloe Bentley RN at 01/12/16733 Author: Chloe Bentley RN Service: (none) Author Type: Registered Nurse Filed: 01/12/16742 Date of Service: 01/12/16733 Status: Signed Site Head: Chloe Bentley RN (Registered Nurse) Report received [...] 01/12/16635 Date of Service: 01/12/16634 Status: Signed Site Head: Pili Monk RN (Registered Nurse) This nurse brought a well flow operator with for pt's request to use the [...] 01/12/2016 5:22 AM PDT ED Notes by Piil Monk RN at 01/12/16521 Author: Pili Monk RN Service: (none) Author Type: Registered Nurse Filed: 01/12/16526 Date of Service: 01/12/16521 Status: Signed Site Head: Pili Monk RN (Registered Nurse) "I feel [...] 01/12/16516 Date of Service: 01/12/16515 Status: Signed Site Head: Pili Monk RN (Registered Nurse) Pt states [...] 01/12/16441 Date of Service: 01/12/16440 Status: Signed Site Head: Pili Monk RN (Registered Nurse) cyclic blood pressures, and continuous pulse ox. Siderails up x4 d/t seizure precautions, educated pt about the use of the call light use. B ed in low and locked position. Call light within reach. ili Monk R N - 01/12/2016 4:37 AM PDT ED Notes by Pili Monk RN at 01/12/16436 Author: Pili Monk RN Service: (none) Author Type: Registered Nurse Filed: 01/12/16440 Date of Service: 01/12/16436 Status: Signed Site Head: Pili Monk RN (Registered Nurse) Pt is [...] 01/12/168 Date of Service: 01/12/16356 Status: Signed Site Head: Ramonita Pickard RN (Registered Nurse) Patient ambulated to bathroom adjacent to her room with steady gait and without difficultie s. ili Monk RN - 01/12/2016 3:06 AM PDT ED Notes by Pili Monk RN at 01/12/16305 Author: Pili Monk RN Service: (none) Author Type: Registered Nurse Filed: 01/12/16309 Date of Service: 01/12/16305 Status: Signed Site Head: Pili Monk RN (Registered Nurse) Pt states [...] and is unhappy with h er care. Pili Mckeon R N - 01/12/2016 2:20 AM PDT ED Notes by Pili Monk RN at 01/12/16219 Author: Pili Monk RN Service: (none) Author Type: Registered Nurse Filed: 01/12/16219 Date of Service: 01/12/16219 Status: Signed Site Head: Pili Monk RN (Registered Nurse) Report from Lila BLACKMON. onversion Transact ion, Provider Unknown - 01/12/2016 1:55 AM PDTFormatting of this note might be different fr om the original. ED Notes by Lila Foster RN at 01/12/16 0155 Author: Lila Foster RN Service: (none) Author Type: Registered Nurse Filed: 01/12/16154 Date of Service: 01/12/16154 Status: Signed Site Head: Lila Foster RN (Registered Nurse) Pt back from MRI, awake and alert, shift lab technician to bedside for FSBS. onver samir Transaction, Provider Unknown - 01/12/2016 1:10 AM PDT ED Notes by Chelsea Palacios RN at 01/12/16109 Author: Chelsea Palacios RN Service: (none) Author Type: Registered Nurse Filed: 01/12/16109 Date of Service: 01/12/16109 Status: Signed Site Head: Chelsea Palacios RN (Registered Nurse) Gave report and transferred care to Lila BLACKMON. onver samir Transaction, Provider Unknown - 01/12/2016 12:57 AM PDT ED Notes by Chelsea Palacios RN at 01/12/1656 Author: Chelsea Palacios RN Service: (none) Author Type: Registered Nurse Filed: 01/12/1657 Date of Service: 01/12/1656 Status: Signed Site Head: Chelsea Palacios RN (Registered Nurse) BF returned to bedside. Updated on plan of care regarding pt and her estimated time of retu rn. onver samir Transaction, Provider Unknown - 01/12/2016 12:40 AM PDT ED Notes by Chelsea Palacios RN at 01/12/1639 Author: Chelsea Palacios RN Service: (none) Author Type: Registered Nurse Filed: 01/12/1639 Date of Service: 01/12/1639 Status: Signed Site Head: Chelsea Palacios RN (Registered Nurse) Pt transported to [facility] by tech via wheelchair. onver samir Transaction, Provider Unknown - 01/11/2016 11:55 PM PDT ED Notes by Chelsea Palacios RN at 01/11/162354 Author: Chelsea Palacios RN Service: (none) Author Type: Registered Nurse Filed: 01/12/16 0015 Date of Service: 01/11/162354 Status: Signed Site Head: Chelsea Palacios RN (Registered Nurse) During reassessment of blood glucose, pt reported chest discomfort. When asked if this is n ew pt stated she mentioned this during her earlier visit when she was treated but the pain n ever went away. This RN asked pt if there was any other pain or complaints she has and pt re port continued headache. onivonne samir Transaction, Provider Unknown - 01/11/2016 11:24 PM PDT ED Notes by Chelsea Palaciso RN at 01/11/162323 Author: Chelsea Palacios RN Service: (none) Author Type: Registered Nurse Filed: 01/11/162326 Date of Service: 01/11/162323 Status: Signed Site Head: Chelsea Palacios RN (Registered Nurse) Pt initially [...] 0406 Date of Service: 01/11/162316 Status: Signed Site Head: Vincent Vazquez MD (Physician) ED Note [facility] Chief Complaint Physician: Vincent Vazquez [...] ng/mL POCT GROUP 12 (HGB,HCT,ICA,NA,K,CL,GLUC,BUN,CREAT,TCO2,GFR,ANION GAP) - [facility] Collection Time: 01/11/16 10:48 PM Result Value [...] 01/11/162211 Date of Service: 01/11/162209 Status: Signed Site Head: Ramonita Pickard RN (Registered Nurse) ED Triage Note Lin Garcia 41 y.o. female presents in the ED after a 20 second seizure, witnessed by saundra french. Patient was standing up, felt dizzy, had visual disturbance and suddenly had seiz ure. Patient does not remember seizure. She is A/O x4 at triage. 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 Patient denies history of seizures, was seen [...] testdirectory | | | | | | at:[email or web address] | | | | | | g/Services/Turkmen-Labor | | | | | | micaela-Services/[facility]ac[employer] | | | | | | ab#[id number] | | | | + + + [...] | | | demyelination. Dictated by: MARS CORBETT Dictated: | | | 01/12/2016 1:52 AM Job: [id number] | | + + + + + [...] Caicedo | | LANCASTERDictated: 01/12/2016 1:52 AMJob: [id number] | |nonspecific finding. The hippocampi appear symmetric [...] | |Dictated: 01/12/2016 1:52 AM | |Job: [id number] | + + CT Head wo Contrast (01/11/2016 11:36 PM PDT) + + | Specimen | + + | | + + + + + | Impressions | Performed At | + + + | Negative head CT. [facility] Dictated by: TROY ANN | | | Dictated: 01/11/2016 11:48 PM Job: [id number] | | + + + + + [...] Dictated: 01/11/2016 11:48 PM | | Job: [id number] | + + ECG 12 lead (01/11/2016 [...] + + | Historically converted procedure from Turkmen Epic environment | EXTERNAL LAB | + [...]
--- OUTSIDE RECORDS SUMMARY | ~2020-05-18 | XMS | Encounter Summary ---
Demographics + + + | Address | [address] | | | [place] [address] | + + + | Home Phone [...] + | Author | [facility] | | | and [place] | + + + | Organization | [facility] | [...] Team Providers + +------+ + | Care Barrel Roller Name | Role | Phone | + +------+ + | Ced Lorenz MD | PCP | | + +------+ + Encounter Details +--------+ + + + + | Date | Type | Department | Care Team | Description | +--------+ + + + + | 09/08/ | [facility] Ariana RUDDYDevonte [place] | Mandeep Gillespie, | | | 2015 | Encounter | [facility] | | | | | | [facility] [address] | | | | | | [address] [facility], | | | | | | [place] [address] | | | | | | [phone] | | | +--------+ + + + [...]
--- OUTSIDE RECORDS SUMMARY | ~2020-05-18 | XMS | Encounter Summary ---
Demographics + + + | Address | [address] | | | [place] [address] | + + + | Home Phone [...] + + + | Author | [facility] | | | and [place] | + + + | Organization | [facility] | | | [...] Team Providers + +------+ + | Care Viscosity Inspector Name | Role | Phone | + +------+ + | Ced Lorenz MD | PCP | | + +------+ + Encounter Details +--------+ + + + + | Date | Type | Department | Care Team | Description | +--------+ + + + + | 02/13/ | [facility] Ariana RUDDYDevonte SALGADO | Mandeep Gillespie, | | | 2012 | Encounter | [facility] | | | | | | MEDICAL CLINIC [address] | | | | | | [address]TH [facility], | | | | | | [place] [address] | | | | | | [phone] | | | +--------+ + + + [...]
--- OUTSIDE RECORDS SUMMARY | ~2020-05-18 | XMS | Encounter Summary ---
Demographics + + + | Address | [address] | | | [place] [address] | + + + | Home Phone [...] + + | Author | [facility] [employer] [facility] | + + + | Organization | [facility] [employer] [facility] | + + + | Address | Unknown | + + + | Phone | Unavailable | + + + Support + + +---------+ + | Name | Relationship | Address | Phone | + + +---------+ + | Marlena Jonathan | ECON | Unknown | | + + +---------+ + Care Team Providers + +------+ + | Care Knockout Worker Name | Role | Phone | [...] | | | | | Jennifer [place], | | | | | | [place] [address] | | | +--------+--------+ + + + [...]
--- OUTSIDE RECORDS SUMMARY | ~2020-05-18 | XMS | Encounter Summary ---
Demographics + + + | Address | [address] | | | [place] [address] | + + + | Home Phone [...] | Author | [facility] | | | and [place] | + + + | Organization | [facility] [...] Team Providers + +------+ + | Care Ware Tester Name | Role | Phone | [...] + + | 09/10/ | Emergency | [facility] | Wilbert Claire, | Rotator cuff injury, | | 2019 | | [facility] | MD [address] | right, initial | | | | CENTER [address] | [place], [place] | encounter (Primary | | | | [place], [place] | [address] | Dx); Migraine | | | | [address] | | without aura and | | | | [phone] | | without status | | | [...] sent through Care Everywhere.Rotator Cuff Te ar (Moroccan)Headache, Migraine: Stages and Treatment (Moroccan)Ondansetron oral dissolving ta blet (Moroccan)documented in this encounter Medications at Time of [...] was seen at [facility] in [facility] and had a negative x-ray of the right shoulder. She states that her shoulder pa in is getting worse. She states that she went to [facility] and was told to come to the emergency department. This was last Tuesday. She has not had any loss of consciousness. N o numbness or weakness in the extremities. She is concerned because she has a history of a r ight internal carotid artery aneurysm. This has been stable for many years and she has had [facility] imagings of it over the years. PAST MEDICAL HISTORY Past Medical History: Diagnosis Date Chronic pelvic pain in female Depression Endometriosis Opioid dependence (HCC) Recovering alcoholic (HCC) SURGICAL HISTORY Past Surgical History: Procedure Laterality Date SECTION multiple DENTAL SURGERY all teeth LAPAROSCOPY Diagnostic CURRENT MEDICATIONS COMMISSARY AGENT Home Medications Medication Sig buPROPion (WELLBUTRIN SR) [...] Bilateral external ears normal, Oral mucosa moist, rpg developer ior pharynx no exudates, Nose normal. Neck-supple, [...] on this unenhanced scan. Signed by: Selena Live, Sim Sign Date/Time: 09/10/2019 11:05 PM ED COURSE & MEDICAL DECISION MAKING Pertinent Labs & Imaging studies reviewed. (See chart for details) Patient presented complaining of ongoing right shoulder pain. She was given a sling. She kearney s already had x-rays at [facility] that were negative. She appears to have [...] Zofran and should follow up with her [facility] care provider. Last Set of Vital Signs: Temp: 36.1 C (97 F) Pulse: 66 Resp: 18 SpO2: 96 % BP: 97/66 FINAL IMPRESSION 1. Rotator cuff injury, right, initial encounter 2. Migraine without aura and without status migrainosus, not intractable PLAN Follow-up Information Schedule an appointment as soon as possible for a visit with [facility]. Specialty: Primary Care Contact information: [address] [place] [address] Discharge Medication List as of 09/10/2019 [...] changes, states that she was seen at [facility] documented in this e ncounter Plan of [...] ON?/ | | | | | | 0 | | | 21:46? | | | WATCHM | | | AN, | | | LIN | | | ?MRN: | | | [id number] | | | [id number] | | | riteri | | | [...] | | | St. | | | [facility] | | | y | | | [...] | | | St. | | | [facility] | | | y | | | [...] | | | hawk | | | [place] | | | | | | Health | | | | | | Center | | | Collee | | | n | | | Thurma | | | n | | | HISTORY TEACHER?Te | | | am, | | | Yellow | | | hawk | | | [place] | | | | | | Health | | | | | | Center | | | | | | [phone] | | | [phone] | | | 7Flags | | | | | | [place] | | | ED | | | Dispar | | | ity | | | Measur | | | e - | | | [place] | | | has | | | [...] | | | s. | | | [place] | | | | | | Health [...] | | | By: | | | [place] | | | | | | Health [...] | | | St. | | | [facility] | | | y | | | [...] | | | St. | | | [facility] | | | y H. | | [...] | | | St. | | | [facility] | | | y H. | | [...] | | | St. | | | [facility] | | | y H. | | [...] | | | St. | | | [facility] | | | y H. | | [...] | | | St. | | | [facility] | | | y H. | | [...] | | | St. | | | [facility] | | | y H. | | [...] M.D. | | | | | | [employer] | | | al | | | [...] | | | | | Patient Address: [address] [place] [address], [place] [address], | | | | | | + [...]
--- OUTSIDE RECORDS SUMMARY | ~2020-05-18 | XMS | Encounter Summary ---
Demographics + + + | Address | [address] | | | [place] [address] | + + + | Home Phone [...] Author | [facility] | | | and [place] | + + + | Organization | [facility] Services [...] Team Providers + +------+ + | Care Stage Electrician Name | Role | Phone | + +------+ + | Ced Lorenz MD | PCP | | + +------+ + Encounter Details +--------+ + + + + | Date | Type | Department | Care Team | Description | +--------+ + + + + | 05/11/ | [facility] Ariana RUDDYDevonte SALGADO | Mandeep Gillespie, | | | 2017 | Encounter | [facility] | | | | | | MEDICAL CLINIC [address] | | | | | | [address] [facility], | | | | | | [place] [address] | | | | | | [phone] | | | +--------+ + + + [...]
--- OUTSIDE RECORDS SUMMARY | ~2020-05-18 | XMS | Encounter Summary ---
Demographics + + + | Address | [address] | | | [place] [address] | + + + | Home Phone [...] | Author | [facility] | | | and [place] | + + + | Organization | [facility] [...] Team Providers + +------+ + | Care Shipping Order Clerk Name | Role | Phone | [...] 2014 | | GASTROENTEROLOGY | [address], [place] | | | | | [address] [place] | [address] | | | | | [address] | [address] | | | | | [address] | | | | | | [phone] | | | +--------+ + + + [...] +--------+ + + + | EXTERNAL LAB: SABAS | Routin | 11/07/2014 | | Results [...] [address] | [place] | [phone] | | [facility] | | [address], [facility] | | | - LABORATORY | | [...] ST. | [address] | [place] | [phone] | | [facility] | | [address] | | | - LABORATORY | | [...]
--- OUTSIDE RECORDS SUMMARY | ~2020-05-18 | XMS | Encounter Summary ---
Demographics + + + | Address | [address] | | | [place] [address] | + + + | Home Phone [...] Author | [facility] | | | and [place] | + + + | Organization | [facility] Services [...] Team Providers + +------+ + | Care Radio Division Lieutenant Name | Role | Phone | + +------+ + | Ced Lorenz MD | PCP | | + +------+ + Encounter Details +--------+ + + + + | Date | Type | Department | Care Team | Description | +--------+ + + + + | 05/24/ | Hospital | [place] [facility] | Donell Osman | | | 2017 | Encounter | H[facility]PITAL LAB[facility]ORY | MD [address] | | | | | [address] [place] | [place] | | | | | [place] | [place] | | | | | [address] | [address] | | | | | [phone] | [phone] | | | | | | | [...]
--- OUTSIDE RECORDS SUMMARY | ~2020-05-18 | XMS | Encounter Summary ---
Demographics + + + | Address | [address] | | | [place] [address] | + + + | Home Phone [...] + + | Author | [facility] [employer] [facility] | + + + | Organization | [facility] [employer] [facility] | + + + | Address | Unknown | + + + | Phone | Unavailable | + + + Support + + +---------+ + | Name | Relationship | Address | Phone | + + +---------+ + | Marlena Jonathan | ECON | Unknown | | + + +---------+ + Care Team Providers + +------+ + | Care Load Out Person Name | Role | Phone | + +------+ + | Rhonda Watkins | PCP | | + +------+ + Encounter Details +--------+ + + + + | Date | Type | Department | Care Team | Description | +--------+ + + + + | 04/09/ | Outside | UNKNOWN DEPARTMENT | Other, Faculty | | | 2019 | Records | [address] [facility] | [phone] | | | | | [address] | | | | | | [place], [place] | | | | | | [address] | | | +--------+ + + + [...]
--- OUTSIDE RECORDS SUMMARY | ~2020-05-18 | XMS | Encounter Summary ---
Demographics + + + | Address | [address] | | | [place] [address] | + + + | Home Phone [...] + + | Author | [facility] | [...] Team Providers + +------+ + | Care Aluminum Boat Inspector Name | Role | Phone | [...] | | | | [address] [facility] [place], | | | | | | [place] [address] | | | | | | [phone] | | | +--------+ + + + [...] please call me back. When pt calls hospital for special care, Please give her Dr. Gillespie's mssg above. Thanks sls elephone Encounter - Riri Abreu LPN - 2016 9:47 AM PSTPt asks if alcoholism can be removed from current problem list? (states s he no longer has a drinking problem) Isn't alcoholism a life long disease? Pls advise . Thanks sls elep andi Encounter - Elida Weinberg CC SHUTDOWN COORDINATOR - 07/04/2017 9:09 AM PSTWhile patient was checking out after the appointment she brought her problem list with some concerns about what is lis nemo. She would like the alcohol abuse taken off as she doesn't drink anymore. She stated madeleine t she is working on the opiate addiction. I let her know only PCP can change these.Emigdio portillo signed by MOISES Higginbotham CMA at 07/04/2017 9:13 AM PSTdocumented in this encounte r Plan of Treatment Not on filedocumented as of this encounter Visit Diagnoses Not on filedocumented in this encounter"
--- OUTSIDE RECORDS SUMMARY | ~2020-05-18 | XMS | Encounter Summary ---
Demographics + + + | Address | [address] | | | [place] [address] | + + + | Home Phone [...] | Author | [facility] | | | and [place] | + + + | Organization | [facility] [...] Team Providers + +------+ + | Care Gynecologist Name | Role | Phone | + [...] + + | 05/02/ | Telephone | [facility] | Leoncio Valdivia DO | Referral Question | | 2019 | | NEUROSURGERY [address] | | | | | [address] | [address] | | | | | [place], [place] | [place] [address] | | | | | [address] | [phone] | | | | | [phone] | | | +--------+ + + + [...] Marilu Alvarez - 05/03/2019 2:13 PM PDTReturned call, Eleonora strange tatolivia referral is for neurosurgery. I explained it is in review with Dr. Valdivia and we'll se e how he would like to proceed. elephone Encounter - Taryn Cleary Cuauhtemoc - 05/02/2019 8:44 AM PDTAlecia- Heraclio Garcia , is calling regarding Referral Question and would like a call back. Additional Call Details: Caller states they were wanting for the referral to go to neurolo gy instead, and is needing to speak with a front desk coordinator. Please call her back at [phone]. If this is a symptom based call, was patient offered triage? Not Applicable If this is a symptom based call and you were unable to immediately transfer the call to a cuauhtemoc rasheed electric repair supervisor was caller made aware that if at any time she feels it is an emergency they sh ould call 911 or go to the nearest emergency room? not applicable documented in this encounter Plan of Treatment Not on filedocumented as of this encounter Visit Diagnoses Not on filedocumented in this encounter"
--- OUTSIDE RECORDS SUMMARY | ~2020-05-18 | XMS | Encounter Summary ---
Demographics + + + | Address | [address] | | | [place] [address] | + + + | Home Phone [...] | [facility] [...] Providers + +------+ + | Care Senior Education Specialist Name | Role | Phone | + +------+ + | Ced Lorenz MD | PCP | | + +------+ + Encounter Details +--------+ + + + + | Date | Type | Department | Care Team | Description | +--------+ + + + + | 02/07/ | [facility] | [facility] | Vanessa Clay NP | | | 2017 | Encounter | [facility] | [address] | | | | | [facility] [address] | [place], [place] | | | | | [address] [place], | [address] | | | | | [place] [address] | [phone] | | | | | [phone] | | | +--------+ + + + [...]
[~2020-05-18 03:14] MED LIST changes: +PREDNISONE20 MG PO
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
== END 2020-05-18 04:13 | disposition home or self-care (01) ==
LOC: ED 03:14
DX: J20.9 Acute bronchitis, unspecified (principal); G43.909 Migraine, unspecified, not intractable, without status migrainosus; J45.909 Unspecified asthma, uncomplicated; F17.200 Nicotine dependence, unspecified, uncomplicated; Z88.5 Allergy status to narcotic agent; Z88.8 Allergy status to other drugs, medicaments and biological substances; Z88.6 Allergy status to analgesic agent; Z79.899 Other long term (current) drug therapy
CPT/HCPCS: 71045; 99283-25

== ENCOUNTER 2020-08-05 02:44 | Emergency (ER) | payer OTHER ==
[~2020-08-05] VITALS: Ht 160 cm; Wt 55.3 kg
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
== END 2020-08-05 05:20 | disposition home or self-care (01) ==
LOC: ED 02:44
DX: S09.90XA Unspecified injury of head, initial encounter (principal); J45.909 Unspecified asthma, uncomplicated; F17.200 Nicotine dependence, unspecified, uncomplicated; Z88.8 Allergy status to other drugs, medicaments and biological substances; Z88.6 Allergy status to analgesic agent; Z88.5 Allergy status to narcotic agent; Z79.899 Other long term (current) drug therapy; W22.8XXA Striking against or struck by other objects, initial encounter
CPT/HCPCS: 70450; 99284-25

== ENCOUNTER 2021-06-17 09:31 | Emergency (ER) | payer OTHER ==
[~2021-06-17] VITALS: Ht 160 cm; Wt 51.7 kg
--- OUTSIDE RECORDS SUMMARY | 2021-06-17 09:36 | XMS ---
PreManage Notification: JADEN BOYLE Security Ham Trimmer Events No recent Security Events currently on file CRITERIA MET - Group Notification CARE PROVIDERS Ced Lorenz MD Family Medicine 12/18/2018-Current PHONE: [phone] Mandeep DIAZ Internal Medicine Current PHONE: Unknown ESTRELLITA MONTENEGRO Registered Nurse: [facility] 06/14/2018-Current SONDRA PHONE: [phone] MELO ALEJO [facility] Current PHONE: Unknown [facility] 06/18/2019-[facility] PHONE: [phone] Sebastian has no Care Guidelines for this patient. 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 \T\middot;\T\nbsp; PLEASE REFER PATIENT TO [facility] FOR NON EMERGENT MEDICAL NEEDS. \T\middot;\ T\nbsp; [facility] CAN SEE PATIENTS SAME DAY FOR APTS IF PATIENT CALLS FIRST THING IN THE MORNING. 10/30/2018 [facility] - [facility] CALLED [phone] AND THE INDIVIDUAL WHO ANSWERED THE PHONE STATED THAT IT IS NOT THE CORRECT CONTACT NUMBER AND TO NOT CALL AGAIN. - PHONE NUMBER PROVIDER IS NOT VALID FOR CONTACTING PATIENT. E.D. VISIT COUNT (12 MO.) 2 [facility]. TOTAL 2 NOTE: Visits indicate total known visits. ED/UCC VISIT TRACKING (12 MO.) 06/17/2021 09:33 [facility] [place] TYPE: Emergency COMPLAINT: - FALL, DIZZY, HEADACHES, R SIDE HEAD NUMBNESS 08/05/2020 02:44 [facility] [place] TYPE: Emergency COMPLAINT: - POSSIBLE HEAD INJURY DIAGNOSES: - Nicotine dependence, unspecified, uncomplicated - Other assisted (current) drug therapy - Allergy status to analgesic agent - Unspecified injury of head, initial encounter - Allergy status to other drugs, medicaments and biological substances - Allergy status to narcotic agent - Unspecified asthma, uncomplicated - Striking against or struck by other objects, initial encounter INPATIENT VISIT TRACKING (12 MO.) No inpatient visits to display in this time frame [email or web address]
[2021-06-17] MEDS ORDERED: BACTRIM DS TAB1 EACH PO (13:11)
--- NOTE | 2021-06-19 09:49 | EKG ---
[facility] [address] [facility] [place] [address] Signed Normal sinus rhythm Left axis deviation Abnormal ECG When compared with ECG of 08-APR-2019 09:54, T wave inversion no longer evident in Anterior leads QT has shortened Confirmed by GEOGRETTE JENSEN MD ([id number]) on 06/19/2021 9:49:34 AM Electronically Signed By: GEORGETTE JENSEN MD 06/19/21 0949 PATIENT NAME: JADEN BOYLE Electrocardiogram DATE OF : 77 PHYSICIAN: GEORGETTE JENSEN MD REPORT #: [id number] REPORT IS CONFIDENTIAL AND NOT TO BE RELEASED WITHOUT AUTHORIZATION
== END 2021-06-17 13:45 | disposition home or self-care (01) ==
LOC: ED 09:31
DX: R55 Syncope and collapse (principal); N39.0 Urinary tract infection, site not specified; J45.909 Unspecified asthma, uncomplicated; G43.909 Migraine, unspecified, not intractable, without status migrainosus; F17.200 Nicotine dependence, unspecified, uncomplicated; Z88.6 Allergy status to analgesic agent; Z88.8 Allergy status to other drugs, medicaments and biological substances; Z88.5 Allergy status to narcotic agent; Z79.899 Other long term (current) drug therapy
CPT/HCPCS: 70496; 80053; 81001; 83735; 84443; 84484; 85025; 87088; 93005; 93010; 99284-25; Q9967